=== PATIENT | male | born 1955 | race Caucasian/White ===

== ENCOUNTER 2018-11-03 07:19 | Day surgery (SDC) | payer MEDICAID ==
[2018-11-03] MEDS: Sodium Chloride 0.9% 10 ML Syringe FLUSH PRN (08:16)
[2018-11-03 09:31] VITALS: BP 157/81
--- NOTE | 2018-11-03 12:54 | OR ---
DATE OF PROCEDURE: 11/03/2018 POSTOPERATIVE CARE: Postoperative care will be provided mainly at the [address] [place] [address] [facility] in conjunction with [facility]. PREOPERATIVE DIAGNOSIS: Cataract, left eye. POSTOPERATIVE DIAGNOSIS: Cataract, left eye. PROCEDURE: Phacoemulsification with intraocular lens placement, left eye. ANESTHESIA: Topical and intracameral. ESTIMATED BLOOD LOSS: Minimal. COMPLICATIONS: None. PATHOLOGY SPECIMENS: None. SURGICAL FINDINGS: None. INDICATION FOR PROCEDURE: The patient is a 63-year-old male with history of a visually significant cataract in the left eye, which interfered with activities of daily living. This consisted of a nuclear sclerosis cataract. Following careful discussion of the risks, benefits and alternatives to cataract extraction with intraocular lens placement including blindness and , the patient elected to proceed, and informed, written consent was obtained prior to the procedure. DESCRIPTION OF THE PROCEDURE: The patient was previously identified, and a babita placed above the left eye. All sources, including the patient, indicated that the left eye was the correct eye. The patient was subsequently taken to the operating room where standard monitors were applied. The patient was then prepped and draped in the usual sterile fashion for ophthalmic surgery. Attention was first directed at the 12 o'clock position where a paracentesis port was fashioned. Shugar solution followed by Viscoat was instilled into the eye. Attention was then directed to the 8:30 position where a triplanar incision was made in a near-clear manner using a keratome. A continuous capsulorrhexis was then made using a combination of the cystotome and Utrata forceps. Hydrodissection was achieved using a balanced salt solution, and the lens rotated nicely. Phacoemulsification was then done using a modified [id number] technique without complication. Phaco time was 10.99 CDE. The remaining cortex was removed using the irrigation/aspiration handpiece. Provisc was then instilled into the eye. A Technis lens, model [id number], at 21.5 diopters was then placed in the capsular bag using an [place] injector. The remaining viscoelastic was removed using the irrigation/aspiration forceps. All wounds were then checked and found to be watertight. The lid speculum and drapes were removed. Maxitrol ointment was placed in the patient's left eye, and the eye was shielded. The patient tolerated the procedure well. The patient was instructed to follow up tomorrow. All needle and sponge counts were correct at the end of the procedure. Sylvia Segal MD /[id number]
== END 2018-11-03 09:34 | disposition home or self-care (01) ==
LOC: JP.SDS 07:19
PROVIDERS: ATTEND Ophthalmology
DX: H25.12 Age-related nuclear cataract, left eye (principal); I10 Essential (primary) hypertension; Z87.891 Personal history of nicotine dependence
CPT/HCPCS: V2632

== ENCOUNTER 2018-11-17 07:22 | Day surgery (SDC) | payer MEDICAID ==
[~2018-11-17 07:22] MED LIST: Sodium Chloride 0.9% 10 ML Syringe FLUSH PRN
[2018-11-17] MEDS ORDERED: Sodium Chloride 0.9% 10 ML Syringe FLUSH PRN (08:30)
[2018-11-17 09:05] VITALS: BP 122/69
--- NOTE | 2018-11-17 13:19 | OR ---
DATE OF PROCEDURE: 11/17/2018 POSTOPERATIVE CARE: Postoperative care will be provided mainly at the [address] [place] [address] [facility] in conjunction with [facility]. PREOPERATIVE DIAGNOSIS: Cataract, right eye. POSTOPERATIVE DIAGNOSIS: Cataract, right eye. PROCEDURE: Phacoemulsification with intraocular lens placement, right eye. ANESTHESIA: Topical and intracameral. ESTIMATED BLOOD LOSS: Minimal. COMPLICATIONS: None. PATHOLOGY SPECIMENS: None. SURGICAL FINDINGS: None. INDICATION FOR PROCEDURE: The patient is a 63-year-old male with history of a visually significant cataract in the right eye, which interfered with activities of daily living. This consisted of a nuclear sclerosis cataract. Following careful discussion of the risks, benefits and alternatives to cataract extraction with intraocular lens placement including blindness and , the patient elected to proceed, and informed, written consent was obtained prior to the procedure. DESCRIPTION OF THE PROCEDURE: The patient was previously identified, and a babita placed above the right eye. All sources, including the patient, indicated that the right eye was the correct eye. The patient was subsequently taken to the operating room where standard monitors were applied. The patient was then prepped and draped in the usual sterile fashion for ophthalmic surgery. Attention was first directed at the 12 o'clock position where a paracentesis port was fashioned. Shugar solution followed by Viscoat was instilled into the eye. Attention was then directed to the 8:30 position where a triplanar incision was made in a near-clear manner using a keratome. A continuous capsulorrhexis was then made using a combination of the cystotome and Utrata forceps. Hydrodissection was achieved using a balanced salt solution, and the lens rotated nicely. Phacoemulsification was then done using a modified [id number] technique without complication. Phaco time was 9.98 CDE. The remaining cortex was removed using the irrigation/aspiration handpiece. Provisc was then instilled into the eye. A Technis lens, model [id number], at 21.5 Diopters was then placed in the capsular bag using an [place] injector. The remaining viscoelastic was removed using the irrigation/aspiration forceps. All wounds were then checked and found to be watertight. The lid speculum and drapes were removed. Maxitrol ointment was placed in the patient's right eye, and the eye was shielded. The patient tolerated the procedure well. The patient was instructed to follow up tomorrow. All needle and sponge counts were correct at the end of the procedure. There were no surgical findings. Sylvia Segal MD /[id number]
== END 2018-11-17 09:15 | disposition home or self-care (01) ==
LOC: JP.SDS 07:22
PROVIDERS: ATTEND Ophthalmology
DX: H26.9 Unspecified cataract (principal)
CPT/HCPCS: 66984; V2632

== ENCOUNTER 2019-02-01 11:33 | Inpatient (IN) | payer MEDICAID ==
[2019-02-01] MEDS ORDERED: Diphtheria,Pertussis(Acell),Tetanus Vaccine 0.5 ML SDV IM ONE (12:10)
[2019-02-01] MEDS ORDERED: Lactated Ringers 1,000 ML IV SCH ×2 (12:15→22:21)
[2019-02-01] MEDS ORDERED: Acetaminophen/HYDROcodone 325-5 MG Tab PO ONE (12:34)
[2019-02-01] MEDS ORDERED: Ketorolac 30 MG/ML SDV IVPUSH ONE (12:34)
[2019-02-01] MEDS ORDERED: Metoprolol Succinate 50 MG Tab.ER PO ONE (12:39)
--- NOTE | 2019-02-01 12:40 | EDM.PDOC ---
ED HPI GENERAL MEDICAL PROBLEM - General Chief Complaint: General Stated Complaint: WEAKNESS Time Seen by Provider: 02/01/19 12:25 Source of Information: Reports: Patient, EMS, Old Records, RN History Limitations: Reports: No Limitations - History of Present Illness INITIAL COMMENTS - FREE TEXT/NARRATIVE: 63 yo male is brought in from his home after he fell last night and was unable to get up off the floor. Has some unilateral weakness chronically from an old neck injury. Lives alone. Is very weak now after spending the night on the floor without food/water. A health and social care teacher found him on the floor today. Has not had any of his meds today. Onset: Today Onset Date: 02/01/19 Duration: Hour(s):, Constant Location: Reports: Generalized (weakness) Quality: Reports: Other (chronic neck and back pain) Severity: Moderate Improves with: Reports: Medication Worsens with: Reports: Other (missing meds) Context: Reports: Other (see HPI) Associated Symptoms: Reports: Weakness (diffuse/generalized). Denies: Fever/ Chills Treatments STRIPPER SOFT PLASTIC: Reports: Other (see below) (none) Right Chest Pain Score (Numeric/FACES): 8 - Related Data Allergies Allergy/AdvReac Type Severity Reaction Status Date / Time No Known Allergies Allergy Verified 02/01/19 11:50 Home Meds: Home Meds Cyclobenzaprine HCl [Flexeril] 10 mg PO TID PRN 05/17/13 [History] Furosemide [Lasix] 20 mg PO DAILY 05/17/13 [History] Hydrocortisone [Cortef] 10 mg PO ACBRK 05/17/13 [History] Morphine [MS Contin] 15 mg PO Q12HR 05/17/13 [History] Metoprolol Succinate 50 mg PO DAILY 06/07/16 [History] Aspirin [Adult Aspirin] 81 mg PO DAILY 06/22/18 [History] Acetaminophen/HYDROcodone [[place] 325-5 MG] 1 tab PO Q4HR PRN 11/15/18 [History] Lifitegrast [Xiidra] 1 drop EYEBOTH QID 11/15/18 [History] Moxifloxacin [Vigamox 0.5% Ophth Soln] 1 drop EYEBOTH BID 11/15/18 [History] Tobramycin 1 drop EYEBOTH BID 11/15/18 [History] prednisoLONE acetate [Pred Forte 1% Ophth Susp] 1 drop EYEBOTH BID 11/15/18 [ History] Past Medical History HEENT History: Reports: Cataract, Impaired Vision Cardiovascular History: Reports: Hypertension, SOB on Exertion, Other (See Below ) Other Cardiovascular History: leaky valve Gastrointestinal History: Reports: Chronic Constipation Genitourinary History: Reports: None Musculoskeletal History: Reports: Arthritis, Back Pain, Chronic, Fracture, Neck Pain, Chronic Endocrine/Metabolic History: Reports: Obesity/BMI 30+ Hematologic History: Reports: Blood Transfusion(s) Dermatologic History: Reports: Eczema - Infectious Disease History Infectious Disease History: Reports: Chicken Pox, Measles, Mumps, Rubella - Past Surgical History HEENT Surgical History: Reports: Cataract Surgery GI Surgical History: Reports: Colonoscopy Neurological Surgical History: Reports: Lumbar Spine Musculoskeletal Surgical History: Reports: Arthroscopic Knee, Other (See Below) Other Musculoskeletal Surgeries/Procedures:: crushed vertibrae. neck surgery. right knee surgery Social & Family History - Family History Family Medical History: Noncontributory - Tobacco Use Smoking Status *Q: Never Smoker - Caffeine Use Caffeine Use: Reports: Coffee, Tea - Alcohol Use Days Per Week of Alcohol Use: 7 Number of Drinks Per Day: 2 Total Drinks Per Week: 14 - Recreational Drug Use Recreational Drug Use: No ED ROS GENERAL - Review of Systems Review Of Systems: See Below Constitutional: Reports: Weakness HEENT: Reports: No Symptoms Respiratory: Reports: No Symptoms Cardiovascular: Reports: No Symptoms Endocrine: Reports: No Symptoms GI/Abdominal: Reports: No Symptoms : Reports: No Symptoms Musculoskeletal: Reports: Neck Pain (chronic), Back Pain (chronic) Skin: Reports: Wound (R forearm and L cheek) Neurological: Reports: Weakness (R arm and leg chronically) Psychiatric: Reports: No Symptoms ED EXAM, GENERAL - Physical Exam Exam: See Below Exam Limited By: Uncooperative General Appearance: Alert, No Apparent Distress Eye Exam: Right Eye: Other (partially swollen shut from swelling of cheek contusion) Ears: Normal External Exam, Normal Canal, Hearing Grossly Normal Ear Exam: Bilateral Ear: Auricle Normal, Canal Normal Nose: Normal Inspection, No Blood Throat/Mouth: Normal Inspection, Normal Lips, Normal Voice, No Airway Compromise Head: Facial Swelling (R cheek), Facial Tenderness (R cheek) Neck: Normal Inspection, Limited Range of Motion (due to chronic neck issues) Respiratory/Chest: No Respiratory Distress, Lungs Clear, Normal Breath Sounds, No Accessory Muscle Use Cardiovascular: Regular Rate, Rhythm, No Edema GI/Abdominal: Normal Bowel Sounds, Soft, Non-Tender, No Distention Back Exam: Normal Inspection. No: CVA Tenderness (R), CVA Tenderness (L) Extremities: Normal Inspection, Normal Range of Motion, Non-Tender, No Pedal Edema Neurological: Alert, Oriented, CN II-XII Intact, Normal Cognition Psychiatric: Normal Affect, Normal Mood Skin Exam: Warm, Dry, Normal Color, No Rash, Wound/Incision (skin tear R lateral forearm, bruising R cheek) Course - Vital Signs Text/Narrative:: Dr. Adorno called @ 1332h Last Recorded V/S: Last Vital Signs Temp 36.9 C 02/01/19 11:49 Pulse 100 02/01/19 15:41 Resp 20 02/01/19 14:07 BP 141/79 H 02/01/19 15:41 Pulse Ox 95 02/01/19 15:41 - Orders/Labs/Meds Orders: Active Orders 24 hr Category Date Time Status Vaccines to be Administered [RC] PER UNIT ROUTINE Care 02/01/19 12:10 Active Lactated Ringers [Ringers, Lactated] 1,000 ml Med 02/01/19 12:15 Active IV ASDIRECTED Medication Orders Lactated Ringer's (Ringers, Lactated) 1,000 mls @ 500 mls/hr IV ASDIRECTED NIKHIL Last Admin: 02/01/19 13:33 Dose: 500 mls/hr Labs: Laboratory Tests 02/01/19 02/01/19 02/01/19 Range/Units 12:24 12:48 12:48 WBC 11.6 H (4.5-11.0) K/uL RBC 4.70 (4.30-5.90) M/uL Hgb 14.0 (12.0-15.0) g/dL Hct 41.9 (40.0-54.0) % MCV 89 (80-98) fL MCH 30 (27-31) pg MCHC 33 (32-36) % Plt Count 168 (150-400) K/uL Sodium 135 L (140-148) mmol/L Potassium 3.3 L (3.6-5.2) mmol/L Chloride 99 L (100-108) mmol/L Carbon Dioxide 24 (21-32) mmol/L Anion Gap 15.3 H (5.0-14.0) mmol/L BUN 8 (7-18) mg/dL Creatinine 1.1 (0.8-1.3) mg/dL Est Cr Clr Drug Dosing 74.46 mL/min Estimated GFR (MDRD) > 60 (>60) Glucose 119 H (74-106) mg/dL Calcium 8.7 (8.5-10.1) mg/dL Creatine Kinase (39-308) U/L Urine Color Yellow Urine Appearance Slightly cloudy Urine pH 5.0 (4.5-8.0) Ur Specific [place] 1.020 (1.008-1.030) Urine Protein Trace (NEGATIVE) mg/dL Urine Glucose (UA) Normal (NEGATIVE) mg/dL Urine Ketones 50 H (NEGATIVE) mg/dL Urine Occult Blood Large (NEGATIVE) Urine Nitrite Negative (NEGAITVE) Urine Bilirubin Negative (NEGATIVE) Urine Urobilinogen Normal (NORMAL) mg/dL Ur Leukocyte Esterase Negative (NEGATIVE) Urine RBC 50-75 H (0-5) Urine WBC 0-5 (0-5) Ur Epithelial Cells Rare Amorphous Sediment Not seen Urine Bacteria Not seen Urine Mucus Not seen Urine Other 02/01/19 Range/Units 12:48 WBC (4.5-11.0) K/uL RBC (4.30-5.90) M/uL Hgb (12.0-15.0) g/dL Hct (40.0-54.0) % MCV (80-98) fL MCH (27-31) pg MCHC (32-36) % Plt Count (150-400) K/uL Sodium (140-148) mmol/L Potassium (3.6-5.2) mmol/L Chloride (100-108) mmol/L Carbon Dioxide (21-32) mmol/L Anion Gap (5.0-14.0) mmol/L BUN (7-18) mg/dL Creatinine (0.8-1.3) mg/dL Est Cr Clr Drug Dosing mL/min Estimated GFR (MDRD) (>60) Glucose (74-106) mg/dL Calcium (8.5-10.1) mg/dL Creatine Kinase 2107 H (39-308) U/L Urine Color Urine Appearance Urine pH (4.5-8.0) Ur Specific [place] (1.008-1.030) Urine Protein (NEGATIVE) mg/dL Urine Glucose (UA) (NEGATIVE) mg/dL Urine Ketones (NEGATIVE) mg/dL Urine Occult Blood (NEGATIVE) Urine Nitrite (NEGAITVE) Urine Bilirubin (NEGATIVE) Urine Urobilinogen (NORMAL) mg/dL Ur Leukocyte Esterase (NEGATIVE) Urine RBC (0-5) Urine WBC (0-5) Ur Epithelial Cells Amorphous Sediment Urine Bacteria Urine Mucus Urine Other Meds: Medications Generic Name Dose Route Start Last Admin Trade Name Freq PRN Reason Stop Dose Admin Lactated Ringer's 1,000 mls @ 500 mls/hr 02/01/19 12:15 02/01/19 13:33 Ringers, Lactated IV 500 mls/hr ASDIRECTED NIKHIL Administration Discontinued Medications Generic Name Dose Route Start Last Admin Trade Name Freq PRN Reason Stop Dose Admin Hydrocodone Bitart/Acetaminophen 1 tab 02/01/19 12:34 02/01/19 13:22 [place] 325-5 Mg PO 02/01/19 12:35 1 tab ONETIME ONE Administration Bacitracin 2 dose 02/01/19 13:38 Bacitracin Oint 1 Gm TOP 02/01/19 13:39 ONETIME ONE Bacitracin 2 dose 02/01/19 16:00 Bacitracin Oint 1 Gm TOP 02/01/19 16:01 ONETIME ONE Diphtheria/Tetanus/Acell Pertussis 0.5 ml 02/01/19 12:10 02/01/19 13:24 Adacel IM 02/01/19 12:11 0.5 ml .ONCE ONE Administration Hydrocortisone 10 mg 02/01/19 12:38 02/01/19 13:50 Cortef PO 02/01/19 12:39 10 mg NOW STA Administration Ketorolac Tromethamine 30 mg 02/01/19 12:34 02/01/19 13:23 Toradol IVPUSH 02/01/19 12:35 30 mg ONETIME ONE Administration Metoprolol Succinate 50 mg 02/01/19 12:39 02/01/19 13:49 Toprol Xl PO 02/01/19 12:40 50 mg ONETIME ONE Administration Departure - Departure Time of Disposition: 16:16 Disposition: Admitted As Inpatient 65 Condition: Fair Clinical Impression: Elevated CPK, Microscopic hematuria, Bruising, Hypokalemia Skin tear of right forearm without complication Qualifiers: Encounter type: initial encounter Qualified Code(s): S51.811A - Laceration without foreign body of right forearm, initial encounter - Discharge Information - My Orders Last 24 Hours: My Active Orders 02/01/19 12:10 Vaccines to be Administered [RC] PER UNIT ROUTINE 02/01/19 12:15 Lactated Ringers [Ringers, Lactated] 1,000 ml IV ASDIRECTED - Assessment/Plan Last 24 Hours: My Active Orders 02/01/19 12:10 Vaccines to be Administered [RC] PER UNIT ROUTINE 02/01/19 12:15 Lactated Ringers [Ringers, Lactated] 1,000 ml IV ASDIRECTED
[2019-02-01] MEDS ORDERED: Bacitracin Oint 1 GM U/D Packet TOP ONE ×2 (13:38→16:00)
--- NOTE | 2019-02-01 15:02 | PCM.HP ---
H&P History of Present Illness - General Date of Service: 02/01/19 Admit Problem/Dx: Admission Diagnosis/Problem Admission Diagnosis/Problem Rhabdomyolysis Source of Information: Patient, Provider, RN Notes Reviewed History Limitations: Reports: No Limitations - History of Present Illness Initial Comments - Free Text/Narative: Mr. Wilcox is a 63-year-old gentleman who was admitted through the emergency department with rhabdomyolysis secondary to a fall suffered at home. He has a history of right-sided weakness following a cervical spinal cord injury and typically walks with use of a cane. He has very limited use of his right upper extremity. When he moves around the house typically uses things in the house to support himself, instead of using a cane. Last night he is leaning onto a chair by his bed that was covered by a shirt. The shirt slipped off the chair and he fell to the ground hitting his head on the bed stand on the way down. Because of his right-sided weakness he was unable to get up off the floor spent the night there. He was found in the late morning and brought into the emergency department for further evaluation. Urinalysis shows evidence of microscopic hematuria which will need to be followed and likely further evaluated. CK level was elevated at 2100. He experienced significant bruising and ecchymosis of his right face, with a skin tear on his right forearm. Right Chest Pain Score (Numeric/FACES): 8 - Related Data Allergies/Adverse Reactions: Allergies Allergy/AdvReac Type Severity Reaction Status Date / Time No Known Allergies Allergy Verified 02/01/19 11:50 Home Medications: Home Meds Cyclobenzaprine HCl [Flexeril] 10 mg PO TID PRN 05/17/13 [History] Furosemide [Lasix] 20 mg PO DAILY 05/17/13 [History] Hydrocortisone [Cortef] 10 mg PO ACBRK 05/17/13 [History] Morphine [MS Contin] 15 mg PO Q12HR 05/17/13 [History] Metoprolol Succinate 50 mg PO DAILY 06/07/16 [History] Aspirin [Adult Aspirin] 81 mg PO DAILY 06/22/18 [History] Acetaminophen/HYDROcodone [[place] 325-5 MG] 1 tab PO Q4HR PRN 11/15/18 [History] Lifitegrast [Xiidra] 1 drop EYEBOTH QID 11/15/18 [History] Moxifloxacin [Vigamox 0.5% Ophth Soln] 1 drop EYEBOTH BID 11/15/18 [History] Tobramycin 1 drop EYEBOTH BID 11/15/18 [History] prednisoLONE acetate [Pred Forte 1% Ophth Susp] 1 drop EYEBOTH BID 11/15/18 [ History] Past Medical History HEENT History: Reports: Cataract, Impaired Vision Cardiovascular History: Reports: Hypertension, SOB on Exertion, Other (See Below ) Other Cardiovascular History: leaky valve Gastrointestinal History: Reports: Chronic Constipation Genitourinary History: Reports: None Musculoskeletal History: Reports: Arthritis, Back Pain, Chronic, Fracture, Neck Pain, Chronic Endocrine/Metabolic History: Reports: Obesity/BMI 30+ Hematologic History: Reports: Blood Transfusion(s) Dermatologic History: Reports: Eczema - Infectious Disease History Infectious Disease History: Reports: Chicken Pox, Measles, Mumps, Rubella - Past Surgical History HEENT Surgical History: Reports: Cataract Surgery GI Surgical History: Reports: Colonoscopy Neurological Surgical History: Reports: Lumbar Spine Musculoskeletal Surgical History: Reports: Arthroscopic Knee, Other (See Below) Other Musculoskeletal Surgeries/Procedures:: crushed vertibrae. neck surgery. right knee surgery Social & Family History - Family History Family Medical History: Noncontributory - Tobacco Use Smoking Status *Q: Never Smoker - Caffeine Use Caffeine Use: Reports: Coffee, Tea - Alcohol Use Days Per Week of Alcohol Use: 7 Number of Drinks Per Day: 2 Total Drinks Per Week: 14 - Recreational Drug Use Recreational Drug Use: No H&P Review of Systems - Review of Systems: Review Of Systems: See Below General: Reports: No Symptoms HEENT: Reports: No Symptoms Pulmonary: Reports: No Symptoms Cardiovascular: Reports: No Symptoms Gastrointestinal: Reports: No Symptoms Genitourinary: Reports: No Symptoms Musculoskeletal: Reports: No Symptoms Skin: Reports: No Symptoms Psychiatric: Reports: No Symptoms Neurological: Reports: No Symptoms Hematologic/Lymphatic: Reports: No Symptoms Immunologic: Reports: No Symptoms Exam - Exam Exam: See Below - Vital Signs Vital Signs: Last Vital Signs Temp 98.4 F 02/01/19 11:49 Pulse 95 02/01/19 14:07 Resp 20 02/01/19 14:07 BP 117/73 02/01/19 14:07 Pulse Ox 95 02/01/19 14:07 Weight: 277 lb - Exam Quality Assessment: DVT Prophylaxis General: Alert, Oriented, Cooperative, Mild Distress HEENT: Mucosa Moist & [place], Normal Nasal Septum, Posterior Pharynx Clear, Pupils Equal, Other (Significant ecchymosis and swelling of the right face) Neck: Supple, Trachea Midline, +2 Carotid Pulse wo Bruit Lungs: Clear to Auscultation, Normal Respiratory Effort Cardiovascular: Regular Rate, Regular Rhythm, Normal S1, Normal S2. No: Systolic Murmur, Diastolic Murmur GI/Abdominal Exam: Soft, Non-Tender, No Organomegaly, No Distention Extremities: Non-Tender, No Pedal Edema, Other (Skin tear right forearm) Skin: Warm, Dry Neurological: Cranial Nerves Intact, Normal Speech. No: Strength Equal Bilateral (Weakness right upper extremity and right lower extremity), Normal Tone Neuro Extensive - Mental Status: Alert, Oriented x3, Normal Mood/Affect, Normal Cognition, Memory Intact - Patient Data Lab Results Last 24 hrs: Laboratory Results - last 24 hr 02/01/19 02/01/19 02/01/19 Range/Units 12:24 12:48 12:48 WBC 11.6 H (4.5-11.0) K/uL RBC 4.70 (4.30-5.90) M/uL Hgb 14.0 (12.0-15.0) g/dL Hct 41.9 (40.0-54.0) % MCV 89 (80-98) fL MCH 30 (27-31) pg MCHC 33 (32-36) % Plt Count 168 (150-400) K/uL Sodium 135 L (140-148) mmol/L Potassium 3.3 L (3.6-5.2) mmol/L Chloride 99 L (100-108) mmol/L Carbon Dioxide 24 (21-32) mmol/L Anion Gap 15.3 H (5.0-14.0) mmol/L BUN 8 (7-18) mg/dL Creatinine 1.1 (0.8-1.3) mg/dL Est Cr Clr Drug Dosing 74.46 mL/min Estimated GFR (MDRD) > 60 (>60) Glucose 119 H (74-106) mg/dL Calcium 8.7 (8.5-10.1) mg/dL Creatine Kinase (39-308) U/L Urine Color Yellow Urine Appearance Slightly cloudy Urine pH 5.0 (4.5-8.0) Ur Specific [place] 1.020 (1.008-1.030) Urine Protein Trace (NEGATIVE) mg/dL Urine Glucose (UA) Normal (NEGATIVE) mg/dL Urine Ketones 50 H (NEGATIVE) mg/dL Urine Occult Blood Large (NEGATIVE) Urine Nitrite Negative (NEGAITVE) Urine Bilirubin Negative (NEGATIVE) Urine Urobilinogen Normal (NORMAL) mg/dL Ur Leukocyte Esterase Negative (NEGATIVE) Urine RBC 50-75 H (0-5) Urine WBC 0-5 (0-5) Ur Epithelial Cells Rare Amorphous Sediment Not seen Urine Bacteria Not seen Urine Mucus Not seen Urine Other 02/01/19 Range/Units 12:48 WBC (4.5-11.0) K/uL RBC (4.30-5.90) M/uL Hgb (12.0-15.0) g/dL Hct (40.0-54.0) % MCV (80-98) fL MCH (27-31) pg MCHC (32-36) % Plt Count (150-400) K/uL Sodium (140-148) mmol/L Potassium (3.6-5.2) mmol/L Chloride (100-108) mmol/L Carbon Dioxide (21-32) mmol/L Anion Gap (5.0-14.0) mmol/L BUN (7-18) mg/dL Creatinine (0.8-1.3) mg/dL Est Cr Clr Drug Dosing mL/min Estimated GFR (MDRD) (>60) Glucose (74-106) mg/dL Calcium (8.5-10.1) mg/dL Creatine Kinase 2107 H (39-308) U/L Urine Color Urine Appearance Urine pH (4.5-8.0) Ur Specific [place] (1.008-1.030) Urine Protein (NEGATIVE) mg/dL Urine Glucose (UA) (NEGATIVE) mg/dL Urine Ketones (NEGATIVE) mg/dL Urine Occult Blood (NEGATIVE) Urine Nitrite (NEGAITVE) Urine Bilirubin (NEGATIVE) Urine Urobilinogen (NORMAL) mg/dL Ur Leukocyte Esterase (NEGATIVE) Urine RBC (0-5) Urine WBC (0-5) Ur Epithelial Cells Amorphous Sediment Urine Bacteria Urine Mucus Urine Other Result Diagrams: 02/01/19 12:48 02/01/19 12:48 *Q Meaningful Use (ADM) - VTE Risk Assess *Q Each Risk Factor Represents 1 Point: Obesity ( BMI > 25 kg/m2) Total Score 1 Point Risk Factors: 1 Each Risk Factor Represents 2 Points: Age 60 - 74 Years Total Score 2 Point Risk Factors: 2 Each Risk Factor Represents 3 Points: None Total Score 3 Point Risk Factors: 0 Each Risk Factor Represents 5 Points: None Total Score 5 Point Risk Factors: 0 Venous Thromboembolism Risk Factor Score *Q: 3 Problem List Initiated/Reviewed/Updated: Yes Orders Last 24hrs: Active Orders 24 hr Category Date Time Status Patient Status Manage Transfer [TRANSFER] Routine ADT 02/01/19 14:55 Ordered Vaccines to be Administered [RC] PER UNIT ROUTINE Care 02/01/19 12:10 Active Lactated Ringers [Ringers, Lactated] 1,000 ml Med 02/01/19 12:15 Active IV ASDIRECTED Resuscitation Status Routine Resus Stat 02/01/19 14:58 Ordered Medication Orders Lactated Ringer's (Ringers, Lactated) 1,000 mls @ 500 mls/hr IV ASDIRECTED NIKHIL Last Admin: 02/01/19 13:33 Dose: 500 mls/hr Assessment/Plan Comment:: ASSESSMENT AND PLAN RHABDOMYELOLYSIS-secondary to a fall at home and having spent the night on the floor. -Vigorous IV hydration -Recheck CK level in a.m. MICROSCOPIC HEMATURIA-denies significant back pain -Recheck urinalysis after a few days -May need outpatient follow-up with urology RIGHT-SIDED WEAKNESS SECONDARY TO PREVIOUS SPINAL CORD INJURY MAINTENANCE ISSUES -DVT prophylaxis; Lovenox 40 mg subcutaneous daily -GI prophylaxis; not indicated -Chu catheter; not indicated -Nutrition; regular diet -Nicotine dependence; not required CODE STATUS-FULL CODE ADMISSION STATUS-patient will be admitted to inpatient status, expect at least a 2 night hospital stay for evaluation and management of problems as outlined above. At the time of this admission I do not reasonably expected evaluation and management of this problem will require more than a 96 hour hospital stay. DISPOSITION-anticipate discharge to home after the hospital stay. PRIMARY CARE PROVIDER-
[2019-02-01] MEDS ORDERED: Ondansetron 4 MG/2 ML SDV IV PRN (16:19)
[2019-02-01] MEDS ORDERED: Polyethylene Glycol 3350 Powder 17 GM Packet PO PRN (16:19)
[2019-02-01] MEDS ORDERED: Sodium Chloride 0.9% 10 ML Syringe FLUSH PRN (16:19)
[2019-02-01] MEDS ORDERED: Acetaminophen 325 MG Tab PO PRN (16:19)
[2019-02-01] MEDS: Lactated Ringers 1,000 ML IV SCH ×2 (16:50→20:33)
[2019-02-01] MEDS: Acetaminophen/HYDROcodone 325-5 MG Tab PO PRN (17:26)
[2019-02-01] MEDS: Enoxaparin 40 MG/0.4 ML Syringe SUBCUT SCH (20:10)
[2019-02-01] MEDS: Morphine 15 MG Tab.ER PO SCH (20:10)
[2019-02-02] MEDS: Lactated Ringers 1,000 ML IV SCH ×2 (00:33→08:59)
[2019-02-02] MEDS: Furosemide 20 MG Tab PO SCH (08:50)
[2019-02-02] MEDS: Acetaminophen/HYDROcodone 325-5 MG Tab PO PRN ×3 (08:50→17:58)
[2019-02-02] MEDS: Aspirin 81 MG Tab.EC PO SCH (08:51)
[2019-02-02] MEDS: Metoprolol Succinate 50 MG Tab.ER PO SCH (08:51)
[2019-02-02] MEDS: Morphine 15 MG Tab.ER PO SCH ×2 (08:56→20:12)
[2019-02-02] MEDS ORDERED: Potassium Chloride 20 MEQ Tab.ER PO ONE ×2 (09:00→17:00)
--- NOTE | 2019-02-02 12:38 | PCM.PN ---
- General Info Date of Service: 02/02/19 Subjective Update: Mr. Wilcox has remained stable since admission, CK level has come down to 1500, renal function stable. Potassium level remains mildly low and he is receiving oral potassium supplement. He reports that he is much more stiff and achy than he had been yesterday. Functional Status: Reports: Tolerating Diet, Urinating - Review of Systems General: Reports: Weakness. Denies: Fever, Chills Pulmonary: Reports: No Symptoms Cardiovascular: Reports: No Symptoms Gastrointestinal: Reports: No Symptoms Musculoskeletal: Reports: Other (Diffuse muscular pain) - Patient Data Vitals - Most Recent: Last Vital Signs Temp 97.5 F 02/02/19 11:49 Pulse 75 02/02/19 11:49 Resp 18 02/02/19 11:49 BP 139/71 02/02/19 11:49 Pulse Ox 96 02/02/19 11:49 Weight - Most Recent: 277 lb 1.584 oz I&O - Last 24 Hours: Intake & Output 02/01/19 02/02/19 02/02/19 22:59 06:59 14:59 Intake Total 150 2638 240 Balance 150 2638 240 Lab Results Last 24 Hours: Laboratory Results - last 24 hr 02/01/19 02/01/19 02/01/19 Range/Units 12:24 12:48 12:48 WBC 11.6 H (4.5-11.0) K/uL RBC 4.70 (4.30-5.90) M/uL Hgb 14.0 (12.0-15.0) g/dL Hct 41.9 (40.0-54.0) % MCV 89 (80-98) fL MCH 30 (27-31) pg MCHC 33 (32-36) % Plt Count 168 (150-400) K/uL Neut % (Auto) (36-66) % Lymph % (Auto) (24-44) % [place] % (Auto) (2-6) % Eos % (Auto) (2-4) % Baso % (Auto) (0-1) % Sodium 135 L (140-148) mmol/L Potassium 3.3 L (3.6-5.2) mmol/L Chloride 99 L (100-108) mmol/L Carbon Dioxide 24 (21-32) mmol/L Anion Gap 15.3 H (5.0-14.0) mmol/L BUN 8 (7-18) mg/dL Creatinine 1.1 (0.8-1.3) mg/dL Est Cr Clr Drug Dosing 74.46 mL/min Estimated GFR (MDRD) > 60 (>60) Glucose 119 H (74-106) mg/dL Calcium 8.7 (8.5-10.1) mg/dL Creatine Kinase (39-308) U/L Urine Color Yellow Urine Appearance Slightly cloudy Urine pH 5.0 (4.5-8.0) Ur Specific [place] 1.020 (1.008-1.030) Urine Protein Trace (NEGATIVE) mg/dL Urine Glucose (UA) Normal (NEGATIVE) mg/dL Urine Ketones 50 H (NEGATIVE) mg/dL Urine Occult Blood Large (NEGATIVE) Urine Nitrite Negative (NEGAITVE) Urine Bilirubin Negative (NEGATIVE) Urine Urobilinogen Normal (NORMAL) mg/dL Ur Leukocyte Esterase Negative (NEGATIVE) Urine RBC 50-75 H (0-5) Urine WBC 0-5 (0-5) Ur Epithelial Cells Rare Amorphous Sediment Not seen Urine Bacteria Not seen Urine Mucus Not seen Urine Other 02/01/19 02/02/19 02/02/19 Range/Units 12:48 04:40 05:11 WBC 7.8 (4.5-11.0) K/uL RBC 4.04 L (4.30-5.90) M/uL Hgb 12.2 (12.0-15.0) g/dL Hct 36.7 L (40.0-54.0) % MCV 91 (80-98) fL MCH 30 (27-31) pg MCHC 33 (32-36) % Plt Count 134 L (150-400) K/uL Neut % (Auto) 55 (36-66) % Lymph % (Auto) 35 (24-44) % [place] % (Auto) 8 H (2-6) % Eos % (Auto) 1 L (2-4) % Baso % (Auto) 0 (0-1) % Sodium 140 (140-148) mmol/L Potassium 3.4 L (3.6-5.2) mmol/L Chloride 106 (100-108) mmol/L Carbon Dioxide 29 (21-32) mmol/L Anion Gap 8.4 (5.0-14.0) mmol/L BUN 8 (7-18) mg/dL Creatinine 0.8 (0.8-1.3) mg/dL Est Cr Clr Drug Dosing 105.42 mL/min Estimated GFR (MDRD) > 60 (>60) Glucose 101 (74-106) mg/dL Calcium 8.6 (8.5-10.1) mg/dL Creatine Kinase 2107 H 1598 H (39-308) U/L Urine Color Urine Appearance Urine pH (4.5-8.0) Ur Specific [place] (1.008-1.030) Urine Protein (NEGATIVE) mg/dL Urine Glucose (UA) (NEGATIVE) mg/dL Urine Ketones (NEGATIVE) mg/dL Urine Occult Blood (NEGATIVE) Urine Nitrite (NEGAITVE) Urine Bilirubin (NEGATIVE) Urine Urobilinogen (NORMAL) mg/dL Ur Leukocyte Esterase (NEGATIVE) Urine RBC (0-5) Urine WBC (0-5) Ur Epithelial Cells Amorphous Sediment Urine Bacteria Urine Mucus Urine Other Med Orders - Current: Current Medications Acetaminophen (Tylenol) 650 mg PO Q4H PRN PRN Reason: Pain (Mild 1-3)/fever Hydrocodone Bitart/Acetaminophen ([place] 325-5 Mg) 1 tab PO Q4H PRN PRN Reason: Pain Last Admin: 02/02/19 08:50 Dose: 1 tab Aspirin (Halfprin) 81 mg PO DAILY [facility] Last Admin: 02/02/19 08:51 Dose: 81 mg Enoxaparin Sodium (Lovenox) 40 mg SUBCUT Q24H [facility] Last Admin: 02/01/19 20:10 Dose: 40 mg Furosemide (Lasix) 20 mg PO DAILY [facility] Last Admin: 02/02/19 08:50 Dose: 20 mg Hydrocortisone (Cortef) 10 mg PO ACBREAKFAST [facility] Last Admin: 02/02/19 08:50 Dose: 10 mg Metoprolol Succinate (Toprol Xl) 50 mg PO DAILY [facility] Last Admin: 02/02/19 08:51 Dose: 50 mg Morphine Sulfate (Ms Contin) 15 mg PO Q12H [facility] Last Admin: 02/02/19 08:56 Dose: 15 mg Ondansetron HCl (Zofran) 4 mg IV Q4H PRN PRN Reason: Nausea/Vomiting Polyethylene Glycol (Miralax) 17 gm PO DAILY PRN PRN Reason: Constipation Potassium Chloride (Klor-Con M20) 40 meq PO ONETIME ONE Stop: 02/02/19 17:01 Sodium Chloride (Saline Flush) 10 ml FLUSH ASDIRECTED PRN PRN Reason: Keep Vein Open Discontinued Medications Hydrocodone Bitart/Acetaminophen ([place] 325-5 Mg) 1 tab PO ONETIME ONE Stop: 02/01/19 12:35 Last Admin: 02/01/19 13:22 Dose: 1 tab Bacitracin (Bacitracin Oint 1 Gm) 2 dose TOP ONETIME ONE Stop: 02/01/19 13:39 Last Admin: 02/01/19 16:34 Dose: Not Given Bacitracin (Bacitracin Oint 1 Gm) 2 dose TOP ONETIME ONE Stop: 02/01/19 16:01 Last Admin: 02/01/19 16:54 Dose: Not Given Diphtheria/Tetanus/Acell Pertussis (Adacel) 0.5 ml IM .ONCE ONE Stop: 02/01/19 12:11 Last Admin: 02/01/19 13:24 Dose: 0.5 ml Hydrocortisone (Cortef) 10 mg PO NOW STA Stop: 02/01/19 12:39 Last Admin: 02/01/19 13:50 Dose: 10 mg Lactated Ringer's (Ringers, Lactated) 1,000 mls @ 500 mls/hr IV ASDIRECTED [facility] Last Admin: 02/01/19 13:33 Dose: 500 mls/hr Lactated Ringer's (Ringers, Lactated) 1,000 mls @ 250 mls/hr IV ASDIRECTED [facility] Stop: 02/01/19 22:20 Last Admin: 02/01/19 20:33 Dose: 250 mls/hr Lactated Ringer's (Ringers, Lactated) 1,000 mls @ 125 mls/hr IV ASDIRECTED NIKHLI Stop: 02/01/19 22:22 Lactated Ringer's (Ringers, Lactated) 1,000 mls @ 125 mls/hr IV ASDIRECTED [facility] Last Admin: 02/02/19 08:59 Dose: 125 mls/hr Ketorolac Tromethamine (Toradol) 30 mg IVPUSH ONETIME ONE Stop: 02/01/19 12:35 Last Admin: 02/01/19 13:23 Dose: 30 mg Metoprolol Succinate (Toprol Xl) 50 mg PO ONETIME ONE Stop: 02/01/19 12:40 Last Admin: 02/01/19 13:49 Dose: 50 mg Potassium Chloride (Klor-Con M20) 40 meq PO ONETIME ONE Stop: 02/02/19 09:01 Last Admin: 02/02/19 08:56 Dose: 40 meq - Exam Quality Assessment: DVT Prophylaxis General: Alert, Oriented, Cooperative, Moderate Distress HEENT: Other (Right facial swelling and ecchymosis) Lungs: Clear to Auscultation, Normal Respiratory Effort Cardiovascular: Regular Rate, Regular Rhythm, Murmurs (2/6 systolic murmur left sternal border) GI/Abdominal Exam: Soft, Non-Tender, No Organomegaly, No Distention Extremities: Non-Tender, No Pedal Edema - Problem List Review Problem List Initiated/Reviewed/Updated: Yes - My Orders Last 24 Hours: My Active Orders 02/01/19 14:58 Resuscitation Status Routine 02/01/19 16:19 Patient Status [ADT] Routine Ambulate [RC] QID Height and Weight [RC] DAILY Intake and Output [RC] QSHIFT Notify Provider Vital Signs [RC] ASDIRECTED Oxygen Therapy [RC] PRN Peripheral IV Care [RC] . DIRECTED Up With Assistance [RC] ASDIRECTED Up to Chair [RC] QID VTE/DVT Education [RC] Per Unit Routine Vital Signs [RC] Q4H PT Evaluation and Treatment [CONS] Routine Acetaminophen [Tylenol] 650 mg PO Q4H PRN Acetaminophen/HYDROcodone [[place] 325-5 MG] 1 tab PO Q4H PRN Ondansetron [Zofran] 4 mg IV Q4H PRN Polyethylene Glycol 3350 [MiraLAX] 17 gm PO DAILY PRN Sodium Chloride 0.9% [Saline Flush] 10 ml FLUSH ASDIRECTED PRN Peripheral IV Insertion Adult [OM.PC] Routine 02/01/19 20:00 Enoxaparin [Lovenox] 40 mg SUBCUT Q24H Morphine [MS Contin] 15 mg PO Q12H 02/01/19 Lunch Regular Diet [DIET] 02/02/19 07:30 Hydrocortisone [Cortef] 10 mg PO ACBREAKFAST 02/02/19 09:00 Aspirin [Halfprin] 81 mg PO DAILY Furosemide [Lasix] 20 mg PO DAILY Metoprolol Succinate [Toprol XL] 50 mg PO DAILY 02/02/19 12:35 POTASSIUM,K [CHEM] Timed 02/02/19 12:45 Lactated Ringers [Ringers, Lactated] 1,000 ml IV ASDIRECTED 02/02/19 17:00 Potassium Chloride [Klor-Con M20] 40 meq PO ONETIME ONE 02/03/19 05:00 CREATINE KINASE,CK [CHEM] Timed - Plan Plan:: ASSESSMENT AND PLAN RHABDOMYELOLYSIS-secondary to a fall at home and having spent the night on the floor. -Decrease IV fluids to 50 mL per hour -Recheck CK level in a.m. MICROSCOPIC HEMATURIA-denies significant back pain -Recheck urinalysis in a.m. -May need outpatient follow-up with urology RIGHT-SIDED WEAKNESS SECONDARY TO PREVIOUS SPINAL CORD INJURY MAINTENANCE ISSUES -DVT prophylaxis; Lovenox 40 mg subcutaneous daily -GI prophylaxis; not indicated -Chu catheter; not indicated -Nutrition; regular diet -Nicotine dependence; not required CODE STATUS-FULL CODE ADMISSION STATUS-patient will be admitted to inpatient status, expect at least a 2 night hospital stay for evaluation and management of problems as outlined above. At the time of this admission I do not reasonably expected evaluation and management of this problem will require more than a 96 hour hospital stay. DISPOSITION-anticipate discharge to home after the hospital stay. PRIMARY CARE PROVIDER-
[2019-02-02] MEDS ORDERED: Lactated Ringers 1,000 ML IV SCH (12:45)
[2019-02-02] MEDS: XIIDRA EYE EYEBOTH SCH (20:07)
[2019-02-02] MEDS: Enoxaparin 40 MG/0.4 ML Syringe SUBCUT SCH (20:07)
[2019-02-03] MEDS: Morphine 15 MG Tab.ER PO SCH (08:03)
[2019-02-03] MEDS: Aspirin 81 MG Tab.EC PO SCH (08:09)
[2019-02-03] MEDS: Furosemide 20 MG Tab PO SCH (08:09)
[2019-02-03] MEDS: Metoprolol Succinate 50 MG Tab.ER PO SCH (08:10)
[2019-02-03] MEDS: XIIDRA EYE EYEBOTH SCH (08:10)
[2019-02-03] MEDS: Acetaminophen/HYDROcodone 325-5 MG Tab PO PRN ×2 (09:51→13:32)
--- NOTE | 2019-02-03 10:37 | PCM.DCSUM1 ---
Discharge Summary - Hospital Course Brief History: Mr. Wilcox is a 63-year-old gentleman who was admitted through the emergency department with weakness and pain secondary to a fall at home resulting in rhabdomyolysis. - Discharge Data Discharge Date: 02/03/19 Discharge Disposition: Home, Self-Care 01 Condition: Fair - Discharge Diagnosis/Problem(s) (1) Rhabdomyolysis SNOMED Code(s): 047627376 ICD Code: M62.82 - RHABDOMYOLYSIS Status: Acute Current Visit: Yes (2) Chronic narcotic dependence SNOMED Code(s): 75481649, 54505853 ICD Code: F11.20 - OPIOID DEPENDENCE, UNCOMPLICATED Status: Acute Current Visit: No (3) Microscopic hematuria SNOMED Code(s): 780954107 ICD Code: R31.29 - OTHER MICROSCOPIC HEMATURIA Status: Acute Current Visit: Yes (4) Skin tear of right forearm without complication SNOMED Code(s): 819393245 ICD Code: S51.811A - LACERATION W/O FOREIGN BODY OF RIGHT FOREARM, INIT ENCNTR Status: Acute Current Visit: Yes Qualifiers: Encounter type: initial encounter Qualified Code(s): S51.811A - Laceration without foreign body of right forearm, initial encounter (5) Hypokalemia SNOMED Code(s): 01083615 ICD Code: E87.6 - HYPOKALEMIA Status: Acute Current Visit: Yes - Patient Summary/Data Consults: Consultations 02/01/19 16:19 PT Evaluation and Treatment [CONS] Routine Please Evaluate and Treat. PT Reason for Consult: Weakness This query below is only for informational purposes and is not editable. Hospital Course: Mr. Wilcox is a 63-year-old gentleman who was admitted through the emergency department with rhabdomyolysis secondary to a fall suffered at home. He has a history of right-sided weakness following a cervical spinal cord injury and typically walks with use of a cane. He has very limited use of his right upper extremity. When he moves around the house typically uses things in the house to support himself, instead of using a cane. Last night he was leaning onto a chair by his bed that was covered by a shirt. The shirt slipped off the chair and he fell to the ground hitting his head on the bed stand on the way down. Because of his right-sided weakness he was unable to get up off the floor spent the night there. He was found in the late morning and brought into the emergency department for further evaluation. Urinalysis shows evidence of microscopic hematuria which will need to be followed and likely further evaluated. CK level was elevated at 2100. Potassium level was found to be low. He experienced significant bruising and ecchymosis of his right face, with a skin tear on his right forearm. On admission he was given IV fluids for hydration and to maintain good urine output with the underlying rhabdomyolysis. Pain medication was used as needed. Following morning his CK level had improved significantly to 1500 and by the time of discharge was still elevated mildly at 600. Urine output remained good throughout hospital stay and renal function remained stable. He received potassium replacement and by the time of discharge potassium level was within normal range. He was seen and evaluated by physical therapy prior to discharge. Follow-up urinalysis was obtained prior to discharge, urinalysis showed no evidence of significant hematuria. Activity will be as tolerated and he will resume his usual diet. Follow-up appointment will be scheduled with his primary care provider within one week. - Patient Instructions Diet: Usual Diet as Tolerated Activity: As Tolerated Other/Special Instructions: Please schedule follow-up appointment with primary care provider within one week. - Discharge Plan *PRESCRIPTION DRUG MONITORING PROGRAM REVIEWED*: No *COPY OF PRESCRIPTION DRUG MONITORING REPORT IN PATIENT [place]LA[place]: No Home Medications: Home Meds Cyclobenzaprine HCl [Flexeril] 10 mg PO TID PRN 05/17/13 [History] Furosemide [Lasix] 20 mg PO DAILY 05/17/13 [History] Hydrocortisone [Cortef] 10 mg PO ACBRK 05/17/13 [History] Morphine [MS Contin] 15 mg PO Q12HR 05/17/13 [History] Metoprolol Succinate 50 mg PO DAILY 06/07/16 [History] Aspirin [Adult Aspirin] 81 mg PO DAILY 06/22/18 [History] Acetaminophen/HYDROcodone [[place] 325-5 MG] 1 tab PO Q4HR PRN 11/15/18 [History] Lifitegrast [Xiidra] 1 drop EYEBOTH BID 11/15/18 [History] Referrals: Uday White MD [Physician] - 02/13/19 1:30 pm () - Discharge Summary/Plan Comment DC Time >30 min.: No - Patient Data Vitals - Most Recent: Last Vital Signs Temp 95.4 F 02/03/19 07:00 Pulse 80 02/03/19 08:10 Resp 16 02/03/19 07:00 BP 120/70 02/03/19 08:10 Pulse Ox 94 L 02/03/19 07:00 Weight - Most Recent: 277 lb 1.584 oz I&O - Last 24 hours: Intake & Output 02/02/19 02/03/19 02/03/19 22:59 06:59 14:59 Intake Total 1067 240 Balance 1067 240 Lab Results - Last 24 hrs: Laboratory Results - last 24 hr 02/02/19 02/03/19 Range/Units 12:40 05:00 Potassium 3.8 (3.6-5.2) mmol/L Creatine Kinase 607 H (39-308) U/L Med Orders - Current: Current Medications Acetaminophen (Tylenol) 650 mg PO Q4H PRN PRN Reason: Pain (Mild 1-3)/fever Hydrocodone Bitart/Acetaminophen ([place] 325-5 Mg) 1 tab PO Q4H PRN PRN Reason: Pain Last Admin: 02/03/19 09:51 Dose: 1 tab Aspirin (Halfprin) 81 mg PO DAILY [facility] Last Admin: 02/03/19 08:09 Dose: 81 mg Enoxaparin Sodium (Lovenox) 40 mg SUBCUT Q24H [facility] Last Admin: 02/02/19 20:07 Dose: 40 mg Furosemide (Lasix) 20 mg PO DAILY [facility] Last Admin: 02/03/19 08:09 Dose: 20 mg Hydrocortisone (Cortef) 10 mg PO ACBREAKFAST [facility] Last Admin: 02/03/19 07:49 Dose: 10 mg Lactated Ringer's (Ringers, Lactated) 1,000 mls @ 50 mls/hr IV ASDIRECTED [facility] Last Admin: 02/02/19 20:15 Dose: 50 mls/hr Metoprolol Succinate (Toprol Xl) 50 mg PO DAILY [facility] Last Admin: 02/03/19 08:10 Dose: 50 mg Morphine Sulfate (Ms Contin) 15 mg PO Q12H [facility] Last Admin: 02/03/19 08:03 Dose: 15 mg Ondansetron HCl (Zofran) 4 mg IV Q4H PRN PRN Reason: Nausea/Vomiting Xiidra Eye Drops (Pom) 0 each EYEBOTH BID NIKHIL Last Admin: 02/03/19 08:10 Dose: 1 each Polyethylene Glycol (Miralax) 17 gm PO DAILY PRN PRN Reason: Constipation Sodium Chloride (Saline Flush) 10 ml FLUSH ASDIRECTED PRN PRN Reason: Keep Vein Open Discontinued Medications Hydrocodone Bitart/Acetaminophen ([place] 325-5 Mg) 1 tab PO ONETIME ONE Stop: 02/01/19 12:35 Last Admin: 02/01/19 13:22 Dose: 1 tab Bacitracin (Bacitracin Oint 1 Gm) 2 dose TOP ONETIME ONE Stop: 02/01/19 13:39 Last Admin: 02/01/19 16:34 Dose: Not Given Bacitracin (Bacitracin Oint 1 Gm) 2 dose TOP ONETIME ONE Stop: 02/01/19 16:01 Last Admin: 02/01/19 16:54 Dose: Not Given Diphtheria/Tetanus/Acell Pertussis (Adacel) 0.5 ml IM .ONCE ONE Stop: 02/01/19 12:11 Last Admin: 02/01/19 13:24 Dose: 0.5 ml Hydrocortisone (Cortef) 10 mg PO NOW STA Stop: 02/01/19 12:39 Last Admin: 02/01/19 13:50 Dose: 10 mg Lactated Ringer's (Ringers, Lactated) 1,000 mls @ 500 mls/hr IV ASDIRECTED [facility] Last Admin: 02/01/19 13:33 Dose: 500 mls/hr Lactated Ringer's (Ringers, Lactated) 1,000 mls @ 250 mls/hr IV ASDIRECTED NIKHIL Stop: 02/01/19 22:20 Last Admin: 02/01/19 20:33 Dose: 250 mls/hr Lactated Ringer's (Ringers, Lactated) 1,000 mls @ 125 mls/hr IV ASDIRECTED NIKHIL Stop: 02/01/19 22:22 Lactated Ringer's (Ringers, Lactated) 1,000 mls @ 125 mls/hr IV ASDIRECTED [facility] Last Infusion: 02/02/19 12:39 Dose: 50 mls/hr Ketorolac Tromethamine (Toradol) 30 mg IVPUSH ONETIME ONE Stop: 02/01/19 12:35 Last Admin: 02/01/19 13:23 Dose: 30 mg Metoprolol Succinate (Toprol Xl) 50 mg PO ONETIME ONE Stop: 02/01/19 12:40 Last Admin: 02/01/19 13:49 Dose: 50 mg Potassium Chloride (Klor-Con M20) 40 meq PO ONETIME ONE Stop: 02/02/19 09:01 Last Admin: 02/02/19 08:56 Dose: 40 meq Potassium Chloride (Klor-Con M20) 40 meq PO ONETIME ONE Stop: 02/02/19 17:01 Last Admin: 02/02/19 16:20 Dose: 40 meq - Exam General: Reports: Alert, Oriented, Cooperative, Mild Distress HEENT: Reports: Other (Ecchymosis and swelling right face) Lungs: Reports: Clear to Auscultation, Normal Respiratory Effort Cardiovascular: Reports: Regular Rate, Regular Rhythm, Murmurs (2/6 systolic murmur left sternal border) GI/Abdominal Exam: Soft, Non-Tender, No Organomegaly, No Distention Extremities: Other (Skin tear right forearm)
[2019-02-03 10:45] VITALS: BP 149/75; PULSE 79
== END 2019-02-03 14:05 | disposition home or self-care (01) | DRG 565 ==
LOC: JP.ED 11:33 → JP.MS 14:55
PROVIDERS: ADMIT Hospitalist; ATTEND Hospitalist
DX: T79.6XXA Traumatic ischemia of muscle, initial encounter (principal); G81.91 Hemiplegia, unspecified affecting right dominant side; F11.20 Opioid dependence, uncomplicated; S51.811A Laceration without foreign body of right forearm, initial encounter; W19.XXXA Unspecified fall, initial encounter; Y92.003 Bedroom of unspecified non-institutional (private) residence as the place of occurrence of the external cause; R31.29 Other microscopic hematuria; I10 Essential (primary) hypertension; E87.6 Hypokalemia; M54.9 Dorsalgia, unspecified; M50.80 Other cervical disc disorders, unspecified cervical region; G89.29 Other chronic pain; M19.90 Unspecified osteoarthritis, unspecified site; K59.09 Other constipation; H54.7 Unspecified visual loss; Z79.82 Long term (current) use of aspirin; S00.83XA Contusion of other part of head, initial encounter; E66.9 Obesity, unspecified; Z68.37 Body mass index [BMI] 37.0-37.9, adult; L30.9 Dermatitis, unspecified; I34.0 Nonrheumatic mitral (valve) insufficiency
CPT/HCPCS: 36415; 80048; 81001; 82550; 84132; 85025; 85027; 90471; 90715; 96361; 96374; 97161-GP; 97535-GP; 99285; 99285-25; A9270-GY; J1650; J1885; J7120

== ENCOUNTER 2019-08-08 10:02 | Emergency (ER) | payer MEDICAID ==
[2019-08-08 10:08] VITALS: BP 137/70; PULSE 86
--- NOTE | 2019-08-08 10:52 | EDM.PDOC ---
ED HPI GENERAL MEDICAL PROBLEM - General Chief Complaint: Back Pain or Injury Stated Complaint: FALL via [facility] Time Seen by Provider: 08/08/19 10:30 - History of Present Illness INITIAL COMMENTS - FREE TEXT/NARRATIVE: This is a 63-year-old male with a history of low back pain who presents to concerns of acute on chronic low back pain. 2 days ago he had a mechanical fall while walking up steps in his home. He reports this was due to loss of balance and he landed on his back. He had no head strike or LOC. He since this time had worsening acute on chronic low back pain. He notes no new lower extremity weakness, no saddle anesthesia, is able to ambulate at his baseline. He is in the emergency room today because after 2 days he figured that "a doctor should check it out and get an x-ray". Middle Back Pain Score (Numeric/FACES): 8 - Related Data Allergies Allergy/AdvReac Type Severity Reaction Status Date / Time No Known Allergies Allergy Verified 02/01/19 11:50 Home Meds: Home Meds Cyclobenzaprine HCl [Flexeril] 10 mg PO TID PRN 05/17/13 [History] Furosemide [Lasix] 20 mg PO DAILY 05/17/13 [History] Hydrocortisone [Cortef] 10 mg PO ACBRK 05/17/13 [History] Morphine [MS Contin] 15 mg PO Q12HR 05/17/13 [History] Metoprolol Succinate 50 mg PO DAILY 06/07/16 [History] Aspirin [Adult Aspirin] 81 mg PO DAILY 06/22/18 [History] Acetaminophen/HYDROcodone [[place] 325-5 MG] 1 tab PO Q4HR PRN 11/15/18 [History] Lifitegrast [Xiidra] 1 drop EYEBOTH BID 11/15/18 [History] Past Medical History HEENT History: Reports: Cataract, Impaired Vision Cardiovascular History: Reports: Hypertension, SOB on Exertion, Other (See Below ) Other Cardiovascular History: leaky valve Gastrointestinal History: Reports: Chronic Constipation Genitourinary History: Reports: None Musculoskeletal History: Reports: Arthritis, Back Pain, Chronic, Fracture, Neck Pain, Chronic Endocrine/Metabolic History: Reports: Obesity/BMI 30+ Hematologic History: Reports: Blood Transfusion(s) Dermatologic History: Reports: Eczema - Infectious Disease History Infectious Disease History: Reports: Chicken Pox - Past Surgical History HEENT Surgical History: Reports: Cataract Surgery GI Surgical History: Reports: Colonoscopy Neurological Surgical History: Reports: Lumbar Spine Musculoskeletal Surgical History: Reports: Arthroscopic Knee, Other (See Below) Other Musculoskeletal Surgeries/Procedures:: crushed vertibrae. neck surgery. right knee surgery Social & Family History - Family History Family Medical History: Noncontributory - Tobacco Use Smoking Status *Q: Never Smoker - Caffeine Use Caffeine Use: Reports: Tea Caffeine Use Comment: 4 cups daily - Recreational Drug Use Recreational Drug Use: No ED ROS GENERAL - Review of Systems Review Of Systems: See Below Constitutional: Reports: No Symptoms HEENT: Reports: No Symptoms Respiratory: Reports: No Symptoms Cardiovascular: Reports: No Symptoms Endocrine: Reports: No Symptoms GI/Abdominal: Reports: No Symptoms : Reports: No Symptoms Musculoskeletal: Reports: Back Pain Skin: Reports: No Symptoms Neurological: Reports: No Symptoms. Denies: Difficulty Walking, Weakness, Gait Disturbance Psychiatric: Reports: No Symptoms Hematologic/Lymphatic: Reports: No Symptoms Immunologic: Reports: No Symptoms ED EXAM,LOWER BACK PAIN/INJURY - Physical Exam Exam: See Below Exam Limited By: No Limitations General Appearance: Alert, No Apparent Distress Ears: Normal External Exam Nose: Normal Inspection Throat/Mouth: Normal Inspection Head: Atraumatic, Normocephalic Neck: Normal Inspection. No: Tender Lateral, Tender Midline Respiratory/Chest: Lungs Clear Cardiovascular: Regular Rate, Rhythm GI/Abdominal: Soft, Non-Tender Back Exam: Normal Inspection, Paraspinal Tenderness (lumbar), Other (no bruising or deformity) Extremities: Normal Inspection Neurological: Alert, Normal Mood/Affect Psychiatric: Normal Affect, Normal Mood Skin Exam: Warm, Dry Course - Vital Signs Last Recorded V/S: Last Vital Signs Temp 36.9 C 08/08/19 10:12 Pulse 86 08/08/19 10:12 Resp 14 08/08/19 10:12 BP 137/70 08/08/19 10:12 Pulse Ox 92 L 08/08/19 10:12 - Re-Assessments/Exams Free Text/Narrative Re-Assessment/Exam: 63-year-old history of chronic back pain presents with acute on chronic low back pain. This was triggered by a mechanical fall 2 days ago. He has no new red flag symptoms such as weakness, saddle anesthesias. Overall sounds to be relatively mild traumatic injury. He is ambulatory around the ED at his baseline. He feels strongly about obtaining plain films, unlikely to alter management today, but we will get these. If unremarkably safe for discharge and can continue home pain regimen. 08/08/19 10:54 Plain films revealed possible L1 compression fracture CT confirmed superior endplate fracture without signs of instability Discussed possible benefit of TLSO bracing with patient, but his preference is to continue symptomatic measures at home and see how it goes. 08/08/19 13:07 Departure - Departure Time of Disposition: 13:09 Disposition: Home, Self-Care 01 Clinical Impression: Lumbar back pain Compression fracture of L1 lumbar vertebra Qualifiers: Encounter type: initial encounter Qualified Code(s): S32.010A - Wedge compression fracture of first lumbar vertebra, initial encounter for closed fracture - Discharge Information Instructions: Lumbar Fracture, Acute Back Pain, Adult Referrals: PCP,None [Primary Care Provider] - Forms: ED Department Discharge Additional Instructions: Your CT showed a small fracture of the vertebrae of your lower back. Please follow up with your primary doctor if your symptoms persist. Please continue your home pain medications Sepsis Event Note - Evaluation Sepsis Screening Result: No Definite Risk - Focused Exam Vital Signs: Vital Signs Temp Pulse Resp BP Pulse Ox 08/08/19 10:12 36.9 C 86 14 137/70 92 L 08/08/19 10:04 36.9 C 86 14 137/70 92 L Date Exam was Performed: 08/08/19 Time Exam was Performed: 13:07
--- NOTE | 2019-08-08 11:36 | CRLCR ---
INDICATION: Patient fell. Back pain. TECHNIQUE: 3-view lumbar spine. COMPARISON: none FINDINGS: The lumbar vertebrae are anatomically aligned. There is a compression wedge fracture of the L1 vertebral body with proximal and 10 percent loss of height. There is no evidence of a retropulsed bone fragment. There is also minimal anterior wedging of L2 with 5 percent loss of height. The L4 and L5 vertebra appear intact. There is sclerosis and narrowing of the lower 2 lumbar facets. The disc spaces appear of normal height. Sacroiliac joints appear intact. IMPRESSION: Compression changes noted at L1 and to a lesser extent at L2. These may reflect acute compression fractures. Dictated by Dennis Jin MD @ 08/08/2019 11:33:04 AM Dictated by: Dennis Jin MD @ 08/08/2019 11:33:20 (Electronically Signed)
--- NOTE | 2019-08-08 12:53 | CRLCT ---
INDICATION: Back pain with clinical concern for fracture COMPARISON: COMPARISON DATE TECHNIQUE: CT examination of the lumbar spine is performed with spiral technique without contrast. Thin section axial imaging was obtained and sagittal and coronal reconstructions were made. Please note that all CT scans at this facility use dose modulation, iterative reconstruction, and/or weight-based dosing when appropriate to reduce radiation dose to as low as reasonably achievable. FINDINGS: : Bone mineral density is decreased. There is no lytic or blastic lesion or malalignment. There is minimal wedging of L2. There is no epidural or paravertebral hematoma or directly visible osseous discontinuity. Therefore this is felt to be chronic. There is mild loss of height of L1. While part of this may be chronic, there is a visible osseous discontinuity posteriorly at the superior endplate. This is best seen on sagittal image 51 and on coronal image 53. This represents an acute superior endplate compression fracture. There is no retropulsed bony fragments and there is no definite fracture associated canal stenosis at this level. There is disc disease especially more inferiorly located within the spine which is not fully or formally studied on this examination. There is also multilevel facet osteoarthritis. If this requires further imaging, MRI would be the study of choice. There are atherosclerotic vascular calcifications IMPRESSION: 1. There is mild loss of height of the superior endplate of L1. While part of this may be chronic, a definitive super endplate osseous discontinuity is identified posteriorly suggesting an acute component. No retropulsed bony fracture fragments or evidence of fracture associated canal stenosis 2. Chronic appearing loss of height of L2 3. Multilevel disc disease and facet osteoarthritis mainly of the mid and lower lumbar spine 4. Incidental non spine findings as discussed above 5. I discussed the above findings with Dr. Shorty Ortega at 12:40 p.m. on 09/08/[address] Please note that all CT scans at this facility use dose modulation, iterative reconstruction, and/or weight-based dosing when appropriate to reduce radiation dose to as low as reasonably achievable. Dictated by Vijay Matthew MD @ Aug 08 2019 12:30PM Signed by Dr. Vijay Matthew @ Aug 08 2019 12:51PM
== END 2019-08-08 13:45 | disposition home or self-care (01) ==
LOC: JP.ED 10:02
DX: S32.019A Unspecified fracture of first lumbar vertebra, initial encounter for closed fracture (principal); I10 Essential (primary) hypertension; Z79.899 Other long term (current) drug therapy; Z79.82 Long term (current) use of aspirin; W19.XXXA Unspecified fall, initial encounter
CPT/HCPCS: 72100; 72131; 99283; 99284-25

== ENCOUNTER 2019-10-24 08:28 | Inpatient (IN) | payer MEDICARE, MEDICAID ==
[2019-10-24] MEDS ORDERED: Sodium Chloride 0.9% 1,000 ML IV SCH ×2 (09:00)
--- NOTE | 2019-10-24 09:00 | EDM.PDOC ---
ED HPI GENERAL MEDICAL PROBLEM - General Chief Complaint: General Stated Complaint: BEEN ON FLOOR FOR PAST 24 HOURS Time Seen by Provider: 10/24/19 08:59 Source of Information: Reports: Patient History Limitations: Reports: No Limitations - History of Present Illness INITIAL COMMENTS - FREE TEXT/NARRATIVE: pt arrived quite lethargic and weak. [facility] On wednesday he was alert and was able to eat and drink well. today he is lethargic and he is not passing his urine. Onset: Gradual, Other (pt fell and couldn,t get up sat and was on the floor until wednesday. 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 - Related Data Allergies Allergy/AdvReac Type Severity Reaction Status Date / Time No Known Allergies Allergy Verified 02/01/19 11:50 Home Meds: Home Meds Cyclobenzaprine HCl [Flexeril] 10 mg PO TID PRN 05/17/13 [History] Furosemide [Lasix] 20 mg PO DAILY 05/17/13 [History] Hydrocortisone [Cortef] 10 mg PO ACBRK 05/17/13 [History] Morphine [MS Contin] 15 mg PO Q12HR 05/17/13 [History] Metoprolol Succinate 50 mg PO DAILY 06/07/16 [History] Aspirin [Adult Aspirin] 81 mg PO DAILY 06/22/18 [History] Acetaminophen/HYDROcodone [[place] 325-5 MG] 1 tab PO Q4HR PRN 11/15/18 [History] Lifitegrast [Xiidra] 1 drop EYEBOTH BID 11/15/18 [History] Hydrocortisone 5 mg PO DAILY 10/24/19 [History] Past Medical History HEENT History: Reports: Cataract, Impaired Vision Cardiovascular History: Reports: Hypertension, SOB on Exertion, Other (See Below ) Other Cardiovascular History: leaky valve Gastrointestinal History: Reports: Chronic Constipation Genitourinary History: Reports: None Musculoskeletal History: Reports: Arthritis, Back Pain, Chronic, Fracture, Neck Pain, Chronic Endocrine/Metabolic History: Reports: Obesity/BMI 30+ Hematologic History: Reports: Blood Transfusion(s) Dermatologic History: Reports: Eczema - Infectious Disease History Infectious Disease History: Reports: Chicken Pox - Past Surgical History HEENT Surgical History: Reports: Cataract Surgery GI Surgical History: Reports: Colonoscopy Neurological Surgical History: Reports: Lumbar Spine Musculoskeletal Surgical History: Reports: Arthroscopic Knee, Other (See Below) Other Musculoskeletal Surgeries/Procedures:: crushed vertibrae. neck surgery. right knee surgery Social & Family History - Family History Family Medical History: Noncontributory - Tobacco Use Smoking Status *Q: Never Smoker - Caffeine Use Caffeine Use: Reports: Tea, Other Caffeine Use Comment: 4 cups daily - Alcohol Use Days Per Week of Alcohol Use: 7 Number of Drinks Per Day: 1 Total Drinks Per Week: 7 - Recreational Drug Use Recreational Drug Use: No ED ROS GENERAL - Review of Systems Review Of Systems: See Below Constitutional: Reports: No Symptoms HEENT: Reports: No Symptoms Respiratory: Reports: No Symptoms Cardiovascular: Reports: No Symptoms Endocrine: Reports: No Symptoms GI/Abdominal: Reports: No Symptoms : Reports: No Symptoms Musculoskeletal: Reports: No Symptoms Skin: Reports: Bruising Neurological: Reports: No Symptoms, Headache Psychiatric: Reports: Anxiety Hematologic/Lymphatic: Reports: Easy Bruising, Other ( skin is very frail. ) ED EXAM, GENERAL - Physical Exam Exam: See Below Free Text/Narrative:: pt arrived with a history of being on the floor several hours from wednesday to wednesday afternoon. He has a medical alert system but it did not work. Exam Limited By: No Limitations General Appearance: Alert, Obtunded, Moderate Distress Ears: Normal TMs Nose: Normal Inspection Throat/Mouth: Normal Inspection Head: Atraumatic Neck: Normal Inspection Respiratory/Chest: No Respiratory Distress Cardiovascular: Regular Rate, Rhythm, Tachycardia GI/Abdominal: Soft, Non-Tender (Male) Exam: Deferred Rectal (Males) Exam: Deferred Back Exam: Normal Inspection, Other (pt oro marked bruising over his entire body. ) Neurological: Alert, Oriented, Normal Cognition, Other (pt is quite lethargic. ) Psychiatric: Normal Affect Skin Exam: Ecchymosis Course - Vital Signs Last Recorded V/S: Last Vital Signs Temp 38.2 C H 10/24/19 09:51 Pulse 119 H 10/24/19 09:01 Resp 17 10/24/19 09:01 BP 132/75 10/24/19 09:01 Pulse Ox 88 L 10/24/19 09:01 - Orders/Labs/Meds Orders: Active Orders 24 hr Category Date Time Status Bladder Scan [RC] ASDIRECTED Care 10/24/19 09:18 Active EKG Documentation Completion [RC] ASDIRECTED Care 10/24/19 09:17 Active Chest 1V Frontal [CR] Stat Exams 10/24/19 09:15 Taken CRP [C-REACTIVE PROTEIN] [CHEM] Stat Lab 10/24/19 10:32 Ordered CULTURE BLOOD [BC] Urgent Lab 10/24/19 09:35 Received CULTURE BLOOD [BC] Urgent Lab 10/24/19 10:08 Received CULTURE URINE [RM] Stat Lab 10/24/19 09:53 Received PROCALCITONIN [CHEM] Stat Lab 10/24/19 10:32 Ordered Potassium Chloride [KCL 20 MEQ in Water 100 ML] 20 meq Med 10/24/19 09:59 Active Premix Bag 1 bag IV ONETIME Sodium Chloride 0.9% [Normal Saline] 1,000 ml Med 10/24/19 09:00 Active IV ASDIRECTED Sodium Chloride 0.9% [Normal Saline] 1,000 ml Med 10/24/19 09:00 Active IV ASDIRECTED cefTRIAXone [Rocephin] 1 gm Med 10/24/19 10:34 Active Sodium Chloride 0.9% [Normal Saline] 50 ml IV ONETIME Blood Culture x2 Reflex Set [OM.PC] Urgent Oth 10/24/19 09:52 Ordered EKG 12 Lead [EK] Routine Ther 10/24/19 09:17 Ordered Medication Orders Sodium Chloride (Normal Saline) 1,000 mls @ 999 mls/hr IV ASDIRECTED [facility] Last Admin: 10/24/19 09:24 Dose: 999 mls/hr Sodium Chloride (Normal Saline) 1,000 mls @ 999 mls/hr IV ASDIRECTED [facility] Last Admin: 10/24/19 10:13 Dose: 999 mls/hr Potassium Chloride 20 meq/ (Premix) 100 mls @ 50 mls/hr IV ONETIME ONE Stop: 10/24/19 11:58 Last Admin: 10/24/19 10:26 Dose: 50 mls/hr Ceftriaxone Sodium 1 gm/ (Sodium Chloride) 50 mls @ 100 mls/hr IV ONETIME ONE Stop: 10/24/19 11:03 Labs: Laboratory Tests 10/24/19 10/24/19 10/24/19 Range/Units 08:58 08:58 09:16 WBC 17.5 H (4.5-11.0) K/uL RBC 4.22 L (4.30-5.90) M/uL Hgb 11.8 L (12.0-15.0) g/dL Hct 37.6 L (40.0-54.0) % MCV 89 (80-98) fL MCH 28 (27-31) pg MCHC 31 L (32-36) % Plt Count 143 L (150-400) K/uL Neut % (Auto) 81 H (36-66) % Lymph % (Auto) 11 L (24-44) % [place] % (Auto) 7 H (2-6) % Eos % (Auto) 1 L (2-4) % Baso % (Auto) 0 (0-1) % PT (9.5-12.0) sec INR (0.80-1.20) APTT (27.0-36.0) sec Puncture Site Lt radial ABG pH 7.540 H (7.350-7.450) ABG pCO2 41.8 (35.0-42.0) mmHg ABG pO2 56.6 L (75.0-100.0) mmHg ABG HCO3 35.7 H (22.0-26.0) mmol/L ABG Total CO2 31.7 H (23.0-27.0) mmol/L ABG O2 Saturation 90.4 L (95.0-98.0) % ABG O2 Content 14.2 L (15.0-23.0) %vol ABG Base Excess 11.9 mm/L ABG Hemoglobin 11.6 L (13.5-18.0) g/dL ABG Oxyhemoglobin 87.4 % ABG Carboxyhemoglobin 2.6 H (0.0-1.6) % ABG Methemoglobin 0.7 % Yan Test Passed O2 Delivery Device Nasal cannula Oxygen Flow Rate 4.0 L Sodium (140-148) mmol/L Potassium (3.6-5.2) mmol/L Chloride (100-108) mmol/L Carbon Dioxide (21-32) mmol/L Anion Gap (5.0-14.0) mmol/L BUN (7-18) mg/dL Creatinine (0.8-1.3) mg/dL Est Cr Clr Drug Dosing mL/min Estimated GFR (MDRD) (>60) Glucose (74-106) mg/dL Lactic Acid (0.4-2.0) mmol/L Calcium (8.5-10.1) mg/dL Total Bilirubin (0.2-1.0) mg/dL AST (15-37) U/L ALT (12-78) U/L Alkaline Phosphatase (46-116) U/L Creatine Kinase (39-308) U/L Total Protein (6.4-8.2) g/dL Albumin (3.4-5.0) g/dL Globulin (2.3-3.5) g/dL Albumin/Globulin Ratio (1.2-2.2) Urine Color Yellow (YELLOW) Urine Appearance Slightly cloudy A (CLEAR) Urine pH 6.0 (5.0-8.0) Ur Specific [place] 1.020 (1.008-1.030) Urine Protein 30 H (NEGATIVE) mg/dL Urine Glucose (UA) Negative (NEGATIVE) mg/dL Urine Ketones Trace H (NEGATIVE) mg/dL Urine Occult Blood Large H (NEGATIVE) Urine Nitrite Negative (NEGATIVE) Urine Bilirubin Small H (NEGATIVE) Urine Urobilinogen 2.0 H (0.2-1.0) EU/dL Ur Leukocyte Esterase Negative (NEGATIVE) Urine RBC 0-5 (0-5) Urine WBC 5-10 H (0-5) Ur Epithelial Cells Not seen Amorphous Sediment Not seen Urine Bacteria Many Urine Mucus Not seen Urine Opiates Screen (NEGATIVE) Ur Oxycodone Screen (NEGATIVE) Urine Methadone Screen (NEGATIVE) Ur Propoxyphene Screen (NEGATIVE) Ur Barbiturates Screen (NEGATIVE) Ur Tricyclics Screen (NEGATIVE) Ur Phencyclidine Scrn (NEGATIVE) Ur Amphetamine Screen (NEGATIVE) U Methamphetamines Scrn (NEGATIVE) Urine MDMA Screen (NEGATIVE) U Benzodiazepines Scrn (NEGATIVE) U Cocaine Metab Screen (NEGATIVE) U Marijuana (THC) Screen (NEGATIVE) Ethyl Alcohol mg/dL 10/24/19 10/24/19 10/24/19 Range/Units 09:27 09:27 09:27 WBC (4.5-11.0) K/uL RBC (4.30-5.90) M/uL Hgb (12.0-15.0) g/dL Hct (40.0-54.0) % MCV (80-98) fL MCH (27-31) pg MCHC (32-36) % Plt Count (150-400) K/uL Neut % (Auto) (36-66) % Lymph % (Auto) (24-44) % [place] % (Auto) (2-6) % Eos % (Auto) (2-4) % Baso % (Auto) (0-1) % PT 23.3 H (9.5-12.0) sec INR 2.26 H (0.80-1.20) APTT 25.3 L (27.0-36.0) sec Puncture Site ABG pH (7.350-7.450) ABG pCO2 (35.0-42.0) mmHg ABG pO2 (75.0-100.0) mmHg ABG HCO3 (22.0-26.0) mmol/L ABG Total CO2 (23.0-27.0) mmol/L ABG O2 Saturation (95.0-98.0) % ABG O2 Content (15.0-23.0) %vol ABG Base Excess mm/L ABG Hemoglobin (13.5-18.0) g/dL ABG Oxyhemoglobin % ABG Carboxyhemoglobin (0.0-1.6) % ABG Methemoglobin % Yan Test O2 Delivery Device Oxygen Flow Rate L Sodium 143 (140-148) mmol/L Potassium 1.9 L* (3.6-5.2) mmol/L Chloride 98 L (100-108) mmol/L Carbon Dioxide 38 H (21-32) mmol/L Anion Gap 8.9 (5.0-14.0) mmol/L BUN 23 H D (7-18) mg/dL Creatinine 1.1 (0.8-1.3) mg/dL Est Cr Clr Drug Dosing 73.48 mL/min Estimated GFR (MDRD) > 60 (>60) Glucose 106 (74-106) mg/dL Lactic Acid (0.4-2.0) mmol/L Calcium 9.8 (8.5-10.1) mg/dL Total Bilirubin 3.4 H (0.2-1.0) mg/dL AST 261 H (15-37) U/L ALT 99 H (12-78) U/L Alkaline Phosphatase 105 (46-116) U/L Creatine Kinase 2557 H (39-308) U/L Total Protein 6.4 (6.4-8.2) g/dL Albumin 2.4 L (3.4-5.0) g/dL Globulin 4.0 H (2.3-3.5) g/dL Albumin/Globulin Ratio 0.6 L (1.2-2.2) Urine Color (YELLOW) Urine Appearance (CLEAR) Urine pH (5.0-8.0) Ur Specific [place] (1.008-1.030) Urine Protein (NEGATIVE) mg/dL Urine Glucose (UA) (NEGATIVE) mg/dL Urine Ketones (NEGATIVE) mg/dL Urine Occult Blood (NEGATIVE) Urine Nitrite (NEGATIVE) Urine Bilirubin (NEGATIVE) Urine Urobilinogen (0.2-1.0) EU/dL Ur Leukocyte Esterase (NEGATIVE) Urine RBC (0-5) Urine WBC (0-5) Ur Epithelial Cells Amorphous Sediment Urine Bacteria Urine Mucus Urine Opiates Screen (NEGATIVE) Ur Oxycodone Screen (NEGATIVE) Urine Methadone Screen (NEGATIVE) Ur Propoxyphene Screen (NEGATIVE) Ur Barbiturates Screen (NEGATIVE) Ur Tricyclics Screen (NEGATIVE) Ur Phencyclidine Scrn (NEGATIVE) Ur Amphetamine Screen (NEGATIVE) U Methamphetamines Scrn (NEGATIVE) Urine MDMA Screen (NEGATIVE) U Benzodiazepines Scrn (NEGATIVE) U Cocaine Metab Screen (NEGATIVE) U Marijuana (THC) Screen (NEGATIVE) Ethyl Alcohol mg/dL 10/24/19 10/24/19 10/24/19 Range/Units 09:52 10:16 10:16 WBC (4.5-11.0) K/uL RBC (4.30-5.90) M/uL Hgb (12.0-15.0) g/dL Hct (40.0-54.0) % MCV (80-98) fL MCH (27-31) pg MCHC (32-36) % Plt Count (150-400) K/uL Neut % (Auto) (36-66) % Lymph % (Auto) (24-44) % [place] % (Auto) (2-6) % Eos % (Auto) (2-4) % Baso % (Auto) (0-1) % PT (9.5-12.0) sec INR (0.80-1.20) APTT (27.0-36.0) sec Puncture Site ABG pH (7.350-7.450) ABG pCO2 (35.0-42.0) mmHg ABG pO2 (75.0-100.0) mmHg ABG HCO3 (22.0-26.0) mmol/L ABG Total CO2 (23.0-27.0) mmol/L ABG O2 Saturation (95.0-98.0) % ABG O2 Content (15.0-23.0) %vol ABG Base Excess mm/L ABG Hemoglobin (13.5-18.0) g/dL ABG Oxyhemoglobin % ABG Carboxyhemoglobin (0.0-1.6) % ABG Methemoglobin % Yan Test O2 Delivery Device Oxygen Flow Rate L Sodium (140-148) mmol/L Potassium (3.6-5.2) mmol/L Chloride (100-108) mmol/L Carbon Dioxide (21-32) mmol/L Anion Gap (5.0-14.0) mmol/L BUN (7-18) mg/dL Creatinine (0.8-1.3) mg/dL Est Cr Clr Drug Dosing mL/min Estimated GFR (MDRD) (>60) Glucose (74-106) mg/dL Lactic Acid 4.8 H (0.4-2.0) mmol/L Calcium (8.5-10.1) mg/dL Total Bilirubin (0.2-1.0) mg/dL AST (15-37) U/L ALT (12-78) U/L Alkaline Phosphatase (46-116) U/L Creatine Kinase (39-308) U/L Total Protein (6.4-8.2) g/dL Albumin (3.4-5.0) g/dL Globulin (2.3-3.5) g/dL Albumin/Globulin Ratio (1.2-2.2) Urine Color (YELLOW) Urine Appearance (CLEAR) Urine pH (5.0-8.0) Ur Specific [place] (1.008-1.030) Urine Protein (NEGATIVE) mg/dL Urine Glucose (UA) (NEGATIVE) mg/dL Urine Ketones (NEGATIVE) mg/dL Urine Occult Blood (NEGATIVE) Urine Nitrite (NEGATIVE) Urine Bilirubin (NEGATIVE) Urine Urobilinogen (0.2-1.0) EU/dL Ur Leukocyte Esterase (NEGATIVE) Urine RBC (0-5) Urine WBC (0-5) Ur Epithelial Cells Amorphous Sediment Urine Bacteria Urine Mucus Urine Opiates Screen Presumptive positive H (NEGATIVE) Ur Oxycodone Screen Presumptive positive H (NEGATIVE) Urine Methadone Screen Negative (NEGATIVE) Ur Propoxyphene Screen Negative (NEGATIVE) Ur Barbiturates Screen Negative (NEGATIVE) Ur Tricyclics Screen Presumptive positive H (NEGATIVE) Ur Phencyclidine Scrn Negative (NEGATIVE) Ur Amphetamine Screen Negative (NEGATIVE) U Methamphetamines Scrn Negative (NEGATIVE) Urine MDMA Screen Negative (NEGATIVE) U Benzodiazepines Scrn Negative (NEGATIVE) U Cocaine Metab Screen Negative (NEGATIVE) U Marijuana (THC) Screen Presumptive positive H (NEGATIVE) Ethyl Alcohol < 3 mg/dL Meds: Medications Generic Name Dose Route Start Last Admin Trade Name Freq PRN Reason Stop Dose Admin Sodium Chloride 1,000 mls @ 999 mls/hr 10/24/19 09:00 10/24/19 09:24 Normal Saline IV 999 mls/hr ASDIRECTED NIKHIL Administration Sodium Chloride 1,000 mls @ 999 mls/hr 10/24/19 09:00 10/24/19 10:13 Normal Saline IV 999 mls/hr ASDIRECTED INKHIL Administration Potassium Chloride 20 meq/ 100 mls @ 50 mls/hr 10/24/19 09:59 10/24/19 10:26 Premix IV 10/24/19 11:58 50 mls/hr ONETIME ONE Administration Ceftriaxone Sodium 1 gm/ 50 mls @ 100 mls/hr 10/24/19 10:34 Sodium Chloride IV 10/24/19 11:03 ONETIME ONE Discontinued Medications Generic Name Dose Route Start Last Admin Trade Name Freq PRN Reason Stop Dose Admin Potassium Chloride 20 meq 10/24/19 09:59 10/24/19 10:26 Klor-Con M20 PO 10/24/19 10:00 20 meq ONETIME ONE Administration Potassium Chloride 40 meq 10/24/19 10:32 Klor-Con M20 PO 10/24/19 10:33 ONETIME ONE - Re-Assessments/Exams Free Text/Narrative Re-Assessment/Exam: 10/24/19 10:32 pt has a k of 1.9. He was given iv k and 20 meq oral. He has a elevated lactic acid. He has elevated liver enzymes, he has a elevated INR. His o2 sats are low. His cghest xray does not reveal a infiltrate. Urine does appear infected. Departure - Departure Time of Disposition: 10:36 Disposition: Admitted As Inpatient 65 Condition: Fair Clinical Impression: Sepsis, Elevated CPK, UTI (urinary tract infection), Hypokalemia, Elevated liver enzymes - Discharge Information Referrals: Nimco Chand PA [Primary Care Provider] - Forms: ED Department Discharge Care Plan Goals: admit to Dr Adorno Sepsis Event Note - Focused Exam Vital Signs: Vital Signs Temp Pulse Resp BP Pulse Ox 10/24/19 09:51 38.2 C H 10/24/19 09:01 37.6 C 119 H 17 132/75 88 L 10/24/19 08:35 17 88 L 10/24/19 08:31 37.6 C 119 H 18 132/75 83 L Date Exam was Performed: 10/24/19 Time Exam was Performed: 10:36 - My Orders Last 24 Hours: My Active Orders 10/24/19 09:00 Sodium Chloride 0.9% [Normal Saline] 1,000 ml IV ASDIRECTED Sodium Chloride 0.9% [Normal Saline] 1,000 ml IV ASDIRECTED 10/24/19 09:15 Chest 1V Frontal [CR] Stat 10/24/19 09:17 EKG Documentation Completion [RC] ASDIRECTED EKG 12 Lead [EK] Routine 10/24/19 09:18 Bladder Scan [RC] ASDIRECTED 10/24/19 09:35 CULTURE BLOOD [BC] Urgent 10/24/19 09:52 Blood Culture x2 Reflex Set [OM.PC] Urgent 10/24/19 09:53 CULTURE URINE [RM] Stat 10/24/19 09:59 Potassium Chloride [KCL 20 MEQ in Water 100 ML] 20 meq Premix Bag 1 bag IV ONETIME 10/24/19 10:08 CULTURE BLOOD [BC] Urgent 10/24/19 10:34 cefTRIAXone [Rocephin] 1 gm Sodium Chloride 0.9% [Normal Saline] 50 ml IV ONETIME - Assessment/Plan Last 24 Hours: My Active Orders 10/24/19 09:00 Sodium Chloride 0.9% [Normal Saline] 1,000 ml IV ASDIRECTED Sodium Chloride 0.9% [Normal Saline] 1,000 ml IV ASDIRECTED 10/24/19 09:15 Chest 1V Frontal [CR] Stat 10/24/19 09:17 EKG Documentation Completion [RC] ASDIRECTED EKG 12 Lead [EK] Routine 10/24/19 09:18 Bladder Scan [RC] ASDIRECTED 10/24/19 09:35 CULTURE BLOOD [BC] Urgent 10/24/19 09:52 Blood Culture x2 Reflex Set [OM.PC] Urgent 10/24/19 09:53 CULTURE URINE [RM] Stat 10/24/19 09:59 Potassium Chloride [KCL 20 MEQ in Water 100 ML] 20 meq Premix Bag 1 bag IV ONETIME 10/24/19 10:08 CULTURE BLOOD [BC] Urgent 10/24/19 10:34 cefTRIAXone [Rocephin] 1 gm Sodium Chloride 0.9% [Normal Saline] 50 ml IV ONETIME
[2019-10-24] MEDS ORDERED: Potassium Chloride 20 MEQ Tab.ER PO ONE ×5 (09:59→21:00)
[2019-10-24] MEDS ORDERED: Potassium Chloride 20 MEQ in Premix Bag 1 BAG IV ONE (09:59)
[2019-10-24] MEDS ORDERED: cefTRIAXone 1 GM in Sodium Chloride 0.9% 50 ML IV ONE (10:34)
--- NOTE | 2019-10-24 11:55 | PCM.HP.2 ---
H&P History of Present Illness - General Date of Service: 10/24/19 Admit Problem/Dx: Admission Diagnosis/Problem Admission Diagnosis/Problem Hypokalemia Source of Information: Patient, Family, Old Records, Provider, RN Notes Reviewed History Limitations: Reports: No Limitations, Altered Mental Status (Somewhat lethargic) - History of Present Illness Initial Comments - Free Text/Narative: Mr. Wilcox a 64-year-old gentleman who was admitted through the emergency department with progressive weakness, rhabdomyolysis related to a recent fall and spending a prolonged period of time on the floor, hepatic cirrhosis and alcoholic hepatitis. He has had a longstanding history of alcohol abuse and consumes alcohol on a daily basis. Bilirubin is found to be elevated as well as a significant elevation in his prothrombin time. He fell approximately 3 days ago and spent about 24 hours on the hard floor. Initially he seemed okay but now in the last 24 hours has become more weak and lethargic. On evaluation in the emergency department CK level is elevated at 2000. He is somewhat lethargic and there is concern for hepatic encephalopathy. He does have known right-sided weakness related to a cervical spine injury and surgical repair. Overall weakness seems to be significantly worse over the past few months. Laboratory studies in the emergency department also show severe hypokalemia. Shortly after admission he experienced a coughing and choking episode when given oral potassium replacement. Since then oxygen saturation has been diminished with mild increase in respiratory rate. generalized Pain Score (Numeric/FACES): 3 - Related Data Allergies/Adverse Reactions: Allergies Allergy/AdvReac Type Severity Reaction Status Date / Time No Known Allergies Allergy Verified 02/01/19 11:50 Home Medications: Home Meds Cyclobenzaprine HCl [Flexeril] 10 mg PO TID PRN 05/17/13 [History] Furosemide [Lasix] 20 mg PO DAILY 05/17/13 [History] Hydrocortisone [Cortef] 10 mg PO ACBRK 05/17/13 [History] Morphine [MS Contin] 15 mg PO Q12HR 05/17/13 [History] Metoprolol Succinate 50 mg PO DAILY 06/07/16 [History] Aspirin [Adult Aspirin] 81 mg PO DAILY 06/22/18 [History] Acetaminophen/HYDROcodone [Flanagan 325-5 MG] 1 tab PO Q4HR PRN 11/15/18 [History] Lifitegrast [Xiidra] 1 drop EYEBOTH BID 11/15/18 [History] Hydrocortisone 5 mg PO DAILY 10/24/19 [History] Past Medical History HEENT History: Reports: Cataract, Impaired Vision Cardiovascular History: Reports: Hypertension, SOB on Exertion, Other (See Below ) Other Cardiovascular History: leaky valve Gastrointestinal History: Reports: Chronic Constipation Genitourinary History: Reports: None Musculoskeletal History: Reports: Arthritis, Back Pain, Chronic, Fracture, Neck Pain, Chronic Endocrine/Metabolic History: Reports: Obesity/BMI 30+ Hematologic History: Reports: Blood Transfusion(s) Dermatologic History: Reports: Eczema - Infectious Disease History Infectious Disease History: Reports: Chicken Pox - Past Surgical History HEENT Surgical History: Reports: Cataract Surgery GI Surgical History: Reports: Colonoscopy Neurological Surgical History: Reports: Lumbar Spine Musculoskeletal Surgical History: Reports: Arthroscopic Knee, Other (See Below) Other Musculoskeletal Surgeries/Procedures:: crushed vertibrae. neck surgery. right knee surgery Social & Family History - Family History Family Medical History: Noncontributory - Tobacco Use Smoking Status *Q: Never Smoker - Caffeine Use Caffeine Use: Reports: Tea, Other Caffeine Use Comment: 4 cups daily - Alcohol Use Days Per Week of Alcohol Use: 7 Number of Drinks Per Day: 1 Total Drinks Per Week: 7 - Recreational Drug Use Recreational Drug Use: No H&P Review of Systems - Review of Systems: Review Of Systems: See Below General: Reports: Malaise, Weakness, Fatigue, Decreased Appetite. Denies: Fever , Chills HEENT: Reports: No Symptoms Pulmonary: Reports: Shortness of Breath, Cough. Denies: Wheezing, Sputum, Hemoptysis Cardiovascular: Reports: Dyspnea on Exertion. Denies: Chest Pain, Palpitations , Orthopnea, PND, Edema, Lightheadedness, Syncope Gastrointestinal: Reports: No Symptoms Genitourinary: Reports: No Symptoms Musculoskeletal: Reports: Neck Pain, Back Pain Skin: Reports: Jaundice. Denies: Erythema, Wound Psychiatric: Reports: No Symptoms Neurological: Reports: Other (Chronic upper and lower extremity weakness) Hematologic/Lymphatic: Reports: No Symptoms Immunologic: Reports: No Symptoms Exam - Exam Exam: See Below - Vital Signs Vital Signs: Last Vital Signs Temp 100.8 F H 10/24/19 09:51 Pulse 108 H 10/24/19 10:58 Resp 16 03/17/20 10:58 BP 147/72 H 10/24/19 10:58 Pulse Ox 3 L 10/24/19 10:58 Weight: 280 lb - Exam Quality Assessment: DVT Prophylaxis General: Alert, Oriented, Cooperative, Mild Distress HEENT: Hearing Intact, Normal Nasal Septum, Posterior Pharynx Clear, Pupils Equal, Scleral Icterus. No: Mucosa Moist & Fate Neck: Supple, Trachea Midline, +2 Carotid Pulse wo Bruit Lungs: Clear to Auscultation, Normal Respiratory Effort, Decreased Breath Sounds. No: Crackles, Rales, Rhonchi, Rub, Wheezing Cardiovascular: Regular Rate, Regular Rhythm, Normal S1, Normal S2, Systolic Murmur. No: Diastolic Murmur GI/Abdominal Exam: Soft, Non-Tender, No Organomegaly, No Distention Back Exam: Normal Inspection Extremities: Non-Tender, No Pedal Edema Skin: Warm, Dry Neurological: Cranial Nerves Intact, Normal Speech, Normal Tone, Sensation Intact. No: Strength Equal Bilateral, Focal Deficit - Patient Data Lab Results Last 24 hrs: Laboratory Results - last 24 hr 10/24/19 10/24/19 10/24/19 Range/Units 08:58 08:58 09:16 WBC 17.5 H (4.5-11.0) K/uL RBC 4.22 L (4.30-5.90) M/uL Hgb 11.8 L (12.0-15.0) g/dL Hct 37.6 L (40.0-54.0) % MCV 89 (80-98) fL MCH 28 (27-31) pg MCHC 31 L (32-36) % Plt Count 143 L (150-400) K/uL Neut % (Auto) 81 H (36-66) % Lymph % (Auto) 11 L (24-44) % [place] % (Auto) 7 H (2-6) % Eos % (Auto) 1 L (2-4) % Baso % (Auto) 0 (0-1) % PT (9.5-12.0) sec INR (0.80-1.20) APTT (27.0-36.0) sec Puncture Site Lt radial ABG pH 7.540 H (7.350-7.450) ABG pCO2 41.8 (35.0-42.0) mmHg ABG pO2 56.6 L (75.0-100.0) mmHg ABG HCO3 35.7 H (22.0-26.0) mmol/L ABG Total CO2 31.7 H (23.0-27.0) mmol/L ABG O2 Saturation 90.4 L (95.0-98.0) % ABG O2 Content 14.2 L (15.0-23.0) %vol ABG Base Excess 11.9 mm/L ABG Hemoglobin 11.6 L (13.5-18.0) g/dL ABG Oxyhemoglobin 87.4 % ABG Carboxyhemoglobin 2.6 H (0.0-1.6) % ABG Methemoglobin 0.7 % Yan Test Passed O2 Delivery Device Nasal cannula Oxygen Flow Rate 4.0 L Sodium (140-148) mmol/L Potassium (3.6-5.2) mmol/L Chloride (100-108) mmol/L Carbon Dioxide (21-32) mmol/L Anion Gap (5.0-14.0) mmol/L BUN (7-18) mg/dL Creatinine (0.8-1.3) mg/dL Est Cr Clr Drug Dosing mL/min Estimated GFR (MDRD) (>60) Glucose (74-106) mg/dL Lactic Acid (0.4-2.0) mmol/L Calcium (8.5-10.1) mg/dL Total Bilirubin (0.2-1.0) mg/dL AST (15-37) U/L ALT (12-78) U/L Alkaline Phosphatase (46-116) U/L Creatine Kinase (39-308) U/L C-Reactive Protein (0.0-0.3) mg/dL Total Protein (6.4-8.2) g/dL Albumin (3.4-5.0) g/dL Globulin (2.3-3.5) g/dL Albumin/Globulin Ratio (1.2-2.2) Procalcitonin ng/mL Urine Color Yellow (YELLOW) Urine Appearance Slightly cloudy A (CLEAR) Urine pH 6.0 (5.0-8.0) Ur Specific [place] 1.020 (1.008-1.030) Urine Protein 30 H (NEGATIVE) mg/dL Urine Glucose (UA) Negative (NEGATIVE) mg/dL Urine Ketones Trace H (NEGATIVE) mg/dL Urine Occult Blood Large H (NEGATIVE) Urine Nitrite Negative (NEGATIVE) Urine Bilirubin Small H (NEGATIVE) Urine Urobilinogen 2.0 H (0.2-1.0) EU/dL Ur Leukocyte Esterase Negative (NEGATIVE) Urine RBC 0-5 (0-5) Urine WBC 5-10 H (0-5) Ur Epithelial Cells Not seen Amorphous Sediment Not seen Urine Bacteria Many Urine Mucus Not seen Urine Opiates Screen (NEGATIVE) Ur Oxycodone Screen (NEGATIVE) Urine Methadone Screen (NEGATIVE) Ur Propoxyphene Screen (NEGATIVE) Ur Barbiturates Screen (NEGATIVE) Ur Tricyclics Screen (NEGATIVE) Ur Phencyclidine Scrn (NEGATIVE) Ur Amphetamine Screen (NEGATIVE) U Methamphetamines Scrn (NEGATIVE) Urine MDMA Screen (NEGATIVE) U Benzodiazepines Scrn (NEGATIVE) U Cocaine Metab Screen (NEGATIVE) U Marijuana (THC) Screen (NEGATIVE) Ethyl Alcohol mg/dL 10/24/19 10/24/19 10/24/19 Range/Units 09:27 09:27 09:27 WBC (4.5-11.0) K/uL RBC (4.30-5.90) M/uL Hgb (12.0-15.0) g/dL Hct (40.0-54.0) % MCV (80-98) fL MCH (27-31) pg MCHC (32-36) % Plt Count (150-400) K/uL Neut % (Auto) (36-66) % Lymph % (Auto) (24-44) % [place] % (Auto) (2-6) % Eos % (Auto) (2-4) % Baso % (Auto) (0-1) % PT 23.3 H (9.5-12.0) sec INR 2.26 H (0.80-1.20) APTT 25.3 L (27.0-36.0) sec Puncture Site ABG pH (7.350-7.450) ABG pCO2 (35.0-42.0) mmHg ABG pO2 (75.0-100.0) mmHg ABG HCO3 (22.0-26.0) mmol/L ABG Total CO2 (23.0-27.0) mmol/L ABG O2 Saturation (95.0-98.0) % ABG O2 Content (15.0-23.0) %vol ABG Base Excess mm/L ABG Hemoglobin (13.5-18.0) g/dL ABG Oxyhemoglobin % ABG Carboxyhemoglobin (0.0-1.6) % ABG Methemoglobin % Yan Test O2 Delivery Device Oxygen Flow Rate L Sodium 143 (140-148) mmol/L Potassium 1.9 L* (3.6-5.2) mmol/L Chloride 98 L (100-108) mmol/L Carbon Dioxide 38 H (21-32) mmol/L Anion Gap 8.9 (5.0-14.0) mmol/L BUN 23 H D (7-18) mg/dL Creatinine 1.1 (0.8-1.3) mg/dL Est Cr Clr Drug Dosing 73.48 mL/min Estimated GFR (MDRD) > 60 (>60) Glucose 106 (74-106) mg/dL Lactic Acid (0.4-2.0) mmol/L Calcium 9.8 (8.5-10.1) mg/dL Total Bilirubin 3.4 H (0.2-1.0) mg/dL AST 261 H (15-37) U/L ALT 99 H (12-78) U/L Alkaline Phosphatase 105 (46-116) U/L Creatine Kinase 2557 H (39-308) U/L C-Reactive Protein (0.0-0.3) mg/dL Total Protein 6.4 (6.4-8.2) g/dL Albumin 2.4 L (3.4-5.0) g/dL Globulin 4.0 H (2.3-3.5) g/dL Albumin/Globulin Ratio 0.6 L (1.2-2.2) Procalcitonin ng/mL Urine Color (YELLOW) Urine Appearance (CLEAR) Urine pH (5.0-8.0) Ur Specific [place] (1.008-1.030) Urine Protein (NEGATIVE) mg/dL Urine Glucose (UA) (NEGATIVE) mg/dL Urine Ketones (NEGATIVE) mg/dL Urine Occult Blood (NEGATIVE) Urine Nitrite (NEGATIVE) Urine Bilirubin (NEGATIVE) Urine Urobilinogen (0.2-1.0) EU/dL Ur Leukocyte Esterase (NEGATIVE) Urine RBC (0-5) Urine WBC (0-5) Ur Epithelial Cells Amorphous Sediment Urine Bacteria Urine Mucus Urine Opiates Screen (NEGATIVE) Ur Oxycodone Screen (NEGATIVE) Urine Methadone Screen (NEGATIVE) Ur Propoxyphene Screen (NEGATIVE) Ur Barbiturates Screen (NEGATIVE) Ur Tricyclics Screen (NEGATIVE) Ur Phencyclidine Scrn (NEGATIVE) Ur Amphetamine Screen (NEGATIVE) U Methamphetamines Scrn (NEGATIVE) Urine MDMA Screen (NEGATIVE) U Benzodiazepines Scrn (NEGATIVE) U Cocaine Metab Screen (NEGATIVE) U Marijuana (THC) Screen (NEGATIVE) Ethyl Alcohol mg/dL 10/24/19 10/24/19 10/24/19 Range/Units 09:52 10:16 10:16 WBC (4.5-11.0) K/uL RBC (4.30-5.90) M/uL Hgb (12.0-15.0) g/dL Hct (40.0-54.0) % MCV (80-98) fL MCH (27-31) pg MCHC (32-36) % Plt Count (150-400) K/uL Neut % (Auto) (36-66) % Lymph % (Auto) (24-44) % [place] % (Auto) (2-6) % Eos % (Auto) (2-4) % Baso % (Auto) (0-1) % PT (9.5-12.0) sec INR (0.80-1.20) APTT (27.0-36.0) sec Puncture Site ABG pH (7.350-7.450) ABG pCO2 (35.0-42.0) mmHg ABG pO2 (75.0-100.0) mmHg ABG HCO3 (22.0-26.0) mmol/L ABG Total CO2 (23.0-27.0) mmol/L ABG O2 Saturation (95.0-98.0) % ABG O2 Content (15.0-23.0) %vol ABG Base Excess mm/L ABG Hemoglobin (13.5-18.0) g/dL ABG Oxyhemoglobin % ABG Carboxyhemoglobin (0.0-1.6) % ABG Methemoglobin % Yan Test O2 Delivery Device Oxygen Flow Rate L Sodium (140-148) mmol/L Potassium (3.6-5.2) mmol/L Chloride (100-108) mmol/L Carbon Dioxide (21-32) mmol/L Anion Gap (5.0-14.0) mmol/L BUN (7-18) mg/dL Creatinine (0.8-1.3) mg/dL Est Cr Clr Drug Dosing mL/min Estimated GFR (MDRD) (>60) Glucose (74-106) mg/dL Lactic Acid 4.8 H (0.4-2.0) mmol/L Calcium (8.5-10.1) mg/dL Total Bilirubin (0.2-1.0) mg/dL AST (15-37) U/L ALT (12-78) U/L Alkaline Phosphatase (46-116) U/L Creatine Kinase (39-308) U/L C-Reactive Protein (0.0-0.3) mg/dL Total Protein (6.4-8.2) g/dL Albumin (3.4-5.0) g/dL Globulin (2.3-3.5) g/dL Albumin/Globulin Ratio (1.2-2.2) Procalcitonin ng/mL Urine Color (YELLOW) Urine Appearance (CLEAR) Urine pH (5.0-8.0) Ur Specific [place] (1.008-1.030) Urine Protein (NEGATIVE) mg/dL Urine Glucose (UA) (NEGATIVE) mg/dL Urine Ketones (NEGATIVE) mg/dL Urine Occult Blood (NEGATIVE) Urine Nitrite (NEGATIVE) Urine Bilirubin (NEGATIVE) Urine Urobilinogen (0.2-1.0) EU/dL Ur Leukocyte Esterase (NEGATIVE) Urine RBC (0-5) Urine WBC (0-5) Ur Epithelial Cells Amorphous Sediment Urine Bacteria Urine Mucus Urine Opiates Screen Presumptive positive H (NEGATIVE) Ur Oxycodone Screen Presumptive positive H (NEGATIVE) Urine Methadone Screen Negative (NEGATIVE) Ur Propoxyphene Screen Negative (NEGATIVE) Ur Barbiturates Screen Negative (NEGATIVE) Ur Tricyclics Screen Presumptive positive H (NEGATIVE) Ur Phencyclidine Scrn Negative (NEGATIVE) Ur Amphetamine Screen Negative (NEGATIVE) U Methamphetamines Scrn Negative (NEGATIVE) Urine MDMA Screen Negative (NEGATIVE) U Benzodiazepines Scrn Negative (NEGATIVE) U Cocaine Metab Screen Negative (NEGATIVE) U Marijuana (THC) Screen Presumptive positive H (NEGATIVE) Ethyl Alcohol < 3 mg/dL 10/24/19 10/24/19 Range/Units 10:32 10:32 WBC (4.5-11.0) K/uL RBC (4.30-5.90) M/uL Hgb (12.0-15.0) g/dL Hct (40.0-54.0) % MCV (80-98) fL MCH (27-31) pg MCHC (32-36) % Plt Count (150-400) K/uL Neut % (Auto) (36-66) % Lymph % (Auto) (24-44) % [place] % (Auto) (2-6) % Eos % (Auto) (2-4) % Baso % (Auto) (0-1) % PT (9.5-12.0) sec INR (0.80-1.20) APTT (27.0-36.0) sec Puncture Site ABG pH (7.350-7.450) ABG pCO2 (35.0-42.0) mmHg ABG pO2 (75.0-100.0) mmHg ABG HCO3 (22.0-26.0) mmol/L ABG Total CO2 (23.0-27.0) mmol/L ABG O2 Saturation (95.0-98.0) % ABG O2 Content (15.0-23.0) %vol ABG Base Excess mm/L ABG Hemoglobin (13.5-18.0) g/dL ABG Oxyhemoglobin % ABG Carboxyhemoglobin (0.0-1.6) % ABG Methemoglobin % Yan Test O2 Delivery Device Oxygen Flow Rate L Sodium (140-148) mmol/L Potassium (3.6-5.2) mmol/L Chloride (100-108) mmol/L Carbon Dioxide (21-32) mmol/L Anion Gap (5.0-14.0) mmol/L BUN (7-18) mg/dL Creatinine (0.8-1.3) mg/dL Est Cr Clr Drug Dosing mL/min Estimated GFR (MDRD) (>60) Glucose (74-106) mg/dL Lactic Acid (0.4-2.0) mmol/L Calcium (8.5-10.1) mg/dL Total Bilirubin (0.2-1.0) mg/dL AST (15-37) U/L ALT (12-78) U/L Alkaline Phosphatase (46-116) U/L Creatine Kinase (39-308) U/L C-Reactive Protein 7.17 H (0.0-0.3) mg/dL Total Protein (6.4-8.2) g/dL Albumin (3.4-5.0) g/dL Globulin (2.3-3.5) g/dL Albumin/Globulin Ratio (1.2-2.2) Procalcitonin 0.37 ng/mL Urine Color (YELLOW) Urine Appearance (CLEAR) Urine pH (5.0-8.0) Ur Specific [place] (1.008-1.030) Urine Protein (NEGATIVE) mg/dL Urine Glucose (UA) (NEGATIVE) mg/dL Urine Ketones (NEGATIVE) mg/dL Urine Occult Blood (NEGATIVE) Urine Nitrite (NEGATIVE) Urine Bilirubin (NEGATIVE) Urine Urobilinogen (0.2-1.0) EU/dL Ur Leukocyte Esterase (NEGATIVE) Urine RBC (0-5) Urine WBC (0-5) Ur Epithelial Cells Amorphous Sediment Urine Bacteria Urine Mucus Urine Opiates Screen (NEGATIVE) Ur Oxycodone Screen (NEGATIVE) Urine Methadone Screen (NEGATIVE) Ur Propoxyphene Screen (NEGATIVE) Ur Barbiturates Screen (NEGATIVE) Ur Tricyclics Screen (NEGATIVE) Ur Phencyclidine Scrn (NEGATIVE) Ur Amphetamine Screen (NEGATIVE) U Methamphetamines Scrn (NEGATIVE) Urine MDMA Screen (NEGATIVE) U Benzodiazepines Scrn (NEGATIVE) U Cocaine Metab Screen (NEGATIVE) U Marijuana (THC) Screen (NEGATIVE) Ethyl Alcohol mg/dL Result Diagrams: 10/24/19 08:58 10/24/19 16:07 Sepsis Event Note - Evaluation Sepsis Screening Result: No Definite Risk - Focused Exam Vital Signs: Vital Signs Temp Pulse Resp BP Pulse Ox 10/24/19 10:58 108 H 16 147/72 H 3 L 10/24/19 10:28 115 H 21 H 132/65 89 L 10/24/19 09:58 110 H 19 135/74 90 L 10/24/19 09:51 100.8 F H 10/24/19 09:01 99.7 F 119 H 17 132/75 88 L 10/24/19 08:58 109 H 17 135/73 92 L 10/24/19 08:35 17 88 L 10/24/19 08:31 99.7 F 119 H 18 132/75 83 L 10/24/19 08:28 107 H 14 135/62 92 L Date Exam was Performed: 10/24/19 Time Exam was Performed: 17:24 *Q Meaningful Use (ADM) - VTE Risk Assess *Q Each Risk Factor Represents 1 Point: Obesity ( BMI > 25 kg/m2) Total Score 1 Point Risk Factors: 1 Each Risk Factor Represents 2 Points: Age 60 - 74 Years Total Score 2 Point Risk Factors: 2 Each Risk Factor Represents 3 Points: None Total Score 3 Point Risk Factors: 0 Each Risk Factor Represents 5 Points: None Total Score 5 Point Risk Factors: 0 Venous Thromboembolism Risk Factor Score *Q: 3 Problem List Initiated/Reviewed/Updated: Yes Orders Last 24hrs: Active Orders 24 hr Category Date Time Status Patient Status Manage Transfer [TRANSFER] Routine ADT 10/24/19 11:32 Ordered Bladder Scan [RC] ASDIRECTED Care 10/24/19 09:18 Active EKG Documentation Completion [RC] ASDIRECTED Care 10/24/19 09:17 Active Insert Urinary Catheter [OM.PC] Daily Care 10/24/19 11:00 Ordered Urinary Catheter Assessment [RC] ASDIRECTED Care 10/24/19 11:00 Active Abdomen Ltd [US] Stat Exams 10/24/19 11:27 Ordered Chest 1V Frontal [CR] Stat Exams 10/24/19 09:15 Taken CULTURE BLOOD [BC] Urgent Lab 10/24/19 09:35 Received CULTURE BLOOD [BC] Urgent Lab 10/24/19 10:08 Received CULTURE URINE [RM] Stat Lab 10/24/19 09:53 Received Potassium Chloride [KCL 20 MEQ in Water 100 ML] 20 meq Med 10/24/19 09:59 Active Premix Bag 1 bag IV ONETIME Sodium Chloride 0.9% [Normal Saline] 1,000 ml Med 10/24/19 09:00 Active IV ASDIRECTED Sodium Chloride 0.9% [Normal Saline] 1,000 ml Med 10/24/19 09:00 Active IV ASDIRECTED Blood Culture x2 Reflex Set [OM.PC] Urgent Oth 10/24/19 09:52 Ordered Resuscitation Status Routine Resus Stat 10/24/19 11:36 Ordered EKG 12 Lead [EK] Routine Ther 10/24/19 09:17 Ordered Medication Orders Sodium Chloride (Normal Saline) 1,000 mls @ 999 mls/hr IV ASDIRECTED NIKHIL Last Admin: 10/24/19 09:24 Dose: 999 mls/hr Sodium Chloride (Normal Saline) 1,000 mls @ 999 mls/hr IV ASDIRECTED NIKHIL Last Admin: 10/24/19 10:13 Dose: 999 mls/hr Potassium Chloride 20 meq/ (Premix) 100 mls @ 50 mls/hr IV ONETIME ONE Stop: 10/24/19 11:58 Last Admin: 10/24/19 10:26 Dose: 50 mls/hr Assessment/Plan Comment:: ASSESSMENT AND PLAN RHABDOMYOLYSIS-secondary to having spent 24 hours on the floor 2 days ago. Relatively mild elevation in CK level at this time, normal renal function. -IV fluids for hydration -Reassess CK later today and in a.m. SEVERE HYPOKALEMIA -IV and oral potassium replacement -Reassess potassium level later today and in a.m. ALCOHOLIC HEPATITIS-associated with underlying cirrhosis, long-term history of daily alcohol use. Calculated Maddrey score of 52, places him at very high risk for increased mortality over the next 6 months. Abdominal ultrasound obtained today after admission shows no evidence of significant ascites. -Reassess liver studies and INR in a.m. -Prednisolone 40 mg p.o. daily -Monitor closely for alcohol withdrawal PROBABLE ASPIRATION-shortly after admission he developed hypoxia and coughing following oral potassium. Unfortunately hypoxia has continued and he has required higher level of supplemental oxygen. -Zosyn IV every 6 hours -Solu-Medrol 40 mg IV every 6 hours -Noninvasive positive pressure ventilation -Follow-up chest x-ray in a.m. -Supplemental oxygen as needed PROGRESSIVE WEAKNESS-at baseline has right-sided weakness secondary to cervical spine injury and surgery. Progressively more weak over the past few months, likely related to his progressive liver disease. HEPATIC ENCEPHALOPATHY-noted to be lethargic and somewhat confused on admission. Ammonia level mildly elevated -Lactulose twice daily -Reassess ammonia level in a.m. CHRONIC NECK AND BACK PAIN -Continue outpatient pain medications MODERATE AORTIC STENOSIS MAINTENANCE ISSUES -DVT prophylaxis; INR significantly elevated, hold on anticoagulation -GI prophylaxis; not indicated -Chu catheter; not indicated -Nutrition; regular diet -Nicotine dependence; not required CODE STATUS-FULL CODE ADMISSION STATUS-patient will be admitted to inpatient status, expect at least a 2 night hospital stay for evaluation and management of problems as outlined above. At the time of this admission I do not reasonably expected evaluation and management of this problem will require more than a 96 hour hospital stay. DISPOSITION-anticipate discharge to home after the hospital stay. PRIMARY CARE PROVIDER-Gail Chand - Mortality Measure Prognosis:: Poor
--- NOTE | 2019-10-24 12:53 | US ---
Abdomen Ltd CLINICAL HISTORY: Rule out ascites FINDINGS: Scans through the abdomen show no significant ascitic fluid collection IMPRESSION: No ascites
[2019-10-24] MEDS ORDERED: Sodium Chloride 0.9% 10 ML Syringe FLUSH PRN (13:43)
[2019-10-24] MEDS ORDERED: Potassium Chloride Riders 40 MEQ in Premix Bag 1 BAG IV ONE ×3 (13:43→21:00)
[2019-10-24] MEDS ORDERED: Ondansetron 4 MG/2 ML SDV IV PRN (13:43)
[2019-10-24] MEDS ORDERED: Polyethylene Glycol 3350 Powder 17 GM Packet PO PRN (13:43)
[2019-10-24] MEDS ORDERED: Piperacillin/Tazobactam 3.375 GM in Sodium Chloride 0.9% 50 ML IV SCH (13:43)
[2019-10-24] MEDS: Piperacillin/Tazobactam/Dext 3.375 GM in Premix Bag 1 BAG IV SCH ×2 (14:27→19:41)
[2019-10-24] MEDS: Sodium Chloride 0.9% 1,000 ML IV SCH (14:29)
[2019-10-24] MEDS: Gabapentin 400 MG Cap PO SCH ×2 (14:30→21:07)
[2019-10-24] MEDS: Folic Acid 1 MG Tab PO SCH (14:30)
[2019-10-24] MEDS: Thiamine 100 MG Tab PO SCH (14:30)
[2019-10-24] MEDS ORDERED: Phytonadione 5 MG in Sodium Chloride 0.9% 50 ML IV ONE (15:00)
[2019-10-24] MEDS ORDERED: prednisoLONE 15 MG/5 ML Soln UD Cup PO SCH (15:00)
[2019-10-24] MEDS: Potassium Chloride 20 MEQ, Lidocaine 1% 2 ML in Sodium Chloride 0.9% 100 ML IV SCH ×4 (15:04→22:34)
[2019-10-24] MEDS: methylPREDNISolone Sodium Succinate 40 MG/1 ML SDV IVPUSH SCH ×2 (15:52→22:36)
[2019-10-24] MEDS ORDERED: MVI, Adult with Vitamin K 10 ML, Thiamine 100 MG, Folic Acid 1 MG, Magnesium Sulfate 2 ... IV ONE ×5 (17:00)
[2019-10-24] MEDS: Lactulose Soln 10 GM/15 ML 15 ML UD Cup PO SCH ×2 (18:03→21:08)
[2019-10-24] MEDS ORDERED: Non-Formulary Medication 1 Each (Lifitegrast [Xiidra] 1 DROP) EYEBOTH SCH (21:00)
[2019-10-24] MEDS: oxyCODONE 5 MG Tab PO PRN (21:07)
[2019-10-24] MEDS: LORazepam 1 MG Tab PO SCH (21:07)
[2019-10-24] MEDS: Morphine 15 MG Tab.ER PO SCH (21:07)
[2019-10-25] MEDS: Potassium Chloride 20 MEQ, Lidocaine 1% 2 ML in Sodium Chloride 0.9% 100 ML IV SCH ×2 (00:36→02:35)
[2019-10-25] MEDS: Piperacillin/Tazobactam/Dext 3.375 GM in Premix Bag 1 BAG IV SCH ×4 (01:33→20:22)
[2019-10-25] MEDS: oxyCODONE 5 MG Tab PO PRN (01:45)
[2019-10-25] MEDS: LORazepam 1 MG Tab PO SCH ×2 (01:45→22:22)
[2019-10-25] MEDS: Sodium Chloride 0.9% 1,000 ML IV SCH (02:34)
[2019-10-25] MEDS: methylPREDNISolone Sodium Succinate 40 MG/1 ML SDV IVPUSH SCH ×2 (04:27→09:30)
[2019-10-25] MEDS ORDERED: Sodium Chloride 0.9% 10 ML Syringe FLUSH ONE (07:23)
[2019-10-25] MEDS: Gabapentin 400 MG Cap PO SCH ×4 (07:23→21:16)
[2019-10-25] MEDS ORDERED: Iopamidol 612 MG/ML 150 ML Bottle IV SCH (07:30)
--- NOTE | 2019-10-25 09:12 | CR ---
CHEST: Portable 10/24/2019 at 09 52 CLINICAL HISTORY:SOB COMPARISON:None FINDINGS: Heart size and pulmonary vascularity are normal. There are atherosclerotic changes in the aorta.. There is minimal streaky density in the lingula which is most likely atelectasis or scarring. Impression: Minimal patchy lingular density most likely atelectasis and/or scarring. Minimal infiltrate is not excluded.
--- NOTE | 2019-10-25 09:19 | CR ---
CHEST: Portable 10/25/2019 26/12/2013 CLINICAL HISTORY:Aspiration COMPARISON:10/24/2019 FINDINGS: There is patchy density in the right infrahilar and left perihilar regions increased since prior study. No effusion is seen. Impression: Patchy density in the right infrahilar and left perihilar region are suspect for pneumonic infiltrate and may be related to patient's history of aspiration.
--- NOTE | 2019-10-25 09:54 | PCM.PN ---
- General Info Date of Service: 10/25/19 Subjective Update: Mr. Wilcox is much more lethargic this morning, he did receive pain medication as well as lorazepam during the night. More agitated during the night and appeared to be developing at least some component of alcohol withdrawal. This morning appears comfortable but is very sedated, unable to provide meaningful history concerning symptoms or review of systems. Chest x-ray does show patchy infiltrates consistent with infection. - Patient Data Vitals - Most Recent: Last Vital Signs Temp 96.4 F L 10/25/19 08:00 Pulse 108 H 10/24/19 10:58 Resp 12 10/25/19 08:00 BP 113/67 10/25/19 08:00 Pulse Ox 92 L 10/25/19 08:00 Weight - Most Recent: 280 lb I&O - Last 24 Hours: Intake & Output 10/24/19 10/25/19 10/25/19 22:59 06:59 14:59 Intake Total 1474 2639 Output Total 1000 Balance 474 2639 Lab Results Last 24 Hours: Laboratory Results - last 24 hr 10/24/19 10/24/19 10/24/19 Range/Units 08:58 08:58 09:16 WBC 17.5 H (4.5-11.0) K/uL RBC 4.22 L (4.30-5.90) M/uL Hgb 11.8 L (12.0-15.0) g/dL Hct 37.6 L (40.0-54.0) % MCV 89 (80-98) fL MCH 28 (27-31) pg MCHC 31 L (32-36) % Plt Count 143 L (150-400) K/uL Neut % (Auto) 81 H (36-66) % Lymph % (Auto) 11 L (24-44) % [place] % (Auto) 7 H (2-6) % Eos % (Auto) 1 L (2-4) % Baso % (Auto) 0 (0-1) % PT (9.5-12.0) sec INR (0.80-1.20) APTT (27.0-36.0) sec Puncture Site Lt radial ABG pH 7.540 H (7.350-7.450) ABG pCO2 41.8 (35.0-42.0) mmHg ABG pO2 56.6 L (75.0-100.0) mmHg ABG HCO3 35.7 H (22.0-26.0) mmol/L ABG Total CO2 31.7 H (23.0-27.0) mmol/L ABG O2 Saturation 90.4 L (95.0-98.0) % ABG O2 Content 14.2 L (15.0-23.0) %vol ABG Base Excess 11.9 mm/L ABG Hemoglobin 11.6 L (13.5-18.0) g/dL ABG Oxyhemoglobin 87.4 % ABG Carboxyhemoglobin 2.6 H (0.0-1.6) % ABG Methemoglobin 0.7 % Yan Test Passed O2 Delivery Device Nasal cannula Oxygen Flow Rate 4.0 L Sodium (140-148) mmol/L Potassium (3.6-5.2) mmol/L Chloride (100-108) mmol/L Carbon Dioxide (21-32) mmol/L Anion Gap (5.0-14.0) mmol/L BUN (7-18) mg/dL Creatinine (0.8-1.3) mg/dL Est Cr Clr Drug Dosing mL/min Estimated GFR (MDRD) (>60) Glucose (74-106) mg/dL Lactic Acid (0.4-2.0) mmol/L Calcium (8.5-10.1) mg/dL Magnesium (1.8-2.4) mg/dL Total Bilirubin (0.2-1.0) mg/dL AST (15-37) U/L ALT (12-78) U/L Alkaline Phosphatase (46-116) U/L Ammonia (11-32) mmol/L Creatine Kinase (39-308) U/L C-Reactive Protein (0.0-0.3) mg/dL Total Protein (6.4-8.2) g/dL Albumin (3.4-5.0) g/dL Globulin (2.3-3.5) g/dL Albumin/Globulin Ratio (1.2-2.2) Procalcitonin ng/mL Urine Color Yellow (YELLOW) Urine Appearance Slightly cloudy A (CLEAR) Urine pH 6.0 (5.0-8.0) Ur Specific [place] 1.020 (1.008-1.030) Urine Protein 30 H (NEGATIVE) mg/dL Urine Glucose (UA) Negative (NEGATIVE) mg/dL Urine Ketones Trace H (NEGATIVE) mg/dL Urine Occult Blood Large H (NEGATIVE) Urine Nitrite Negative (NEGATIVE) Urine Bilirubin Small H (NEGATIVE) Urine Urobilinogen 2.0 H (0.2-1.0) EU/dL Ur Leukocyte Esterase Negative (NEGATIVE) Urine RBC 0-5 (0-5) Urine WBC 5-10 H (0-5) Ur Epithelial Cells Not seen Amorphous Sediment Not seen Urine Bacteria Many Urine Mucus Not seen Urine Opiates Screen (NEGATIVE) Ur Oxycodone Screen (NEGATIVE) Urine Methadone Screen (NEGATIVE) Ur Propoxyphene Screen (NEGATIVE) Ur Barbiturates Screen (NEGATIVE) Ur Tricyclics Screen (NEGATIVE) Ur Phencyclidine Scrn (NEGATIVE) Ur Amphetamine Screen (NEGATIVE) U Methamphetamines Scrn (NEGATIVE) Urine MDMA Screen (NEGATIVE) U Benzodiazepines Scrn (NEGATIVE) U Cocaine Metab Screen (NEGATIVE) U Marijuana (THC) Screen (NEGATIVE) Ethyl Alcohol mg/dL 10/24/19 10/24/19 10/24/19 Range/Units 09:27 09:27 09:27 WBC (4.5-11.0) K/uL RBC (4.30-5.90) M/uL Hgb (12.0-15.0) g/dL Hct (40.0-54.0) % MCV (80-98) fL MCH (27-31) pg MCHC (32-36) % Plt Count (150-400) K/uL Neut % (Auto) (36-66) % Lymph % (Auto) (24-44) % [place] % (Auto) (2-6) % Eos % (Auto) (2-4) % Baso % (Auto) (0-1) % PT 23.3 H (9.5-12.0) sec INR 2.26 H (0.80-1.20) APTT 25.3 L (27.0-36.0) sec Puncture Site ABG pH (7.350-7.450) ABG pCO2 (35.0-42.0) mmHg ABG pO2 (75.0-100.0) mmHg ABG HCO3 (22.0-26.0) mmol/L ABG Total CO2 (23.0-27.0) mmol/L ABG O2 Saturation (95.0-98.0) % ABG O2 Content (15.0-23.0) %vol ABG Base Excess mm/L ABG Hemoglobin (13.5-18.0) g/dL ABG Oxyhemoglobin % ABG Carboxyhemoglobin (0.0-1.6) % ABG Methemoglobin % Yan Test O2 Delivery Device Oxygen Flow Rate L Sodium 143 (140-148) mmol/L Potassium 1.9 L* (3.6-5.2) mmol/L Chloride 98 L (100-108) mmol/L Carbon Dioxide 38 H (21-32) mmol/L Anion Gap 8.9 (5.0-14.0) mmol/L BUN 23 H D (7-18) mg/dL Creatinine 1.1 (0.8-1.3) mg/dL Est Cr Clr Drug Dosing 73.48 mL/min Estimated GFR (MDRD) > 60 (>60) Glucose 106 (74-106) mg/dL Lactic Acid (0.4-2.0) mmol/L Calcium 9.8 (8.5-10.1) mg/dL Magnesium (1.8-2.4) mg/dL Total Bilirubin 3.4 H (0.2-1.0) mg/dL AST 261 H (15-37) U/L ALT 99 H (12-78) U/L Alkaline Phosphatase 105 (46-116) U/L Ammonia (11-32) mmol/L Creatine Kinase 2557 H (39-308) U/L C-Reactive Protein (0.0-0.3) mg/dL Total Protein 6.4 (6.4-8.2) g/dL Albumin 2.4 L (3.4-5.0) g/dL Globulin 4.0 H (2.3-3.5) g/dL Albumin/Globulin Ratio 0.6 L (1.2-2.2) Procalcitonin ng/mL Urine Color (YELLOW) Urine Appearance (CLEAR) Urine pH (5.0-8.0) Ur Specific [place] (1.008-1.030) Urine Protein (NEGATIVE) mg/dL Urine Glucose (UA) (NEGATIVE) mg/dL Urine Ketones (NEGATIVE) mg/dL Urine Occult Blood (NEGATIVE) Urine Nitrite (NEGATIVE) Urine Bilirubin (NEGATIVE) Urine Urobilinogen (0.2-1.0) EU/dL Ur Leukocyte Esterase (NEGATIVE) Urine RBC (0-5) Urine WBC (0-5) Ur Epithelial Cells Amorphous Sediment Urine Bacteria Urine Mucus Urine Opiates Screen (NEGATIVE) Ur Oxycodone Screen (NEGATIVE) Urine Methadone Screen (NEGATIVE) Ur Propoxyphene Screen (NEGATIVE) Ur Barbiturates Screen (NEGATIVE) Ur Tricyclics Screen (NEGATIVE) Ur Phencyclidine Scrn (NEGATIVE) Ur Amphetamine Screen (NEGATIVE) U Methamphetamines Scrn (NEGATIVE) Urine MDMA Screen (NEGATIVE) U Benzodiazepines Scrn (NEGATIVE) U Cocaine Metab Screen (NEGATIVE) U Marijuana (THC) Screen (NEGATIVE) Ethyl Alcohol mg/dL 10/24/19 10/24/19 10/24/19 Range/Units 09:52 10:16 10:16 WBC (4.5-11.0) K/uL RBC (4.30-5.90) M/uL Hgb (12.0-15.0) g/dL Hct (40.0-54.0) % MCV (80-98) fL MCH (27-31) pg MCHC (32-36) % Plt Count (150-400) K/uL Neut % (Auto) (36-66) % Lymph % (Auto) (24-44) % [place] % (Auto) (2-6) % Eos % (Auto) (2-4) % Baso % (Auto) (0-1) % PT (9.5-12.0) sec INR (0.80-1.20) APTT (27.0-36.0) sec Puncture Site ABG pH (7.350-7.450) ABG pCO2 (35.0-42.0) mmHg ABG pO2 (75.0-100.0) mmHg ABG HCO3 (22.0-26.0) mmol/L ABG Total CO2 (23.0-27.0) mmol/L ABG O2 Saturation (95.0-98.0) % ABG O2 Content (15.0-23.0) %vol ABG Base Excess mm/L ABG Hemoglobin (13.5-18.0) g/dL ABG Oxyhemoglobin % ABG Carboxyhemoglobin (0.0-1.6) % ABG Methemoglobin % Yan Test O2 Delivery Device Oxygen Flow Rate L Sodium (140-148) mmol/L Potassium (3.6-5.2) mmol/L Chloride (100-108) mmol/L Carbon Dioxide (21-32) mmol/L Anion Gap (5.0-14.0) mmol/L BUN (7-18) mg/dL Creatinine (0.8-1.3) mg/dL Est Cr Clr Drug Dosing mL/min Estimated GFR (MDRD) (>60) Glucose (74-106) mg/dL Lactic Acid 4.8 H (0.4-2.0) mmol/L Calcium (8.5-10.1) mg/dL Magnesium (1.8-2.4) mg/dL Total Bilirubin (0.2-1.0) mg/dL AST (15-37) U/L ALT (12-78) U/L Alkaline Phosphatase (46-116) U/L Ammonia (11-32) mmol/L Creatine Kinase (39-308) U/L C-Reactive Protein (0.0-0.3) mg/dL Total Protein (6.4-8.2) g/dL Albumin (3.4-5.0) g/dL Globulin (2.3-3.5) g/dL Albumin/Globulin Ratio (1.2-2.2) Procalcitonin ng/mL Urine Color (YELLOW) Urine Appearance (CLEAR) Urine pH (5.0-8.0) Ur Specific [place] (1.008-1.030) Urine Protein (NEGATIVE) mg/dL Urine Glucose (UA) (NEGATIVE) mg/dL Urine Ketones (NEGATIVE) mg/dL Urine Occult Blood (NEGATIVE) Urine Nitrite (NEGATIVE) Urine Bilirubin (NEGATIVE) Urine Urobilinogen (0.2-1.0) EU/dL Ur Leukocyte Esterase (NEGATIVE) Urine RBC (0-5) Urine WBC (0-5) Ur Epithelial Cells Amorphous Sediment Urine Bacteria Urine Mucus Urine Opiates Screen Presumptive positive H (NEGATIVE) Ur Oxycodone Screen Presumptive positive H (NEGATIVE) Urine Methadone Screen Negative (NEGATIVE) Ur Propoxyphene Screen Negative (NEGATIVE) Ur Barbiturates Screen Negative (NEGATIVE) Ur Tricyclics Screen Presumptive positive H (NEGATIVE) Ur Phencyclidine Scrn Negative (NEGATIVE) Ur Amphetamine Screen Negative (NEGATIVE) U Methamphetamines Scrn Negative (NEGATIVE) Urine MDMA Screen Negative (NEGATIVE) U Benzodiazepines Scrn Negative (NEGATIVE) U Cocaine Metab Screen Negative (NEGATIVE) U Marijuana (THC) Screen Presumptive positive H (NEGATIVE) Ethyl Alcohol < 3 mg/dL 10/24/19 10/24/19 10/24/19 Range/Units 10:32 10:32 16:07 WBC (4.5-11.0) K/uL RBC (4.30-5.90) M/uL Hgb (12.0-15.0) g/dL Hct (40.0-54.0) % MCV (80-98) fL MCH (27-31) pg MCHC (32-36) % Plt Count (150-400) K/uL Neut % (Auto) (36-66) % Lymph % (Auto) (24-44) % [place] % (Auto) (2-6) % Eos % (Auto) (2-4) % Baso % (Auto) (0-1) % PT (9.5-12.0) sec INR (0.80-1.20) APTT (27.0-36.0) sec Puncture Site ABG pH (7.350-7.450) ABG pCO2 (35.0-42.0) mmHg ABG pO2 (75.0-100.0) mmHg ABG HCO3 (22.0-26.0) mmol/L ABG Total CO2 (23.0-27.0) mmol/L ABG O2 Saturation (95.0-98.0) % ABG O2 Content (15.0-23.0) %vol ABG Base Excess mm/L ABG Hemoglobin (13.5-18.0) g/dL ABG Oxyhemoglobin % ABG Carboxyhemoglobin (0.0-1.6) % ABG Methemoglobin % Yan Test O2 Delivery Device Oxygen Flow Rate L Sodium (140-148) mmol/L Potassium (3.6-5.2) mmol/L Chloride (100-108) mmol/L Carbon Dioxide (21-32) mmol/L Anion Gap (5.0-14.0) mmol/L BUN (7-18) mg/dL Creatinine (0.8-1.3) mg/dL Est Cr Clr Drug Dosing mL/min Estimated GFR (MDRD) (>60) Glucose (74-106) mg/dL Lactic Acid (0.4-2.0) mmol/L Calcium (8.5-10.1) mg/dL Magnesium (1.8-2.4) mg/dL Total Bilirubin (0.2-1.0) mg/dL AST (15-37) U/L ALT (12-78) U/L Alkaline Phosphatase (46-116) U/L Ammonia 41 H (11-32) mmol/L Creatine Kinase (39-308) U/L C-Reactive Protein 7.17 H (0.0-0.3) mg/dL Total Protein (6.4-8.2) g/dL Albumin (3.4-5.0) g/dL Globulin (2.3-3.5) g/dL Albumin/Globulin Ratio (1.2-2.2) Procalcitonin 0.37 ng/mL Urine Color (YELLOW) Urine Appearance (CLEAR) Urine pH (5.0-8.0) Ur Specific [place] (1.008-1.030) Urine Protein (NEGATIVE) mg/dL Urine Glucose (UA) (NEGATIVE) mg/dL Urine Ketones (NEGATIVE) mg/dL Urine Occult Blood (NEGATIVE) Urine Nitrite (NEGATIVE) Urine Bilirubin (NEGATIVE) Urine Urobilinogen (0.2-1.0) EU/dL Ur Leukocyte Esterase (NEGATIVE) Urine RBC (0-5) Urine WBC (0-5) Ur Epithelial Cells Amorphous Sediment Urine Bacteria Urine Mucus Urine Opiates Screen (NEGATIVE) Ur Oxycodone Screen (NEGATIVE) Urine Methadone Screen (NEGATIVE) Ur Propoxyphene Screen (NEGATIVE) Ur Barbiturates Screen (NEGATIVE) Ur Tricyclics Screen (NEGATIVE) Ur Phencyclidine Scrn (NEGATIVE) Ur Amphetamine Screen (NEGATIVE) U Methamphetamines Scrn (NEGATIVE) Urine MDMA Screen (NEGATIVE) U Benzodiazepines Scrn (NEGATIVE) U Cocaine Metab Screen (NEGATIVE) U Marijuana (THC) Screen (NEGATIVE) Ethyl Alcohol mg/dL 10/24/19 10/25/19 10/25/19 Range/Units 16:07 05:23 05:23 WBC 14.6 H (4.5-11.0) K/uL RBC 3.89 L (4.30-5.90) M/uL Hgb 10.7 L (12.0-15.0) g/dL Hct 34.7 L (40.0-54.0) % MCV 89 (80-98) fL MCH 28 (27-31) pg MCHC 31 L (32-36) % Plt Count 104 L (150-400) K/uL Neut % (Auto) 85 H (36-66) % Lymph % (Auto) 12 L (24-44) % [place] % (Auto) 4 (2-6) % Eos % (Auto) 0 L (2-4) % Baso % (Auto) 0 (0-1) % PT 19.3 H (9.5-12.0) sec INR 1.85 H (0.80-1.20) APTT (27.0-36.0) sec Puncture Site ABG pH (7.350-7.450) ABG pCO2 (35.0-42.0) mmHg ABG pO2 (75.0-100.0) mmHg ABG HCO3 (22.0-26.0) mmol/L ABG Total CO2 (23.0-27.0) mmol/L ABG O2 Saturation (95.0-98.0) % ABG O2 Content (15.0-23.0) %vol ABG Base Excess mm/L ABG Hemoglobin (13.5-18.0) g/dL ABG Oxyhemoglobin % ABG Carboxyhemoglobin (0.0-1.6) % ABG Methemoglobin % Yan Test O2 Delivery Device Oxygen Flow Rate L Sodium (140-148) mmol/L Potassium 2.2 L* (3.6-5.2) mmol/L Chloride (100-108) mmol/L Carbon Dioxide (21-32) mmol/L Anion Gap (5.0-14.0) mmol/L BUN (7-18) mg/dL Creatinine (0.8-1.3) mg/dL Est Cr Clr Drug Dosing mL/min Estimated GFR (MDRD) (>60) Glucose (74-106) mg/dL Lactic Acid (0.4-2.0) mmol/L Calcium (8.5-10.1) mg/dL Magnesium (1.8-2.4) mg/dL Total Bilirubin (0.2-1.0) mg/dL AST (15-37) U/L ALT (12-78) U/L Alkaline Phosphatase (46-116) U/L Ammonia (11-32) mmol/L Creatine Kinase 1517 H (39-308) U/L C-Reactive Protein (0.0-0.3) mg/dL Total Protein (6.4-8.2) g/dL Albumin (3.4-5.0) g/dL Globulin (2.3-3.5) g/dL Albumin/Globulin Ratio (1.2-2.2) Procalcitonin ng/mL Urine Color (YELLOW) Urine Appearance (CLEAR) Urine pH (5.0-8.0) Ur Specific [place] (1.008-1.030) Urine Protein (NEGATIVE) mg/dL Urine Glucose (UA) (NEGATIVE) mg/dL Urine Ketones (NEGATIVE) mg/dL Urine Occult Blood (NEGATIVE) Urine Nitrite (NEGATIVE) Urine Bilirubin (NEGATIVE) Urine Urobilinogen (0.2-1.0) EU/dL Ur Leukocyte Esterase (NEGATIVE) Urine RBC (0-5) Urine WBC (0-5) Ur Epithelial Cells Amorphous Sediment Urine Bacteria Urine Mucus Urine Opiates Screen (NEGATIVE) Ur Oxycodone Screen (NEGATIVE) Urine Methadone Screen (NEGATIVE) Ur Propoxyphene Screen (NEGATIVE) Ur Barbiturates Screen (NEGATIVE) Ur Tricyclics Screen (NEGATIVE) Ur Phencyclidine Scrn (NEGATIVE) Ur Amphetamine Screen (NEGATIVE) U Methamphetamines Scrn (NEGATIVE) Urine MDMA Screen (NEGATIVE) U Benzodiazepines Scrn (NEGATIVE) U Cocaine Metab Screen (NEGATIVE) U Marijuana (THC) Screen (NEGATIVE) Ethyl Alcohol mg/dL 10/25/19 10/25/19 10/25/19 Range/Units 05:23 05:23 05:23 WBC (4.5-11.0) K/uL RBC (4.30-5.90) M/uL Hgb (12.0-15.0) g/dL Hct (40.0-54.0) % MCV (80-98) fL MCH (27-31) pg MCHC (32-36) % Plt Count (150-400) K/uL Neut % (Auto) (36-66) % Lymph % (Auto) (24-44) % [place] % (Auto) (2-6) % Eos % (Auto) (2-4) % Baso % (Auto) (0-1) % PT (9.5-12.0) sec INR (0.80-1.20) APTT (27.0-36.0) sec Puncture Site ABG pH (7.350-7.450) ABG pCO2 (35.0-42.0) mmHg ABG pO2 (75.0-100.0) mmHg ABG HCO3 (22.0-26.0) mmol/L ABG Total CO2 (23.0-27.0) mmol/L ABG O2 Saturation (95.0-98.0) % ABG O2 Content (15.0-23.0) %vol ABG Base Excess mm/L ABG Hemoglobin (13.5-18.0) g/dL ABG Oxyhemoglobin % ABG Carboxyhemoglobin (0.0-1.6) % ABG Methemoglobin % Yan Test O2 Delivery Device Oxygen Flow Rate L Sodium 144 (140-148) mmol/L Potassium 3.7 (3.6-5.2) mmol/L Chloride 106 (100-108) mmol/L Carbon Dioxide 33 H (21-32) mmol/L Anion Gap 8.7 (5.0-14.0) mmol/L BUN 16 (7-18) mg/dL Creatinine 0.9 (0.8-1.3) mg/dL Est Cr Clr Drug Dosing 89.94 mL/min Estimated GFR (MDRD) > 60 (>60) Glucose 145 H (74-106) mg/dL Lactic Acid (0.4-2.0) mmol/L Calcium 8.6 (8.5-10.1) mg/dL Magnesium 2.4 (1.8-2.4) mg/dL Total Bilirubin 3.2 H (0.2-1.0) mg/dL AST 192 H (15-37) U/L ALT 94 H (12-78) U/L Alkaline Phosphatase 108 (46-116) U/L Ammonia 35 H (11-32) mmol/L Creatine Kinase 849 H (39-308) U/L C-Reactive Protein (0.0-0.3) mg/dL Total Protein 6.1 L (6.4-8.2) g/dL Albumin 2.1 L (3.4-5.0) g/dL Globulin 4.0 H (2.3-3.5) g/dL Albumin/Globulin Ratio 0.5 L (1.2-2.2) Procalcitonin ng/mL Urine Color (YELLOW) Urine Appearance (CLEAR) Urine pH (5.0-8.0) Ur Specific [place] (1.008-1.030) Urine Protein (NEGATIVE) mg/dL Urine Glucose (UA) (NEGATIVE) mg/dL Urine Ketones (NEGATIVE) mg/dL Urine Occult Blood (NEGATIVE) Urine Nitrite (NEGATIVE) Urine Bilirubin (NEGATIVE) Urine Urobilinogen (0.2-1.0) EU/dL Ur Leukocyte Esterase (NEGATIVE) Urine RBC (0-5) Urine WBC (0-5) Ur Epithelial Cells Amorphous Sediment Urine Bacteria Urine Mucus Urine Opiates Screen (NEGATIVE) Ur Oxycodone Screen (NEGATIVE) Urine Methadone Screen (NEGATIVE) Ur Propoxyphene Screen (NEGATIVE) Ur Barbiturates Screen (NEGATIVE) Ur Tricyclics Screen (NEGATIVE) Ur Phencyclidine Scrn (NEGATIVE) Ur Amphetamine Screen (NEGATIVE) U Methamphetamines Scrn (NEGATIVE) Urine MDMA Screen (NEGATIVE) U Benzodiazepines Scrn (NEGATIVE) U Cocaine Metab Screen (NEGATIVE) U Marijuana (THC) Screen (NEGATIVE) Ethyl Alcohol mg/dL [facility] Results Last 24 Hours: Microbiology 10/24/19 09:53 Urine Culture - Preliminary Urine, Bladder Med Orders - Current: Current Medications Folic Acid (Folic Acid) 1 mg PO DAILY [facility] Last Admin: 10/24/19 14:30 Dose: 1 mg Gabapentin (Neurontin) 400 mg PO Q8H [facility] Stop: 10/28/19 06:01 Last Admin: 10/25/19 07:23 Dose: Not Given Piperacillin/Tazobactam/ (Dextrose 3.375 gm/ Premix) 50 mls @ 100 mls/hr IV Q6H [facility] Last Admin: 10/25/19 08:00 Dose: 100 mls/hr Sodium Chloride (Normal Saline) 85 mls @ 3 mls/sec IV ASDIRECTED [facility] Stop: 10/25/19 10:00 Sodium Chloride (Normal Saline) 1,000 mls @ 75 mls/hr IV ASDIRECTED [facility] Lactulose (Chronulac) 20 gm PO BID [facility] Last Admin: 10/24/19 21:08 Dose: 20 gm Lorazepam (Ativan) 0 mg PO ASDIRECTED [facility]; Protocol Last Admin: 10/25/19 01:45 Dose: 1 mg Methylprednisolone Sodium Succinate (Solu-Medrol) 40 mg IVPUSH Q12H [facility] Metoprolol Succinate (Toprol Xl) 50 mg PO DAILY [facility] Morphine Sulfate (Ms Contin) 15 mg PO Q12H [facility] Last Admin: 10/24/19 21:07 Dose: 15 mg Non-Formulary Medication (Lifitegrast [Xiidra]) 1 drop EYEBOTH BID [facility] Ondansetron HCl (Zofran) 4 mg IV Q4H PRN PRN Reason: Nausea/Vomiting Polyethylene Glycol (Miralax) 17 gm PO DAILY PRN PRN Reason: Constipation Sodium Chloride (Saline Flush) 10 ml FLUSH ASDIRECTED PRN PRN Reason: Keep Vein Open Thiamine HCl (Vitamin B-1) 100 mg PO DAILY [facility] Last Admin: 10/24/19 14:30 Dose: 100 mg Discontinued Medications Sodium Chloride (Normal Saline) 1,000 mls @ 999 mls/hr IV ASDIRECTED [facility] Last Admin: 10/24/19 09:24 Dose: 999 mls/hr Sodium Chloride (Normal Saline) 1,000 mls @ 999 mls/hr IV ASDIRECTED [facility] Last Admin: 10/24/19 10:13 Dose: 999 mls/hr Potassium Chloride 20 meq/ (Premix) 100 mls @ 50 mls/hr IV ONETIME ONE Stop: 10/24/19 11:58 Last Admin: 10/24/19 10:26 Dose: 50 mls/hr Ceftriaxone Sodium 1 gm/ (Sodium Chloride) 50 mls @ 100 mls/hr IV ONETIME ONE Stop: 10/24/19 11:03 Last Admin: 10/24/19 10:55 Dose: 100 mls/hr Multivitamins/Minerals 10 ml/Thiamine HCl 100 mg/ Folic Acid 1 mg/ Magnesium Sulfate 2 gm/ Sodium Chloride 1,015.2 mls @ 100 mls/hr IV ONETIME ONE Stop: 10/25/19 03:09 Last Admin: 10/24/19 16:49 Dose: 100 mls/hr Phytonadione 5 mg/ Sodium (Chloride) 50.5 mls @ 50 mls/hr IV NOW ONE Stop: 10/24/19 16:00 Last Admin: 10/24/19 14:58 Dose: 50 mls/hr Sodium Chloride (Normal Saline) 1,000 mls @ 125 mls/hr IV ASDIRECTED [facility] Last Admin: 10/25/19 02:34 Dose: 125 mls/hr Potassium Chloride 20 meq/Lidocaine HCl 2 ml/ Sodium Chloride 112 mls @ 56 mls/ hr IV Q2H [facility] Stop: 10/24/19 19:29 Last Admin: 10/24/19 16:50 Dose: 56 mls/hr Potassium Chloride 20 meq/Lidocaine HCl 2 ml/ Sodium Chloride 112 mls @ 56 mls/ hr IV Q2H [facility] Stop: 10/25/19 03:59 Last Admin: 10/25/19 02:35 Dose: 56 mls/hr Iopamidol (Isovue-300 (61%)) 150 ml IV . DIRECTED [facility] Stop: 10/25/19 09:00 Methylprednisolone Sodium Succinate (Solu-Medrol) 40 mg IVPUSH Q6H [facility] Last Admin: 10/25/19 09:30 Dose: 40 mg Oxycodone HCl (Oxycodone) 5 mg PO Q4H PRN PRN Reason: Pain (moderate 4-6) Last Admin: 10/25/19 01:45 Dose: 5 mg Potassium Chloride (Klor-Con M20) 20 meq PO ONETIME ONE Stop: 10/24/19 10:00 Last Admin: 10/24/19 10:26 Dose: 20 meq Potassium Chloride (Klor-Con M20) 40 meq PO ONETIME ONE Stop: 10/24/19 10:33 Last Admin: 10/24/19 10:55 Dose: 40 meq Potassium Chloride (Klor-Con M20) 40 meq PO ONETIME ONE Stop: 10/24/19 14:01 Last Admin: 10/24/19 14:30 Dose: 40 meq Potassium Chloride (Klor-Con M20) 40 meq PO ONETIME ONE Stop: 10/24/19 17:01 Last Admin: 10/24/19 18:03 Dose: 40 meq Potassium Chloride (Klor-Con M20) 40 meq PO ONETIME ONE Stop: 10/24/19 21:01 Last Admin: 10/24/19 21:08 Dose: 40 meq Prednisolone (Orapred 15 Mg/5ml Soln) 40 mg PO DAILY [facility] Last Admin: 10/24/19 15:58 Dose: 40 mg Sodium Chloride (Saline Flush) 10 ml FLUSH ONETIME ONE Stop: 10/25/19 07:24 - Exam Quality Assessment: Supplemental Oxygen, DVT Prophylaxis General: Sedated, Lethargic Lungs: Clear to Auscultation, Normal Respiratory Effort, Decreased Breath Sounds Cardiovascular: Regular Rate, Regular Rhythm, Murmurs GI/Abdominal Exam: Soft, Non-Tender, No Organomegaly, No Distention Extremities: Non-Tender, No Pedal Edema Skin: Warm, Dry, Intact Sepsis Event Note - Evaluation Sepsis Screening Result: Severe Sepsis Risk - Focused Exam Vital Signs: Vital Signs Temp Resp BP Pulse Ox 10/25/19 08:00 96.4 F L 12 113/67 92 L 10/25/19 06:00 12 124/67 93 L 10/25/19 04:00 11 L 104/65 94 L 10/25/19 02:00 98.4 F 12 120/73 97 10/25/19 00:00 16 149/78 H 93 L 10/24/19 22:00 17 132/69 97 Date Exam was Performed: 10/25/19 Time Exam was Performed: 09:49 - Problem List Review Problem List Initiated/Reviewed/Updated: Yes - My Orders Last 24 Hours: My Active Orders 10/24/19 11:36 Resuscitation Status Routine 10/24/19 13:43 Patient Status [ADT] Routine Ambulate [RC] QID CIWAA Assessment [RC] Q4H Cardiac Monitoring [RC] Q6H Height and Weight [RC] DAILY Intake and Output [RC] QSHIFT Notify Provider Vital Signs [RC] ASDIRECTED Notify Provider [RC] PRN Oxygen Therapy [RC] PRN Peripheral IV Care [RC] Q12H Up With Assistance [RC] ASDIRECTED Up to Chair [RC] QID Vital Signs [RC] Q2H PT Evaluation and Treatment [CONS] Routine LORazepam [Ativan] See Protocol PO ASDIRECTED Ondansetron [Zofran] 4 mg IV Q4H PRN Sodium Chloride 0.9% [Saline Flush] 10 ml FLUSH ASDIRECTED PRN polyethylene glycoL 3350 [MiraLAX] 17 gm PO DAILY PRN Peripheral IV Insertion Adult [OM.PC] Routine Pressure Reduction Mattress [OM.PC] Routine VTE Pharmacological Contraindications [AST] Per Unit Routine 10/24/19 14:00 Gabapentin [Neurontin] 400 mg PO Q8H 10/24/19 14:30 Piperacillin/Tazobactam/Dext [Zosyn in Dextrose Iso-Osmotic 3.375 GM] 3.375 gm Premix Bag 1 bag IV Q6H 10/24/19 15:00 Folic Acid 1 mg PO DAILY Thiamine [Vitamin B-1] 100 mg PO DAILY 10/24/19 17:00 RT BiPAP/CPAP [RC] ASDIRECTED 10/24/19 18:00 Lactulose [Chronulac] 20 gm PO BID 10/24/19 21:00 Lifitegrast [Xiidra] 1 drop EYEBOTH BID Morphine [MS Contin] 15 mg PO Q12H 10/24/19 Lunch 2 Gram Sodium Diet [DIET] 10/25/19 07:30 Sodium Chloride 0.9% [Normal Saline] 85 ml IV ASDIRECTED 10/25/19 08:00 Abdomen Pelvis w Cont [CT] Urgent Brain w Cont [MR] Urgent 10/25/19 09:00 Metoprolol Succinate [Toprol XL] 50 mg PO DAILY 10/25/19 09:35 ABG [BLOOD GAS ARTERIAL] [BG] Routine 10/25/19 10:00 Sodium Chloride 0.9% @ 75 MLS/HR(1000ml) Sodium Chloride 0.9% [Normal Saline] 1 ,000 ml IV ASDIRECTED methylPREDNISolone Sod Succ [Solu-MEDROL] 40 mg IVPUSH Q12H 10/26/19 05:00 CBC WITH AUTO DIFF [HEME] Timed COMPREHENSIVE METABOLIC PN,CMP [CHEM] Timed CREATINE KINASE,CK [CHEM] Timed INR,PT,PROTHROMBIN TIME [COAG] Timed - Plan Plan:: ASSESSMENT AND PLAN RHABDOMYOLYSIS-secondary to having spent 24 hours on the floor 2 days ago. CK level improved from admission -IV fluids for hydration -Reassess CK in a.m. SEVERE HYPOKALEMIA-potassium level this morning is within normal range -Reassess potassium level in a.m. ALCOHOLIC HEPATITIS-associated with underlying cirrhosis, long-term history of daily alcohol use. Bilirubin stable from yesterday, INR improved -Reassess liver studies and INR in a.m. -Monitor closely for alcohol withdrawal -Withdrawal protocol PROBABLE ASPIRATION-shortly after admission he developed hypoxia and coughing following oral potassium. Oxygenation has been stable since yesterday, continues to require supplemental oxygen. Chest x-ray does show patchy infiltrate consistent with pneumonia -Zosyn IV every 6 hours -Solu-Medrol 40 mg IV every 6 hours -Supplemental oxygen as needed PROGRESSIVE WEAKNESS-at baseline has right-sided weakness secondary to cervical spine injury and surgery. Progressively more weak over the past few months, likely related to his progressive liver disease. HEPATIC ENCEPHALOPATHY-noted to be lethargic and somewhat confused on admission. Ammonia level mildly elevated -Lactulose twice daily -Reassess ammonia level in a.m. CHRONIC NECK AND BACK PAIN -Continue outpatient pain medications MODERATE AORTIC STENOSIS MAINTENANCE ISSUES -DVT prophylaxis; INR significantly elevated, hold on anticoagulation -GI prophylaxis; not indicated -Chu catheter; not indicated -Nutrition; regular diet -Nicotine dependence; not required CODE STATUS-FULL CODE ADMISSION STATUS-patient will be admitted to inpatient status, expect at least a 2 night hospital stay for evaluation and management of problems as outlined above. At the time of this admission I do not reasonably expected evaluation and management of this problem will require more than a 96 hour hospital stay. DISPOSITION-anticipate discharge to home after the hospital stay. PRIMARY CARE PROVIDER-Gail Chand
[2019-10-25] MEDS ORDERED: Sodium Chloride 0.9% 1,000 ML IV SCH (10:00)
--- NOTE | 2019-10-25 12:47 | MR ---
Brain wo Cont CLINICAL HISTORY: Right-sided weakness COMPARISON: None TECHNIQUE: Multiple axial, sagittal, and coronal images were obtained on a 1.5 T magnet with multiweighted sequences, FLAIR, and diffusion imaging without contrast. FINDINGS: There is moderate motion artifact on all series. There is no focal mass lesion. There is no hemmorhage or extraaxial collection. No restricted diffusion is identified. There is a focus of CSF signal in the region of the right frontal horn. There is some asymmetry in the frontal horns. This is felt to be congenital. There are scattered T2 hyperintensities in the spine. Ventricular and subcortical white matter The basal cisterns and sulci over the convexities are prominent. IMPRESSION: Limited study due to moderate motion artifact Mild atrophic changes with some scattered chronic ischemic white matter change.
[2019-10-25] MEDS: Morphine 15 MG Tab.ER PO SCH ×2 (13:28→20:27)
[2019-10-25] MEDS: Thiamine 100 MG Tab PO SCH ×2 (13:28→20:29)
[2019-10-25] MEDS: Folic Acid 1 MG Tab PO SCH ×2 (13:28→20:28)
[2019-10-25] MEDS: Lactulose Soln 10 GM/15 ML 15 ML UD Cup PO SCH ×2 (13:28→20:28)
[2019-10-25] MEDS: Metoprolol Succinate 50 MG Tab.ER PO SCH ×2 (13:28→20:29)
[2019-10-25] MEDS ORDERED: methylPREDNISolone Sodium Succinate 40 MG/1 ML SDV IVPUSH SCH (22:00)
[2019-10-26] MEDS: Piperacillin/Tazobactam/Dext 3.375 GM in Premix Bag 1 BAG IV SCH ×4 (02:15→20:03)
[2019-10-26] MEDS: Gabapentin 400 MG Cap PO SCH ×3 (05:06→21:35)
[2019-10-26] MEDS: Morphine 15 MG Tab.ER PO SCH ×2 (08:11→21:33)
[2019-10-26] MEDS: LORazepam 1 MG Tab PO SCH (08:13)
[2019-10-26] MEDS ORDERED: Iopamidol 612 MG/ML 500 ML Multipack Bottle IV ONE (08:56)
[2019-10-26] MEDS ORDERED: Sodium Chloride 0.9% 10 ML Syringe FLUSH PRN (08:56)
[2019-10-26] MEDS ORDERED: Potassium Chloride 20 MEQ Tab.ER PO ONE (09:00)
--- NOTE | 2019-10-26 09:01 | PCM.PN ---
- General Info Date of Service: 10/26/19 Subjective Update: Mr. Wilcox continues to show evidence of alcohol withdrawal with mild to moderate confusion, minimal agitation. Continues to require supplemental oxygen, has been intolerant of noninvasive positive pressure ventilation. Because of lethargy he is unable to provide meaningful history concerning recent symptoms or review of systems. - Patient Data Vitals - Most Recent: Last Vital Signs Temp 97.4 F 10/26/19 07:57 Pulse 82 10/26/19 07:57 Resp 92 H 10/26/19 07:57 BP 151/91 H 10/26/19 07:57 Pulse Ox 92 L 10/26/19 07:57 Weight - Most Recent: 280 lb I&O - Last 24 Hours: Intake & Output 10/25/19 10/26/19 10/26/19 22:59 06:59 14:59 Intake Total 2850 1623 Output Total 50 Balance 2850 1573 Lab Results Last 24 Hours: Laboratory Results - last 24 hr 10/25/19 10/26/19 10/26/19 Range/Units 09:35 05:00 05:54 WBC 13.6 H (4.5-11.0) K/uL RBC 3.80 L (4.30-5.90) M/uL Hgb 10.8 L (12.0-15.0) g/dL Hct 34.2 L (40.0-54.0) % MCV 90 (80-98) fL MCH 28 (27-31) pg MCHC 32 (32-36) % Plt Count 107 L (150-400) K/uL Neut % (Auto) 86 H (36-66) % Lymph % (Auto) 9 L (24-44) % [place] % (Auto) 5 (2-6) % Eos % (Auto) 0 L (2-4) % Baso % (Auto) 0 (0-1) % PT 19.0 H (9.5-12.0) sec INR 1.82 H (0.80-1.20) Puncture Site Rt radial ABG pH 7.452 H (7.350-7.450) ABG pCO2 47.4 H (35.0-42.0) mmHg ABG pO2 63.8 L (75.0-100.0) mmHg ABG HCO3 32.6 H (22.0-26.0) mmol/L ABG Total CO2 29.9 H (23.0-27.0) mmol/L ABG O2 Saturation 91.7 L (95.0-98.0) % ABG O2 Content 13.0 L (15.0-23.0) %vol ABG Base Excess 8.0 mm/L ABG Hemoglobin 10.3 L (13.5-18.0) g/dL ABG Oxyhemoglobin 89.4 % ABG Carboxyhemoglobin 1.6 (0.0-1.6) % ABG Methemoglobin 0.9 % Yan Test Passed O2 Delivery Device Nasal cannula Oxygen Flow Rate 2.5 L Sodium (140-148) mmol/L Potassium (3.6-5.2) mmol/L Chloride (100-108) mmol/L Carbon Dioxide (21-32) mmol/L Anion Gap (5.0-14.0) mmol/L BUN (7-18) mg/dL Creatinine (0.8-1.3) mg/dL Est Cr Clr Drug Dosing mL/min Estimated GFR (MDRD) (>60) Glucose (74-106) mg/dL Calcium (8.5-10.1) mg/dL Total Bilirubin (0.2-1.0) mg/dL AST (15-37) U/L ALT (12-78) U/L Alkaline Phosphatase (46-116) U/L Ammonia (11-32) mmol/L Creatine Kinase (39-308) U/L Total Protein (6.4-8.2) g/dL Albumin (3.4-5.0) g/dL Globulin (2.3-3.5) g/dL Albumin/Globulin Ratio (1.2-2.2) 10/26/19 10/26/19 Range/Units 05:54 05:54 WBC (4.5-11.0) K/uL RBC (4.30-5.90) M/uL Hgb (12.0-15.0) g/dL Hct (40.0-54.0) % MCV (80-98) fL MCH (27-31) pg MCHC (32-36) % Plt Count (150-400) K/uL Neut % (Auto) (36-66) % Lymph % (Auto) (24-44) % [place] % (Auto) (2-6) % Eos % (Auto) (2-4) % Baso % (Auto) (0-1) % PT (9.5-12.0) sec INR (0.80-1.20) Puncture Site ABG pH (7.350-7.450) ABG pCO2 (35.0-42.0) mmHg ABG pO2 (75.0-100.0) mmHg ABG HCO3 (22.0-26.0) mmol/L ABG Total CO2 (23.0-27.0) mmol/L ABG O2 Saturation (95.0-98.0) % ABG O2 Content (15.0-23.0) %vol ABG Base Excess mm/L ABG Hemoglobin (13.5-18.0) g/dL ABG Oxyhemoglobin % ABG Carboxyhemoglobin (0.0-1.6) % ABG Methemoglobin % Yan Test O2 Delivery Device Oxygen Flow Rate L Sodium 144 (140-148) mmol/L Potassium 3.0 L (3.6-5.2) mmol/L Chloride 107 (100-108) mmol/L Carbon Dioxide 30 (21-32) mmol/L Anion Gap 10.0 (5.0-14.0) mmol/L BUN 19 H (7-18) mg/dL Creatinine 0.8 (0.8-1.3) mg/dL Est Cr Clr Drug Dosing 101.04 mL/min Estimated GFR (MDRD) > 60 (>60) Glucose 137 H (74-106) mg/dL Calcium 8.1 L (8.5-10.1) mg/dL Total Bilirubin 2.7 H (0.2-1.0) mg/dL AST 116 H (15-37) U/L ALT 91 H (12-78) U/L Alkaline Phosphatase 119 H (46-116) U/L Ammonia 43 H (11-32) mmol/L Creatine Kinase 321 H (39-308) U/L Total Protein 6.0 L (6.4-8.2) g/dL Albumin 2.1 L (3.4-5.0) g/dL Globulin 3.9 H (2.3-3.5) g/dL Albumin/Globulin Ratio 0.5 L (1.2-2.2) Patrick Results Last 24 Hours: Microbiology 10/24/19 09:53 Urine Culture - Final Urine, Bladder Viridans Streptococcus 10/24/19 10:08 Aerobic Blood Culture - Preliminary Blood - Arterial Line - Direct Stick NO GROWTH AFTER 1 DAY Anaerobic Blood Culture - Preliminary NO GROWTH AFTER 1 DAY 10/24/19 09:35 Aerobic Blood Culture - Preliminary Blood - Venous NO GROWTH AFTER 1 DAY Anaerobic Blood Culture - Preliminary NO GROWTH AFTER 1 DAY Med Orders - Current: Current Medications Folic Acid (Folic Acid) 1 mg PO DAILY [facility] Last Admin: 10/25/19 20:28 Dose: 1 mg Gabapentin (Neurontin) 400 mg PO Q8H [facility] Stop: 10/28/19 06:01 Last Admin: 10/26/19 05:06 Dose: 400 mg Piperacillin/Tazobactam/ (Dextrose 3.375 gm/ Premix) 50 mls @ 100 mls/hr IV Q6H [facility] Last Admin: 10/26/19 07:55 Dose: 100 mls/hr Potassium Chloride 20 meq/Lidocaine HCl 2 ml/ Sodium Chloride 112 mls @ 56 mls/ hr IV Q2H [facility] Stop: 10/26/19 13:59 Sodium Chloride (Normal Saline) 85 mls @ 3.5 mls/sec IV ASDIRECTED [facility] Iopamidol (Isovue-300 (61%)) 150 ml IV ONETIME ONE Stop: 10/26/19 08:57 Lactulose (Chronulac) 20 gm PO BID [facility] Last Admin: 10/25/19 20:28 Dose: 20 gm Lorazepam (Ativan) 0 mg PO ASDIRECTED [facility]; Protocol Last Admin: 10/26/19 08:13 Dose: 1 mg Metoprolol Succinate (Toprol Xl) 50 mg PO DAILY [facility] Last Admin: 10/25/19 20:29 Dose: 50 mg Morphine Sulfate (Ms Contin) 15 mg PO Q12H [facility] Last Admin: 10/26/19 08:11 Dose: 15 mg (Lifitegrast [Xiidra (] 1 Drop)*Pom*) 1 drop EYEBOTH BID [facility] Ondansetron HCl (Zofran) 4 mg IV Q4H PRN PRN Reason: Nausea/Vomiting Polyethylene Glycol (Miralax) 17 gm PO DAILY PRN PRN Reason: Constipation Potassium Chloride (Klor-Con M20) 40 meq PO ONETIME ONE Stop: 10/26/19 09:01 Prednisolone (Orapred 15 Mg/5ml Soln) 40 mg PO DAILY [facility] Sodium Chloride (Saline Flush) 10 ml FLUSH ASDIRECTED PRN PRN Reason: Keep Vein Open Sodium Chloride (Saline Flush) 10 ml FLUSH ONETIME PRN PRN Reason: per radiology protocol Thiamine HCl (Vitamin B-1) 100 mg PO DAILY [facility] Last Admin: 10/25/19 20:29 Dose: 100 mg Discontinued Medications Sodium Chloride (Normal Saline) 1,000 mls @ 999 mls/hr IV ASDIRECTED [facility] Last Admin: 10/24/19 09:24 Dose: 999 mls/hr Sodium Chloride (Normal Saline) 1,000 mls @ 999 mls/hr IV ASDIRECTED [facility] Last Admin: 10/24/19 10:13 Dose: 999 mls/hr Potassium Chloride 20 meq/ (Premix) 100 mls @ 50 mls/hr IV ONETIME ONE Stop: 10/24/19 11:58 Last Admin: 10/24/19 10:26 Dose: 50 mls/hr Ceftriaxone Sodium 1 gm/ (Sodium Chloride) 50 mls @ 100 mls/hr IV ONETIME ONE Stop: 10/24/19 11:03 Last Admin: 10/24/19 10:55 Dose: 100 mls/hr Multivitamins/Minerals 10 ml/Thiamine HCl 100 mg/ Folic Acid 1 mg/ Magnesium Sulfate 2 gm/ Sodium Chloride 1,015.2 mls @ 100 mls/hr IV ONETIME ONE Stop: 10/25/19 03:09 Last Admin: 10/24/19 16:49 Dose: 100 mls/hr Phytonadione 5 mg/ Sodium (Chloride) 50.5 mls @ 50 mls/hr IV NOW ONE Stop: 10/24/19 16:00 Last Admin: 10/24/19 14:58 Dose: 50 mls/hr Sodium Chloride (Normal Saline) 1,000 mls @ 125 mls/hr IV ASDIRECTED [facility] Last Admin: 10/25/19 02:34 Dose: 125 mls/hr Potassium Chloride 20 meq/Lidocaine HCl 2 ml/ Sodium Chloride 112 mls @ 56 mls/ hr IV Q2H [facility] Stop: 10/24/19 19:29 Last Admin: 10/24/19 16:50 Dose: 56 mls/hr Potassium Chloride 20 meq/Lidocaine HCl 2 ml/ Sodium Chloride 112 mls @ 56 mls/ hr IV Q2H [facility] Stop: 10/25/19 03:59 Last Admin: 10/25/19 02:35 Dose: 56 mls/hr Sodium Chloride (Normal Saline) 85 mls @ 3 mls/sec IV ASDIRECTED [facility] Stop: 10/25/19 10:00 Sodium Chloride (Normal Saline) 1,000 mls @ 75 mls/hr IV ASDIRECTED [facility] Last Admin: 10/26/19 01:25 Dose: 75 mls/hr Iopamidol (Isovue-300 (61%)) 150 ml IV . DIRECTED [facility] Stop: 10/25/19 09:00 Methylprednisolone Sodium Succinate (Solu-Medrol) 40 mg IVPUSH Q6H [facility] Last Admin: 10/25/19 09:30 Dose: 40 mg Methylprednisolone Sodium Succinate (Solu-Medrol) 40 mg IVPUSH Q12H [facility] Last Admin: 10/25/19 21:16 Dose: 40 mg Oxycodone HCl (Oxycodone) 5 mg PO Q4H PRN PRN Reason: Pain (moderate 4-6) Last Admin: 10/25/19 01:45 Dose: 5 mg Potassium Chloride (Klor-Con M20) 20 meq PO ONETIME ONE Stop: 10/24/19 10:00 Last Admin: 10/24/19 10:26 Dose: 20 meq Potassium Chloride (Klor-Con M20) 40 meq PO ONETIME ONE Stop: 10/24/19 10:33 Last Admin: 10/24/19 10:55 Dose: 40 meq Potassium Chloride (Klor-Con M20) 40 meq PO ONETIME ONE Stop: 10/24/19 14:01 Last Admin: 10/24/19 14:30 Dose: 40 meq Potassium Chloride (Klor-Con M20) 40 meq PO ONETIME ONE Stop: 10/24/19 17:01 Last Admin: 10/24/19 18:03 Dose: 40 meq Potassium Chloride (Klor-Con M20) 40 meq PO ONETIME ONE Stop: 10/24/19 21:01 Last Admin: 10/24/19 21:08 Dose: 40 meq Prednisolone (Orapred 15 Mg/5ml Soln) 40 mg PO DAILY [facility] Last Admin: 10/24/19 15:58 Dose: 40 mg Sodium Chloride (Saline Flush) 10 ml FLUSH ONETIME ONE Stop: 10/25/19 07:24 Last Admin: 10/25/19 10:42 Dose: Not Given - Exam General: Sedated, Lethargic Lungs: Normal Respiratory Effort, Decreased Breath Sounds, Rhonchi Cardiovascular: Regular Rate, Regular Rhythm, No Murmurs GI/Abdominal Exam: Soft, Non-Tender, No Organomegaly, No Distention Extremities: Non-Tender, No Pedal Edema Sepsis Event Note - Evaluation Sepsis Screening Result: No Definite Risk - Focused Exam Vital Signs: Vital Signs Temp Temp Pulse Resp BP Pulse Ox Pulse Ox 10/26/19 07:57 97.4 F 82 92 H 151/91 H 92 L 10/26/19 06:00 97.7 F 78 11 L 157/89 H 93 L 10/26/19 04:00 97 F 89 16 150/78 H 91 L 10/26/19 02:00 97.1 F 80 17 161/75 H 92 L 10/26/19 00:00 78 13 156/75 H 95 10/25/19 22:35 95 10/25/19 22:00 96.2 F L 79 15 143/71 H 94 L Date Exam was Performed: 10/26/19 Time Exam was Performed: 08:58 - Problem List Review Problem List Initiated/Reviewed/Updated: Yes - My Orders Last 24 Hours: My Active Orders 10/25/19 09:00 Metoprolol Succinate [Toprol XL] 50 mg PO DAILY 10/26/19 08:00 Abdomen Pelvis w Cont [CT] Urgent 10/26/19 08:55 Convert IV to Saline Lock [OM.PC] Routine 10/26/19 08:56 Iopamidol [Isovue-300 (61%)] 150 ml IV ONETIME ONE Sodium Chloride 0.9% [Saline Flush] 10 ml FLUSH ONETIME PRN 10/26/19 09:00 Lifitegrast [Xiidra] 1 drop EYEBOTH BID Potassium Chloride [Klor-Con M20] 40 meq PO ONETIME ONE Sodium Chloride 0.9% [Normal Saline] 85 ml IV ASDIRECTED prednisoLONE [OraPred 15 MG/5ML Soln] 40 mg PO DAILY 10/26/19 10:00 Potassium Chloride 20 meq Lidocaine 1% [Xylocaine 1%] 2 ml Sodium Chloride 0.9 % [Normal Saline] 100 ml IV Q2H 10/26/19 17:00 POTASSIUM,K [CHEM] Stat 10/27/19 05:00 CBC WITH AUTO DIFF [HEME] Timed COMPREHENSIVE METABOLIC PN,CMP [CHEM] Timed INR,PT,PROTHROMBIN TIME [COAG] Timed 10/27/19 05:11 AMMONIA VENOUS [CHEM] AM - Plan Plan:: ASSESSMENT AND PLAN RHABDOMYOLYSIS-resolved SEVERE HYPOKALEMIA-potassium level this morning is low again -IV and oral potassium replacement -Reassess potassium level later today and in a.m. ALCOHOLIC HEPATITIS-associated with underlying cirrhosis, long-term history of daily alcohol use. Bilirubin was further modest improvement, INR unchanged -Reassess liver studies and INR in a.m. -Monitor closely for alcohol withdrawal -Alcohol withdrawal protocol PROBABLE ASPIRATION-shortly after admission he developed hypoxia and coughing following oral potassium. Oxygenation has been stable since yesterday, continues to require supplemental oxygen. Chest x-ray does show patchy infiltrate consistent with pneumonia -Zosyn IV every 6 hours -Solu-Medrol 40 mg IV every 6 hours -Supplemental oxygen as needed PROGRESSIVE WEAKNESS-at baseline has right-sided weakness secondary to cervical spine injury and surgery. Progressively more weak over the past few months, likely related to his progressive liver disease. MRI of the brain obtained yesterday, of somewhat poor quality secondary to motion artifact. No obvious acute abnormalities identified HEPATIC ENCEPHALOPATHY-noted to be lethargic and somewhat confused on admission. Ammonia level mildly elevated -Lactulose twice daily -Reassess ammonia level in a.m. CHRONIC NECK AND BACK PAIN -Continue outpatient pain medications MODERATE AORTIC STENOSIS MAINTENANCE ISSUES -DVT prophylaxis; INR significantly elevated, hold on anticoagulation -GI prophylaxis; not indicated -Chu catheter; not indicated -Nutrition; regular diet -Nicotine dependence; not required CODE STATUS-FULL CODE ADMISSION STATUS-patient will be admitted to inpatient status, expect at least a 2 night hospital stay for evaluation and management of problems as outlined above. At the time of this admission I do not reasonably expected evaluation and management of this problem will require more than a 96 hour hospital stay. DISPOSITION-anticipate discharge to home after the hospital stay. PRIMARY CARE PROVIDER-Gail Chand
[2019-10-26] MEDS: Thiamine 100 MG Tab PO SCH (09:48)
[2019-10-26] MEDS: Folic Acid 1 MG Tab PO SCH (09:48)
[2019-10-26] MEDS: Metoprolol Succinate 50 MG Tab.ER PO SCH (09:49)
[2019-10-26] MEDS: prednisoLONE 15 MG/5 ML Soln UD Cup PO SCH (09:51)
[2019-10-26] MEDS: Lactulose Soln 10 GM/15 ML 15 ML UD Cup PO SCH ×2 (09:52→21:34)
[2019-10-26] MEDS: Potassium Chloride 20 MEQ, Lidocaine 1% 2 ML in Sodium Chloride 0.9% 100 ML IV SCH ×2 (10:17→12:15)
--- NOTE | 2019-10-26 10:44 | CT ---
Abdomen Pelvis w Cont CLINICAL HISTORY: Bilirubin COMPARISON: None. TECHNIQUE: Transverse scans were obtained from the base of the lungs to the pubic symphysis following oral contrast and IV infusion of contrast.Auto dosage reduction and iterative reconstructiontechniques employed. FINDINGS: There is moderate breathing motion the upper abdomen and lung bases. The lung bases show some patchy atelectasis. There are small bibasal effusions. The liver contains multiple low-attenuation lesions. Some of these are poorly defined. Density measures in the soft tissue range. Largest in the dome has a maximum diameter of 2 cm. There is a 1.9 cm lesion in the midportion of the right lobe. There is a heterogeneous region in the lower portion of the right lobe in the posterior segment measuring 6 cm maximum dimension. The gallbladder has a normal appearance. The spleen is mildly enlarged. There is abdominal ascites. There is a 3.7 cm area of low attenuation in the head of the pancreas and uncinate process. This is suspicious for mass. The adrenal glands appear normal bilaterally . The kidneys show no mass, stones or hydronephrosis. The ureters have a normal contour. The aorta shows atheromatous calcification without aneurysm. There are a few scattered small ovoid the periaortic lymph nodes. The largest measure 0.5 x 1.8 cm and 1.1 x 1.6 cm. These are above and below the level of the renal vessels. There is generalized bladder wall thickening likely hypertrophy. There is a compression deformity of L1 and L2. These were present on the lumbar CT July 2019. IMPRESSION: Moderate abdominal ascites Multiple low-attenuation lesions throughout the liver most consistent with metastatic disease 3.7 cm low-attenuation lesion in the head of the pancreas is suspect for neoplasm. Indeterminant periaortic lymphadenopathy
[2019-10-26] MEDS: Sodium Chloride 0.9% 1,000 ML IV SCH (16:15)
[2019-10-27] MEDS: Piperacillin/Tazobactam/Dext 3.375 GM in Premix Bag 1 BAG IV SCH ×4 (02:11→20:11)
[2019-10-27] MEDS: Sodium Chloride 0.9% 1,000 ML IV SCH (02:12)
[2019-10-27] MEDS: Gabapentin 400 MG Cap PO SCH ×3 (06:29→21:14)
[2019-10-27] MEDS ORDERED: Potassium Chloride 20 MEQ Tab.ER PO ONE (08:30)
[2019-10-27] MEDS: Morphine 15 MG Tab.ER PO SCH ×2 (08:56→21:13)
[2019-10-27] MEDS: Metoprolol Succinate 50 MG Tab.ER PO SCH (08:58)
[2019-10-27] MEDS: prednisoLONE 15 MG/5 ML Soln UD Cup PO SCH (09:04)
[2019-10-27] MEDS: Folic Acid 1 MG Tab PO SCH (09:05)
[2019-10-27] MEDS: Lactulose Soln 10 GM/15 ML 15 ML UD Cup PO SCH ×2 (09:07→21:13)
[2019-10-27] MEDS: Thiamine 100 MG Tab PO SCH (09:07)
--- NOTE | 2019-10-27 09:38 | PCM.PN ---
- General Info Date of Service: 10/27/19 Subjective Update: Mr. Wilcox is more alert and interactive today but remains very confused. Oxygenation and vital signs have been stable, he has remained afebrile. Still appears to be experiencing alcohol withdrawal. Is unable to provide a meaningful history concerning symptoms or review of systems because of confusion. - Patient Data Vitals - Most Recent: Last Vital Signs Temp 97.2 F 10/27/19 04:00 Pulse 80 10/27/19 08:58 Resp 14 10/27/19 06:00 BP 150/78 H 10/27/19 08:58 Pulse Ox 93 L 10/27/19 06:00 Weight - Most Recent: 315 lb 7.704 oz I&O - Last 24 Hours: Intake & Output 10/26/19 10/27/19 10/27/19 22:59 06:59 14:59 Intake Total 212 1962 Balance 212 1962 Lab Results Last 24 Hours: Laboratory Results - last 24 hr 10/26/19 10/27/19 10/27/19 Range/Units 17:10 06:25 06:25 WBC 12.4 H (4.5-11.0) K/uL RBC 3.95 L (4.30-5.90) M/uL Hgb 11.2 L (12.0-15.0) g/dL Hct 35.6 L (40.0-54.0) % MCV 90 (80-98) fL MCH 28 (27-31) pg MCHC 32 (32-36) % Plt Count 75 L (150-400) K/uL Neut % (Auto) 81 H (36-66) % Lymph % (Auto) 11 L (24-44) % [place] % (Auto) 8 H (2-6) % Eos % (Auto) 0 L (2-4) % Baso % (Auto) 0 (0-1) % PT 22.1 H (9.5-12.0) sec INR 2.14 H (0.80-1.20) Sodium (140-148) mmol/L Potassium 3.9 (3.6-5.2) mmol/L Chloride (100-108) mmol/L Carbon Dioxide (21-32) mmol/L Anion Gap (5.0-14.0) mmol/L BUN (7-18) mg/dL Creatinine (0.8-1.3) mg/dL Est Cr Clr Drug Dosing mL/min Estimated GFR (MDRD) (>60) Glucose (74-106) mg/dL Calcium (8.5-10.1) mg/dL Total Bilirubin (0.2-1.0) mg/dL AST (15-37) U/L ALT (12-78) U/L Alkaline Phosphatase (46-116) U/L Ammonia (11-32) mmol/L Total Protein (6.4-8.2) g/dL Albumin (3.4-5.0) g/dL Globulin (2.3-3.5) g/dL Albumin/Globulin Ratio (1.2-2.2) 10/27/19 10/27/19 Range/Units 06:25 06:25 WBC (4.5-11.0) K/uL RBC (4.30-5.90) M/uL Hgb (12.0-15.0) g/dL Hct (40.0-54.0) % MCV (80-98) fL MCH (27-31) pg MCHC (32-36) % Plt Count (150-400) K/uL Neut % (Auto) (36-66) % Lymph % (Auto) (24-44) % [place] % (Auto) (2-6) % Eos % (Auto) (2-4) % Baso % (Auto) (0-1) % PT (9.5-12.0) sec INR (0.80-1.20) Sodium 148 (140-148) mmol/L Potassium 3.8 (3.6-5.2) mmol/L Chloride 113 H (100-108) mmol/L Carbon Dioxide 30 (21-32) mmol/L Anion Gap 8.8 (5.0-14.0) mmol/L BUN 21 H (7-18) mg/dL Creatinine 0.8 (0.8-1.3) mg/dL Est Cr Clr Drug Dosing 101.04 mL/min Estimated GFR (MDRD) > 60 (>60) Glucose 118 H (74-106) mg/dL Calcium 8.4 L (8.5-10.1) mg/dL Total Bilirubin 2.6 H (0.2-1.0) mg/dL AST 95 H (15-37) U/L ALT 88 H (12-78) U/L Alkaline Phosphatase 140 H (46-116) U/L Ammonia 51 H (11-32) mmol/L Total Protein 6.1 L (6.4-8.2) g/dL Albumin 2.0 L (3.4-5.0) g/dL Globulin 4.1 H (2.3-3.5) g/dL Albumin/Globulin Ratio 0.5 L (1.2-2.2) Patrick Results Last 24 Hours: Microbiology 10/24/19 10:08 Aerobic Blood Culture - Preliminary Blood - Arterial Line - Direct Stick NO GROWTH AFTER 2 DAYS Anaerobic Blood Culture - Preliminary NO GROWTH AFTER 2 DAYS 10/24/19 09:35 Aerobic Blood Culture - Preliminary Blood - Venous NO GROWTH AFTER 2 DAYS Anaerobic Blood Culture - Preliminary NO GROWTH AFTER 2 DAYS 10/24/19 09:53 Urine Culture - Final Urine, Bladder Viridans Streptococcus Med Orders - Current: Current Medications Folic Acid (Folic Acid) 1 mg PO DAILY [facility] Last Admin: 10/27/19 09:05 Dose: 1 mg Gabapentin (Neurontin) 400 mg PO Q8H [facility] Stop: 10/28/19 06:01 Last Admin: 10/27/19 06:29 Dose: 400 mg Piperacillin/Tazobactam/ (Dextrose 3.375 gm/ Premix) 50 mls @ 100 mls/hr IV Q6H [facility] Last Admin: 10/27/19 08:42 Dose: 100 mls/hr Sodium Chloride (Normal Saline) 1,000 mls @ 50 mls/hr IV ASDIRECTED [facility] Lactulose (Chronulac) 20 gm PO BID [facility] Last Admin: 10/27/19 09:07 Dose: 20 gm Lorazepam (Ativan) 0 mg PO ASDIRECTED [facility]; Protocol Last Admin: 10/26/19 08:13 Dose: 1 mg Metoprolol Succinate (Toprol Xl) 50 mg PO DAILY [facility] Last Admin: 10/27/19 08:58 Dose: 50 mg Morphine Sulfate (Ms Contin) 15 mg PO Q12H [facility] Last Admin: 10/27/19 08:56 Dose: 15 mg (Lifitegrast [Xiidra (] 1 Drop)*Pom*) 1 drop EYEBOTH BID [facility] Last Admin: 10/27/19 09:05 Dose: 1 drop Ondansetron HCl (Zofran) 4 mg IV Q4H PRN PRN Reason: Nausea/Vomiting Polyethylene Glycol (Miralax) 17 gm PO DAILY PRN PRN Reason: Constipation Prednisolone (Orapred 15 Mg/5ml Soln) 40 mg PO DAILY [facility] Last Admin: 10/27/19 09:04 Dose: 40 mg Sodium Chloride (Saline Flush) 10 ml FLUSH ASDIRECTED PRN PRN Reason: Keep Vein Open Thiamine HCl (Vitamin B-1) 100 mg PO DAILY [facility] Last Admin: 10/27/19 09:07 Dose: 100 mg Discontinued Medications Sodium Chloride (Normal Saline) 1,000 mls @ 999 mls/hr IV ASDIRECTED [facility] Last Admin: 10/24/19 09:24 Dose: 999 mls/hr Sodium Chloride (Normal Saline) 1,000 mls @ 999 mls/hr IV ASDIRECTED [facility] Last Admin: 10/24/19 10:13 Dose: 999 mls/hr Potassium Chloride 20 meq/ (Premix) 100 mls @ 50 mls/hr IV ONETIME ONE Stop: 10/24/19 11:58 Last Admin: 10/24/19 10:26 Dose: 50 mls/hr Ceftriaxone Sodium 1 gm/ (Sodium Chloride) 50 mls @ 100 mls/hr IV ONETIME ONE Stop: 10/24/19 11:03 Last Admin: 10/24/19 10:55 Dose: 100 mls/hr Multivitamins/Minerals 10 ml/Thiamine HCl 100 mg/ Folic Acid 1 mg/ Magnesium Sulfate 2 gm/ Sodium Chloride 1,015.2 mls @ 100 mls/hr IV ONETIME ONE Stop: 10/25/19 03:09 Last Admin: 10/24/19 16:49 Dose: 100 mls/hr Phytonadione 5 mg/ Sodium (Chloride) 50.5 mls @ 50 mls/hr IV NOW ONE Stop: 10/24/19 16:00 Last Admin: 10/24/19 14:58 Dose: 50 mls/hr Sodium Chloride (Normal Saline) 1,000 mls @ 125 mls/hr IV ASDIRECTED [facility] Last Admin: 10/25/19 02:34 Dose: 125 mls/hr Potassium Chloride 20 meq/Lidocaine HCl 2 ml/ Sodium Chloride 112 mls @ 56 mls/ hr IV Q2H [facility] Stop: 10/24/19 19:29 Last Admin: 10/24/19 16:50 Dose: 56 mls/hr Potassium Chloride 20 meq/Lidocaine HCl 2 ml/ Sodium Chloride 112 mls @ 56 mls/ hr IV Q2H [facility] Stop: 10/25/19 03:59 Last Admin: 10/25/19 02:35 Dose: 56 mls/hr Sodium Chloride (Normal Saline) 85 mls @ 3 mls/sec IV ASDIRECTED [facility] Stop: 10/25/19 10:00 Last Admin: 10/26/19 09:36 Dose: 3.5 mls/sec Sodium Chloride (Normal Saline) 1,000 mls @ 75 mls/hr IV ASDIRECTED [facility] Last Admin: 10/26/19 01:25 Dose: 75 mls/hr Potassium Chloride 20 meq/Lidocaine HCl 2 ml/ Sodium Chloride 112 mls @ 56 mls/ hr IV Q2H [facility] Stop: 10/26/19 13:59 Last Admin: 10/26/19 12:15 Dose: 56 mls/hr Sodium Chloride (Normal Saline) 85 mls @ 3.5 mls/sec IV ASDIRECTED [facility] Stop: 10/26/19 09:01 Sodium Chloride (Normal Saline) 1,000 mls @ 100 mls/hr IV ASDIRECTED [facility] Last Admin: 10/27/19 02:12 Dose: 100 mls/hr Iopamidol (Isovue-300 (61%)) 150 ml IV . DIRECTED [facility] Stop: 10/25/19 09:00 Iopamidol (Isovue-300 (61%)) 150 ml IV ONETIME ONE Stop: 10/26/19 08:57 Last Admin: 10/26/19 09:36 Dose: 150 ml Methylprednisolone Sodium Succinate (Solu-Medrol) 40 mg IVPUSH Q6H [facility] Last Admin: 10/25/19 09:30 Dose: 40 mg Methylprednisolone Sodium Succinate (Solu-Medrol) 40 mg IVPUSH Q12H [facility] Last Admin: 10/25/19 21:16 Dose: 40 mg Oxycodone HCl (Oxycodone) 5 mg PO Q4H PRN PRN Reason: Pain (moderate 4-6) Last Admin: 10/25/19 01:45 Dose: 5 mg Potassium Chloride (Klor-Con M20) 20 meq PO ONETIME ONE Stop: 10/24/19 10:00 Last Admin: 10/24/19 10:26 Dose: 20 meq Potassium Chloride (Klor-Con M20) 40 meq PO ONETIME ONE Stop: 10/24/19 10:33 Last Admin: 10/24/19 10:55 Dose: 40 meq Potassium Chloride (Klor-Con M20) 40 meq PO ONETIME ONE Stop: 10/24/19 14:01 Last Admin: 10/24/19 14:30 Dose: 40 meq Potassium Chloride (Klor-Con M20) 40 meq PO ONETIME ONE Stop: 10/24/19 17:01 Last Admin: 10/24/19 18:03 Dose: 40 meq Potassium Chloride (Klor-Con M20) 40 meq PO ONETIME ONE Stop: 10/24/19 21:01 Last Admin: 10/24/19 21:08 Dose: 40 meq Potassium Chloride (Klor-Con M20) 40 meq PO ONETIME ONE Stop: 10/26/19 09:01 Last Admin: 10/26/19 09:52 Dose: 40 meq Potassium Chloride (Klor-Con M20) 40 meq PO ONETIME ONE Stop: 10/27/19 08:31 Last Admin: 10/27/19 08:55 Dose: 40 meq Prednisolone (Orapred 15 Mg/5ml Soln) 40 mg PO DAILY [facility] Last Admin: 10/24/19 15:58 Dose: 40 mg Sodium Chloride (Saline Flush) 10 ml FLUSH ONETIME ONE Stop: 10/25/19 07:24 Last Admin: 10/25/19 10:42 Dose: Not Given Sodium Chloride (Saline Flush) 10 ml FLUSH ONETIME PRN PRN Reason: per radiology protocol Stop: 10/26/19 08:57 Last Admin: 10/26/19 09:35 Dose: 10 ml - Exam Quality Assessment: Supplemental Oxygen, DVT Prophylaxis General: Alert, Cooperative, Mild Distress. No: Oriented Lungs: Clear to Auscultation, Normal Respiratory Effort Cardiovascular: Regular Rate, Regular Rhythm, No Murmurs GI/Abdominal Exam: Soft, Non-Tender, No Organomegaly, No Distention Extremities: Non-Tender, Pedal Edema Sepsis Event Note - Evaluation Sepsis Screening Result: No Definite Risk - Focused Exam Vital Signs: Vital Signs Temp Pulse Pulse Resp BP BP Pulse Ox 10/27/19 08:58 80 150/78 H 10/27/19 06:00 74 14 162/77 H 93 L 10/27/19 04:00 97.2 F 74 17 147/81 H 92 L 10/27/19 02:00 74 11 L 154/82 H 91 L 10/27/19 00:00 96.6 F L 73 12 141/67 H 91 L 10/26/19 22:00 63 10 L 152/71 H 91 L Date Exam was Performed: 10/27/19 Time Exam was Performed: 09:34 - Problem List Review Problem List Initiated/Reviewed/Updated: Yes - My Orders Last 24 Hours: My Active Orders 10/26/19 08:55 Convert IV to Saline Lock [OM.PC] Routine 10/26/19 09:00 Lifitegrast [Xiidra] 1 drop EYEBOTH BID prednisoLONE [OraPred 15 MG/5ML Soln] 40 mg PO DAILY 10/27/19 09:45 Sodium Chloride 0.9% [Normal Saline] 1,000 ml IV ASDIRECTED 10/28/19 05:00 CBC WITH AUTO DIFF [HEME] Timed COMPREHENSIVE METABOLIC PN,CMP [CHEM] Timed INR,PT,PROTHROMBIN TIME [COAG] Timed 10/28/19 05:11 AMMONIA VENOUS [CHEM] AM - Plan Plan:: ASSESSMENT AND PLAN PANCREATIC MASS WITH EVIDENCE OF LIVER METASTASIS-CT scan obtained yesterday shows evidence of a mass at the pancreatic head with multiple areas in the liver consistent with metastatic disease -will require further evaluation and biopsy once other medical issues have stabilized RHABDOMYOLYSIS-resolved SEVERE HYPOKALEMIA-potassium level this morning is normal -Reassess potassium level in a.m. ALCOHOLIC HEPATITIS-associated with underlying cirrhosis, long-term history of daily alcohol use. -Reassess liver studies and INR in a.m. -Monitor closely for alcohol withdrawal -Alcohol withdrawal protocol -Prednisolone 40 mg p.o. daily PROBABLE ASPIRATION-shortly after admission he developed hypoxia and coughing following oral potassium. Oxygenation has been stable since yesterday, continues to require supplemental oxygen. Chest x-ray does show patchy infiltrate consistent with pneumonia -Zosyn IV every 6 hours -Supplemental oxygen as needed PROGRESSIVE WEAKNESS-at baseline has right-sided weakness secondary to cervical spine injury and surgery. Progressively more weak over the past few months, likely related to his progressive liver disease. MRI of the brain obtained yesterday, of somewhat poor quality secondary to motion artifact. No obvious acute abnormalities identified HEPATIC ENCEPHALOPATHY-noted to be lethargic and somewhat confused on admission. Ammonia level mildly elevated -Lactulose twice daily -Reassess ammonia level in a.m. CHRONIC NECK AND BACK PAIN -Continue outpatient pain medications MODERATE AORTIC STENOSIS MAINTENANCE ISSUES -DVT prophylaxis; INR significantly elevated, hold on anticoagulation -GI prophylaxis; not indicated -Chu catheter; not indicated -Nutrition; regular diet -Nicotine dependence; not required CODE STATUS-FULL CODE ADMISSION STATUS-patient will be admitted to inpatient status, expect at least a 2 night hospital stay for evaluation and management of problems as outlined above. At the time of this admission I do not reasonably expected evaluation and management of this problem will require more than a 96 hour hospital stay. DISPOSITION-anticipate discharge to home after the hospital stay. PRIMARY CARE PROVIDER-Gail Chand
[2019-10-27] MEDS ORDERED: Sodium Chloride 0.9% 1,000 ML IV SCH (09:45)
[2019-10-27] MEDS: LORazepam 1 MG Tab PO SCH ×2 (12:12→13:58)
[2019-10-28] MEDS: LORazepam 1 MG Tab PO SCH ×6 (00:18→20:03)
[2019-10-28] MEDS: Piperacillin/Tazobactam/Dext 3.375 GM in Premix Bag 1 BAG IV SCH ×4 (02:29→20:01)
[2019-10-28] MEDS: Gabapentin 400 MG Cap PO SCH (05:46)
[2019-10-28] MEDS ORDERED: Potassium Chloride 20 MEQ Tab.ER PO ONE ×2 (08:45→17:00)
[2019-10-28] MEDS: Thiamine 100 MG Tab PO SCH (10:00)
[2019-10-28] MEDS: Folic Acid 1 MG Tab PO SCH (10:00)
[2019-10-28] MEDS: Metoprolol Succinate 50 MG Tab.ER PO SCH (10:00)
[2019-10-28] MEDS: prednisoLONE 15 MG/5 ML Soln UD Cup PO SCH (10:01)
--- NOTE | 2019-10-28 10:08 | PCM.PN ---
- General Info Date of Service: 10/28/19 Subjective Update: Mr. Wilcox is essentially unchanged from yesterday, remains very weak and lethargic. No significant decline identified, respiratory status overall stable and he has remained afebrile. We will to provide a meaningful history concerning recent symptoms or review of systems because of lethargy and probable alcohol withdrawal. - Patient Data Vitals - Most Recent: Last Vital Signs Temp 97.3 F 10/28/19 04:00 Pulse 70 10/28/19 06:00 Resp 16 10/28/19 06:00 BP 146/77 H 10/28/19 06:00 Pulse Ox 92 L 10/28/19 06:00 Weight - Most Recent: 312 lb 2.793 oz I&O - Last 24 Hours: Intake & Output 10/27/19 10/28/19 10/28/19 22:59 06:59 14:59 Intake Total 910 687 Balance 910 687 Lab Results Last 24 Hours: Laboratory Results - last 24 hr 10/28/19 10/28/19 10/28/19 Range/Units 06:30 06:30 06:30 WBC (4.5-11.0) K/uL RBC (4.30-5.90) M/uL Hgb (12.0-15.0) g/dL Hct (40.0-54.0) % MCV (80-98) fL MCH (27-31) pg MCHC (32-36) % Plt Count (150-400) K/uL Neut % (Auto) (36-66) % Lymph % (Auto) (24-44) % [place] % (Auto) (2-6) % Eos % (Auto) (2-4) % Baso % (Auto) (0-1) % PT 21.8 H (9.5-12.0) sec INR 2.11 H (0.80-1.20) Sodium 152 H (140-148) mmol/L Potassium 3.5 L (3.6-5.2) mmol/L Chloride 116 H (100-108) mmol/L Carbon Dioxide 32 (21-32) mmol/L Anion Gap 7.5 (5.0-14.0) mmol/L BUN 19 H (7-18) mg/dL Creatinine 0.8 (0.8-1.3) mg/dL Est Cr Clr Drug Dosing 101.04 mL/min Estimated GFR (MDRD) > 60 (>60) Glucose 101 (74-106) mg/dL Calcium 8.2 L (8.5-10.1) mg/dL Total Bilirubin 2.8 H (0.2-1.0) mg/dL AST 80 H (15-37) U/L ALT 86 H (12-78) U/L Alkaline Phosphatase 152 H (46-116) U/L Ammonia 37 H (11-32) mmol/L Total Protein 6.2 L (6.4-8.2) g/dL Albumin 2.1 L (3.4-5.0) g/dL Globulin 4.1 H (2.3-3.5) g/dL Albumin/Globulin Ratio 0.5 L (1.2-2.2) 10/28/19 Range/Units 06:35 WBC 10.6 (4.5-11.0) K/uL RBC 4.10 L (4.30-5.90) M/uL Hgb 11.4 L (12.0-15.0) g/dL Hct 37.6 L (40.0-54.0) % MCV 92 (80-98) fL MCH 28 (27-31) pg MCHC 30 L (32-36) % Plt Count 81 L (150-400) K/uL Neut % (Auto) 67 H (36-66) % Lymph % (Auto) 24 (24-44) % [place] % (Auto) 9 H (2-6) % Eos % (Auto) 1 L (2-4) % Baso % (Auto) 0 (0-1) % PT (9.5-12.0) sec INR (0.80-1.20) Sodium (140-148) mmol/L Potassium (3.6-5.2) mmol/L Chloride (100-108) mmol/L Carbon Dioxide (21-32) mmol/L Anion Gap (5.0-14.0) mmol/L BUN (7-18) mg/dL Creatinine (0.8-1.3) mg/dL Est Cr Clr Drug Dosing mL/min Estimated GFR (MDRD) (>60) Glucose (74-106) mg/dL Calcium (8.5-10.1) mg/dL Total Bilirubin (0.2-1.0) mg/dL AST (15-37) U/L ALT (12-78) U/L Alkaline Phosphatase (46-116) U/L Ammonia (11-32) mmol/L Total Protein (6.4-8.2) g/dL Albumin (3.4-5.0) g/dL Globulin (2.3-3.5) g/dL Albumin/Globulin Ratio (1.2-2.2) Patrick Results Last 24 Hours: Microbiology 10/24/19 10:08 Aerobic Blood Culture - Preliminary Blood - Arterial Line - Direct Stick NO GROWTH AFTER 3 DAYS Anaerobic Blood Culture - Preliminary NO GROWTH AFTER 3 DAYS 10/24/19 09:35 Aerobic Blood Culture - Preliminary Blood - Venous NO GROWTH AFTER 3 DAYS Anaerobic Blood Culture - Preliminary NO GROWTH AFTER 3 DAYS Med Orders - Current: Current Medications Folic Acid (Folic Acid) 1 mg PO DAILY [facility] Last Admin: 10/27/19 09:05 Dose: 1 mg Piperacillin/Tazobactam/ (Dextrose 3.375 gm/ Premix) 50 mls @ 100 mls/hr IV Q6H [facility] Last Admin: 10/28/19 08:42 Dose: 100 mls/hr Dextrose/Water (Dextrose 5% In Water) 1,000 mls @ 50 mls/hr IV ASDIRECTED [facility] Lactulose (Chronulac) 20 gm PO BID [facility] Last Admin: 10/27/19 21:13 Dose: 20 gm Lorazepam (Ativan) 0 mg PO ASDIRECTED [facility]; Protocol Last Admin: 10/28/19 00:18 Dose: 2 mg Metoprolol Succinate (Toprol Xl) 50 mg PO DAILY [facility] Last Admin: 10/27/19 08:58 Dose: 50 mg Morphine Sulfate (Ms Contin) 15 mg PO Q12H [facility] Last Admin: 10/27/19 21:13 Dose: 15 mg (Lifitegrast [Xiidra (] 1 Drop)*Pom*) 1 drop EYEBOTH BID [facility] Last Admin: 10/27/19 21:13 Dose: 1 drop Ondansetron HCl (Zofran) 4 mg IV Q4H PRN PRN Reason: Nausea/Vomiting Polyethylene Glycol (Miralax) 17 gm PO DAILY PRN PRN Reason: Constipation Prednisolone (Orapred 15 Mg/5ml Soln) 40 mg PO DAILY [facility] Last Admin: 10/27/19 09:04 Dose: 40 mg Sodium Chloride (Saline Flush) 10 ml FLUSH ASDIRECTED PRN PRN Reason: Keep Vein Open Thiamine HCl (Vitamin B-1) 100 mg PO DAILY [facility] Last Admin: 10/27/19 09:07 Dose: 100 mg Discontinued Medications Gabapentin (Neurontin) 400 mg PO Q8H [facility] Stop: 10/28/19 06:01 Last Admin: 10/28/19 05:46 Dose: 400 mg Sodium Chloride (Normal Saline) 1,000 mls @ 999 mls/hr IV ASDIRECTED [facility] Last Admin: 10/24/19 09:24 Dose: 999 mls/hr Sodium Chloride (Normal Saline) 1,000 mls @ 999 mls/hr IV ASDIRECTED [facility] Last Admin: 10/24/19 10:13 Dose: 999 mls/hr Potassium Chloride 20 meq/ (Premix) 100 mls @ 50 mls/hr IV ONETIME ONE Stop: 10/24/19 11:58 Last Admin: 10/24/19 10:26 Dose: 50 mls/hr Ceftriaxone Sodium 1 gm/ (Sodium Chloride) 50 mls @ 100 mls/hr IV ONETIME ONE Stop: 10/24/19 11:03 Last Admin: 10/24/19 10:55 Dose: 100 mls/hr Multivitamins/Minerals 10 ml/Thiamine HCl 100 mg/ Folic Acid 1 mg/ Magnesium Sulfate 2 gm/ Sodium Chloride 1,015.2 mls @ 100 mls/hr IV ONETIME ONE Stop: 10/25/19 03:09 Last Admin: 10/24/19 16:49 Dose: 100 mls/hr Phytonadione 5 mg/ Sodium (Chloride) 50.5 mls @ 50 mls/hr IV NOW ONE Stop: 10/24/19 16:00 Last Admin: 10/24/19 14:58 Dose: 50 mls/hr Sodium Chloride (Normal Saline) 1,000 mls @ 125 mls/hr IV ASDIRECTED [facility] Last Admin: 10/25/19 02:34 Dose: 125 mls/hr Potassium Chloride 20 meq/Lidocaine HCl 2 ml/ Sodium Chloride 112 mls @ 56 mls/ hr IV Q2H [facility] Stop: 10/24/19 19:29 Last Admin: 10/24/19 16:50 Dose: 56 mls/hr Potassium Chloride 20 meq/Lidocaine HCl 2 ml/ Sodium Chloride 112 mls @ 56 mls/ hr IV Q2H [facility] Stop: 10/25/19 03:59 Last Admin: 10/25/19 02:35 Dose: 56 mls/hr Sodium Chloride (Normal Saline) 85 mls @ 3 mls/sec IV ASDIRECTED [facility] Stop: 10/25/19 10:00 Last Admin: 10/26/19 09:36 Dose: 3.5 mls/sec Sodium Chloride (Normal Saline) 1,000 mls @ 75 mls/hr IV ASDIRECTED [facility] Last Admin: 10/26/19 01:25 Dose: 75 mls/hr Potassium Chloride 20 meq/Lidocaine HCl 2 ml/ Sodium Chloride 112 mls @ 56 mls/ hr IV Q2H [facility] Stop: 10/26/19 13:59 Last Admin: 10/26/19 12:15 Dose: 56 mls/hr Sodium Chloride (Normal Saline) 85 mls @ 3.5 mls/sec IV ASDIRECTED [facility] Stop: 10/26/19 09:01 Sodium Chloride (Normal Saline) 1,000 mls @ 100 mls/hr IV ASDIRECTED [facility] Last Admin: 10/27/19 02:12 Dose: 100 mls/hr Sodium Chloride (Normal Saline) 1,000 mls @ 50 mls/hr IV ASDIRECTED [facility] Last Admin: 10/27/19 13:03 Dose: 50 mls/hr Iopamidol (Isovue-300 (61%)) 150 ml IV . DIRECTED [facility] Stop: 10/25/19 09:00 Iopamidol (Isovue-300 (61%)) 150 ml IV ONETIME ONE Stop: 10/26/19 08:57 Last Admin: 10/26/19 09:36 Dose: 150 ml Methylprednisolone Sodium Succinate (Solu-Medrol) 40 mg IVPUSH Q6H [facility] Last Admin: 10/25/19 09:30 Dose: 40 mg Methylprednisolone Sodium Succinate (Solu-Medrol) 40 mg IVPUSH Q12H [facility] Last Admin: 10/25/19 21:16 Dose: 40 mg Oxycodone HCl (Oxycodone) 5 mg PO Q4H PRN PRN Reason: Pain (moderate 4-6) Last Admin: 10/25/19 01:45 Dose: 5 mg Potassium Chloride (Klor-Con M20) 20 meq PO ONETIME ONE Stop: 10/24/19 10:00 Last Admin: 10/24/19 10:26 Dose: 20 meq Potassium Chloride (Klor-Con M20) 40 meq PO ONETIME ONE Stop: 10/24/19 10:33 Last Admin: 10/24/19 10:55 Dose: 40 meq Potassium Chloride (Klor-Con M20) 40 meq PO ONETIME ONE Stop: 10/24/19 14:01 Last Admin: 10/24/19 14:30 Dose: 40 meq Potassium Chloride (Klor-Con M20) 40 meq PO ONETIME ONE Stop: 10/24/19 17:01 Last Admin: 10/24/19 18:03 Dose: 40 meq Potassium Chloride (Klor-Con M20) 40 meq PO ONETIME ONE Stop: 10/24/19 21:01 Last Admin: 10/24/19 21:08 Dose: 40 meq Potassium Chloride (Klor-Con M20) 40 meq PO ONETIME ONE Stop: 10/26/19 09:01 Last Admin: 10/26/19 09:52 Dose: 40 meq Potassium Chloride (Klor-Con M20) 40 meq PO ONETIME ONE Stop: 10/27/19 08:31 Last Admin: 10/27/19 08:55 Dose: 40 meq Potassium Chloride (Klor-Con M20) 40 meq PO ONETIME ONE Stop: 10/28/19 08:46 Prednisolone (Orapred 15 Mg/5ml Soln) 40 mg PO DAILY [facility] Last Admin: 10/24/19 15:58 Dose: 40 mg Sodium Chloride (Saline Flush) 10 ml FLUSH ONETIME ONE Stop: 10/25/19 07:24 Last Admin: 10/25/19 10:42 Dose: Not Given Sodium Chloride (Saline Flush) 10 ml FLUSH ONETIME PRN PRN Reason: per radiology protocol Stop: 10/26/19 08:57 Last Admin: 10/26/19 09:35 Dose: 10 ml - Exam Quality Assessment: Supplemental Oxygen, DVT Prophylaxis General: Mild Distress, Lethargic Lungs: Clear to Auscultation, Normal Respiratory Effort, Decreased Breath Sounds. No: Rales, Rhonchi, Wheezing Cardiovascular: Regular Rate, Regular Rhythm, No Murmurs GI/Abdominal Exam: Soft, Non-Tender, No Organomegaly, No Distention Extremities: Non-Tender, Pedal Edema Sepsis Event Note - Evaluation Sepsis Screening Result: No Definite Risk - Focused Exam Vital Signs: Vital Signs Temp Pulse Resp BP Pulse Ox 10/28/19 06:00 70 16 146/77 H 92 L 10/28/19 04:00 97.3 F 68 10 L 134/61 92 L 10/28/19 02:00 68 8 L 132/58 L 95 10/28/19 00:00 97.0 F 76 13 150/74 H 97 Date Exam was Performed: 10/28/19 Time Exam was Performed: 10:04 - Problem List Review Problem List Initiated/Reviewed/Updated: Yes - My Orders Last 24 Hours: My Active Orders 10/28/19 08:30 Dextrose 5% in Water 1,000 ml IV ASDIRECTED 10/29/19 05:00 CBC WITH AUTO DIFF [HEME] Timed COMPREHENSIVE METABOLIC PN,CMP [CHEM] Timed INR,PT,PROTHROMBIN TIME [COAG] Timed 10/29/19 05:11 AMMONIA VENOUS [CHEM] AM - Plan Plan:: ASSESSMENT AND PLAN PANCREATIC MASS WITH EVIDENCE OF LIVER METASTASIS-CT scan shows evidence of a mass at the pancreatic head with multiple areas in the liver consistent with metastatic disease -will require further evaluation and biopsy once other medical issues have stabilized RHABDOMYOLYSIS-resolved SEVERE HYPOKALEMIA-potassium level this morning is mildly low -Oral potassium replacement -Reassess potassium level in a.m. ALCOHOLIC HEPATITIS-associated with underlying cirrhosis, long-term history of daily alcohol use. -Reassess liver studies and INR in a.m. -Monitor closely for alcohol withdrawal -Alcohol withdrawal protocol -Prednisolone 40 mg p.o. daily PROBABLE ASPIRATION-shortly after admission he developed hypoxia and coughing following oral potassium. Oxygenation has been stable since yesterday, continues to require supplemental oxygen. Chest x-ray does show patchy infiltrate consistent with pneumonia -Zosyn IV every 6 hours -Supplemental oxygen as needed PROGRESSIVE WEAKNESS-at baseline has right-sided weakness secondary to cervical spine injury and surgery. Progressively more weak over the past few months, likely related to his progressive liver disease. MRI of the brain, of somewhat poor quality secondary to motion artifact. No obvious acute abnormalities identified HEPATIC ENCEPHALOPATHY-noted to be lethargic and somewhat confused on admission. Ammonia level mildly elevated -Lactulose twice daily -Reassess ammonia level in a.m. CHRONIC NECK AND BACK PAIN -Continue outpatient pain medications MODERATE AORTIC STENOSIS MAINTENANCE ISSUES -DVT prophylaxis; INR significantly elevated, hold on anticoagulation -GI prophylaxis; not indicated -Chu catheter; not indicated -Nutrition; regular diet -Nicotine dependence; not required CODE STATUS-FULL CODE ADMISSION STATUS-patient will be admitted to inpatient status, expect at least a 2 night hospital stay for evaluation and management of problems as outlined above. At the time of this admission I do not reasonably expected evaluation and management of this problem will require more than a 96 hour hospital stay. DISPOSITION-anticipate discharge to home after the hospital stay. PRIMARY CARE PROVIDER-Gail Chand
[2019-10-28] MEDS: Morphine 15 MG Tab.ER PO SCH ×2 (10:10→20:03)
[2019-10-28] MEDS: Lactulose Soln 10 GM/15 ML 15 ML UD Cup PO SCH ×2 (10:15→20:04)
[2019-10-28] MEDS ORDERED: Lactulose Soln 10 GM/15 ML 15 ML UD Cup PO ONE (10:30)
[2019-10-28] MEDS: Dextrose 5% in Water 1,000 ML IV SCH (11:03)
[2019-10-29] MEDS: Piperacillin/Tazobactam/Dext 3.375 GM in Premix Bag 1 BAG IV SCH ×4 (02:43→19:31)
[2019-10-29] MEDS: LORazepam 1 MG Tab PO SCH ×5 (04:06→23:01)
[2019-10-29] MEDS: Dextrose 5% in Water 1,000 ML IV SCH (09:01)
--- NOTE | 2019-10-29 09:34 | PCM.PN ---
- General Info Date of Service: 10/29/19 Subjective Update: Mr. Wilcox is remained stable but not significantly improved over the last 24 hours. Remains very weak and lethargic, mildly agitated. Ammonia level is now within normal range with the use of lactulose. He is unable to provide meaningful history concerning symptoms or review of systems. - Patient Data Vitals - Most Recent: Last Vital Signs Temp 96.0 F L 10/29/19 04:00 Pulse 82 10/29/19 08:00 Resp 20 10/29/19 08:00 BP 180/80 H 10/29/19 08:00 Pulse Ox 96 10/29/19 08:00 Weight - Most Recent: 312 lb 2.793 oz I&O - Last 24 Hours: Intake & Output 10/28/19 10/29/19 10/29/19 22:59 06:59 14:59 Intake Total 50 536 Balance 50 536 Lab Results Last 24 Hours: Laboratory Results - last 24 hr 10/29/19 10/29/19 10/29/19 Range/Units 05:48 05:48 05:48 WBC 11.6 H (4.5-11.0) K/uL RBC 4.19 L (4.30-5.90) M/uL Hgb 11.7 L (12.0-15.0) g/dL Hct 38.9 L (40.0-54.0) % MCV 93 (80-98) fL MCH 28 (27-31) pg MCHC 30 L (32-36) % Plt Count 71 L (150-400) K/uL Neut % (Auto) 71 H (36-66) % Lymph % (Auto) 20 L (24-44) % [place] % (Auto) 7 H (2-6) % Eos % (Auto) 1 L (2-4) % Baso % (Auto) 0 (0-1) % PT 21.1 H (9.5-12.0) sec INR 2.03 H (0.80-1.20) Sodium 153 H (140-148) mmol/L Potassium 3.7 (3.6-5.2) mmol/L Chloride 114 H (100-108) mmol/L Carbon Dioxide 33 H (21-32) mmol/L Anion Gap 9.7 (5.0-14.0) mmol/L BUN 17 (7-18) mg/dL Creatinine 1.0 (0.8-1.3) mg/dL Est Cr Clr Drug Dosing 80.83 mL/min Estimated GFR (MDRD) > 60 (>60) Glucose 134 H (74-106) mg/dL Calcium 8.2 L (8.5-10.1) mg/dL Total Bilirubin 2.9 H (0.2-1.0) mg/dL AST 86 H (15-37) U/L ALT 88 H (12-78) U/L Alkaline Phosphatase 156 H (46-116) U/L Ammonia (11-32) mmol/L Total Protein 6.1 L (6.4-8.2) g/dL Albumin 2.1 L (3.4-5.0) g/dL Globulin 4.0 H (2.3-3.5) g/dL Albumin/Globulin Ratio 0.5 L (1.2-2.2) 10/29/19 Range/Units 05:48 WBC (4.5-11.0) K/uL RBC (4.30-5.90) M/uL Hgb (12.0-15.0) g/dL Hct (40.0-54.0) % MCV (80-98) fL MCH (27-31) pg MCHC (32-36) % Plt Count (150-400) K/uL Neut % (Auto) (36-66) % Lymph % (Auto) (24-44) % [place] % (Auto) (2-6) % Eos % (Auto) (2-4) % Baso % (Auto) (0-1) % PT (9.5-12.0) sec INR (0.80-1.20) Sodium (140-148) mmol/L Potassium (3.6-5.2) mmol/L Chloride (100-108) mmol/L Carbon Dioxide (21-32) mmol/L Anion Gap (5.0-14.0) mmol/L BUN (7-18) mg/dL Creatinine (0.8-1.3) mg/dL Est Cr Clr Drug Dosing mL/min Estimated GFR (MDRD) (>60) Glucose (74-106) mg/dL Calcium (8.5-10.1) mg/dL Total Bilirubin (0.2-1.0) mg/dL AST (15-37) U/L ALT (12-78) U/L Alkaline Phosphatase (46-116) U/L Ammonia 10 L (11-32) mmol/L Total Protein (6.4-8.2) g/dL Albumin (3.4-5.0) g/dL Globulin (2.3-3.5) g/dL Albumin/Globulin Ratio (1.2-2.2) Patrick Results Last 24 Hours: Microbiology 10/24/19 10:08 Aerobic Blood Culture - Preliminary Blood - Arterial Line - Direct Stick NO GROWTH AFTER 4 DAYS Anaerobic Blood Culture - Preliminary NO GROWTH AFTER 4 DAYS 10/24/19 09:35 Aerobic Blood Culture - Preliminary Blood - Venous NO GROWTH AFTER 4 DAYS Anaerobic Blood Culture - Preliminary NO GROWTH AFTER 4 DAYS Med Orders - Current: Current Medications Aspirin (Halfprin) 81 mg PO DAILY [facility] Folic Acid (Folic Acid) 1 mg PO DAILY [facility] Last Admin: 10/28/19 10:00 Dose: 1 mg Piperacillin/Tazobactam/ (Dextrose 3.375 gm/ Premix) 50 mls @ 100 mls/hr IV Q6H [facility] Last Admin: 10/29/19 08:04 Dose: 100 mls/hr Dextrose/Water (Dextrose 5% In Water) 1,000 mls @ 50 mls/hr IV ASDIRECTED [facility] Last Admin: 10/29/19 09:01 Dose: 50 mls/hr Phytonadione 1 mg/ Sodium (Chloride) 50.5 mls @ 100 mls/hr IV ONETIME ONE Stop: 10/29/19 09:58 Lactulose (Chronulac) 10 gm PO BID [facility] Last Admin: 10/28/19 20:04 Dose: 10 gm Lorazepam (Ativan) 0 mg PO ASDIRECTED [facility]; Protocol Last Admin: 10/29/19 08:04 Dose: 1 mg Metoprolol Succinate (Toprol Xl) 50 mg PO DAILY [facility] Last Admin: 10/28/19 10:00 Dose: 50 mg Morphine Sulfate (Ms Contin) 15 mg PO Q12H [facility] Last Admin: 10/28/19 20:03 Dose: 15 mg (Lifitegrast [Xiidra (] 1 Drop)*Pom*) 1 drop EYEBOTH BID [facility] Last Admin: 10/28/19 20:04 Dose: 1 drop Ondansetron HCl (Zofran) 4 mg IV Q4H PRN PRN Reason: Nausea/Vomiting Polyethylene Glycol (Miralax) 17 gm PO DAILY PRN PRN Reason: Constipation Prednisolone (Orapred 15 Mg/5ml Soln) 40 mg PO DAILY [facility] Last Admin: 10/28/19 10:01 Dose: 40 mg Sodium Chloride (Saline Flush) 10 ml FLUSH ASDIRECTED PRN PRN Reason: Keep Vein Open Thiamine HCl (Vitamin B-1) 100 mg PO DAILY [facility] Last Admin: 10/28/19 10:00 Dose: 100 mg Discontinued Medications Gabapentin (Neurontin) 400 mg PO Q8H [facility] Stop: 10/28/19 06:01 Last Admin: 10/28/19 05:46 Dose: 400 mg Hydrocortisone (Cortef) 10 mg PO ACBRK [facility] Hydrocortisone (Cortef) 5 mg PO DAILY [facility] Sodium Chloride (Normal Saline) 1,000 mls @ 999 mls/hr IV ASDIRECTED [facility] Last Admin: 10/24/19 09:24 Dose: 999 mls/hr Sodium Chloride (Normal Saline) 1,000 mls @ 999 mls/hr IV ASDIRECTED [facility] Last Admin: 10/24/19 10:13 Dose: 999 mls/hr Potassium Chloride 20 meq/ (Premix) 100 mls @ 50 mls/hr IV ONETIME ONE Stop: 10/24/19 11:58 Last Admin: 10/24/19 10:26 Dose: 50 mls/hr Ceftriaxone Sodium 1 gm/ (Sodium Chloride) 50 mls @ 100 mls/hr IV ONETIME ONE Stop: 10/24/19 11:03 Last Admin: 10/24/19 10:55 Dose: 100 mls/hr Multivitamins/Minerals 10 ml/Thiamine HCl 100 mg/ Folic Acid 1 mg/ Magnesium Sulfate 2 gm/ Sodium Chloride 1,015.2 mls @ 100 mls/hr IV ONETIME ONE Stop: 10/25/19 03:09 Last Admin: 10/24/19 16:49 Dose: 100 mls/hr Phytonadione 5 mg/ Sodium (Chloride) 50.5 mls @ 50 mls/hr IV NOW ONE Stop: 10/24/19 16:00 Last Admin: 10/24/19 14:58 Dose: 50 mls/hr Sodium Chloride (Normal Saline) 1,000 mls @ 125 mls/hr IV ASDIRECTED [facility] Last Admin: 10/25/19 02:34 Dose: 125 mls/hr Potassium Chloride 20 meq/Lidocaine HCl 2 ml/ Sodium Chloride 112 mls @ 56 mls/ hr IV Q2H [facility] Stop: 10/24/19 19:29 Last Admin: 10/24/19 16:50 Dose: 56 mls/hr Potassium Chloride 20 meq/Lidocaine HCl 2 ml/ Sodium Chloride 112 mls @ 56 mls/ hr IV Q2H [facility] Stop: 10/25/19 03:59 Last Admin: 10/25/19 02:35 Dose: 56 mls/hr Sodium Chloride (Normal Saline) 85 mls @ 3 mls/sec IV ASDIRECTED [facility] Stop: 10/25/19 10:00 Last Admin: 10/26/19 09:36 Dose: 3.5 mls/sec Sodium Chloride (Normal Saline) 1,000 mls @ 75 mls/hr IV ASDIRECTED [facility] Last Admin: 10/26/19 01:25 Dose: 75 mls/hr Potassium Chloride 20 meq/Lidocaine HCl 2 ml/ Sodium Chloride 112 mls @ 56 mls/ hr IV Q2H [facility] Stop: 10/26/19 13:59 Last Admin: 10/26/19 12:15 Dose: 56 mls/hr Sodium Chloride (Normal Saline) 85 mls @ 3.5 mls/sec IV ASDIRECTED [facility] Stop: 10/26/19 09:01 Sodium Chloride (Normal Saline) 1,000 mls @ 100 mls/hr IV ASDIRECTED [facility] Last Admin: 10/27/19 02:12 Dose: 100 mls/hr Sodium Chloride (Normal Saline) 1,000 mls @ 50 mls/hr IV ASDIRECTED [facility] Last Admin: 10/27/19 13:03 Dose: 50 mls/hr Iopamidol (Isovue-300 (61%)) 150 ml IV . DIRECTED [facility] Stop: 10/25/19 09:00 Iopamidol (Isovue-300 (61%)) 150 ml IV ONETIME ONE Stop: 10/26/19 08:57 Last Admin: 10/26/19 09:36 Dose: 150 ml Lactulose (Chronulac) 20 gm PO BID [facility] Last Admin: 10/28/19 10:15 Dose: Not Given Lactulose (Chronulac) 10 gm PO ONETIME ONE Stop: 10/28/19 10:31 Last Admin: 10/28/19 10:31 Dose: 10 gm Methylprednisolone Sodium Succinate (Solu-Medrol) 40 mg IVPUSH Q6H [facility] Last Admin: 10/25/19 09:30 Dose: 40 mg Methylprednisolone Sodium Succinate (Solu-Medrol) 40 mg IVPUSH Q12H [facility] Last Admin: 10/25/19 21:16 Dose: 40 mg Oxycodone HCl (Oxycodone) 5 mg PO Q4H PRN PRN Reason: Pain (moderate 4-6) Last Admin: 10/25/19 01:45 Dose: 5 mg Potassium Chloride (Klor-Con M20) 20 meq PO ONETIME ONE Stop: 10/24/19 10:00 Last Admin: 10/24/19 10:26 Dose: 20 meq Potassium Chloride (Klor-Con M20) 40 meq PO ONETIME ONE Stop: 10/24/19 10:33 Last Admin: 10/24/19 10:55 Dose: 40 meq Potassium Chloride (Klor-Con M20) 40 meq PO ONETIME ONE Stop: 10/24/19 14:01 Last Admin: 10/24/19 14:30 Dose: 40 meq Potassium Chloride (Klor-Con M20) 40 meq PO ONETIME ONE Stop: 10/24/19 17:01 Last Admin: 10/24/19 18:03 Dose: 40 meq Potassium Chloride (Klor-Con M20) 40 meq PO ONETIME ONE Stop: 10/24/19 21:01 Last Admin: 10/24/19 21:08 Dose: 40 meq Potassium Chloride (Klor-Con M20) 40 meq PO ONETIME ONE Stop: 10/26/19 09:01 Last Admin: 10/26/19 09:52 Dose: 40 meq Potassium Chloride (Klor-Con M20) 40 meq PO ONETIME ONE Stop: 10/27/19 08:31 Last Admin: 10/27/19 08:55 Dose: 40 meq Potassium Chloride (Klor-Con M20) 40 meq PO ONETIME ONE Stop: 10/28/19 08:46 Last Admin: 10/28/19 09:58 Dose: 40 meq Potassium Chloride (Klor-Con M20) 40 meq PO ONETIME ONE Stop: 10/28/19 17:01 Last Admin: 10/28/19 16:01 Dose: 40 meq Prednisolone (Orapred 15 Mg/5ml Soln) 40 mg PO DAILY [facility] Last Admin: 10/24/19 15:58 Dose: 40 mg Sodium Chloride (Saline Flush) 10 ml FLUSH ONETIME ONE Stop: 10/25/19 07:24 Last Admin: 10/25/19 10:42 Dose: Not Given Sodium Chloride (Saline Flush) 10 ml FLUSH ONETIME PRN PRN Reason: per radiology protocol Stop: 10/26/19 08:57 Last Admin: 10/26/19 09:35 Dose: 10 ml - Exam Quality Assessment: Supplemental Oxygen, DVT Prophylaxis General: Alert, Oriented, Cooperative, Mild Distress Lungs: Normal Respiratory Effort, Decreased Breath Sounds, Wheezing. No: Rales , Rhonchi Cardiovascular: Regular Rate, Regular Rhythm, No Murmurs GI/Abdominal Exam: Soft, Non-Tender, No Organomegaly, No Distention Extremities: Non-Tender, Pedal Edema Sepsis Event Note - Evaluation Sepsis Screening Result: No Definite Risk - Focused Exam Vital Signs: Vital Signs Temp Pulse Resp BP Pulse Ox 10/29/19 08:00 82 20 180/80 H 96 10/29/19 06:00 78 16 183/83 H 93 L 10/29/19 04:00 96.0 F L 72 13 165/90 H 95 10/29/19 02:00 63 9 L 152/76 H 95 10/29/19 00:00 96.0 F L 67 9 L 158/77 H 95 10/28/19 22:00 70 9 L 153/70 H 95 Date Exam was Performed: 10/29/19 Time Exam was Performed: 09:29 - Problem List Review Problem List Initiated/Reviewed/Updated: Yes - My Orders Last 24 Hours: My Active Orders 10/28/19 08:30 Dextrose 5% in Water 1,000 ml IV ASDIRECTED 10/28/19 21:00 Lactulose [Chronulac] 10 gm PO BID 10/29/19 09:28 Phytonadione [AquaMephyton] 1 mg Sodium Chloride 0.9% [Normal Saline] 50 ml IV ONETIME 10/30/19 05:00 CBC WITH AUTO DIFF [HEME] Timed COMPREHENSIVE METABOLIC PN,CMP [CHEM] Timed INR,PT,PROTHROMBIN TIME [COAG] Timed 10/30/19 05:11 AMMONIA VENOUS [CHEM] AM 10/30/19 09:00 Aspirin [Halfprin] 81 mg PO DAILY - Plan Plan:: ASSESSMENT AND PLAN PANCREATIC MASS WITH EVIDENCE OF LIVER METASTASIS-CT scan shows evidence of a mass at the pancreatic head with multiple areas in the liver consistent with metastatic disease -will require further evaluation and biopsy once other medical issues have stabilized RHABDOMYOLYSIS-resolved SEVERE HYPOKALEMIA-potassium level this morning is normal -Reassess potassium level in a.m. ALCOHOL WITHDRAWAL-alcohol withdrawal delirium most likely cause of decreased level of consciousness with mild agitation -Alcohol withdrawal protocol ALCOHOLIC HEPATITIS-associated with underlying cirrhosis, long-term history of daily alcohol use. -Reassess liver studies and INR in a.m. -Monitor closely for alcohol withdrawal -Alcohol withdrawal protocol -Prednisolone 40 mg p.o. daily PROBABLE ASPIRATION-shortly after admission he developed hypoxia and coughing following oral potassium. Oxygenation has been stable since yesterday, continues to require supplemental oxygen and use of noninvasive positive pressure ventilation. Chest x-ray does show patchy infiltrate consistent with pneumonia -Zosyn IV every 6 hours -Supplemental oxygen as needed -Noninvasive positive pressure ventilation PROGRESSIVE WEAKNESS-at baseline has right-sided weakness secondary to cervical spine injury and surgery. Progressively more weak over the past few months, likely related to his progressive liver disease. MRI of the brain, of somewhat poor quality secondary to motion artifact. No obvious acute abnormalities identified HEPATIC ENCEPHALOPATHY-level is now within normal range -Lactulose twice daily -Reassess ammonia level in a.m. CHRONIC NECK AND BACK PAIN -Continue outpatient pain medications MODERATE AORTIC STENOSIS MAINTENANCE ISSUES -DVT prophylaxis; INR significantly elevated, hold on anticoagulation -GI prophylaxis; not indicated -Chu catheter; not indicated -Nutrition; regular diet -Nicotine dependence; not required CODE STATUS-FULL CODE ADMISSION STATUS-patient will be admitted to inpatient status, expect at least a 2 night hospital stay for evaluation and management of problems as outlined above. At the time of this admission I do not reasonably expected evaluation and management of this problem will require more than a 96 hour hospital stay. DISPOSITION-anticipate discharge to home after the hospital stay. PRIMARY CARE PROVIDER-Gail Chand
[2019-10-29] MEDS: Folic Acid 1 MG Tab PO SCH (09:40)
[2019-10-29] MEDS: Morphine 15 MG Tab.ER PO SCH ×2 (09:41→22:09)
[2019-10-29] MEDS: Thiamine 100 MG Tab PO SCH (09:41)
[2019-10-29] MEDS: prednisoLONE 15 MG/5 ML Soln UD Cup PO SCH (09:42)
[2019-10-29] MEDS: Metoprolol Succinate 50 MG Tab.ER PO SCH (09:43)
[2019-10-29] MEDS: Lactulose Soln 10 GM/15 ML 15 ML UD Cup PO SCH ×2 (09:49→22:09)
[2019-10-29] MEDS ORDERED: Phytonadione 1 MG in Sodium Chloride 0.9% 50 ML IV ONE (10:30)
[2019-10-30] MEDS: LORazepam 1 MG Tab PO SCH ×2 (00:29→10:34)
[2019-10-30] MEDS ORDERED: HYDROmorphone 0.5 MG/0.5 ML Syringe ONE (01:45)
[2019-10-30] MEDS: HYDROmorphone 0.5 MG/0.5 ML Syringe IVPUSH PRN ×5 (01:47→23:07)
[2019-10-30] MEDS: Piperacillin/Tazobactam/Dext 3.375 GM in Premix Bag 1 BAG IV SCH ×4 (01:47→20:02)
[2019-10-30] MEDS: Dextrose 5% in Water 1,000 ML IV SCH ×2 (07:13→22:34)
--- NOTE | 2019-10-30 09:15 | PCM.PN ---
- General Info Date of Service: 10/30/19 Subjective Update: There were no acute events overnight. The patient remains very lethargic and is able to open his eyes but is not able to communicate his needs at this time. Heart rate and blood pressure have been stable. He has had several loose bowel movements with the lactulose. He continues to have episodes of mild agitation but most of the time he has been sleeping. Tolerated the NIPPV well overnight. Is able to tolerate some periods of time with nasal cannula. Labs are all essentially stable compared to yesterday with a slight rise in his bilirubin. Functional Status: Reports: Other (lethargic, minimally interactive ) - Review of Systems General: Denies: Fever - Patient Data Vitals - Most Recent: Last Vital Signs Temp 35.1 C L 10/30/19 08:00 Pulse 64 10/30/19 08:00 Resp 10 L 10/30/19 08:00 BP 157/81 H 10/30/19 08:00 Pulse Ox 97 10/30/19 08:00 Weight - Most Recent: 138.6 kg I&O - Last 24 Hours: Intake & Output 10/29/19 10/30/19 10/30/19 22:59 06:59 14:59 Intake Total 675 716 50 Balance 675 716 50 Lab Results Last 24 Hours: Laboratory Results - last 24 hr 10/30/19 10/30/19 10/30/19 Range/Units 04:25 04:25 04:25 WBC 11.9 H (4.5-11.0) K/uL RBC 3.96 L (4.30-5.90) M/uL Hgb 11.3 L (12.0-15.0) g/dL Hct 36.7 L (40.0-54.0) % MCV 93 (80-98) fL MCH 29 (27-31) pg MCHC 31 L (32-36) % Plt Count 65 L (150-400) K/uL Neut % (Auto) 74 H (36-66) % Lymph % (Auto) 18 L (24-44) % [place] % (Auto) 8 H (2-6) % Eos % (Auto) 1 L (2-4) % Baso % (Auto) 0 (0-1) % PT 20.9 H (9.5-12.0) sec INR 2.01 H (0.80-1.20) Sodium 150 H (140-148) mmol/L Potassium 4.0 (3.6-5.2) mmol/L Chloride 113 H (100-108) mmol/L Carbon Dioxide 33 H (21-32) mmol/L Anion Gap 8.0 (5.0-14.0) mmol/L BUN 16 (7-18) mg/dL Creatinine 0.9 (0.8-1.3) mg/dL Est Cr Clr Drug Dosing 89.81 mL/min Estimated GFR (MDRD) > 60 (>60) Glucose 111 H (74-106) mg/dL Calcium 7.8 L (8.5-10.1) mg/dL Total Bilirubin 3.1 H (0.2-1.0) mg/dL AST 96 H (15-37) U/L ALT 88 H (12-78) U/L Alkaline Phosphatase 188 H (46-116) U/L Ammonia (11-32) mmol/L Total Protein 5.8 L (6.4-8.2) g/dL Albumin 1.9 L (3.4-5.0) g/dL Globulin 3.9 H (2.3-3.5) g/dL Albumin/Globulin Ratio 0.5 L (1.2-2.2) 10/30/19 Range/Units 04:25 WBC (4.5-11.0) K/uL RBC (4.30-5.90) M/uL Hgb (12.0-15.0) g/dL Hct (40.0-54.0) % MCV (80-98) fL MCH (27-31) pg MCHC (32-36) % Plt Count (150-400) K/uL Neut % (Auto) (36-66) % Lymph % (Auto) (24-44) % [place] % (Auto) (2-6) % Eos % (Auto) (2-4) % Baso % (Auto) (0-1) % PT (9.5-12.0) sec INR (0.80-1.20) Sodium (140-148) mmol/L Potassium (3.6-5.2) mmol/L Chloride (100-108) mmol/L Carbon Dioxide (21-32) mmol/L Anion Gap (5.0-14.0) mmol/L BUN (7-18) mg/dL Creatinine (0.8-1.3) mg/dL Est Cr Clr Drug Dosing mL/min Estimated GFR (MDRD) (>60) Glucose (74-106) mg/dL Calcium (8.5-10.1) mg/dL Total Bilirubin (0.2-1.0) mg/dL AST (15-37) U/L ALT (12-78) U/L Alkaline Phosphatase (46-116) U/L Ammonia 10 L (11-32) mmol/L Total Protein (6.4-8.2) g/dL Albumin (3.4-5.0) g/dL Globulin (2.3-3.5) g/dL Albumin/Globulin Ratio (1.2-2.2) Patrick Results Last 24 Hours: Microbiology 10/24/19 09:35 Aerobic Blood Culture - Final Blood - Venous NO GROWTH AFTER 5 DAYS Anaerobic Blood Culture - Final NO GROWTH AFTER 5 DAYS 10/24/19 10:08 Aerobic Blood Culture - Final Blood - Arterial Line - Direct Stick NO GROWTH AFTER 5 DAYS Anaerobic Blood Culture - Final NO GROWTH AFTER 5 DAYS Med Orders - Current: Current Medications Aspirin (Halfprin) 81 mg PO DAILY [facility] Divalproex Sodium (Depakote Sprinkle) 250 mg PO BIDMEALS [facility] Folic Acid (Folic Acid) 1 mg PO DAILY [facility] Last Admin: 10/29/19 09:40 Dose: 1 mg Hydromorphone HCl (Dilaudid) 0.5 mg IVPUSH Q2H PRN PRN Reason: Pain Last Admin: 10/30/19 04:28 Dose: 0.5 mg Piperacillin/Tazobactam/ (Dextrose 3.375 gm/ Premix) 50 mls @ 100 mls/hr IV Q6H [facility] Last Admin: 10/30/19 08:28 Dose: 100 mls/hr Dextrose/Water (Dextrose 5% In Water) 1,000 mls @ 50 mls/hr IV ASDIRECTED [facility] Last Admin: 10/30/19 07:13 Dose: 50 mls/hr Lactulose (Chronulac) 10 gm PO BID [facility] Last Admin: 10/29/19 22:09 Dose: 10 gm Lorazepam (Ativan) 0 mg PO ASDIRECTED [facility]; Protocol Last Admin: 10/30/19 00:29 Dose: 2 mg Metoprolol Succinate (Toprol Xl) 50 mg PO DAILY [facility] Last Admin: 10/29/19 09:43 Dose: 50 mg Morphine Sulfate (Ms Contin) 15 mg PO Q12H [facility] Last Admin: 10/29/19 22:09 Dose: 15 mg (Lifitegrast [Xiidra (] 1 Drop)*Pom*) 1 drop EYEBOTH BID [facility] Last Admin: 10/29/19 22:09 Dose: 1 drop Ondansetron HCl (Zofran) 4 mg IV Q4H PRN PRN Reason: Nausea/Vomiting Polyethylene Glycol (Miralax) 17 gm PO DAILY PRN PRN Reason: Constipation Prednisolone (Orapred 15 Mg/5ml Soln) 40 mg PO DAILY [facility] Last Admin: 10/29/19 09:42 Dose: 40 mg Sodium Chloride (Saline Flush) 10 ml FLUSH ASDIRECTED PRN PRN Reason: Keep Vein Open Thiamine HCl (Vitamin B-1) 100 mg PO DAILY [facility] Last Admin: 10/29/19 09:41 Dose: 100 mg Discontinued Medications Gabapentin (Neurontin) 400 mg PO Q8H [facility] Stop: 10/28/19 06:01 Last Admin: 10/28/19 05:46 Dose: 400 mg Hydrocortisone (Cortef) 10 mg PO ACBRK [facility] Hydrocortisone (Cortef) 5 mg PO DAILY [facility] Hydromorphone HCl (Dilaudid) Confirm Administered Dose 0.5 mg .ROUTE .STK-MED ONE Stop: 10/30/19 01:46 Last Admin: 10/30/19 01:56 Dose: Not Given Sodium Chloride (Normal Saline) 1,000 mls @ 999 mls/hr IV ASDIRECTED [facility] Last Admin: 10/24/19 09:24 Dose: 999 mls/hr Sodium Chloride (Normal Saline) 1,000 mls @ 999 mls/hr IV ASDIRECTED [facility] Last Admin: 10/24/19 10:13 Dose: 999 mls/hr Potassium Chloride 20 meq/ (Premix) 100 mls @ 50 mls/hr IV ONETIME ONE Stop: 10/24/19 11:58 Last Admin: 10/24/19 10:26 Dose: 50 mls/hr Ceftriaxone Sodium 1 gm/ (Sodium Chloride) 50 mls @ 100 mls/hr IV ONETIME ONE Stop: 10/24/19 11:03 Last Admin: 10/24/19 10:55 Dose: 100 mls/hr Multivitamins/Minerals 10 ml/Thiamine HCl 100 mg/ Folic Acid 1 mg/ Magnesium Sulfate 2 gm/ Sodium Chloride 1,015.2 mls @ 100 mls/hr IV ONETIME ONE Stop: 10/25/19 03:09 Last Admin: 10/24/19 16:49 Dose: 100 mls/hr Phytonadione 5 mg/ Sodium (Chloride) 50.5 mls @ 50 mls/hr IV NOW ONE Stop: 10/24/19 16:00 Last Admin: 10/24/19 14:58 Dose: 50 mls/hr Sodium Chloride (Normal Saline) 1,000 mls @ 125 mls/hr IV ASDIRECTED [facility] Last Admin: 10/25/19 02:34 Dose: 125 mls/hr Potassium Chloride 20 meq/Lidocaine HCl 2 ml/ Sodium Chloride 112 mls @ 56 mls/ hr IV Q2H [facility] Stop: 10/24/19 19:29 Last Admin: 10/24/19 16:50 Dose: 56 mls/hr Potassium Chloride 20 meq/Lidocaine HCl 2 ml/ Sodium Chloride 112 mls @ 56 mls/ hr IV Q2H [facility] Stop: 10/25/19 03:59 Last Admin: 10/25/19 02:35 Dose: 56 mls/hr Sodium Chloride (Normal Saline) 85 mls @ 3 mls/sec IV ASDIRECTED [facility] Stop: 10/25/19 10:00 Last Admin: 10/26/19 09:36 Dose: 3.5 mls/sec Sodium Chloride (Normal Saline) 1,000 mls @ 75 mls/hr IV ASDIRECTED [facility] Last Admin: 10/26/19 01:25 Dose: 75 mls/hr Potassium Chloride 20 meq/Lidocaine HCl 2 ml/ Sodium Chloride 112 mls @ 56 mls/ hr IV Q2H [facility] Stop: 10/26/19 13:59 Last Admin: 10/26/19 12:15 Dose: 56 mls/hr Sodium Chloride (Normal Saline) 85 mls @ 3.5 mls/sec IV ASDIRECTED [facility] Stop: 10/26/19 09:01 Sodium Chloride (Normal Saline) 1,000 mls @ 100 mls/hr IV ASDIRECTED [facility] Last Admin: 10/27/19 02:12 Dose: 100 mls/hr Sodium Chloride (Normal Saline) 1,000 mls @ 50 mls/hr IV ASDIRECTED [facility] Last Admin: 10/27/19 13:03 Dose: 50 mls/hr Phytonadione 1 mg/ Sodium (Chloride) 50.5 mls @ 50 mls/hr IV ONETIME ONE Stop: 10/29/19 11:30 Last Admin: 10/29/19 11:25 Dose: 50 mls/hr Iopamidol (Isovue-300 (61%)) 150 ml IV . DIRECTED [facility] Stop: 10/25/19 09:00 Iopamidol (Isovue-300 (61%)) 150 ml IV ONETIME ONE Stop: 10/26/19 08:57 Last Admin: 10/26/19 09:36 Dose: 150 ml Lactulose (Chronulac) 20 gm PO BID [facility] Last Admin: 10/28/19 10:15 Dose: Not Given Lactulose (Chronulac) 10 gm PO ONETIME ONE Stop: 10/28/19 10:31 Last Admin: 10/28/19 10:31 Dose: 10 gm Methylprednisolone Sodium Succinate (Solu-Medrol) 40 mg IVPUSH Q6H [facility] Last Admin: 10/25/19 09:30 Dose: 40 mg Methylprednisolone Sodium Succinate (Solu-Medrol) 40 mg IVPUSH Q12H [facility] Last Admin: 10/25/19 21:16 Dose: 40 mg Oxycodone HCl (Oxycodone) 5 mg PO Q4H PRN PRN Reason: Pain (moderate 4-6) Last Admin: 10/25/19 01:45 Dose: 5 mg Potassium Chloride (Klor-Con M20) 20 meq PO ONETIME ONE Stop: 10/24/19 10:00 Last Admin: 10/24/19 10:26 Dose: 20 meq Potassium Chloride (Klor-Con M20) 40 meq PO ONETIME ONE Stop: 10/24/19 10:33 Last Admin: 10/24/19 10:55 Dose: 40 meq Potassium Chloride (Klor-Con M20) 40 meq PO ONETIME ONE Stop: 10/24/19 14:01 Last Admin: 10/24/19 14:30 Dose: 40 meq Potassium Chloride (Klor-Con M20) 40 meq PO ONETIME ONE Stop: 10/24/19 17:01 Last Admin: 10/24/19 18:03 Dose: 40 meq Potassium Chloride (Klor-Con M20) 40 meq PO ONETIME ONE Stop: 10/24/19 21:01 Last Admin: 10/24/19 21:08 Dose: 40 meq Potassium Chloride (Klor-Con M20) 40 meq PO ONETIME ONE Stop: 10/26/19 09:01 Last Admin: 10/26/19 09:52 Dose: 40 meq Potassium Chloride (Klor-Con M20) 40 meq PO ONETIME ONE Stop: 10/27/19 08:31 Last Admin: 10/27/19 08:55 Dose: 40 meq Potassium Chloride (Klor-Con M20) 40 meq PO ONETIME ONE Stop: 10/28/19 08:46 Last Admin: 10/28/19 09:58 Dose: 40 meq Potassium Chloride (Klor-Con M20) 40 meq PO ONETIME ONE Stop: 10/28/19 17:01 Last Admin: 10/28/19 16:01 Dose: 40 meq Prednisolone (Orapred 15 Mg/5ml Soln) 40 mg PO DAILY [facility] Last Admin: 10/24/19 15:58 Dose: 40 mg Sodium Chloride (Saline Flush) 10 ml FLUSH ONETIME ONE Stop: 10/25/19 07:24 Last Admin: 10/25/19 10:42 Dose: Not Given Sodium Chloride (Saline Flush) 10 ml FLUSH ONETIME PRN PRN Reason: per radiology protocol Stop: 10/26/19 08:57 Last Admin: 10/26/19 09:35 Dose: 10 ml - Exam Quality Assessment: Supplemental Oxygen General: No Acute Distress, Lethargic. No: Alert, Oriented, Cooperative Lungs: Crackles (right base), Wheezing (mild left side, expiratory ). No: Normal Respiratory Effort (abdominal breathing ) Cardiovascular: Regular Rate, Regular Rhythm GI/Abdominal Exam: Normal Bowel Sounds, Soft, Distended Extremities: Pedal Edema. No: Increased Warmth Skin: Dry, Cool, Ecchymosis (right arm ) Psy/Mental Status: No: Anxious, Agitated Sepsis Event Note - Evaluation Sepsis Screening Result: No Definite Risk - Focused Exam Vital Signs: Vital Signs Temp Pulse Resp BP Pulse Ox 10/30/19 08:00 35.1 C L 64 10 L 157/81 H 97 10/30/19 06:00 64 10 L 153/85 H 95 10/30/19 04:00 35.6 C L 66 11 L 160/84 H 95 10/30/19 02:00 71 19 170/92 H 94 L 10/30/19 00:00 35.6 C L 74 14 186/95 H 96 10/29/19 22:00 60 10 L 176/84 H 96 Date Exam was Performed: 10/30/19 Time Exam was Performed: 13:39 - Problem List Review Problem List Initiated/Reviewed/Updated: Yes - My Orders Last 24 Hours: My Active Orders 10/30/19 09:30 Divalproex Sodium [Depakote Sprinkle] 250 mg PO BIDMEALS 10/30/19 14:00 SODIUM,NA [CHEM] Timed 10/31/19 05:00 CBC W/O DIFF,HEMOGRAM [HEME] Timed (1) COMPREHENSIVE METABOLIC PN,CMP [CHEM] Timed - Plan Plan:: ASSESSMENT AND PLAN PANCREATIC MASS WITH EVIDENCE OF LIVER METASTASIS-CT scan shows evidence of a mass at the pancreatic head with multiple areas in the liver consistent with metastatic disease -will require further evaluation and biopsy once other medical issues have stabilized RHABDOMYOLYSIS-resolved SEVERE HYPOKALEMIA-potassium level remains normal. -Reassess potassium level in a.m. ALCOHOL WITHDRAWAL-alcohol withdrawal delirium most likely cause of decreased level of consciousness with mild agitation. He is not getting any worse but is not getting any better either. -Alcohol withdrawal protocol -Trial of Depakote ALCOHOLIC HEPATITIS-associated with underlying cirrhosis, long-term history of daily alcohol use. Levels are stable. Tolerating steroids so far. -Reassess liver studies and INR in a.m. -Monitor closely for alcohol withdrawal -Alcohol withdrawal protocol -Prednisolone 40 mg p.o. daily PROBABLE ASPIRATION-complicated by acute respiratory failure with hypoxia. He has been requiring NIPPV overnight as well as when he is sleeping but seems to be slowly getting better. Cultures are negative so far. -Zosyn IV every 6 hours -Supplemental oxygen as needed -Noninvasive positive pressure ventilation as needed, wean as able PROGRESSIVE WEAKNESS-at baseline has right-sided weakness secondary to cervical spine injury and surgery. Progressively more weak over the past few months, likely related to his progressive liver disease. MRI of the brain, of somewhat poor quality secondary to motion artifact. No obvious acute abnormalities identified HEPATIC ENCEPHALOPATHY-ammonia level improved with lactulose. -Lactulose twice daily -Reassess ammonia level in a.m. CHRONIC NECK AND BACK PAIN -Continue outpatient pain medications MODERATE AORTIC STENOSIS MAINTENANCE ISSUES -DVT prophylaxis; INR significantly elevated, hold on anticoagulation -GI prophylaxis; not indicated -Chu catheter; not indicated -Nutrition; regular diet CODE STATUS-FULL CODE ADMISSION STATUS-patient will be admitted to inpatient status, expect at least a 2 night hospital stay for evaluation and management of problems as outlined above. At the time of this admission I do not reasonably expected evaluation and management of this problem will require more than a 96 hour hospital stay. DISPOSITION-anticipate discharge to the retirement after the hospital stay. Maximiliano Darnell MD
[2019-10-30] MEDS: Morphine 15 MG Tab.ER PO SCH ×2 (10:01→21:05)
[2019-10-30] MEDS: Divalproex Sodium Delayed-Release 125 MG Cap.Sprink PO SCH ×2 (10:02→18:24)
[2019-10-30] MEDS: prednisoLONE 15 MG/5 ML Soln UD Cup PO SCH (10:05)
[2019-10-30] MEDS: Metoprolol Succinate 50 MG Tab.ER PO SCH (10:06)
[2019-10-30] MEDS: Lactulose Soln 10 GM/15 ML 15 ML UD Cup PO SCH ×2 (10:08→21:05)
[2019-10-30] MEDS: Aspirin 81 MG Tab.EC PO SCH (10:13)
[2019-10-30] MEDS: Thiamine 100 MG Tab PO SCH (10:24)
[2019-10-30] MEDS: Folic Acid 1 MG Tab PO SCH (10:24)
[2019-10-31] MEDS: Piperacillin/Tazobactam/Dext 3.375 GM in Premix Bag 1 BAG IV SCH ×4 (01:57→20:19)
[2019-10-31] MEDS: HYDROmorphone 0.5 MG/0.5 ML Syringe IVPUSH PRN ×2 (04:06→11:18)
[2019-10-31] MEDS: LORazepam 1 MG Tab PO SCH (08:09)
[2019-10-31] MEDS: Morphine 15 MG Tab.ER PO SCH ×2 (08:10→21:33)
[2019-10-31] MEDS: Aspirin 81 MG Tab.EC PO SCH (08:11)
[2019-10-31] MEDS: Divalproex Sodium Delayed-Release 125 MG Cap.Sprink PO SCH ×2 (08:12→17:48)
[2019-10-31] MEDS: Metoprolol Succinate 50 MG Tab.ER PO SCH (08:13)
[2019-10-31] MEDS: Thiamine 100 MG Tab PO SCH (08:15)
[2019-10-31] MEDS: Folic Acid 1 MG Tab PO SCH (08:15)
[2019-10-31] MEDS: prednisoLONE 15 MG/5 ML Soln UD Cup PO SCH (08:19)
[2019-10-31] MEDS: Lactulose Soln 10 GM/15 ML 15 ML UD Cup PO SCH ×2 (08:19→08:20)
--- NOTE | 2019-10-31 08:58 | PCM.PN ---
- General Info Date of Service: 10/31/19 Subjective Update: There were no acute events overnight. The patient is more alert and interactive today. He is able to answer in simple one-word responses. He did not require noninvasive ventilation overnight. This morning he does not report feeling short of breath. He does not report any abdominal pain. He says that he feels pretty good. He has no idea where he is at. He does not recognize me. He was able to eat some ice cream. He was not able to take his pills last night. He has not required any lorazepam for alcohol withdrawal. Functional Status: Reports: Pain Controlled - Review of Systems General: Reports: Weakness. Denies: Fever Psychiatric: Reports: Confusion - Patient Data Vitals - Most Recent: Last Vital Signs Temp 35.6 C L 10/31/19 04:00 Pulse 80 10/31/19 08:13 Resp 12 10/31/19 06:00 BP 137/78 10/31/19 08:13 Pulse Ox 96 10/31/19 06:00 Weight - Most Recent: 138.6 kg I&O - Last 24 Hours: Intake & Output 10/30/19 10/31/19 10/31/19 22:59 06:59 14:59 Intake Total 853 Balance 853 Lab Results Last 24 Hours: Laboratory Results - last 24 hr 10/30/19 10/30/19 10/31/19 Range/Units 14:34 20:54 05:11 WBC 14.1 H (4.5-11.0) K/uL RBC 4.29 L (4.30-5.90) M/uL Hgb 11.8 L (12.0-15.0) g/dL Hct 39.6 L (40.0-54.0) % MCV 92 (80-98) fL MCH 28 (27-31) pg MCHC 30 L (32-36) % Plt Count 74 L (150-400) K/uL Sodium 150 H 148 (140-148) mmol/L Potassium (3.6-5.2) mmol/L Chloride (100-108) mmol/L Carbon Dioxide (21-32) mmol/L Anion Gap (5.0-14.0) mmol/L BUN (7-18) mg/dL Creatinine (0.8-1.3) mg/dL Est Cr Clr Drug Dosing mL/min Estimated GFR (MDRD) (>60) Glucose (74-106) mg/dL Calcium (8.5-10.1) mg/dL Total Bilirubin (0.2-1.0) mg/dL AST (15-37) U/L ALT (12-78) U/L Alkaline Phosphatase (46-116) U/L Total Protein (6.4-8.2) g/dL Albumin (3.4-5.0) g/dL Globulin (2.3-3.5) g/dL Albumin/Globulin Ratio (1.2-2.2) 10/31/19 Range/Units 05:11 WBC (4.5-11.0) K/uL RBC (4.30-5.90) M/uL Hgb (12.0-15.0) g/dL Hct (40.0-54.0) % MCV (80-98) fL MCH (27-31) pg MCHC (32-36) % Plt Count (150-400) K/uL Sodium 148 (140-148) mmol/L Potassium 3.8 (3.6-5.2) mmol/L Chloride 110 H (100-108) mmol/L Carbon Dioxide 33 H (21-32) mmol/L Anion Gap 8.8 (5.0-14.0) mmol/L BUN 16 (7-18) mg/dL Creatinine 0.9 (0.8-1.3) mg/dL Est Cr Clr Drug Dosing 89.81 mL/min Estimated GFR (MDRD) > 60 (>60) Glucose 93 (74-106) mg/dL Calcium 7.8 L (8.5-10.1) mg/dL Total Bilirubin 3.1 H (0.2-1.0) mg/dL AST 95 H (15-37) U/L ALT 93 H (12-78) U/L Alkaline Phosphatase 197 H (46-116) U/L Total Protein 5.8 L (6.4-8.2) g/dL Albumin 1.9 L (3.4-5.0) g/dL Globulin 3.9 H (2.3-3.5) g/dL Albumin/Globulin Ratio 0.5 L (1.2-2.2) Med Orders - Current: Current Medications Aspirin (Halfprin) 81 mg PO DAILY [facility] Last Admin: 10/31/19 08:11 Dose: 81 mg Divalproex Sodium (Depakote Sprinkle) 250 mg PO BIDMEALS [facility] Last Admin: 10/31/19 08:12 Dose: 250 mg Folic Acid (Folic Acid) 1 mg PO DAILY [facility] Last Admin: 10/31/19 08:15 Dose: 1 mg Hydromorphone HCl (Dilaudid) 0.5 mg IVPUSH Q2H PRN PRN Reason: Pain Last Admin: 10/31/19 04:06 Dose: 0.5 mg Piperacillin/Tazobactam/ (Dextrose 3.375 gm/ Premix) 50 mls @ 100 mls/hr IV Q6H [facility] Last Admin: 10/31/19 08:34 Dose: 100 mls/hr Dextrose/Water (Dextrose 5% In Water) 1,000 mls @ 75 mls/hr IV ASDIRECTED [facility] Last Admin: 10/30/19 22:34 Dose: 75 mls/hr Lorazepam (Ativan) 0 mg PO ASDIRECTED [facility]; Protocol Last Admin: 10/31/19 08:09 Dose: 1 mg Metoprolol Succinate (Toprol Xl) 50 mg PO DAILY [facility] Last Admin: 10/31/19 08:13 Dose: 50 mg Morphine Sulfate (Ms Contin) 15 mg PO Q12H [facility] Last Admin: 10/31/19 08:10 Dose: 15 mg (Lifitegrast [Xiidra (] 1 Drop)*Pom*) 1 drop EYEBOTH BID [facility] Last Admin: 10/31/19 08:19 Dose: 1 drop Ondansetron HCl (Zofran) 4 mg IV Q4H PRN PRN Reason: Nausea/Vomiting Polyethylene Glycol (Miralax) 17 gm PO DAILY PRN PRN Reason: Constipation Prednisolone (Orapred 15 Mg/5ml Soln) 40 mg PO DAILY [facility] Last Admin: 10/31/19 08:19 Dose: 40 mg Sodium Chloride (Saline Flush) 10 ml FLUSH ASDIRECTED PRN PRN Reason: Keep Vein Open Thiamine HCl (Vitamin B-1) 100 mg PO DAILY [facility] Last Admin: 10/31/19 08:15 Dose: 100 mg Discontinued Medications Gabapentin (Neurontin) 400 mg PO Q8H [facility] Stop: 10/28/19 06:01 Last Admin: 10/28/19 05:46 Dose: 400 mg Hydrocortisone (Cortef) 10 mg PO ACBRK [facility] Hydrocortisone (Cortef) 5 mg PO DAILY [facility] Hydromorphone HCl (Dilaudid) Confirm Administered Dose 0.5 mg .ROUTE .STK-MED ONE Stop: 10/30/19 01:46 Last Admin: 10/30/19 01:56 Dose: Not Given Sodium Chloride (Normal Saline) 1,000 mls @ 999 mls/hr IV ASDIRECTED [facility] Last Admin: 10/24/19 09:24 Dose: 999 mls/hr Sodium Chloride (Normal Saline) 1,000 mls @ 999 mls/hr IV ASDIRECTED [facility] Last Admin: 10/24/19 10:13 Dose: 999 mls/hr Potassium Chloride 20 meq/ (Premix) 100 mls @ 50 mls/hr IV ONETIME ONE Stop: 10/24/19 11:58 Last Admin: 10/24/19 10:26 Dose: 50 mls/hr Ceftriaxone Sodium 1 gm/ (Sodium Chloride) 50 mls @ 100 mls/hr IV ONETIME ONE Stop: 10/24/19 11:03 Last Admin: 10/24/19 10:55 Dose: 100 mls/hr Multivitamins/Minerals 10 ml/Thiamine HCl 100 mg/ Folic Acid 1 mg/ Magnesium Sulfate 2 gm/ Sodium Chloride 1,015.2 mls @ 100 mls/hr IV ONETIME ONE Stop: 10/25/19 03:09 Last Admin: 10/24/19 16:49 Dose: 100 mls/hr Phytonadione 5 mg/ Sodium (Chloride) 50.5 mls @ 50 mls/hr IV NOW ONE Stop: 10/24/19 16:00 Last Admin: 10/24/19 14:58 Dose: 50 mls/hr Sodium Chloride (Normal Saline) 1,000 mls @ 125 mls/hr IV ASDIRECTED [facility] Last Admin: 10/25/19 02:34 Dose: 125 mls/hr Potassium Chloride 20 meq/Lidocaine HCl 2 ml/ Sodium Chloride 112 mls @ 56 mls/ hr IV Q2H [facility] Stop: 10/24/19 19:29 Last Admin: 10/24/19 16:50 Dose: 56 mls/hr Potassium Chloride 20 meq/Lidocaine HCl 2 ml/ Sodium Chloride 112 mls @ 56 mls/ hr IV Q2H [facility] Stop: 10/25/19 03:59 Last Admin: 10/25/19 02:35 Dose: 56 mls/hr Sodium Chloride (Normal Saline) 85 mls @ 3 mls/sec IV ASDIRECTED [facility] Stop: 10/25/19 10:00 Last Admin: 10/26/19 09:36 Dose: 3.5 mls/sec Sodium Chloride (Normal Saline) 1,000 mls @ 75 mls/hr IV ASDIRECTED [facility] Last Admin: 10/26/19 01:25 Dose: 75 mls/hr Potassium Chloride 20 meq/Lidocaine HCl 2 ml/ Sodium Chloride 112 mls @ 56 mls/ hr IV Q2H [facility] Stop: 10/26/19 13:59 Last Admin: 10/26/19 12:15 Dose: 56 mls/hr Sodium Chloride (Normal Saline) 85 mls @ 3.5 mls/sec IV ASDIRECTED [facility] Stop: 10/26/19 09:01 Sodium Chloride (Normal Saline) 1,000 mls @ 100 mls/hr IV ASDIRECTED [facility] Last Admin: 10/27/19 02:12 Dose: 100 mls/hr Sodium Chloride (Normal Saline) 1,000 mls @ 50 mls/hr IV ASDIRECTED [facility] Last Admin: 10/27/19 13:03 Dose: 50 mls/hr Dextrose/Water (Dextrose 5% In Water) 1,000 mls @ 50 mls/hr IV ASDIRECTED [facility] Last Admin: 10/30/19 07:13 Dose: 50 mls/hr Phytonadione 1 mg/ Sodium (Chloride) 50.5 mls @ 50 mls/hr IV ONETIME ONE Stop: 10/29/19 11:30 Last Admin: 10/29/19 11:25 Dose: 50 mls/hr Iopamidol (Isovue-300 (61%)) 150 ml IV . DIRECTED [facility] Stop: 10/25/19 09:00 Iopamidol (Isovue-300 (61%)) 150 ml IV ONETIME ONE Stop: 10/26/19 08:57 Last Admin: 10/26/19 09:36 Dose: 150 ml Lactulose (Chronulac) 20 gm PO BID [facility] Last Admin: 10/28/19 10:15 Dose: Not Given Lactulose (Chronulac) 10 gm PO BID [facility] Last Admin: 10/31/19 08:19 Dose: 10 gm Lactulose (Chronulac) 10 gm PO ONETIME ONE Stop: 10/28/19 10:31 Last Admin: 10/28/19 10:31 Dose: 10 gm Methylprednisolone Sodium Succinate (Solu-Medrol) 40 mg IVPUSH Q6H [facility] Last Admin: 10/25/19 09:30 Dose: 40 mg Methylprednisolone Sodium Succinate (Solu-Medrol) 40 mg IVPUSH Q12H [facility] Last Admin: 10/25/19 21:16 Dose: 40 mg Oxycodone HCl (Oxycodone) 5 mg PO Q4H PRN PRN Reason: Pain (moderate 4-6) Last Admin: 10/25/19 01:45 Dose: 5 mg Potassium Chloride (Klor-Con M20) 20 meq PO ONETIME ONE Stop: 10/24/19 10:00 Last Admin: 10/24/19 10:26 Dose: 20 meq Potassium Chloride (Klor-Con M20) 40 meq PO ONETIME ONE Stop: 10/24/19 10:33 Last Admin: 10/24/19 10:55 Dose: 40 meq Potassium Chloride (Klor-Con M20) 40 meq PO ONETIME ONE Stop: 10/24/19 14:01 Last Admin: 10/24/19 14:30 Dose: 40 meq Potassium Chloride (Klor-Con M20) 40 meq PO ONETIME ONE Stop: 10/24/19 17:01 Last Admin: 10/24/19 18:03 Dose: 40 meq Potassium Chloride (Klor-Con M20) 40 meq PO ONETIME ONE Stop: 10/24/19 21:01 Last Admin: 10/24/19 21:08 Dose: 40 meq Potassium Chloride (Klor-Con M20) 40 meq PO ONETIME ONE Stop: 10/26/19 09:01 Last Admin: 10/26/19 09:52 Dose: 40 meq Potassium Chloride (Klor-Con M20) 40 meq PO ONETIME ONE Stop: 10/27/19 08:31 Last Admin: 10/27/19 08:55 Dose: 40 meq Potassium Chloride (Klor-Con M20) 40 meq PO ONETIME ONE Stop: 10/28/19 08:46 Last Admin: 10/28/19 09:58 Dose: 40 meq Potassium Chloride (Klor-Con M20) 40 meq PO ONETIME ONE Stop: 10/28/19 17:01 Last Admin: 10/28/19 16:01 Dose: 40 meq Prednisolone (Orapred 15 Mg/5ml Soln) 40 mg PO DAILY [facility] Last Admin: 10/24/19 15:58 Dose: 40 mg Sodium Chloride (Saline Flush) 10 ml FLUSH ONETIME ONE Stop: 10/25/19 07:24 Last Admin: 10/25/19 10:42 Dose: Not Given Sodium Chloride (Saline Flush) 10 ml FLUSH ONETIME PRN PRN Reason: per radiology protocol Stop: 10/26/19 08:57 Last Admin: 10/26/19 09:35 Dose: 10 ml - Exam Quality Assessment: Supplemental Oxygen General: Alert, Cooperative, No Acute Distress, Lethargic. No: Oriented HEENT: Pupils Equal Lungs: Clear to Auscultation, Normal Respiratory Effort Cardiovascular: Regular Rate, Regular Rhythm GI/Abdominal Exam: Normal Bowel Sounds, Soft, Distended Extremities: Pedal Edema (dependent ). No: Increased Warmth Skin: Warm, Dry, Ecchymosis (right arm ) Psy/Mental Status: Alert. No: Agitated Sepsis Event Note - Evaluation Sepsis Screening Result: No Definite Risk - Focused Exam Vital Signs: Vital Signs Temp Pulse Resp BP BP Pulse Ox 10/31/19 08:13 80 137/78 10/31/19 06:00 12 168/73 H 96 10/31/19 04:00 35.6 C L 12 137/92 H 95 10/31/19 02:00 12 143/89 H 96 10/31/19 00:00 36.4 C 12 149/63 H 95 10/30/19 22:00 16 141/70 H 96 Date Exam was Performed: 10/31/19 Time Exam was Performed: 14:26 - Problem List Review Problem List Initiated/Reviewed/Updated: Yes - My Orders Last 24 Hours: My Active Orders 10/30/19 09:30 Divalproex Sodium [Depakote Sprinkle] 250 mg PO BIDMEALS 10/30/19 15:01 Dextrose 5% in Water 1,000 ml IV ASDIRECTED 10/31/19 08:53 Furosemide [Lasix] 40 mg IVPUSH NOW ONE 10/31/19 09:00 Lactulose [Chronulac] 10 gm PO DAILY Potassium Chloride 20 MEQ,Lidocaine 1% 2 ML IN 100ML NS @ 50 MLS/HR Potassium Chloride 20 meq Lidocaine 1% [Xylocaine 1%] 2 ml Sodium Chloride 0.9% [Normal Saline] 100 ml IV Q2H 11/01/19 05:00 CBC W/O DIFF,HEMOGRAM [HEME] Timed (1) COMPREHENSIVE METABOLIC PN,CMP [CHEM] Timed INR,PT,PROTHROMBIN TIME [COAG] Timed MAGNESIUM [CHEM] Timed - Plan Plan:: ASSESSMENT AND PLAN PANCREATIC MASS WITH EVIDENCE OF LIVER METASTASIS-CT scan shows evidence of a mass at the pancreatic head with multiple areas in the liver consistent with metastatic disease -will require further evaluation and biopsy once other medical issues have stabilized RHABDOMYOLYSIS-resolved SEVERE HYPOKALEMIA-potassium level remains normal. -Supplement 40 mEq this morning since he will be receiving diuretics -Reassess potassium level in a.m. ALCOHOL WITHDRAWAL-complicated by hypoactive delirium. Seems to be a little better today. He is not requiring medications for alcohol withdrawal but remains hypoactive. -Alcohol withdrawal protocol -Trial of Depakote ALCOHOLIC HEPATITIS-associated with underlying cirrhosis, ascites and long-term history of daily alcohol use. Levels are stable. Tolerating steroids so far. -Trial of furosemide to help with ascites -Reassess liver studies and INR in a.m. -Alcohol withdrawal protocol -Prednisolone 40 mg p.o. daily PROBABLE ASPIRATION-complicated by acute respiratory failure with hypoxia. He did not require NIPPV overnight. Seems to be slowly improving. -Zosyn IV every 6 hours -Supplemental oxygen as needed -Noninvasive positive pressure ventilation as needed, wean as able PROGRESSIVE WEAKNESS-at baseline has right-sided weakness secondary to cervical spine injury and surgery. Extremely weak and physical therapy will be initiated today. HEPATIC ENCEPHALOPATHY-ammonia level improved with lactulose. -Lactulose once daily -Reassess ammonia level in a.m. CHRONIC NECK AND BACK PAIN -Continue outpatient pain medications MODERATE AORTIC STENOSIS-echo to further evaluate his cardiac function when available. MAINTENANCE ISSUES -DVT prophylaxis; INR significantly elevated, hold on anticoagulation -GI prophylaxis; not indicated -Chu catheter; not indicated -Nutrition; regular diet DISPOSITION-anticipate discharge to the [facility] after the hospital stay. Maximiliano Darnell MD
[2019-10-31] MEDS ORDERED: Furosemide 40 MG/4 ML VIAL IVPUSH ONE (09:15)
[2019-10-31] MEDS: Potassium Chloride 20 MEQ, Lidocaine 1% 2 ML in Sodium Chloride 0.9% 100 ML IV SCH ×2 (10:27→12:26)
[2019-10-31] MEDS: Dextrose 5% in Water 1,000 ML IV SCH (14:27)
[2019-11-01] MEDS: HYDROmorphone 0.5 MG/0.5 ML Syringe IVPUSH PRN ×2 (00:29→03:19)
[2019-11-01] MEDS: Piperacillin/Tazobactam/Dext 3.375 GM in Premix Bag 1 BAG IV SCH ×2 (02:03→08:52)
[2019-11-01] MEDS: Dextrose 5% in Water 1,000 ML IV SCH ×2 (05:16→23:53)
[2019-11-01] MEDS: Divalproex Sodium Delayed-Release 125 MG Cap.Sprink PO SCH ×2 (08:44→16:04)
[2019-11-01] MEDS: Aspirin 81 MG Tab.EC PO SCH (08:45)
[2019-11-01] MEDS: Metoprolol Succinate 50 MG Tab.ER PO SCH (08:45)
[2019-11-01] MEDS: Folic Acid 1 MG Tab PO SCH (08:45)
[2019-11-01] MEDS: Lactulose Soln 10 GM/15 ML 15 ML UD Cup PO SCH (08:45)
[2019-11-01] MEDS: Thiamine 100 MG Tab PO SCH (08:45)
[2019-11-01] MEDS: prednisoLONE 15 MG/5 ML Soln UD Cup PO SCH (08:46)
[2019-11-01] MEDS: LORazepam 1 MG Tab PO SCH (08:50)
[2019-11-01] MEDS: Morphine 15 MG Tab.ER PO SCH ×2 (08:51→21:45)
[2019-11-01] MEDS ORDERED: Morphine 15 MG Tab PO PRN (10:19)
--- NOTE | 2019-11-01 10:26 | PCM.PN ---
- General Info Date of Service: 11/01/19 Subjective Update: No acute events overnight. Patient did not require noninvasive ventilation. He is a little bit more alert and interactive again today but still answers only with short responses. He does not report any pain. He does not report any abdominal pain or nausea. He does say that he feels awful but is not able to further elaborate. I did try to talk to him some about his probable pancreatic cancer diagnosis but I am not sure how much he comprehended. Vital signs have been stable and he does continue to require 2 L of supplemental oxygen. Laboratory studies are essentially stable today. Functional Status: Reports: Pain Controlled - Review of Systems General: Reports: Weakness Neurological: Reports: Confusion - Patient Data Vitals - Most Recent: Last Vital Signs Temp 35.9 C L 11/01/19 02:00 Pulse 72 11/01/19 08:45 Resp 9 L 11/01/19 06:00 BP 118/57 L 11/01/19 08:45 Pulse Ox 95 11/01/19 06:00 Weight - Most Recent: 138.6 kg I&O - Last 24 Hours: Intake & Output 10/31/19 11/01/19 11/01/19 22:59 06:59 14:59 Intake Total 1146 869 110 Balance 1146 869 110 Lab Results Last 24 Hours: Laboratory Results - last 24 hr 11/01/19 11/01/19 11/01/19 Range/Units 05:00 05:00 05:00 WBC 13.2 H (4.5-11.0) K/uL RBC 4.12 L (4.30-5.90) M/uL Hgb 11.6 L (12.0-15.0) g/dL Hct 37.5 L (40.0-54.0) % MCV 91 (80-98) fL MCH 28 (27-31) pg MCHC 31 L (32-36) % Plt Count 54 L (150-400) K/uL PT 23.4 H (9.5-12.0) sec INR 2.27 H (0.80-1.20) Sodium 144 (140-148) mmol/L Potassium 4.0 (3.6-5.2) mmol/L Chloride 109 H (100-108) mmol/L Carbon Dioxide 31 (21-32) mmol/L Anion Gap 8.0 (5.0-14.0) mmol/L BUN 15 (7-18) mg/dL Creatinine 0.9 (0.8-1.3) mg/dL Est Cr Clr Drug Dosing 89.81 mL/min Estimated GFR (MDRD) > 60 (>60) Glucose 106 (74-106) mg/dL Calcium 7.6 L (8.5-10.1) mg/dL Magnesium 1.8 D (1.8-2.4) mg/dL Total Bilirubin 2.9 H (0.2-1.0) mg/dL AST 108 H (15-37) U/L ALT 101 H (12-78) U/L Alkaline Phosphatase 215 H (46-116) U/L Total Protein 5.7 L (6.4-8.2) g/dL Albumin 1.8 L (3.4-5.0) g/dL Globulin 3.9 H (2.3-3.5) g/dL Albumin/Globulin Ratio 0.5 L (1.2-2.2) Med Orders - Current: Current Medications Aspirin (Halfprin) 81 mg PO DAILY [facility], [facility] Last Admin: 11/01/19 08:45 Dose: 81 mg Divalproex Sodium (Depakote Sprinkle) 250 mg PO BIDMEALS [facility], [facility]1983 Last Admin: 11/01/19 08:44 Dose: 250 mg Folic Acid (Folic Acid) 1 mg PO DAILY [facility], [facility] Last Admin: 11/01/19 08:45 Dose: 1 mg Ceftazidime 1 gm/ Sodium (Chloride) 50 mls @ 100 mls/hr IV Q8HR [facility], [facility] Dextrose/Water (Dextrose 5% In Water) 1,000 mls @ 50 mls/hr IV ASDIRECTED [facility], [facility]1983 Lactulose (Chronulac) 10 gm PO DAILY [facility] Last Admin: 11/01/19 08:45 Dose: 10 gm Lorazepam (Ativan) 0.5 mg PO Q4H PRN PRN Reason: Anxiety/Muscle spasm Metoprolol Succinate (Toprol Xl) 50 mg PO DAILY [facility] Last Admin: 11/01/19 08:45 Dose: 50 mg Morphine Sulfate (Ms Contin) 15 mg PO Q12H [facility] Last Admin: 11/01/19 08:51 Dose: 15 mg Morphine Sulfate (Morphine) 2 mg IVPUSH Q2H PRN PRN Reason: Pain (severe 7-10) Morphine Sulfate (Morphine) 15 mg PO Q4H PRN PRN Reason: Pain (moderate 4-6) (Lifitegrast [Xiidra (] 1 Drop)*Pom*) 1 drop EYEBOTH BID [facility], [facility] Last Admin: 11/01/19 08:47 Dose: 1 drop Ondansetron HCl (Zofran) 4 mg IV Q4H PRN PRN Reason: Nausea/Vomiting Polyethylene Glycol (Miralax) 17 gm PO DAILY PRN PRN Reason: Constipation Prednisolone (Orapred 15 Mg/5ml Soln) 40 mg PO DAILY [facility] Last Admin: 11/01/19 08:46 Dose: 40 mg Sodium Chloride (Saline Flush) 10 ml FLUSH ASDIRECTED PRN PRN Reason: Keep Vein Open Thiamine HCl (Vitamin B-1) 100 mg PO DAILY [facility] Last Admin: 11/01/19 08:45 Dose: 100 mg Discontinued Medications Furosemide (Lasix) 40 mg IVPUSH NOW ONE Stop: 10/31/19 09:16 Last Admin: 10/31/19 10:02 Dose: 40 mg Gabapentin (Neurontin) 400 mg PO Q8H [facility] Stop: 10/28/19 06:01 Last Admin: 10/28/19 05:46 Dose: 400 mg Hydrocortisone (Cortef) 10 mg PO ACBRK [facility] Hydrocortisone (Cortef) 5 mg PO DAILY [facility] Hydromorphone HCl (Dilaudid) 0.5 mg IVPUSH Q2H PRN PRN Reason: Pain Last Admin: 11/01/19 03:19 Dose: 0.5 mg Hydromorphone HCl (Dilaudid) Confirm Administered Dose 0.5 mg .ROUTE .STK-MED ONE Stop: 10/30/19 01:46 Last Admin: 10/30/19 01:56 Dose: Not Given Sodium Chloride (Normal Saline) 1,000 mls @ 999 mls/hr IV ASDIRECTED [facility] Last Admin: 10/24/19 09:24 Dose: 999 mls/hr Sodium Chloride (Normal Saline) 1,000 mls @ 999 mls/hr IV ASDIRECTED [facility] Last Admin: 10/24/19 10:13 Dose: 999 mls/hr Potassium Chloride 20 meq/ (Premix) 100 mls @ 50 mls/hr IV ONETIME ONE Stop: 10/24/19 11:58 Last Admin: 10/24/19 10:26 Dose: 50 mls/hr Ceftriaxone Sodium 1 gm/ (Sodium Chloride) 50 mls @ 100 mls/hr IV ONETIME ONE Stop: 10/24/19 11:03 Last Admin: 10/24/19 10:55 Dose: 100 mls/hr Multivitamins/Minerals 10 ml/Thiamine HCl 100 mg/ Folic Acid 1 mg/ Magnesium Sulfate 2 gm/ Sodium Chloride 1,015.2 mls @ 100 mls/hr IV ONETIME ONE Stop: 10/25/19 03:09 Last Admin: 10/24/19 16:49 Dose: 100 mls/hr Phytonadione 5 mg/ Sodium (Chloride) 50.5 mls @ 50 mls/hr IV NOW ONE Stop: 10/24/19 16:00 Last Admin: 10/24/19 14:58 Dose: 50 mls/hr Sodium Chloride (Normal Saline) 1,000 mls @ 125 mls/hr IV ASDIRECTED [facility], [facility] Last Admin: 10/25/19 02:34 Dose: 125 mls/hr Piperacillin/Tazobactam/ (Dextrose 3.375 gm/ Premix) 50 mls @ 100 mls/hr IV Q6H [facility] Last Admin: 11/01/19 08:52 Dose: 100 mls/hr Potassium Chloride 20 meq/Lidocaine HCl 2 ml/ Sodium Chloride 112 mls @ 56 mls/ hr IV Q2H [facility]1983 Stop: 10/24/19 19:29 Last Admin: 10/24/19 16:50 Dose: 56 mls/hr Potassium Chloride 20 meq/Lidocaine HCl 2 ml/ Sodium Chloride 112 mls @ 56 mls/ hr IV Q2H [facility] Stop: 10/25/19 03:59 Last Admin: 10/25/19 02:35 Dose: 56 mls/hr Sodium Chloride (Normal Saline) 85 mls @ 3 mls/sec IV ASDIRECTED [facility] Stop: 10/25/19 10:00 Last Admin: 10/26/19 09:36 Dose: 3.5 mls/sec Sodium Chloride (Normal Saline) 1,000 mls @ 75 mls/hr IV ASDIRECTED [facility] Last Admin: 10/26/19 01:25 Dose: 75 mls/hr Potassium Chloride 20 meq/Lidocaine HCl 2 ml/ Sodium Chloride 112 mls @ 56 mls/ hr IV Q2H [facility] Stop: 10/26/19 13:59 Last Admin: 10/26/19 12:15 Dose: 56 mls/hr Sodium Chloride (Normal Saline) 85 mls @ 3.5 mls/sec IV ASDIRECTED NIKHIL Stop: 10/26/19 09:01 Sodium Chloride (Normal Saline) 1,000 mls @ 100 mls/hr IV ASDIRECTED NIKIHL Last Admin: 10/27/19 02:12 Dose: 100 mls/hr Sodium Chloride (Normal Saline) 1,000 mls @ 50 mls/hr IV ASDIRECTED NIKHIL Last Admin: 10/27/19 13:03 Dose: 50 mls/hr Dextrose/Water (Dextrose 5% In Water) 1,000 mls @ 50 mls/hr IV ASDIRECTED [facility] Last Admin: 10/30/19 07:13 Dose: 50 mls/hr Phytonadione 1 mg/ Sodium (Chloride) 50.5 mls @ 50 mls/hr IV ONETIME ONE Stop: 10/29/19 11:30 Last Admin: 10/29/19 11:25 Dose: 50 mls/hr Dextrose/Water (Dextrose 5% In Water) 1,000 mls @ 75 mls/hr IV ASDIRECTED [facility] Last Admin: 11/01/19 05:16 Dose: 75 mls/hr Potassium Chloride 20 meq/Lidocaine HCl 2 ml/ Sodium Chloride 112 mls @ 56 mls/ hr IV Q2H [facility] Stop: 10/31/19 13:59 Last Admin: 10/31/19 12:26 Dose: 56 mls/hr Iopamidol (Isovue-300 (61%)) 150 ml IV . DIRECTED [facility], [facility]1983 Stop: 10/25/19 09:00 Iopamidol (Isovue-300 (61%)) 150 ml IV ONETIME ONE Stop: 10/26/19 08:57 Last Admin: 10/26/19 09:36 Dose: 150 ml Lactulose (Chronulac) 20 gm PO BID [facility] Last Admin: 10/28/19 10:15 Dose: Not Given Lactulose (Chronulac) 10 gm PO BID [facility] Last Admin: 10/31/19 08:19 Dose: 10 gm Lactulose (Chronulac) 10 gm PO ONETIME ONE Stop: 10/28/19 10:31 Last Admin: 10/28/19 10:31 Dose: 10 gm Lorazepam (Ativan) 0 mg PO ASDIRECTED [facility], [facility]; Protocol Last Admin: 11/01/19 08:50 Dose: 1 mg Methylprednisolone Sodium Succinate (Solu-Medrol) 40 mg IVPUSH Q6H [facility] Last Admin: 10/25/19 09:30 Dose: 40 mg Methylprednisolone Sodium Succinate (Solu-Medrol) 40 mg IVPUSH Q12H [facility] Last Admin: 10/25/19 21:16 Dose: 40 mg Oxycodone HCl (Oxycodone) 5 mg PO Q4H PRN PRN Reason: Pain (moderate 4-6) Last Admin: 10/25/19 01:45 Dose: 5 mg Potassium Chloride (Klor-Con M20) 20 meq PO ONETIME ONE Stop: 10/24/19 10:00 Last Admin: 10/24/19 10:26 Dose: 20 meq Potassium Chloride (Klor-Con M20) 40 meq PO ONETIME ONE Stop: 10/24/19 10:33 Last Admin: 10/24/19 10:55 Dose: 40 meq Potassium Chloride (Klor-Con M20) 40 meq PO ONETIME ONE Stop: 10/24/19 14:01 Last Admin: 10/24/19 14:30 Dose: 40 meq Potassium Chloride (Klor-Con M20) 40 meq PO ONETIME ONE Stop: 10/24/19 17:01 Last Admin: 10/24/19 18:03 Dose: 40 meq Potassium Chloride (Klor-Con M20) 40 meq PO ONETIME ONE Stop: 10/24/19 21:01 Last Admin: 10/24/19 21:08 Dose: 40 meq Potassium Chloride (Klor-Con M20) 40 meq PO ONETIME ONE Stop: 10/26/19 09:01 Last Admin: 10/26/19 09:52 Dose: 40 meq Potassium Chloride (Klor-Con M20) 40 meq PO ONETIME ONE Stop: 10/27/19 08:31 Last Admin: 10/27/19 08:55 Dose: 40 meq Potassium Chloride (Klor-Con M20) 40 meq PO ONETIME ONE Stop: 10/28/19 08:46 Last Admin: 10/28/19 09:58 Dose: 40 meq Potassium Chloride (Klor-Con M20) 40 meq PO ONETIME ONE Stop: 10/28/19 17:01 Last Admin: 10/28/19 16:01 Dose: 40 meq Prednisolone (Orapred 15 Mg/5ml Soln) 40 mg PO DAILY [facility] Last Admin: 10/24/19 15:58 Dose: 40 mg Sodium Chloride (Saline Flush) 10 ml FLUSH ONETIME ONE Stop: 10/25/19 07:24 Last Admin: 10/25/19 10:42 Dose: Not Given Sodium Chloride (Saline Flush) 10 ml FLUSH ONETIME PRN PRN Reason: per radiology protocol Stop: 10/26/19 08:57 Last Admin: 10/26/19 09:35 Dose: 10 ml - Exam Quality Assessment: Supplemental Oxygen General: Alert, Cooperative, No Acute Distress, Lethargic. No: Oriented HEENT: Pupils Equal Lungs: Normal Respiratory Effort, Crackles (few right lung base) Cardiovascular: Regular Rate, Regular Rhythm GI/Abdominal Exam: Soft, No Distention Extremities: Pedal Edema. No: Increased Warmth Skin: Warm, Dry Psy/Mental Status: Alert. No: Agitated, Withdrawal Symptoms Sepsis Event Note - Evaluation Sepsis Screening Result: No Definite Risk - Focused Exam Vital Signs: Vital Signs Temp Pulse Resp BP BP Pulse Ox 11/01/19 08:45 72 118/57 L 11/01/19 06:00 9 L 130/64 95 11/01/19 04:00 10 L 118/56 L 95 11/01/19 02:00 35.9 C L 10 L 140/83 97 11/01/19 00:00 12 150/81 H 96 Date Exam was Performed: 11/01/19 Time Exam was Performed: 14:08 - Problem List Review Problem List Initiated/Reviewed/Updated: Yes - My Orders Last 24 Hours: My Active Orders 10/31/19 10:03 PT Evaluation and Treatment [CONS] Routine 11/01/19 10:18 BLOOD GAS ARTERIAL [BG] Urgent 11/01/19 10:19 Morphine 15 mg PO Q4H PRN Morphine 2 mg IVPUSH Q2H PRN 11/01/19 10:20 LORazepam [Ativan] 0.5 mg PO Q4H PRN 11/01/19 10:30 Dextrose 5% in Water 1,000 ml IV ASDIRECTED 11/01/19 14:00 cefTAZidime Pentahydrate [Fortaz] 1 gm Sodium Chloride 0.9% [Normal Saline] 50 ml IV Q8HR 11/02/19 07:00 Echo Comp wo Cont [US] Routine - Plan Plan:: ASSESSMENT AND PLAN HYPOACTIVE DELIRIUM-seems to be slowly coming around. Probably multifactorial with poor hepatic function and contribution from alcohol withdrawal. He has been a little more alert and interactive each day for the past 2 days. He has not had any fevers but he is being treated for possible aspiration pneumonitis as discussed below. PCO2 level is normal on ABGs today. Ammonia level has been normal. -Continue Depakote -Discontinue Pip/Tazo -Discontinue alcohol withdrawal protocol PANCREATIC MASS WITH EVIDENCE OF LIVER METASTASIS-CT scan shows evidence of a mass at the pancreatic head with multiple areas in the liver consistent with metastatic disease -will require further evaluation and biopsy once other medical issues have stabilized SEVERE HYPOKALEMIA-potassium level remains normal. -Reassess potassium level in a.m. ALCOHOLIC HEPATITIS-associated with underlying cirrhosis, ascites and long-term history of daily alcohol use. Levels are stable. Tolerating steroids so far. Still some edema and abdominal distention secondary to ascites. INR level rising -Furosemide again this morning -Reassess liver studies daily -Vitamin K today -Prednisolone 40 mg p.o. daily PROBABLE ASPIRATION-complicated by acute respiratory failure with hypoxia. He did not require NIPPV either of the last 2 nights. Seems to be slowly improving but does continue to require supplemental oxygen. arterial blood gases were essentially normal with a normal PCO2. -Change antibiotics to ceftazidime -Supplemental oxygen as needed -Noninvasive positive pressure ventilation if needed PROGRESSIVE WEAKNESS-at baseline has right-sided weakness secondary to cervical spine injury and surgery. Extremely weak and physical therapy will be initiated today. HEPATIC ENCEPHALOPATHY-ammonia level improved with lactulose. -Lactulose once daily -Reassess ammonia level periodically CHRONIC NECK AND BACK PAIN-stable -Continue scheduled long-acting morphine -short acting morphine for breakthrough pain MODERATE AORTIC STENOSIS-echo to further evaluate his cardiac function when available. MAINTENANCE ISSUES -DVT prophylaxis; INR significantly elevated, hold on anticoagulation -GI prophylaxis; not indicated -Chu catheter; not indicated -Nutrition; regular diet DISPOSITION-anticipate discharge to the intermediate after the hospital stay. Maximiliano Darnell MD
[2019-11-01] MEDS ORDERED: Phytonadione 5 MG Tab PO ONE (11:00)
[2019-11-01] MEDS ORDERED: Furosemide 40 MG/4 ML VIAL IVPUSH ONE (11:00)
[2019-11-01] MEDS: Morphine 2 MG/ML Syringe IVPUSH PRN ×2 (14:06→17:50)
[2019-11-01] MEDS: LORazepam 0.5 MG Tab PO PRN (15:58)
[2019-11-02] MEDS: Morphine 2 MG/ML Syringe IVPUSH PRN ×2 (00:41→17:15)
[2019-11-02] MEDS ORDERED: Magnesium Sulfate/Water 2 GM in Premix Bag 1 BAG IV ONE ×2 (01:17→15:30)
[2019-11-02] MEDS: Lactulose Soln 10 GM/15 ML 15 ML UD Cup PO SCH (08:24)
[2019-11-02] MEDS: prednisoLONE 15 MG/5 ML Soln UD Cup PO SCH (08:24)
[2019-11-02] MEDS: Thiamine 100 MG Tab PO SCH (08:25)
[2019-11-02] MEDS: Metoprolol Succinate 50 MG Tab.ER PO SCH (08:25)
[2019-11-02] MEDS: Divalproex Sodium Delayed-Release 125 MG Cap.Sprink PO SCH ×2 (08:25→16:28)
[2019-11-02] MEDS: Aspirin 81 MG Tab.EC PO SCH (08:25)
[2019-11-02] MEDS: Folic Acid 1 MG Tab PO SCH (08:25)
--- NOTE | 2019-11-02 09:28 | PCM.PN ---
- General Info Date of Service: 11/02/19 Subjective Update: No acute events overnight. He did have some increased PVCs but these improved after he was given some magnesium. He is a little more alert and interactive today. We did discuss the pancreatic mass and concerned that he has metastatic pancreatic cancer. He seemed to grasp this a little better today. He does endorse some abdominal pain today. He is not able to further characterize the pain. He has not required noninvasive ventilation but does continue to require supplemental oxygen. White blood cell count is higher today and his hepatic panel numbers have risen. INR remains elevated despite vitamin K. Functional Status: Reports: Pain Controlled, Tolerating Diet - Review of Systems General: Reports: Weakness. Denies: Fever Gastrointestinal: Reports: Abdominal Pain - Patient Data Vitals - Most Recent: Last Vital Signs Temp 35.9 C L 11/02/19 07:27 Pulse 66 11/02/19 08:25 Resp 13 11/02/19 07:27 BP 152/67 H 11/02/19 08:25 Pulse Ox 98 11/02/19 07:27 Weight - Most Recent: 138.6 kg I&O - Last 24 Hours: Intake & Output 11/01/19 11/02/19 11/02/19 22:59 06:59 14:59 Intake Total 667 Balance 667 Lab Results Last 24 Hours: Laboratory Results - last 24 hr 11/01/19 11/02/19 11/02/19 Range/Units 10:18 06:02 06:02 WBC 19.3 H (4.5-11.0) K/uL RBC 4.59 (4.30-5.90) M/uL Hgb 12.7 (12.0-15.0) g/dL Hct 41.4 (40.0-54.0) % MCV 90 (80-98) fL MCH 28 (27-31) pg MCHC 31 L (32-36) % Plt Count 91 L (150-400) K/uL PT 23.0 H (9.5-12.0) sec INR 2.23 H (0.80-1.20) Puncture Site Lt radial ABG pH 7.472 H (7.350-7.450) ABG pCO2 41.1 (35.0-42.0) mmHg ABG pO2 94.1 (75.0-100.0) mmHg ABG HCO3 29.7 H (22.0-26.0) mmol/L ABG Total CO2 26.3 (23.0-27.0) mmol/L ABG O2 Saturation 97.6 (95.0-98.0) % ABG O2 Content 16.4 (15.0-23.0) %vol ABG Base Excess 5.9 mm/L ABG Hemoglobin 12.4 L (13.5-18.0) g/dL ABG Oxyhemoglobin 94.0 % ABG Carboxyhemoglobin 3.1 H (0.0-1.6) % ABG Methemoglobin 0.6 % Yan Test Passed O2 Delivery Device Nasal cannula Oxygen Flow Rate 2.0 L Sodium (140-148) mmol/L Potassium (3.6-5.2) mmol/L Chloride (100-108) mmol/L Carbon Dioxide (21-32) mmol/L Anion Gap (5.0-14.0) mmol/L BUN (7-18) mg/dL Creatinine (0.8-1.3) mg/dL Est Cr Clr Drug Dosing mL/min Estimated GFR (MDRD) (>60) Glucose (74-106) mg/dL Calcium (8.5-10.1) mg/dL Total Bilirubin (0.2-1.0) mg/dL AST (15-37) U/L ALT (12-78) U/L Alkaline Phosphatase (46-116) U/L Total Protein (6.4-8.2) g/dL Albumin (3.4-5.0) g/dL Globulin (2.3-3.5) g/dL Albumin/Globulin Ratio (1.2-2.2) 11/02/19 Range/Units 06:02 WBC (4.5-11.0) K/uL RBC (4.30-5.90) M/uL Hgb (12.0-15.0) g/dL Hct (40.0-54.0) % MCV (80-98) fL MCH (27-31) pg MCHC (32-36) % Plt Count (150-400) K/uL PT (9.5-12.0) sec INR (0.80-1.20) Puncture Site ABG pH (7.350-7.450) ABG pCO2 (35.0-42.0) mmHg ABG pO2 (75.0-100.0) mmHg ABG HCO3 (22.0-26.0) mmol/L ABG Total CO2 (23.0-27.0) mmol/L ABG O2 Saturation (95.0-98.0) % ABG O2 Content (15.0-23.0) %vol ABG Base Excess mm/L ABG Hemoglobin (13.5-18.0) g/dL ABG Oxyhemoglobin % ABG Carboxyhemoglobin (0.0-1.6) % ABG Methemoglobin % Yan Test O2 Delivery Device Oxygen Flow Rate L Sodium 141 (140-148) mmol/L Potassium 4.1 (3.6-5.2) mmol/L Chloride 106 (100-108) mmol/L Carbon Dioxide 32 (21-32) mmol/L Anion Gap 3.0 L (5.0-14.0) mmol/L BUN 13 (7-18) mg/dL Creatinine 0.8 (0.8-1.3) mg/dL Est Cr Clr Drug Dosing 101.04 mL/min Estimated GFR (MDRD) > 60 (>60) Glucose 112 H (74-106) mg/dL Calcium 7.8 L (8.5-10.1) mg/dL Total Bilirubin 3.0 H (0.2-1.0) mg/dL AST 228 H D (15-37) U/L ALT 155 H (12-78) U/L Alkaline Phosphatase 302 H (46-116) U/L Total Protein 5.9 L (6.4-8.2) g/dL Albumin 1.8 L (3.4-5.0) g/dL Globulin 4.1 H (2.3-3.5) g/dL Albumin/Globulin Ratio 0.4 L (1.2-2.2) Med Orders - Current: Current Medications Aspirin (Halfprin) 81 mg PO DAILY [facility] Last Admin: 11/02/19 08:25 Dose: 81 mg Divalproex Sodium (Depakote Sprinkle) 250 mg PO BIDMEALS [facility] Last Admin: 11/02/19 08:25 Dose: 250 mg Folic Acid (Folic Acid) 1 mg PO DAILY [facility] Last Admin: 11/02/19 08:25 Dose: 1 mg Ceftazidime 1 gm/ Sodium (Chloride) 50 mls @ 100 mls/hr IV Q8H [facility] Last Admin: 11/02/19 05:46 Dose: 100 mls/hr Dextrose/Water (Dextrose 5% In Water) 1,000 mls @ 50 mls/hr IV ASDIRECTED [facility] Last Admin: 11/01/19 23:53 Dose: 50 mls/hr Lactulose (Chronulac) 10 gm PO DAILY [facility] Last Admin: 11/02/19 08:24 Dose: 10 gm Lorazepam (Ativan) 0.5 mg PO Q4H PRN PRN Reason: Anxiety/Muscle spasm Last Admin: 11/01/19 15:58 Dose: 0.5 mg Metoprolol Succinate (Toprol Xl) 50 mg PO DAILY [facility] Last Admin: 11/02/19 08:25 Dose: 50 mg Morphine Sulfate (Ms Contin) 15 mg PO Q12H [facility] Last Admin: 11/01/19 21:45 Dose: 15 mg Morphine Sulfate (Morphine) 2 mg IVPUSH Q2H PRN PRN Reason: Pain (severe 7-10) Last Admin: 11/02/19 00:41 Dose: 2 mg Morphine Sulfate (Morphine) 15 mg PO Q4H PRN PRN Reason: Pain (moderate 4-6) (Lifitegrast [Xiidra (] 1 Drop)*Pom*) 1 drop EYEBOTH BID [facility] Last Admin: 11/02/19 08:25 Dose: 1 drop Ondansetron HCl (Zofran) 4 mg IV Q4H PRN PRN Reason: Nausea/Vomiting Polyethylene Glycol (Miralax) 17 gm PO DAILY PRN PRN Reason: Constipation Prednisolone (Orapred 15 Mg/5ml Soln) 40 mg PO DAILY [facility] Last Admin: 11/02/19 08:24 Dose: 40 mg Sodium Chloride (Saline Flush) 10 ml FLUSH ASDIRECTED PRN PRN Reason: Keep Vein Open Thiamine HCl (Vitamin B-1) 100 mg PO DAILY [facility] Last Admin: 11/02/19 08:25 Dose: 100 mg Discontinued Medications Furosemide (Lasix) 40 mg IVPUSH NOW ONE Stop: 10/31/19 09:16 Last Admin: 10/31/19 10:02 Dose: 40 mg Furosemide (Lasix) 40 mg IVPUSH ONETIME ONE Stop: 11/01/19 11:01 Last Admin: 11/01/19 11:31 Dose: 40 mg Gabapentin (Neurontin) 400 mg PO Q8H [facility] Stop: 10/28/19 06:01 Last Admin: 10/28/19 05:46 Dose: 400 mg Hydrocortisone (Cortef) 10 mg PO ACBRK [facility] Hydrocortisone (Cortef) 5 mg PO DAILY [facility] Hydromorphone HCl (Dilaudid) 0.5 mg IVPUSH Q2H PRN PRN Reason: Pain Last Admin: 11/01/19 03:19 Dose: 0.5 mg Hydromorphone HCl (Dilaudid) Confirm Administered Dose 0.5 mg .ROUTE .STK-MED ONE Stop: 10/30/19 01:46 Last Admin: 10/30/19 01:56 Dose: Not Given Sodium Chloride (Normal Saline) 1,000 mls @ 999 mls/hr IV ASDIRECTED [facility] Last Admin: 10/24/19 09:24 Dose: 999 mls/hr Sodium Chloride (Normal Saline) 1,000 mls @ 999 mls/hr IV ASDIRECTED [facility] Last Admin: 10/24/19 10:13 Dose: 999 mls/hr Potassium Chloride 20 meq/ (Premix) 100 mls @ 50 mls/hr IV ONETIME ONE Stop: 10/24/19 11:58 Last Admin: 10/24/19 10:26 Dose: 50 mls/hr Ceftriaxone Sodium 1 gm/ (Sodium Chloride) 50 mls @ 100 mls/hr IV ONETIME ONE Stop: 10/24/19 11:03 Last Admin: 10/24/19 10:55 Dose: 100 mls/hr Multivitamins/Minerals 10 ml/Thiamine HCl 100 mg/ Folic Acid 1 mg/ Magnesium Sulfate 2 gm/ Sodium Chloride 1,015.2 mls @ 100 mls/hr IV ONETIME ONE Stop: 10/25/19 03:09 Last Admin: 10/24/19 16:49 Dose: 100 mls/hr Phytonadione 5 mg/ Sodium (Chloride) 50.5 mls @ 50 mls/hr IV NOW ONE Stop: 10/24/19 16:00 Last Admin: 10/24/19 14:58 Dose: 50 mls/hr Sodium Chloride (Normal Saline) 1,000 mls @ 125 mls/hr IV ASDIRECTED [facility] Last Admin: 10/25/19 02:34 Dose: 125 mls/hr Piperacillin/Tazobactam/ (Dextrose 3.375 gm/ Premix) 50 mls @ 100 mls/hr IV Q6H [facility] Last Admin: 11/01/19 08:52 Dose: 100 mls/hr Potassium Chloride 20 meq/Lidocaine HCl 2 ml/ Sodium Chloride 112 mls @ 56 mls/ hr IV Q2H [facility] Stop: 10/24/19 19:29 Last Admin: 10/24/19 16:50 Dose: 56 mls/hr Potassium Chloride 20 meq/Lidocaine HCl 2 ml/ Sodium Chloride 112 mls @ 56 mls/ hr IV Q2H [facility] Stop: 10/25/19 03:59 Last Admin: 10/25/19 02:35 Dose: 56 mls/hr Sodium Chloride (Normal Saline) 85 mls @ 3 mls/sec IV ASDIRECTED [facility] Stop: 10/25/19 10:00 Last Admin: 10/26/19 09:36 Dose: 3.5 mls/sec Sodium Chloride (Normal Saline) 1,000 mls @ 75 mls/hr IV ASDIRECTED [facility] Last Admin: 10/26/19 01:25 Dose: 75 mls/hr Potassium Chloride 20 meq/Lidocaine HCl 2 ml/ Sodium Chloride 112 mls @ 56 mls/ hr IV Q2H [facility] Stop: 10/26/19 13:59 Last Admin: 10/26/19 12:15 Dose: 56 mls/hr Sodium Chloride (Normal Saline) 85 mls @ 3.5 mls/sec IV ASDIRECTED [facility] Stop: 10/26/19 09:01 Sodium Chloride (Normal Saline) 1,000 mls @ 100 mls/hr IV ASDIRECTED [facility] Last Admin: 10/27/19 02:12 Dose: 100 mls/hr Sodium Chloride (Normal Saline) 1,000 mls @ 50 mls/hr IV ASDIRECTED [facility] Last Admin: 10/27/19 13:03 Dose: 50 mls/hr Dextrose/Water (Dextrose 5% In Water) 1,000 mls @ 50 mls/hr IV ASDIRECTED [facility] Last Admin: 10/30/19 07:13 Dose: 50 mls/hr Phytonadione 1 mg/ Sodium (Chloride) 50.5 mls @ 50 mls/hr IV ONETIME ONE Stop: 10/29/19 11:30 Last Admin: 10/29/19 11:25 Dose: 50 mls/hr Dextrose/Water (Dextrose 5% In Water) 1,000 mls @ 75 mls/hr IV ASDIRECTED [facility] Last Admin: 11/01/19 05:16 Dose: 75 mls/hr Potassium Chloride 20 meq/Lidocaine HCl 2 ml/ Sodium Chloride 112 mls @ 56 mls/ hr IV Q2H [facility] Stop: 10/31/19 13:59 Last Admin: 10/31/19 12:26 Dose: 56 mls/hr Magnesium Sulfate 2 gm/ Premix 50 mls @ 12.5 mls/hr IV ONETIME ONE Stop: 11/02/19 05:16 Last Admin: 11/02/19 01:29 Dose: 12.5 mls/hr Iopamidol (Isovue-300 (61%)) 150 ml IV . DIRECTED [facility] Stop: 10/25/19 09:00 Iopamidol (Isovue-300 (61%)) 150 ml IV ONETIME ONE Stop: 10/26/19 08:57 Last Admin: 10/26/19 09:36 Dose: 150 ml Lactulose (Chronulac) 20 gm PO BID [facility] Last Admin: 10/28/19 10:15 Dose: Not Given Lactulose (Chronulac) 10 gm PO BID [facility] Last Admin: 10/31/19 08:19 Dose: 10 gm Lactulose (Chronulac) 10 gm PO ONETIME ONE Stop: 10/28/19 10:31 Last Admin: 10/28/19 10:31 Dose: 10 gm Lorazepam (Ativan) 0 mg PO ASDIRECTED [facility]; Protocol Last Admin: 11/01/19 08:50 Dose: 1 mg Methylprednisolone Sodium Succinate (Solu-Medrol) 40 mg IVPUSH Q6H [facility] Last Admin: 10/25/19 09:30 Dose: 40 mg Methylprednisolone Sodium Succinate (Solu-Medrol) 40 mg IVPUSH Q12H [facility] Last Admin: 10/25/19 21:16 Dose: 40 mg Oxycodone HCl (Oxycodone) 5 mg PO Q4H PRN PRN Reason: Pain (moderate 4-6) Last Admin: 10/25/19 01:45 Dose: 5 mg Phytonadione (Mephyton) 5 mg PO ONETIME ONE Stop: 11/01/19 11:01 Last Admin: 11/01/19 12:20 Dose: 5 mg Potassium Chloride (Klor-Con M20) 20 meq PO ONETIME ONE Stop: 10/24/19 10:00 Last Admin: 10/24/19 10:26 Dose: 20 meq Potassium Chloride (Klor-Con M20) 40 meq PO ONETIME ONE Stop: 10/24/19 10:33 Last Admin: 10/24/19 10:55 Dose: 40 meq Potassium Chloride (Klor-Con M20) 40 meq PO ONETIME ONE Stop: 10/24/19 14:01 Last Admin: 10/24/19 14:30 Dose: 40 meq Potassium Chloride (Klor-Con M20) 40 meq PO ONETIME ONE Stop: 10/24/19 17:01 Last Admin: 10/24/19 18:03 Dose: 40 meq Potassium Chloride (Klor-Con M20) 40 meq PO ONETIME ONE Stop: 10/24/19 21:01 Last Admin: 10/24/19 21:08 Dose: 40 meq Potassium Chloride (Klor-Con M20) 40 meq PO ONETIME ONE Stop: 10/26/19 09:01 Last Admin: 10/26/19 09:52 Dose: 40 meq Potassium Chloride (Klor-Con M20) 40 meq PO ONETIME ONE Stop: 10/27/19 08:31 Last Admin: 10/27/19 08:55 Dose: 40 meq Potassium Chloride (Klor-Con M20) 40 meq PO ONETIME ONE Stop: 10/28/19 08:46 Last Admin: 10/28/19 09:58 Dose: 40 meq Potassium Chloride (Klor-Con M20) 40 meq PO ONETIME ONE Stop: 10/28/19 17:01 Last Admin: 10/28/19 16:01 Dose: 40 meq Prednisolone (Orapred 15 Mg/5ml Soln) 40 mg PO DAILY [facility] Last Admin: 10/24/19 15:58 Dose: 40 mg Sodium Chloride (Saline Flush) 10 ml FLUSH ONETIME ONE Stop: 10/25/19 07:24 Last Admin: 10/25/19 10:42 Dose: Not Given Sodium Chloride (Saline Flush) 10 ml FLUSH ONETIME PRN PRN Reason: per radiology protocol Stop: 10/26/19 08:57 Last Admin: 10/26/19 09:35 Dose: 10 ml - Exam Quality Assessment: Supplemental Oxygen General: Alert, Cooperative, No Acute Distress, Lethargic HEENT: Pupils Equal Lungs: Normal Respiratory Effort, Decreased Breath Sounds (mild right lung base) Cardiovascular: Regular Rate, Regular Rhythm, Murmurs GI/Abdominal Exam: Soft, No Distention Extremities: Pedal Edema. No: Increased Warmth Skin: Warm, Dry Psy/Mental Status: Alert. No: Agitated Sepsis Event Note - Evaluation Sepsis Screening Result: No Definite Risk - Focused Exam Vital Signs: Vital Signs Temp Pulse Pulse Resp BP BP Pulse Ox 11/02/19 08:25 66 152/67 H 11/02/19 07:27 35.9 C L 62 13 129/61 98 11/02/19 06:00 65 10 L 129/61 96 11/02/19 04:00 62 12 107/60 96 11/02/19 02:00 36.0 C L 64 9 L 119/60 96 11/02/19 00:00 72 14 153/75 H 96 11/01/19 22:00 75 10 L 162/81 H 96 Date Exam was Performed: 11/02/19 Time Exam was Performed: 14:55 - Problem List Review Problem List Initiated/Reviewed/Updated: Yes - My Orders Last 24 Hours: My Active Orders 11/01/19 10:19 Morphine 15 mg PO Q4H PRN Morphine 2 mg IVPUSH Q2H PRN 11/01/19 10:20 LORazepam [Ativan] 0.5 mg PO Q4H PRN 11/01/19 10:30 Dextrose 5% in Water 1,000 ml IV ASDIRECTED 11/01/19 14:00 cefTAZidime Pentahydrate [Fortaz] 1 gm Sodium Chloride 0.9% [Normal Saline] 50 ml IV Q8H 11/02/19 07:00 Echo Comp wo Cont [US] Routine 11/02/19 09:26 Abdomen Pelvis w Cont [CT] Routine 11/03/19 05:00 AMMONIA VENOUS [CHEM] Timed CBC W/O DIFF,HEMOGRAM [HEME] Timed (1) COMPREHENSIVE METABOLIC PN,CMP [CHEM] Timed MAGNESIUM [CHEM] Timed - Plan Plan:: ASSESSMENT AND PLAN HYPOACTIVE DELIRIUM-seems to be slowly coming around. Probably multifactorial with poor hepatic function and contribution from alcohol withdrawal. He has been a little more alert each of the past few days. -Continue Depakote PANCREATIC MASS WITH EVIDENCE OF LIVER METASTASIS-CT scan shows evidence of a mass at the pancreatic head with multiple areas in the liver consistent with metastatic disease. Hepatic panel numbers are worse today compared to what they had been. CT scan did not show evidence for worsening obstruction at this time. No fevers. -will require further evaluation and biopsy once other medical issues have stabilized -If hepatic panel numbers continue to rise we may need to consider transfer for pancreatic/biliary stenting SEVERE HYPOKALEMIA-potassium level remains normal. -Reassess potassium level in a.m. ALCOHOLIC HEPATITIS-associated with underlying cirrhosis, ascites, coagulopathy after long-term history of daily alcohol use. Levels of AST, ALT and bilirubin have all risen today. White blood cell count is slightly higher. -Reassess liver studies daily -Prednisolone 40 mg p.o. daily PROBABLE ASPIRATION-complicated by acute respiratory failure with hypoxia. He has not required noninvasive ventilation. Seems to be slowly improving. -Continue ceftazidime -Supplemental oxygen as needed PROGRESSIVE WEAKNESS-at baseline has right-sided weakness secondary to cervical spine injury and surgery. Extremely weak and physical therapy has been initiated. HEPATIC ENCEPHALOPATHY-ammonia level improved with lactulose. -Lactulose once daily -Reassess ammonia level periodically CHRONIC NECK AND BACK PAIN-stable -Continue scheduled long-acting morphine -short acting morphine for breakthrough pain MODERATE AORTIC STENOSIS-echo was stable with moderate stenosis but no significant change. MAINTENANCE ISSUES -DVT prophylaxis; INR significantly elevated, hold on anticoagulation -GI prophylaxis; not indicated -Chu catheter; not indicated -Nutrition; regular diet DISPOSITION-anticipate discharge to the [facility] after the hospital stay unless he requires transfer to a higher level of care as discussed above. Maximiliano Darnell MD
[2019-11-02] MEDS: Morphine 15 MG Tab.ER PO SCH ×2 (09:40→21:45)
[2019-11-02] MEDS ORDERED: Iopamidol 612 MG/ML 150 ML Bottle IV PRN (09:47)
[2019-11-02] MEDS ORDERED: Sodium Chloride 0.9% 10 ML Syringe FLUSH SCH (10:00)
--- NOTE | 2019-11-02 12:33 | CT ---
Abdomen Pelvis wo Cont CLINICAL HISTORY: Rising AST, exclude biliary obstruction COMPARISON: 10/26/2019. TECHNIQUE: Axial tomographic images are obtained from the dome of the diaphragm to the pubic symphysis without IV contrast enhancement. No oral contrast was used. Auto dosage reduction and iterative reconstruction techniques employed. FINDINGS: There is moderate motion artifact. There is some patchy airspace disease in the right lung base. This is improved slightly since prior study. The liver contains multiple masses previously described on the recent postcontrast CT. The gallbladder is not distended. The common bile duct is mildly prominent measuring between 10 and 11 mm. There is some ill-definition due to motion. This is essentially unchanged from the prior study. The spleen has a normal size and shape. There is a known mass in the pancreatic head with generalized pancreatic atrophy. The adrenal glands appear normal bilaterally. The kidneys show no stones or hydronephrosis. The aorta shows some atheromatous plaque without aneurysm. There is persistent periaortic/ retroperitoneal adenopathy. IMPRESSION: Moderate increasing abdominal ascites Changes in the liver suggesting cirrhosis. There are multiple metastatic lesions throughout. There is no obvious intrahepatic biliary dilatation. Common bile duct is mildly dilated between 10 and 11 mm. This is similar to the prior study. Gallbladder is not distended. Known pancreatic head mass Not mentioned above is diffuse subcutaneous edema. This may represent anasarca. This should be correlated with laboratory findings
[2019-11-02] MEDS: LORazepam 0.5 MG Tab PO PRN (17:28)
[2019-11-02] MEDS: Dextrose 5% in Water 1,000 ML IV SCH (21:50)
[2019-11-03] MEDS: Morphine 15 MG Tab.ER PO SCH (08:27)
[2019-11-03] MEDS: Lactulose Soln 10 GM/15 ML 15 ML UD Cup PO SCH (08:28)
[2019-11-03] MEDS: prednisoLONE 15 MG/5 ML Soln UD Cup PO SCH (08:29)
[2019-11-03] MEDS: Metoprolol Succinate 50 MG Tab.ER PO SCH (08:29)
[2019-11-03] MEDS: Thiamine 100 MG Tab PO SCH (08:30)
[2019-11-03] MEDS: Aspirin 81 MG Tab.EC PO SCH (08:30)
[2019-11-03] MEDS: Divalproex Sodium Delayed-Release 125 MG Cap.Sprink PO SCH ×2 (08:30→17:09)
[2019-11-03] MEDS: Folic Acid 1 MG Tab PO SCH (08:30)
--- NOTE | 2019-11-03 09:50 | PCM.PN ---
- General Info Date of Service: 11/03/19 Subjective Update: There were no acute events overnight. He has remained stable. He is a little bit more interactive again today. He did have some mild agitation yesterday but this resolved without significant intervention. Hepatic panel numbers are stable today. Platelets are low but there is no evidence for active bleeding. He has not had any fevers. He does continue to require 2 L of supplemental oxygen. He does not endorse neck pain or abdominal pain. Functional Status: Reports: Pain Controlled - Review of Systems General: Reports: Weakness. Denies: Fever Gastrointestinal: Denies: Abdominal Pain Neurological: Reports: Confusion - Patient Data Vitals - Most Recent: Last Vital Signs Temp 35.9 C L 11/03/19 08:00 Pulse 74 11/03/19 08:29 Resp 9 L 11/03/19 08:00 BP 160/72 H 11/03/19 08:29 Pulse Ox 97 11/03/19 08:00 Weight - Most Recent: 149.459 kg I&O - Last 24 Hours: Intake & Output 11/02/19 11/03/19 11/03/19 22:59 06:59 14:59 Intake Total 595 672 Balance 595 672 Lab Results Last 24 Hours: Laboratory Results - last 24 hr 11/03/19 11/03/19 11/03/19 Range/Units 05:30 05:30 05:30 WBC 16.6 H (4.5-11.0) K/uL RBC 4.42 (4.30-5.90) M/uL Hgb 12.6 (12.0-15.0) g/dL Hct 39.4 L (40.0-54.0) % MCV 89 (80-98) fL MCH 29 (27-31) pg MCHC 32 (32-36) % Plt Count 22 L* (150-400) K/uL Sodium 140 (140-148) mmol/L Potassium 4.4 (3.6-5.2) mmol/L Chloride 104 (100-108) mmol/L Carbon Dioxide 32 (21-32) mmol/L Anion Gap 3.8 L (5.0-14.0) mmol/L BUN 14 (7-18) mg/dL Creatinine 0.7 L (0.8-1.3) mg/dL Est Cr Clr Drug Dosing 115.48 mL/min Estimated GFR (MDRD) > 60 (>60) Glucose 116 H (74-106) mg/dL Calcium 7.7 L (8.5-10.1) mg/dL Magnesium 2.4 (1.8-2.4) mg/dL Total Bilirubin 3.1 H (0.2-1.0) mg/dL AST 224 H (15-37) U/L ALT 176 H (12-78) U/L Alkaline Phosphatase 312 H (46-116) U/L Ammonia 25 (11-32) mmol/L Total Protein 5.7 L (6.4-8.2) g/dL Albumin 1.7 L (3.4-5.0) g/dL Globulin 4.0 H (2.3-3.5) g/dL Albumin/Globulin Ratio 0.4 L (1.2-2.2) Med Orders - Current: Current Medications Aspirin (Aspirin) 81 mg PO DAILY [facility] Divalproex Sodium (Depakote Sprinkle) 250 mg PO BIDMEALS [facility] Last Admin: 11/03/19 08:30 Dose: 250 mg Folic Acid (Folic Acid) 1 mg PO DAILY [facility] Last Admin: 11/03/19 08:30 Dose: 1 mg Ceftazidime 1 gm/ Sodium (Chloride) 50 mls @ 100 mls/hr IV Q8H [facility] Last Admin: 11/03/19 06:06 Dose: 100 mls/hr Lactulose (Chronulac) 10 gm PO DAILY [facility] Last Admin: 11/03/19 08:28 Dose: 10 gm Lorazepam (Ativan) 0.5 mg PO Q4H PRN PRN Reason: Anxiety/Muscle spasm Last Admin: 11/02/19 17:28 Dose: 0.5 mg Metoprolol Tartrate (Lopressor) 25 mg PO Q12H [facility] Morphine Sulfate (Morphine) 2 mg IVPUSH Q2H PRN PRN Reason: Pain (severe 7-10) Last Admin: 11/02/19 17:15 Dose: 2 mg Morphine Sulfate (Morphine 10 Mg/0.5 Ml Oral Syringe) 10 mg PO TID [facility] Morphine Sulfate (Morphine 10 Mg/0.5 Ml Oral Syringe) 5 mg PO Q4H PRN PRN Reason: Pain (moderate 4-6) (Lifitegrast [Xiidra (] 1 Drop)*Pom*) 1 drop EYEBOTH BID [facility] Last Admin: 11/03/19 08:27 Dose: 1 drop Ondansetron HCl (Zofran) 4 mg IV Q4H PRN PRN Reason: Nausea/Vomiting Polyethylene Glycol (Miralax) 17 gm PO DAILY PRN PRN Reason: Constipation Prednisolone (Orapred 15 Mg/5ml Soln) 40 mg PO DAILY [facility] Last Admin: 11/03/19 08:29 Dose: 40 mg Thiamine HCl (Vitamin B-1) 100 mg PO DAILY [facility] Last Admin: 11/03/19 08:30 Dose: 100 mg Discontinued Medications Aspirin (Halfprin) 81 mg PO DAILY [facility] Last Admin: 11/03/19 08:30 Dose: 81 mg Furosemide (Lasix) 40 mg IVPUSH NOW ONE Stop: 10/31/19 09:16 Last Admin: 10/31/19 10:02 Dose: 40 mg Furosemide (Lasix) 40 mg IVPUSH ONETIME ONE Stop: 11/01/19 11:01 Last Admin: 11/01/19 11:31 Dose: 40 mg Gabapentin (Neurontin) 400 mg PO Q8H [facility] Stop: 10/28/19 06:01 Last Admin: 10/28/19 05:46 Dose: 400 mg Hydrocortisone (Cortef) 10 mg PO ACBRK [facility] Hydrocortisone (Cortef) 5 mg PO DAILY [facility] Hydromorphone HCl (Dilaudid) 0.5 mg IVPUSH Q2H PRN PRN Reason: Pain Last Admin: 11/01/19 03:19 Dose: 0.5 mg Hydromorphone HCl (Dilaudid) Confirm Administered Dose 0.5 mg .ROUTE .STK-MED ONE Stop: 10/30/19 01:46 Last Admin: 10/30/19 01:56 Dose: Not Given Sodium Chloride (Normal Saline) 1,000 mls @ 999 mls/hr IV ASDIRECTED [facility] Last Admin: 10/24/19 09:24 Dose: 999 mls/hr Sodium Chloride (Normal Saline) 1,000 mls @ 999 mls/hr IV ASDIRECTED [facility] Last Admin: 10/24/19 10:13 Dose: 999 mls/hr Potassium Chloride 20 meq/ (Premix) 100 mls @ 50 mls/hr IV ONETIME ONE Stop: 10/24/19 11:58 Last Admin: 10/24/19 10:26 Dose: 50 mls/hr Ceftriaxone Sodium 1 gm/ (Sodium Chloride) 50 mls @ 100 mls/hr IV ONETIME ONE Stop: 10/24/19 11:03 Last Admin: 10/24/19 10:55 Dose: 100 mls/hr Multivitamins/Minerals 10 ml/Thiamine HCl 100 mg/ Folic Acid 1 mg/ Magnesium Sulfate 2 gm/ Sodium Chloride 1,015.2 mls @ 100 mls/hr IV ONETIME ONE Stop: 10/25/19 03:09 Last Admin: 10/24/19 16:49 Dose: 100 mls/hr Phytonadione 5 mg/ Sodium (Chloride) 50.5 mls @ 50 mls/hr IV NOW ONE Stop: 10/24/19 16:00 Last Admin: 10/24/19 14:58 Dose: 50 mls/hr Sodium Chloride (Normal Saline) 1,000 mls @ 125 mls/hr IV ASDIRECTED [facility] Last Admin: 10/25/19 02:34 Dose: 125 mls/hr Piperacillin/Tazobactam/ (Dextrose 3.375 gm/ Premix) 50 mls @ 100 mls/hr IV Q6H [facility] Last Admin: 11/01/19 08:52 Dose: 100 mls/hr Potassium Chloride 20 meq/Lidocaine HCl 2 ml/ Sodium Chloride 112 mls @ 56 mls/ hr IV Q2H [facility] Stop: 10/24/19 19:29 Last Admin: 10/24/19 16:50 Dose: 56 mls/hr Potassium Chloride 20 meq/Lidocaine HCl 2 ml/ Sodium Chloride 112 mls @ 56 mls/ hr IV Q2H [facility] Stop: 10/25/19 03:59 Last Admin: 10/25/19 02:35 Dose: 56 mls/hr Sodium Chloride (Normal Saline) 85 mls @ 3 mls/sec IV ASDIRECTED [facility] Stop: 10/25/19 10:00 Last Admin: 10/26/19 09:36 Dose: 3.5 mls/sec Sodium Chloride (Normal Saline) 1,000 mls @ 75 mls/hr IV ASDIRECTED [facility] Last Admin: 10/26/19 01:25 Dose: 75 mls/hr Potassium Chloride 20 meq/Lidocaine HCl 2 ml/ Sodium Chloride 112 mls @ 56 mls/ hr IV Q2H [facility] Stop: 10/26/19 13:59 Last Admin: 10/26/19 12:15 Dose: 56 mls/hr Sodium Chloride (Normal Saline) 85 mls @ 3.5 mls/sec IV ASDIRECTED [facility] Stop: 10/26/19 09:01 Sodium Chloride (Normal Saline) 1,000 mls @ 100 mls/hr IV ASDIRECTED [facility] Last Admin: 10/27/19 02:12 Dose: 100 mls/hr Sodium Chloride (Normal Saline) 1,000 mls @ 50 mls/hr IV ASDIRECTED [facility] Last Admin: 10/27/19 13:03 Dose: 50 mls/hr Dextrose/Water (Dextrose 5% In Water) 1,000 mls @ 50 mls/hr IV ASDIRECTED [facility] Last Admin: 10/30/19 07:13 Dose: 50 mls/hr Phytonadione 1 mg/ Sodium (Chloride) 50.5 mls @ 50 mls/hr IV ONETIME ONE Stop: 10/29/19 11:30 Last Admin: 10/29/19 11:25 Dose: 50 mls/hr Dextrose/Water (Dextrose 5% In Water) 1,000 mls @ 75 mls/hr IV ASDIRECTED [facility] Last Admin: 11/01/19 05:16 Dose: 75 mls/hr Potassium Chloride 20 meq/Lidocaine HCl 2 ml/ Sodium Chloride 112 mls @ 56 mls/ hr IV Q2H [facility] Stop: 10/31/19 13:59 Last Admin: 10/31/19 12:26 Dose: 56 mls/hr Dextrose/Water (Dextrose 5% In Water) 1,000 mls @ 50 mls/hr IV ASDIRECTED [facility] Last Admin: 11/02/19 21:50 Dose: 50 mls/hr Magnesium Sulfate 2 gm/ Premix 50 mls @ 12.5 mls/hr IV ONETIME ONE Stop: 11/02/19 05:16 Last Admin: 11/02/19 01:29 Dose: 12.5 mls/hr Sodium Chloride (Normal Saline) 89 mls @ 3.5 mls/sec IV ASDIRECTED [facility] Stop: 11/02/19 10:01 Magnesium Sulfate 2 gm/ Premix 50 mls @ 25 mls/hr IV ONETIME ONE Stop: 11/02/19 17:29 Last Admin: 11/02/19 15:22 Dose: 25 mls/hr Iopamidol (Isovue-300 (61%)) 150 ml IV . DIRECTED [facility] Stop: 10/25/19 09:00 Iopamidol (Isovue-300 (61%)) 150 ml IV ONETIME ONE Stop: 10/26/19 08:57 Last Admin: 10/26/19 09:36 Dose: 150 ml Iopamidol (Isovue-300 (61%)) 150 ml IV . DIRECTED PRN PRN Reason: RADIOLOGY EXAM Stop: 11/03/19 09:48 Lactulose (Chronulac) 20 gm PO BID [facility] Last Admin: 10/28/19 10:15 Dose: Not Given Lactulose (Chronulac) 10 gm PO BID [facility] Last Admin: 10/31/19 08:19 Dose: 10 gm Lactulose (Chronulac) 10 gm PO ONETIME ONE Stop: 10/28/19 10:31 Last Admin: 10/28/19 10:31 Dose: 10 gm Lorazepam (Ativan) 0 mg PO ASDIRECTED [facility]; Protocol Last Admin: 11/01/19 08:50 Dose: 1 mg Methylprednisolone Sodium Succinate (Solu-Medrol) 40 mg IVPUSH Q6H [facility] Last Admin: 10/25/19 09:30 Dose: 40 mg Methylprednisolone Sodium Succinate (Solu-Medrol) 40 mg IVPUSH Q12H [facility] Last Admin: 10/25/19 21:16 Dose: 40 mg Metoprolol Succinate (Toprol Xl) 50 mg PO DAILY [facility] Last Admin: 11/03/19 08:29 Dose: 50 mg Morphine Sulfate (Ms Contin) 15 mg PO Q12H [facility] Last Admin: 11/03/19 08:27 Dose: 15 mg Morphine Sulfate (Morphine) 15 mg PO Q4H PRN PRN Reason: Pain (moderate 4-6) Oxycodone HCl (Oxycodone) 5 mg PO Q4H PRN PRN Reason: Pain (moderate 4-6) Last Admin: 10/25/19 01:45 Dose: 5 mg Phytonadione (Mephyton) 5 mg PO ONETIME ONE Stop: 11/01/19 11:01 Last Admin: 11/01/19 12:20 Dose: 5 mg Potassium Chloride (Klor-Con M20) 20 meq PO ONETIME ONE Stop: 10/24/19 10:00 Last Admin: 10/24/19 10:26 Dose: 20 meq Potassium Chloride (Klor-Con M20) 40 meq PO ONETIME ONE Stop: 10/24/19 10:33 Last Admin: 10/24/19 10:55 Dose: 40 meq Potassium Chloride (Klor-Con M20) 40 meq PO ONETIME ONE Stop: 10/24/19 14:01 Last Admin: 10/24/19 14:30 Dose: 40 meq Potassium Chloride (Klor-Con M20) 40 meq PO ONETIME ONE Stop: 10/24/19 17:01 Last Admin: 10/24/19 18:03 Dose: 40 meq Potassium Chloride (Klor-Con M20) 40 meq PO ONETIME ONE Stop: 10/24/19 21:01 Last Admin: 10/24/19 21:08 Dose: 40 meq Potassium Chloride (Klor-Con M20) 40 meq PO ONETIME ONE Stop: 10/26/19 09:01 Last Admin: 10/26/19 09:52 Dose: 40 meq Potassium Chloride (Klor-Con M20) 40 meq PO ONETIME ONE Stop: 10/27/19 08:31 Last Admin: 10/27/19 08:55 Dose: 40 meq Potassium Chloride (Klor-Con M20) 40 meq PO ONETIME ONE Stop: 10/28/19 08:46 Last Admin: 10/28/19 09:58 Dose: 40 meq Potassium Chloride (Klor-Con M20) 40 meq PO ONETIME ONE Stop: 10/28/19 17:01 Last Admin: 10/28/19 16:01 Dose: 40 meq Prednisolone (Orapred 15 Mg/5ml Soln) 40 mg PO DAILY [facility] Last Admin: 10/24/19 15:58 Dose: 40 mg Sodium Chloride (Saline Flush) 10 ml FLUSH ASDIRECTED PRN PRN Reason: Keep Vein Open Sodium Chloride (Saline Flush) 10 ml FLUSH ONETIME ONE Stop: 10/25/19 07:24 Last Admin: 10/25/19 10:42 Dose: Not Given Sodium Chloride (Saline Flush) 10 ml FLUSH ONETIME PRN PRN Reason: per radiology protocol Stop: 10/26/19 08:57 Last Admin: 10/26/19 09:35 Dose: 10 ml Sodium Chloride (Saline Flush) 10 ml FLUSH ONETIME [facility] Stop: 11/02/19 10:01 - Exam Quality Assessment: Supplemental Oxygen General: Alert, Cooperative, No Acute Distress, Lethargic HEENT: Pupils Equal Lungs: Clear to Auscultation, Normal Respiratory Effort Cardiovascular: Regular Rate, Regular Rhythm GI/Abdominal Exam: Normal Bowel Sounds, Soft, Non-Tender, Distended (mild) Extremities: Pedal Edema. No: Increased Warmth Skin: Warm, Dry Psy/Mental Status: Alert. No: Agitated Sepsis Event Note - Evaluation Sepsis Screening Result: No Definite Risk - Focused Exam Vital Signs: Vital Signs Temp Pulse Pulse Resp BP BP Pulse Ox 11/03/19 08:29 74 160/72 H 11/03/19 08:00 35.9 C L 74 9 L 160/72 H 97 11/03/19 06:00 68 10 L 144/76 H 97 11/03/19 04:00 65 10 L 105/57 L 98 11/03/19 02:00 60 10 L 104/53 L 96 11/03/19 00:00 35.9 C L 68 8 L 145/83 H 96 11/02/19 22:00 70 9 L 160/76 H 95 Date Exam was Performed: 11/03/19 Time Exam was Performed: 12:56 - Problem List Review Problem List Initiated/Reviewed/Updated: Yes - My Orders Last 24 Hours: My Active Orders 11/03/19 08:58 Central Line PICC Insertion [Central Venous Line Insertion] [OM.PC] Routine 11/03/19 09:01 Morphine [Morphine 10 MG/0.5 ML Oral Syringe] 5 mg PO Q4H PRN 11/03/19 09:48 Furosemide [Lasix] 40 mg IVPUSH ONETIME ONE 11/03/19 10:00 D5 1/2 NS w/ 20 mEq/L KCl 1,000 ml IV ASDIRECTED 11/03/19 21:00 Morphine [Morphine 10 MG/0.5 ML Oral Syringe] 10 mg PO TID Morphine [Morphine 10 MG/0.5 ML Oral Syringe] 5 mg PO TID 11/04/19 09:00 Aspirin 81 mg PO DAILY Metoprolol Tartrate [Lopressor] 25 mg PO Q12H - Plan Plan:: ASSESSMENT AND PLAN HYPOACTIVE DELIRIUM-seems to be slowly coming around and has been a little bit better each of the past several days. Probably multifactorial with poor hepatic function and contribution from alcohol withdrawal. He remains very weak. No evidence for ongoing alcohol withdrawal. -Continue Depakote PANCREATIC MASS WITH EVIDENCE OF LIVER METASTASIS-CT scan shows evidence of a mass at the pancreatic head with multiple areas in the liver consistent with metastatic disease. Hepatic panel numbers are stable today. -will require further evaluation and biopsy once other medical issues have stabilized -If hepatic panel numbers continue to rise we may need to consider transfer for pancreatic/biliary stenting SEVERE HYPOKALEMIA-potassium level remains normal. -Reassess potassium level in a.m. ALCOHOLIC HEPATITIS-associated with underlying cirrhosis, ascites, coagulopathy after long-term history of daily alcohol use. Levels of AST, ALT and bilirubin are stable today. White blood cell count is slightly better. Platelets are low but no active bleeding. -Reassess liver studies daily -Prednisolone 40 mg p.o. daily PROBABLE ASPIRATION-complicated by acute respiratory failure with hypoxia. He has not required noninvasive ventilation. Seems to be slowly improving. -Discontinue antibiotics -Supplemental oxygen as needed PROGRESSIVE WEAKNESS-at baseline has right-sided weakness secondary to cervical spine injury and surgery. -Continue physical therapy HEPATIC ENCEPHALOPATHY-ammonia level improved with lactulose. -Lactulose once daily -Reassess ammonia level periodically CHRONIC NECK AND BACK PAIN-stable -Continue scheduled long-acting morphine -short acting morphine for breakthrough pain MODERATE AORTIC STENOSIS-echo was stable with moderate stenosis but no significant change. MAINTENANCE ISSUES -DVT prophylaxis; INR significantly elevated, hold on anticoagulation -GI prophylaxis; not indicated -Chu catheter; not indicated -Nutrition; regular diet DISPOSITION-anticipate discharge to the detention after the hospital stay unless he requires transfer to a higher level of care as discussed above. Maximiliano Darnell MD
[2019-11-03] MEDS: D5 1/2 NS w/ 20 mEq/L KCl 1,000 ML IV SCH (09:56)
[2019-11-03] MEDS ORDERED: Furosemide 40 MG/4 ML VIAL IVPUSH ONE (10:00)
[2019-11-03] MEDS: Morphine 10 MG/0.5 ML Oral Syringe PO SCH (20:18)
[2019-11-03] MEDS ORDERED: Morphine 10 MG/0.5 ML Oral Syringe PO SCH (21:00)
[2019-11-03] MEDS: LORazepam 0.5 MG Tab PO PRN (22:25)
[2019-11-04] MEDS: Morphine 10 MG/0.5 ML Oral Syringe PO PRN ×4 (00:08→12:17)
[2019-11-04] MEDS ORDERED: Albuterol/Ipratropium 3.0-0.5 MG/3 ML Neb Soln ONE (03:30)
[2019-11-04] MEDS ORDERED: Albuterol 0.083% 2.5 MG/3 ML Neb Soln NEB PRN (03:40)
[2019-11-04] MEDS: D5 1/2 NS w/ 20 mEq/L KCl 1,000 ML IV SCH (05:09)
[2019-11-04] MEDS: Divalproex Sodium Delayed-Release 125 MG Cap.Sprink PO SCH ×2 (08:15→17:45)
[2019-11-04] MEDS: prednisoLONE 15 MG/5 ML Soln UD Cup PO SCH (08:17)
[2019-11-04] MEDS: Folic Acid 1 MG Tab PO SCH (08:22)
[2019-11-04] MEDS: Metoprolol Tartrate 25 MG Tab PO SCH ×2 (08:22→20:07)
[2019-11-04] MEDS: Lactulose Soln 10 GM/15 ML 15 ML UD Cup PO SCH (08:22)
[2019-11-04] MEDS: Thiamine 100 MG Tab PO SCH (08:23)
[2019-11-04] MEDS: Morphine 10 MG/0.5 ML Oral Syringe PO SCH ×3 (08:24→21:19)
[2019-11-04] MEDS ORDERED: Albuterol/Ipratropium 3.0-0.5 MG/3 ML Neb Soln NEB SCH (09:00)
[2019-11-04] MEDS ORDERED: Aspirin 81 MG Tab.Chew PO SCH (09:00)
[2019-11-04] MEDS ORDERED: Potassium Chloride Riders 40 MEQ in Premix Bag 1 BAG IV ONE (09:30)
[2019-11-04] MEDS ORDERED: Ondansetron 4 MG Tab.DIS PO PRN (09:31)
--- NOTE | 2019-11-04 09:36 | PCM.PN ---
- General Info Date of Service: 11/04/19 Subjective Update: Overnight the patient had some difficulty with agitation. He also had an episode of hypoxia where he required 6 L of oxygen for period of time. This did improve after a nebulizer. At the time of the desaturation there was concern that he may have aspirated or at least had difficulty handling his secretions. This morning his vital signs are stable. He is alert and he is interactive but very difficult to understand. When he does reply he does not make much sense. He does tell me that his abdomen is uncomfortable but is not further able to elaborate. His white blood cell count has jumped up from yesterday and his hepatic panel numbers are worse. I talked to his son Darius about the situation. We discussed possible options including transfer to a higher level of care versus transition to comfort cares given his very deconditioned state, significant decline in quality of life and his suspected metastatic pancreatic cancer. We have elected to transition him to comfort cares at this time given his poor functional status, malnourished state, deconditioned state and cirrhosis with decompensated liver failure on top of his metastatic cancer. Functional Status: Reports: Pain Controlled - Review of Systems General: Reports: Weakness Neurological: Reports: Confusion - Patient Data Vitals - Most Recent: Last Vital Signs Temp 35 C L 11/04/19 07:00 Pulse 83 11/04/19 08:22 Resp 11 L 11/04/19 07:00 BP 150/63 H 11/04/19 08:22 Pulse Ox 98 11/04/19 07:00 Weight - Most Recent: 149.459 kg I&O - Last 24 Hours: Intake & Output 11/03/19 11/04/19 11/04/19 22:59 06:59 14:59 Intake Total 806 525 100 Balance 806 525 100 Lab Results Last 24 Hours: Laboratory Results - last 24 hr 11/04/19 11/04/19 Range/Units 05:07 05:07 WBC 24.2 H (4.5-11.0) K/uL RBC 4.33 (4.30-5.90) M/uL Hgb 11.9 L (12.0-15.0) g/dL Hct 38.9 L (40.0-54.0) % MCV 90 (80-98) fL MCH 28 (27-31) pg MCHC 31 L (32-36) % Plt Count 104 L (150-400) K/uL Sodium 143 (140-148) mmol/L Potassium 3.7 (3.6-5.2) mmol/L Chloride 104 (100-108) mmol/L Carbon Dioxide 33 H (21-32) mmol/L Anion Gap 9.7 (5.0-14.0) mmol/L BUN 13 (7-18) mg/dL Creatinine 0.8 (0.8-1.3) mg/dL Est Cr Clr Drug Dosing 101.18 mL/min Estimated GFR (MDRD) > 60 (>60) Glucose 118 H (74-106) mg/dL Calcium 7.6 L (8.5-10.1) mg/dL Total Bilirubin 3.4 H (0.2-1.0) mg/dL AST 217 H (15-37) U/L ALT 198 H (12-78) U/L Alkaline Phosphatase 344 H (46-116) U/L Total Protein 5.6 L (6.4-8.2) g/dL Albumin 1.8 L (3.4-5.0) g/dL Globulin 3.8 H (2.3-3.5) g/dL Albumin/Globulin Ratio 0.5 L (1.2-2.2) Med Orders - Current: Current Medications Divalproex Sodium (Depakote Sprinkle) 250 mg PO BIDMEALS [facility] Last Admin: 11/04/19 08:15 Dose: 250 mg Potassium Chloride 40 meq/ (Premix) 100 mls @ 25 mls/hr IV ONETIME ONE Stop: 11/04/19 13:29 Last Admin: 11/04/19 09:09 Dose: 25 mls/hr Lactulose (Chronulac) 10 gm PO DAILY [facility] Last Admin: 11/04/19 08:22 Dose: 10 gm Metoprolol Tartrate (Lopressor) 25 mg PO Q12H [facility] Last Admin: 11/04/19 08:22 Dose: 25 mg Morphine Sulfate (Morphine) 2 mg IVPUSH Q2H PRN PRN Reason: Pain (severe 7-10) Last Admin: 11/02/19 17:15 Dose: 2 mg Morphine Sulfate (Morphine 10 Mg/0.5 Ml Oral Syringe) 5 mg PO TID [facility] Last Admin: 11/04/19 08:24 Dose: 5 mg (Lifitegrast [Xiidra (] 1 Drop)*Pom*) 1 drop EYEBOTH BID [facility] Last Admin: 11/04/19 08:14 Dose: 1 drop Discontinued Medications Albuterol (Proventil Neb Soln) 2.5 mg NEB Q2H PRN PRN Reason: Shortness of Breath Albuterol/Ipratropium (Duoneb 3.0-0.5 Mg/3 Ml) Confirm Administered Dose 3 ml .ROUTE .STK-MED ONE Stop: 11/04/19 03:31 Last Admin: 11/04/19 03:30 Dose: 3 ml Albuterol/Ipratropium (Duoneb 3.0-0.5 Mg/3 Ml) 3 ml NEB Q6H [facility] Aspirin (Halfprin) 81 mg PO DAILY [facility] Last Admin: 11/03/19 08:30 Dose: 81 mg Aspirin (Aspirin) 81 mg PO DAILY [facility] Last Admin: 11/04/19 08:23 Dose: 81 mg Folic Acid (Folic Acid) 1 mg PO DAILY [facility] Last Admin: 11/04/19 08:22 Dose: 1 mg Furosemide (Lasix) 40 mg IVPUSH NOW ONE Stop: 10/31/19 09:16 Last Admin: 10/31/19 10:02 Dose: 40 mg Furosemide (Lasix) 40 mg IVPUSH ONETIME ONE Stop: 11/01/19 11:01 Last Admin: 11/01/19 11:31 Dose: 40 mg Furosemide (Lasix) 40 mg IVPUSH ONETIME ONE Stop: 11/03/19 10:01 Last Admin: 11/03/19 09:58 Dose: 40 mg Gabapentin (Neurontin) 400 mg PO Q8H [facility] Stop: 10/28/19 06:01 Last Admin: 10/28/19 05:46 Dose: 400 mg Hydrocortisone (Cortef) 10 mg PO ACBRK [facility] Hydrocortisone (Cortef) 5 mg PO DAILY [facility] Hydromorphone HCl (Dilaudid) 0.5 mg IVPUSH Q2H PRN PRN Reason: Pain Last Admin: 11/01/19 03:19 Dose: 0.5 mg Hydromorphone HCl (Dilaudid) Confirm Administered Dose 0.5 mg .ROUTE .STK-MED ONE Stop: 10/30/19 01:46 Last Admin: 10/30/19 01:56 Dose: Not Given Sodium Chloride (Normal Saline) 1,000 mls @ 999 mls/hr IV ASDIRECTED [facility] Last Admin: 10/24/19 09:24 Dose: 999 mls/hr Sodium Chloride (Normal Saline) 1,000 mls @ 999 mls/hr IV ASDIRECTED [facility] Last Admin: 10/24/19 10:13 Dose: 999 mls/hr Potassium Chloride 20 meq/ (Premix) 100 mls @ 50 mls/hr IV ONETIME ONE Stop: 10/24/19 11:58 Last Admin: 10/24/19 10:26 Dose: 50 mls/hr Ceftriaxone Sodium 1 gm/ (Sodium Chloride) 50 mls @ 100 mls/hr IV ONETIME ONE Stop: 10/24/19 11:03 Last Admin: 10/24/19 10:55 Dose: 100 mls/hr Multivitamins/Minerals 10 ml/Thiamine HCl 100 mg/ Folic Acid 1 mg/ Magnesium Sulfate 2 gm/ Sodium Chloride 1,015.2 mls @ 100 mls/hr IV ONETIME ONE Stop: 10/25/19 03:09 Last Admin: 10/24/19 16:49 Dose: 100 mls/hr Phytonadione 5 mg/ Sodium (Chloride) 50.5 mls @ 50 mls/hr IV NOW ONE Stop: 10/24/19 16:00 Last Admin: 10/24/19 14:58 Dose: 50 mls/hr Sodium Chloride (Normal Saline) 1,000 mls @ 125 mls/hr IV ASDIRECTED [facility] Last Admin: 10/25/19 02:34 Dose: 125 mls/hr Piperacillin/Tazobactam/ (Dextrose 3.375 gm/ Premix) 50 mls @ 100 mls/hr IV Q6H [facility] Last Admin: 11/01/19 08:52 Dose: 100 mls/hr Potassium Chloride 20 meq/Lidocaine HCl 2 ml/ Sodium Chloride 112 mls @ 56 mls/ hr IV Q2H [facility] Stop: 10/24/19 19:29 Last Admin: 10/24/19 16:50 Dose: 56 mls/hr Potassium Chloride 20 meq/Lidocaine HCl 2 ml/ Sodium Chloride 112 mls @ 56 mls/ hr IV Q2H [facility] Stop: 10/25/19 03:59 Last Admin: 10/25/19 02:35 Dose: 56 mls/hr Sodium Chloride (Normal Saline) 85 mls @ 3 mls/sec IV ASDIRECTED [facility] Stop: 10/25/19 10:00 Last Admin: 10/26/19 09:36 Dose: 3.5 mls/sec Sodium Chloride (Normal Saline) 1,000 mls @ 75 mls/hr IV ASDIRECTED [facility] Last Admin: 10/26/19 01:25 Dose: 75 mls/hr Potassium Chloride 20 meq/Lidocaine HCl 2 ml/ Sodium Chloride 112 mls @ 56 mls/ hr IV Q2H [facility] Stop: 10/26/19 13:59 Last Admin: 10/26/19 12:15 Dose: 56 mls/hr Sodium Chloride (Normal Saline) 85 mls @ 3.5 mls/sec IV ASDIRECTED [facility] Stop: 10/26/19 09:01 Sodium Chloride (Normal Saline) 1,000 mls @ 100 mls/hr IV ASDIRECTED [facility] Last Admin: 10/27/19 02:12 Dose: 100 mls/hr Sodium Chloride (Normal Saline) 1,000 mls @ 50 mls/hr IV ASDIRECTED [facility] Last Admin: 10/27/19 13:03 Dose: 50 mls/hr Dextrose/Water (Dextrose 5% In Water) 1,000 mls @ 50 mls/hr IV ASDIRECTED [facility] Last Admin: 10/30/19 07:13 Dose: 50 mls/hr Phytonadione 1 mg/ Sodium (Chloride) 50.5 mls @ 50 mls/hr IV ONETIME ONE Stop: 10/29/19 11:30 Last Admin: 10/29/19 11:25 Dose: 50 mls/hr Dextrose/Water (Dextrose 5% In Water) 1,000 mls @ 75 mls/hr IV ASDIRECTED [facility] Last Admin: 11/01/19 05:16 Dose: 75 mls/hr Potassium Chloride 20 meq/Lidocaine HCl 2 ml/ Sodium Chloride 112 mls @ 56 mls/ hr IV Q2H [facility] Stop: 10/31/19 13:59 Last Admin: 10/31/19 12:26 Dose: 56 mls/hr Ceftazidime 1 gm/ Sodium (Chloride) 50 mls @ 100 mls/hr IV Q8H [facility] Last Admin: 11/03/19 06:06 Dose: 100 mls/hr Dextrose/Water (Dextrose 5% In Water) 1,000 mls @ 50 mls/hr IV ASDIRECTED [facility] Last Admin: 11/02/19 21:50 Dose: 50 mls/hr Magnesium Sulfate 2 gm/ Premix 50 mls @ 12.5 mls/hr IV ONETIME ONE Stop: 11/02/19 05:16 Last Admin: 11/02/19 01:29 Dose: 12.5 mls/hr Sodium Chloride (Normal Saline) 89 mls @ 3.5 mls/sec IV ASDIRECTED [facility] Stop: 11/02/19 10:01 Magnesium Sulfate 2 gm/ Premix 50 mls @ 25 mls/hr IV ONETIME ONE Stop: 11/02/19 17:29 Last Admin: 11/02/19 15:22 Dose: 25 mls/hr Potassium Chloride/Dextrose/Sod Cl (D5 1/2 Ns W/ 20 Meq/L Kcl) 1,000 mls @ 50 mls/hr IV ASDIRECTED [facility] Last Admin: 11/04/19 05:09 Dose: 50 mls/hr Iopamidol (Isovue-300 (61%)) 150 ml IV . DIRECTED [facility] Stop: 10/25/19 09:00 Iopamidol (Isovue-300 (61%)) 150 ml IV ONETIME ONE Stop: 10/26/19 08:57 Last Admin: 10/26/19 09:36 Dose: 150 ml Iopamidol (Isovue-300 (61%)) 150 ml IV . DIRECTED PRN PRN Reason: RADIOLOGY EXAM Stop: 11/03/19 09:48 Lactulose (Chronulac) 20 gm PO BID [facility] Last Admin: 10/28/19 10:15 Dose: Not Given Lactulose (Chronulac) 10 gm PO BID [facility] Last Admin: 10/31/19 08:19 Dose: 10 gm Lactulose (Chronulac) 10 gm PO ONETIME ONE Stop: 10/28/19 10:31 Last Admin: 10/28/19 10:31 Dose: 10 gm Lorazepam (Ativan) 0 mg PO ASDIRECTED [facility]; Protocol Last Admin: 11/01/19 08:50 Dose: 1 mg Lorazepam (Ativan) 0.5 mg PO Q4H PRN PRN Reason: Anxiety/Muscle spasm Last Admin: 11/03/19 22:25 Dose: 0.5 mg Methylprednisolone Sodium Succinate (Solu-Medrol) 40 mg IVPUSH Q6H [facility] Last Admin: 10/25/19 09:30 Dose: 40 mg Methylprednisolone Sodium Succinate (Solu-Medrol) 40 mg IVPUSH Q12H [facility] Last Admin: 10/25/19 21:16 Dose: 40 mg Metoprolol Succinate (Toprol Xl) 50 mg PO DAILY [facility] Last Admin: 11/03/19 08:29 Dose: 50 mg Morphine Sulfate (Ms Contin) 15 mg PO Q12H [facility] Last Admin: 11/03/19 08:27 Dose: 15 mg Morphine Sulfate (Morphine) 15 mg PO Q4H PRN PRN Reason: Pain (moderate 4-6) Morphine Sulfate (Morphine 10 Mg/0.5 Ml Oral Syringe) 10 mg PO TID [facility] Morphine Sulfate (Morphine 10 Mg/0.5 Ml Oral Syringe) 5 mg PO Q4H PRN PRN Reason: Pain (moderate 4-6) Last Admin: 11/04/19 00:08 Dose: 5 mg Ondansetron HCl (Zofran) 4 mg IV Q4H PRN PRN Reason: Nausea/Vomiting Oxycodone HCl (Oxycodone) 5 mg PO Q4H PRN PRN Reason: Pain (moderate 4-6) Last Admin: 10/25/19 01:45 Dose: 5 mg Phytonadione (Mephyton) 5 mg PO ONETIME ONE Stop: 11/01/19 11:01 Last Admin: 11/01/19 12:20 Dose: 5 mg Polyethylene Glycol (Miralax) 17 gm PO DAILY PRN PRN Reason: Constipation Potassium Chloride (Klor-Con M20) 20 meq PO ONETIME ONE Stop: 10/24/19 10:00 Last Admin: 10/24/19 10:26 Dose: 20 meq Potassium Chloride (Klor-Con M20) 40 meq PO ONETIME ONE Stop: 10/24/19 10:33 Last Admin: 10/24/19 10:55 Dose: 40 meq Potassium Chloride (Klor-Con M20) 40 meq PO ONETIME ONE Stop: 10/24/19 14:01 Last Admin: 10/24/19 14:30 Dose: 40 meq Potassium Chloride (Klor-Con M20) 40 meq PO ONETIME ONE Stop: 10/24/19 17:01 Last Admin: 10/24/19 18:03 Dose: 40 meq Potassium Chloride (Klor-Con M20) 40 meq PO ONETIME ONE Stop: 10/24/19 21:01 Last Admin: 10/24/19 21:08 Dose: 40 meq Potassium Chloride (Klor-Con M20) 40 meq PO ONETIME ONE Stop: 10/26/19 09:01 Last Admin: 10/26/19 09:52 Dose: 40 meq Potassium Chloride (Klor-Con M20) 40 meq PO ONETIME ONE Stop: 10/27/19 08:31 Last Admin: 10/27/19 08:55 Dose: 40 meq Potassium Chloride (Klor-Con M20) 40 meq PO ONETIME ONE Stop: 10/28/19 08:46 Last Admin: 10/28/19 09:58 Dose: 40 meq Potassium Chloride (Klor-Con M20) 40 meq PO ONETIME ONE Stop: 10/28/19 17:01 Last Admin: 10/28/19 16:01 Dose: 40 meq Prednisolone (Orapred 15 Mg/5ml Soln) 40 mg PO DAILY [facility] Last Admin: 10/24/19 15:58 Dose: 40 mg Prednisolone (Orapred 15 Mg/5ml Soln) 40 mg PO DAILY [facility] Last Admin: 11/04/19 08:17 Dose: 40 mg Sodium Chloride (Saline Flush) 10 ml FLUSH ASDIRECTED PRN PRN Reason: Keep Vein Open Sodium Chloride (Saline Flush) 10 ml FLUSH ONETIME ONE Stop: 10/25/19 07:24 Last Admin: 10/25/19 10:42 Dose: Not Given Sodium Chloride (Saline Flush) 10 ml FLUSH ONETIME PRN PRN Reason: per radiology protocol Stop: 10/26/19 08:57 Last Admin: 10/26/19 09:35 Dose: 10 ml Sodium Chloride (Saline Flush) 10 ml FLUSH ONETIME [facility] Stop: 11/02/19 10:01 Thiamine HCl (Vitamin B-1) 100 mg PO DAILY [facility] Last Admin: 11/04/19 08:23 Dose: 100 mg - Exam Quality Assessment: No: Supplemental Oxygen General: Alert, No Acute Distress, Lethargic. No: Cooperative HEENT: Pupils Equal Lungs: Clear to Auscultation, Normal Respiratory Effort Cardiovascular: Regular Rate, Regular Rhythm GI/Abdominal Exam: Soft, No Distention, Tender Extremities: Pedal Edema Skin: Warm, Dry Psy/Mental Status: Alert. No: Agitated Sepsis Event Note - Evaluation Sepsis Screening Result: No Definite Risk - Focused Exam Vital Signs: Vital Signs Temp Pulse Pulse Resp BP BP Pulse Ox 11/04/19 08:22 83 150/63 H 11/04/19 07:00 35 C L 74 11 L 150/63 H 98 11/04/19 05:00 36.5 C 77 14 136/62 97 11/04/19 04:00 35.7 C L 73 14 128/73 96 11/04/19 02:00 36.2 C 70 13 127/61 93 L 11/04/19 00:00 36.0 C L 76 12 160/77 H 93 L 11/03/19 22:00 36.0 C L 74 13 151/70 H 93 L Date Exam was Performed: 11/04/19 Time Exam was Performed: 12:14 - Problem List Review Problem List Initiated/Reviewed/Updated: Yes - My Orders Last 24 Hours: My Active Orders 11/03/19 08:58 Central Line PICC Insertion [Central Venous Line Insertion] [OM.PC] Routine 11/03/19 09:01 Morphine [Morphine 10 MG/0.5 ML Oral Syringe] 5 mg PO Q4H PRN 11/03/19 15:18 Chest 1V Frontal [CR] Routine 11/03/19 15:39 Chest 1V Frontal [CR] Routine 11/03/19 21:00 Morphine [Morphine 10 MG/0.5 ML Oral Syringe] 5 mg PO TID 11/04/19 09:00 Metoprolol Tartrate [Lopressor] 25 mg PO Q12H 11/04/19 09:30 Potassium Chloride Riders [KCL 40 MEQ in Water 100 ML] 40 meq Premix Bag 1 bag IV ONETIME 11/04/19 09:31 LORazepam [Ativan ORAL Concentrate 1MG/0.5 ML U/D] 0.5 mg PO Q1H PRN Ondansetron [Zofran ODT] 4 mg PO Q4H PRN 11/04/19 09:34 Transfer Patient (Change bed) [ADT] Routine Resuscitation Status Routine 11/04/19 09:35 Morphine [Morphine 10 MG/0.5 ML Oral Syringe] 5 mg PO Q1H PRN - Plan Plan:: ASSESSMENT AND PLAN HYPOACTIVE DELIRIUM-seems to be slowly coming around and has been a little bit better each of the past several days. Probably multifactorial with poor hepatic function and contribution from alcohol withdrawal. He remains very weak. No evidence for ongoing alcohol withdrawal. -Continue Depakote PANCREATIC MASS WITH EVIDENCE OF LIVER METASTASIS-CT scan shows evidence of a mass at the pancreatic head with multiple areas in the liver consistent with metastatic disease. Hepatic panel numbers have worsened in the past 24 hours. After a long discussion with his son Darius we have decided to transition to comfort cares with all of his medical problems that are happening acutely with the metastatic cancer in the background. -Transition to comfort cares -Morphine for pain -Lorazepam for anxiety/agitation ALCOHOLIC HEPATITIS-associated with underlying cirrhosis, ascites, coagulopathy after long-term history of daily alcohol use. Hepatic panel numbers are worsening. -Discontinue steroids with transition to comfort care PROBABLE ASPIRATION-respiratory status has improved dramatically and he is no longer requiring supplemental oxygen. PROGRESSIVE WEAKNESS-at baseline has right-sided weakness secondary to cervical spine injury and surgery. -Comfort cares HEPATIC ENCEPHALOPATHY-ammonia level improved with lactulose. -Lactulose once daily CHRONIC NECK AND BACK PAIN-stable -Scheduled and as needed morphine for pain MODERATE AORTIC STENOSIS-echo was stable with moderate stenosis but no significant change. MAINTENANCE ISSUES -DVT prophylaxis; INR significantly elevated, hold on anticoagulation -GI prophylaxis; not indicated -Chu catheter; not indicated -Nutrition; regular diet if tolerated DISPOSITION-[facility] with comfort care after the hospital stay Maximiliano Darnell MD
[2019-11-04] MEDS: LORazepam ORAL Concentrate 1MG/0.5ML U/D PO PRN ×3 (10:07→21:19)
[2019-11-05] MEDS: Morphine 10 MG/0.5 ML Oral Syringe PO PRN ×6 (01:07→23:46)
[2019-11-05] MEDS: LORazepam ORAL Concentrate 1MG/0.5ML U/D PO PRN ×7 (02:40→23:46)
[2019-11-05] MEDS: Morphine 10 MG/0.5 ML Oral Syringe PO SCH ×3 (08:34→21:16)
[2019-11-05] MEDS: Divalproex Sodium Delayed-Release 125 MG Cap.Sprink PO SCH (09:20)
[2019-11-05] MEDS: Lactulose Soln 10 GM/15 ML 15 ML UD Cup PO SCH (09:20)
[2019-11-05] MEDS: Metoprolol Tartrate 25 MG Tab PO SCH ×2 (09:20→21:15)
--- NOTE | 2019-11-05 10:23 | PCM.PN ---
- General Info Date of Service: 11/05/19 Subjective Update: There were no acute issues overnight. Pain appears to be well controlled. He is sedated at this time and unable to participate in questions. He has received several doses of morphine for breakthrough pain and Ativan for some agitation but overall has been comfortable and not in any distress. His abdomen was not tender when palpated. He appears to be breathing comfortable. Still waiting for family to discuss discharge plans and timing. - Patient Data Vitals - Most Recent: Last Vital Signs Temp 37.0 C 11/05/19 07:58 Pulse 87 11/05/19 07:58 Resp 14 11/05/19 07:58 BP 123/60 11/05/19 07:58 Pulse Ox 82 L 11/05/19 07:58 Weight - Most Recent: 149.459 kg I&O - Last 24 Hours: Intake & Output 11/04/19 11/05/19 11/05/19 22:59 06:59 14:59 Intake Total 30 Balance 30 Med Orders - Current: Current Medications Divalproex Sodium (Depakote Sprinkle) 250 mg PO BIDMEALS [facility] Last Admin: 11/05/19 09:20 Dose: Not Given Lactulose (Chronulac) 10 gm PO DAILY [facility] Last Admin: 11/05/19 09:20 Dose: Not Given Lorazepam (Ativan Oral Concentrate 1mg/0.5 Ml U/D) 0.5 mg PO Q1H PRN PRN Reason: anxiety/agitation Last Admin: 11/05/19 08:34 Dose: 0.5 mg Metoprolol Tartrate (Lopressor) 25 mg PO Q12H [facility] Last Admin: 11/05/19 09:20 Dose: Not Given Morphine Sulfate (Morphine) 2 mg IVPUSH Q2H PRN PRN Reason: Pain (severe 7-10) Last Admin: 11/02/19 17:15 Dose: 2 mg Morphine Sulfate (Morphine 10 Mg/0.5 Ml Oral Syringe) 5 mg PO TID [facility] Last Admin: 11/05/19 08:34 Dose: 5 mg Morphine Sulfate (Morphine 10 Mg/0.5 Ml Oral Syringe) 5 mg PO Q1H PRN PRN Reason: Pain Last Admin: 11/05/19 04:54 Dose: 5 mg (Lifitegrast [Xiidra (] 1 Drop)*Pom*) 1 drop EYEBOTH BID [facility] Last Admin: 11/04/19 20:05 Dose: 1 drop Ondansetron HCl (Zofran Odt) 4 mg PO Q4H PRN PRN Reason: Nausea/Vomiting Discontinued Medications Albuterol (Proventil Neb Soln) 2.5 mg NEB Q2H PRN PRN Reason: Shortness of Breath Albuterol/Ipratropium (Duoneb 3.0-0.5 Mg/3 Ml) Confirm Administered Dose 3 ml .ROUTE .STK-MED ONE Stop: 11/04/19 03:31 Last Admin: 11/04/19 03:30 Dose: 3 ml Albuterol/Ipratropium (Duoneb 3.0-0.5 Mg/3 Ml) 3 ml NEB Q6H [facility] Last Admin: 11/04/19 18:53 Dose: Not Given Aspirin (Halfprin) 81 mg PO DAILY [facility] Last Admin: 11/03/19 08:30 Dose: 81 mg Aspirin (Aspirin) 81 mg PO DAILY [facility] Last Admin: 11/04/19 08:23 Dose: 81 mg Folic Acid (Folic Acid) 1 mg PO DAILY [facility] Last Admin: 11/04/19 08:22 Dose: 1 mg Furosemide (Lasix) 40 mg IVPUSH NOW ONE Stop: 10/31/19 09:16 Last Admin: 10/31/19 10:02 Dose: 40 mg Furosemide (Lasix) 40 mg IVPUSH ONETIME ONE Stop: 11/01/19 11:01 Last Admin: 11/01/19 11:31 Dose: 40 mg Furosemide (Lasix) 40 mg IVPUSH ONETIME ONE Stop: 11/03/19 10:01 Last Admin: 11/03/19 09:58 Dose: 40 mg Gabapentin (Neurontin) 400 mg PO Q8H [facility] Stop: 10/28/19 06:01 Last Admin: 10/28/19 05:46 Dose: 400 mg Hydrocortisone (Cortef) 10 mg PO ACBRK [facility] Hydrocortisone (Cortef) 5 mg PO DAILY [facility] Hydromorphone HCl (Dilaudid) 0.5 mg IVPUSH Q2H PRN PRN Reason: Pain Last Admin: 11/01/19 03:19 Dose: 0.5 mg Hydromorphone HCl (Dilaudid) Confirm Administered Dose 0.5 mg .ROUTE .STK-MED ONE Stop: 10/30/19 01:46 Last Admin: 10/30/19 01:56 Dose: Not Given Sodium Chloride (Normal Saline) 1,000 mls @ 999 mls/hr IV ASDIRECTED [facility] Last Admin: 10/24/19 09:24 Dose: 999 mls/hr Sodium Chloride (Normal Saline) 1,000 mls @ 999 mls/hr IV ASDIRECTED [facility] Last Admin: 10/24/19 10:13 Dose: 999 mls/hr Potassium Chloride 20 meq/ (Premix) 100 mls @ 50 mls/hr IV ONETIME ONE Stop: 10/24/19 11:58 Last Admin: 10/24/19 10:26 Dose: 50 mls/hr Ceftriaxone Sodium 1 gm/ (Sodium Chloride) 50 mls @ 100 mls/hr IV ONETIME ONE Stop: 10/24/19 11:03 Last Admin: 10/24/19 10:55 Dose: 100 mls/hr Multivitamins/Minerals 10 ml/Thiamine HCl 100 mg/ Folic Acid 1 mg/ Magnesium Sulfate 2 gm/ Sodium Chloride 1,015.2 mls @ 100 mls/hr IV ONETIME ONE Stop: 10/25/19 03:09 Last Admin: 10/24/19 16:49 Dose: 100 mls/hr Phytonadione 5 mg/ Sodium (Chloride) 50.5 mls @ 50 mls/hr IV NOW ONE Stop: 10/24/19 16:00 Last Admin: 10/24/19 14:58 Dose: 50 mls/hr Sodium Chloride (Normal Saline) 1,000 mls @ 125 mls/hr IV ASDIRECTED [facility] Last Admin: 10/25/19 02:34 Dose: 125 mls/hr Piperacillin/Tazobactam/ (Dextrose 3.375 gm/ Premix) 50 mls @ 100 mls/hr IV Q6H [facility] Last Admin: 11/01/19 08:52 Dose: 100 mls/hr Potassium Chloride 20 meq/Lidocaine HCl 2 ml/ Sodium Chloride 112 mls @ 56 mls/ hr IV Q2H [facility] Stop: 10/24/19 19:29 Last Admin: 10/24/19 16:50 Dose: 56 mls/hr Potassium Chloride 20 meq/Lidocaine HCl 2 ml/ Sodium Chloride 112 mls @ 56 mls/ hr IV Q2H [facility] Stop: 10/25/19 03:59 Last Admin: 10/25/19 02:35 Dose: 56 mls/hr Sodium Chloride (Normal Saline) 85 mls @ 3 mls/sec IV ASDIRECTED [facility] Stop: 10/25/19 10:00 Last Admin: 10/26/19 09:36 Dose: 3.5 mls/sec Sodium Chloride (Normal Saline) 1,000 mls @ 75 mls/hr IV ASDIRECTED [facility] Last Admin: 10/26/19 01:25 Dose: 75 mls/hr Potassium Chloride 20 meq/Lidocaine HCl 2 ml/ Sodium Chloride 112 mls @ 56 mls/ hr IV Q2H [facility] Stop: 10/26/19 13:59 Last Admin: 10/26/19 12:15 Dose: 56 mls/hr Sodium Chloride (Normal Saline) 85 mls @ 3.5 mls/sec IV ASDIRECTED [facility] Stop: 10/26/19 09:01 Sodium Chloride (Normal Saline) 1,000 mls @ 100 mls/hr IV ASDIRECTED [facility] Last Admin: 10/27/19 02:12 Dose: 100 mls/hr Sodium Chloride (Normal Saline) 1,000 mls @ 50 mls/hr IV ASDIRECTED [facility] Last Admin: 10/27/19 13:03 Dose: 50 mls/hr Dextrose/Water (Dextrose 5% In Water) 1,000 mls @ 50 mls/hr IV ASDIRECTED [facility] Last Admin: 10/30/19 07:13 Dose: 50 mls/hr Phytonadione 1 mg/ Sodium (Chloride) 50.5 mls @ 50 mls/hr IV ONETIME ONE Stop: 10/29/19 11:30 Last Admin: 10/29/19 11:25 Dose: 50 mls/hr Dextrose/Water (Dextrose 5% In Water) 1,000 mls @ 75 mls/hr IV ASDIRECTED [facility] Last Admin: 11/01/19 05:16 Dose: 75 mls/hr Potassium Chloride 20 meq/Lidocaine HCl 2 ml/ Sodium Chloride 112 mls @ 56 mls/ hr IV Q2H [facility] Stop: 10/31/19 13:59 Last Admin: 10/31/19 12:26 Dose: 56 mls/hr Ceftazidime 1 gm/ Sodium (Chloride) 50 mls @ 100 mls/hr IV Q8H [facility] Last Admin: 11/03/19 06:06 Dose: 100 mls/hr Dextrose/Water (Dextrose 5% In Water) 1,000 mls @ 50 mls/hr IV ASDIRECTED [facility] Last Admin: 11/02/19 21:50 Dose: 50 mls/hr Magnesium Sulfate 2 gm/ Premix 50 mls @ 12.5 mls/hr IV ONETIME ONE Stop: 11/02/19 05:16 Last Admin: 11/02/19 01:29 Dose: 12.5 mls/hr Sodium Chloride (Normal Saline) 89 mls @ 3.5 mls/sec IV ASDIRECTED [facility] Stop: 11/02/19 10:01 Magnesium Sulfate 2 gm/ Premix 50 mls @ 25 mls/hr IV ONETIME ONE Stop: 11/02/19 17:29 Last Admin: 11/02/19 15:22 Dose: 25 mls/hr Potassium Chloride/Dextrose/Sod Cl (D5 1/2 Ns W/ 20 Meq/L Kcl) 1,000 mls @ 50 mls/hr IV ASDIRECTED [facility] Last Admin: 11/04/19 05:09 Dose: 50 mls/hr Potassium Chloride 40 meq/ (Premix) 100 mls @ 25 mls/hr IV ONETIME ONE Stop: 11/04/19 13:29 Last Admin: 11/04/19 09:09 Dose: 25 mls/hr Iopamidol (Isovue-300 (61%)) 150 ml IV . DIRECTED [facility] Stop: 10/25/19 09:00 Iopamidol (Isovue-300 (61%)) 150 ml IV ONETIME ONE Stop: 10/26/19 08:57 Last Admin: 10/26/19 09:36 Dose: 150 ml Iopamidol (Isovue-300 (61%)) 150 ml IV . DIRECTED PRN PRN Reason: RADIOLOGY EXAM Stop: 11/03/19 09:48 Lactulose (Chronulac) 20 gm PO BID [facility] Last Admin: 10/28/19 10:15 Dose: Not Given Lactulose (Chronulac) 10 gm PO BID [facility] Last Admin: 10/31/19 08:19 Dose: 10 gm Lactulose (Chronulac) 10 gm PO ONETIME ONE Stop: 10/28/19 10:31 Last Admin: 10/28/19 10:31 Dose: 10 gm Lorazepam (Ativan) 0 mg PO ASDIRECTED [facility]; Protocol Last Admin: 11/01/19 08:50 Dose: 1 mg Lorazepam (Ativan) 0.5 mg PO Q4H PRN PRN Reason: Anxiety/Muscle spasm Last Admin: 11/03/19 22:25 Dose: 0.5 mg Methylprednisolone Sodium Succinate (Solu-Medrol) 40 mg IVPUSH Q6H [facility] Last Admin: 10/25/19 09:30 Dose: 40 mg Methylprednisolone Sodium Succinate (Solu-Medrol) 40 mg IVPUSH Q12H [facility] Last Admin: 10/25/19 21:16 Dose: 40 mg Metoprolol Succinate (Toprol Xl) 50 mg PO DAILY [facility] Last Admin: 11/03/19 08:29 Dose: 50 mg Morphine Sulfate (Ms Contin) 15 mg PO Q12H [facility] Last Admin: 11/03/19 08:27 Dose: 15 mg Morphine Sulfate (Morphine) 15 mg PO Q4H PRN PRN Reason: Pain (moderate 4-6) Morphine Sulfate (Morphine 10 Mg/0.5 Ml Oral Syringe) 10 mg PO TID [facility] Morphine Sulfate (Morphine 10 Mg/0.5 Ml Oral Syringe) 5 mg PO Q4H PRN PRN Reason: Pain (moderate 4-6) Last Admin: 11/04/19 00:08 Dose: 5 mg Ondansetron HCl (Zofran) 4 mg IV Q4H PRN PRN Reason: Nausea/Vomiting Oxycodone HCl (Oxycodone) 5 mg PO Q4H PRN PRN Reason: Pain (moderate 4-6) Last Admin: 10/25/19 01:45 Dose: 5 mg Phytonadione (Mephyton) 5 mg PO ONETIME ONE Stop: 11/01/19 11:01 Last Admin: 11/01/19 12:20 Dose: 5 mg Polyethylene Glycol (Miralax) 17 gm PO DAILY PRN PRN Reason: Constipation Potassium Chloride (Klor-Con M20) 20 meq PO ONETIME ONE Stop: 10/24/19 10:00 Last Admin: 10/24/19 10:26 Dose: 20 meq Potassium Chloride (Klor-Con M20) 40 meq PO ONETIME ONE Stop: 10/24/19 10:33 Last Admin: 10/24/19 10:55 Dose: 40 meq Potassium Chloride (Klor-Con M20) 40 meq PO ONETIME ONE Stop: 10/24/19 14:01 Last Admin: 10/24/19 14:30 Dose: 40 meq Potassium Chloride (Klor-Con M20) 40 meq PO ONETIME ONE Stop: 10/24/19 17:01 Last Admin: 10/24/19 18:03 Dose: 40 meq Potassium Chloride (Klor-Con M20) 40 meq PO ONETIME ONE Stop: 10/24/19 21:01 Last Admin: 10/24/19 21:08 Dose: 40 meq Potassium Chloride (Klor-Con M20) 40 meq PO ONETIME ONE Stop: 10/26/19 09:01 Last Admin: 10/26/19 09:52 Dose: 40 meq Potassium Chloride (Klor-Con M20) 40 meq PO ONETIME ONE Stop: 10/27/19 08:31 Last Admin: 10/27/19 08:55 Dose: 40 meq Potassium Chloride (Klor-Con M20) 40 meq PO ONETIME ONE Stop: 10/28/19 08:46 Last Admin: 10/28/19 09:58 Dose: 40 meq Potassium Chloride (Klor-Con M20) 40 meq PO ONETIME ONE Stop: 10/28/19 17:01 Last Admin: 10/28/19 16:01 Dose: 40 meq Prednisolone (Orapred 15 Mg/5ml Soln) 40 mg PO DAILY [facility] Last Admin: 10/24/19 15:58 Dose: 40 mg Prednisolone (Orapred 15 Mg/5ml Soln) 40 mg PO DAILY [facility] Last Admin: 11/04/19 08:17 Dose: 40 mg Sodium Chloride (Saline Flush) 10 ml FLUSH ASDIRECTED PRN PRN Reason: Keep Vein Open Sodium Chloride (Saline Flush) 10 ml FLUSH ONETIME ONE Stop: 10/25/19 07:24 Last Admin: 10/25/19 10:42 Dose: Not Given Sodium Chloride (Saline Flush) 10 ml FLUSH ONETIME PRN PRN Reason: per radiology protocol Stop: 10/26/19 08:57 Last Admin: 10/26/19 09:35 Dose: 10 ml Sodium Chloride (Saline Flush) 10 ml FLUSH ONETIME [facility] Stop: 11/02/19 10:01 Thiamine HCl (Vitamin B-1) 100 mg PO DAILY [facility] Last Admin: 11/04/19 08:23 Dose: 100 mg - Exam Quality Assessment: No: Supplemental Oxygen General: No Acute Distress, Sedated. No: Alert Lungs: Normal Respiratory Effort GI/Abdominal Exam: Soft, Distended Extremities: Pedal Edema Psy/Mental Status: No: Alert, Agitated Sepsis Event Note - Evaluation Sepsis Screening Result: No Definite Risk - Focused Exam Vital Signs: Vital Signs Temp Pulse Resp BP Pulse Ox 11/05/19 07:58 37.0 C 87 14 123/60 82 L Date Exam was Performed: 11/05/19 Time Exam was Performed: 10:20 - Problem List Review Problem List Initiated/Reviewed/Updated: Yes - My Orders Last 24 Hours: My Active Orders 11/04/19 09:31 LORazepam [Ativan ORAL Concentrate 1MG/0.5 ML U/D] 0.5 mg PO Q1H PRN Ondansetron [Zofran ODT] 4 mg PO Q4H PRN 11/04/19 09:34 Transfer Patient (Change bed) [ADT] Routine Resuscitation Status Routine 11/04/19 09:35 Morphine [Morphine 10 MG/0.5 ML Oral Syringe] 5 mg PO Q1H PRN - Plan Plan:: ASSESSMENT AND PLAN HYPOACTIVE DELIRIUM-seems to be slowly coming around and has been a little bit better each of the past several days. Probably multifactorial with poor hepatic function and contribution from alcohol withdrawal. He remains very weak. No evidence for ongoing alcohol withdrawal. -Comfort cares PANCREATIC MASS WITH EVIDENCE OF LIVER METASTASIS-CT scan shows evidence of a mass at the pancreatic head with multiple areas in the liver consistent with metastatic disease. Hepatic panel numbers have worsened in the past 24 hours. After a long discussion with his son Darius we have decided to transition to comfort cares with all of his medical problems that are happening acutely with the metastatic cancer in the background. -Transition to comfort cares -Morphine for pain -Lorazepam for anxiety/agitation ALCOHOLIC HEPATITIS-associated with underlying cirrhosis, ascites, coagulopathy after long-term history of daily alcohol use. Hepatic panel numbers are worsening. -Discontinue steroids with transition to comfort care PROBABLE ASPIRATION-respiratory status has improved dramatically and he is no longer requiring supplemental oxygen. PROGRESSIVE WEAKNESS-at baseline has right-sided weakness secondary to cervical spine injury and surgery. -Comfort cares HEPATIC ENCEPHALOPATHY-ammonia level improved with lactulose. -Lactulose once daily CHRONIC NECK AND BACK PAIN-stable -Scheduled and as needed morphine for pain MODERATE AORTIC STENOSIS-echo was stable with moderate stenosis but no significant change. MAINTENANCE ISSUES -DVT prophylaxis; INR significantly elevated, hold on anticoagulation -GI prophylaxis; not indicated -Chu catheter; not indicated -Nutrition; regular diet if tolerated DISPOSITION-anticipate discharge to home with family and hospice care after the hospital stay, probably tomorrow Maximiliano Darnell MD
[2019-11-06] MEDS: Morphine 10 MG/0.5 ML Oral Syringe PO PRN ×5 (01:32→09:49)
[2019-11-06] MEDS: Atropine Sulfate Ophth 2 ML Drops SL PRN ×3 (01:33→08:52)
[2019-11-06] MEDS: LORazepam ORAL Concentrate 1MG/0.5ML U/D PO PRN ×5 (02:12→10:12)
[2019-11-06 07:39] VITALS: BP 132/99; PULSE 89
[2019-11-06] MEDS: Morphine 10 MG/0.5 ML Oral Syringe PO SCH (08:41)
[2019-11-06] MEDS: Metoprolol Tartrate 25 MG Tab PO SCH (08:59)
--- NOTE | 2019-11-06 09:52 | CR ---
CHEST: Portable 11/03/2019 at 3:33 PM CLINICAL HISTORY:PICC line placement COMPARISON:10/25/2019 FINDINGS: Patient is moderately rotated to the right. This exaggerates the upper mediastinum. There is a PICC line from the right upper extremity. The tip is at the superior vena cava atrial junction region. There is mild generalized prominence the interstitial markings. There is no effusion or pneumothorax IMPRESSION: PICC line placement. Tip is at the superior vena cava atrial junction region Mild vascular and interstitial prominence. Some of this may be positional. Pulmonary venous hypertension is not excluded. CHEST: Portable 11/03/2019 at 3:29 PM CLINICAL HISTORY:PICC line placement COMPARISON:Earlier same day FINDINGS: The PICC line has been advanced into the mid to lower portion of the right atrium. There is mild vascular cephalization and interstitial prominence. There is no effusion or pneumothorax IMPRESSION: PICC line advanced into the right atrium Pulmonary venous hypertension suggested
--- NOTE | 2019-11-06 10:01 | CR ---
ADDENDUM REPORT: Clarification: PICC line was placed from the right upper extremity. It was advanced into the right atrium. This was at 3:29 PM Portable chest at 3:33 PM shows withdrawal of the PICC line into the superior vena cava/ atrial junction region
[2019-11-06] MEDS ORDERED: LORazepam ORAL Concentrate 1MG/0.5ML U/D PO PRN (10:49)
[2019-11-06] MEDS ORDERED: Morphine 10 MG/0.5 ML Oral Syringe PO PRN (10:50)
[2019-11-06] MEDS ORDERED: Scopolamine 1.5 MG Transdermal Patch TRDERM SCH (11:00)
[2019-11-06] MEDS ORDERED: Morphine 10 MG/0.5 ML Oral Syringe PO SCH (14:00)
--- NOTE | 2019-11-06 15:17 | PCM.DCSUM1 ---
Discharge Summary - Hospital Course Brief History: Mr. Wilcox was a 64-year-old gentleman who was admitted through the emergency department with weakness, rhabdomyolysis, confusion, alcoholic hepatitis, hepatic cirrhosis, with underlying pancreatic carcinoma metastatic to the liver. - Discharge Data Discharge Date: 11/06/19 Discharge Disposition: 20 Preliminary Cause of *Q: Respiratory Failure Event(s) Leading to Patient's *Q: Metastatic pancreatic carcinoma Condition: - Referral to [facility] Primary Care Physician: SEBAS Rasmussen - Discharge Diagnosis/Problem(s) (1) Hepatic cirrhosis SNOMED Code(s): 30179092 ICD Code: K74.60 - UNSPECIFIED CIRRHOSIS OF LIVER Status: Acute Current Visit: Yes (2) Alcoholic hepatitis SNOMED Code(s): 648683388 ICD Code: K70.10 - ALCOHOLIC HEPATITIS WITHOUT ASCITES Status: Acute Current Visit: Yes (3) Hepatic encephalopathy SNOMED Code(s): 37015028 ICD Code: K72.90 - HEPATIC FAILURE, UNSPECIFIED WITHOUT COMA Status: Acute Current Visit: Yes (4) Rhabdomyolysis SNOMED Code(s): 747576493 ICD Code: M62.82 - RHABDOMYOLYSIS Status: Acute Current Visit: Yes (5) Pancreatic carcinoma metastatic to liver SNOMED Code(s): 384057016, 378662013 ICD Code: C25.9 - MALIGNANT NEOPLASM OF PANCREAS, UNSPECIFIED; C78.7 - SECONDARY MALIG NEOPLASM OF LIVER AND INTRAHEPATIC BILE DUCT Status: Acute Current Visit: Yes (6) Aspiration pneumonia SNOMED Code(s): 903822084 ICD Code: J69.0 - PNEUMONITIS DUE TO INHALATION OF FOOD AND VOMIT Status: Acute Current Visit: Yes (7) Respiratory failure with hypoxia SNOMED Code(s): 23402548271193461 ICD Code: J96.91 - RESPIRATORY FAILURE, UNSPECIFIED WITH HYPOXIA Status: Acute Current Visit: Yes (8) Hypokalemia SNOMED Code(s): 17745349 ICD Code: E87.6 - HYPOKALEMIA Status: Acute Current Visit: Yes - Patient Summary/Data Hospital Course: Mr. Wilcox was a 64-year-old gentleman who was admitted through the emergency department with progressive weakness, rhabdomyolysis related to a recent fall and spending a prolonged period of time on the floor, hepatic cirrhosis and alcoholic hepatitis. He has had a longstanding history of alcohol abuse and consumed alcohol on a daily basis. Bilirubin is found to be elevated as well as a significant elevation in his prothrombin time. He fell approximately 3 days ago and spent about 24 hours on the hard floor. Initially he seemed okay but now in the last 24 hours has become more weak and lethargic. On evaluation in the emergency department CK level is elevated at 2000. He is somewhat lethargic and there is concern for hepatic encephalopathy. He does have known right-sided weakness related to a cervical spine injury and surgical repair. Overall weakness seems to be significantly worse over the past few months. Laboratory studies in the emergency department also show severe hypokalemia. Shortly after admission he experienced a coughing and choking episode when given oral potassium replacement. Since then oxygen saturation has been diminished with mild increase in respiratory rate. He was felt to have had probable aspiration and was started immediately on IV antibiotic therapy with Zosyn as well as a short course of IV Solu-Medrol. Noninvasive positive pressure ventilation was used to support respiratory status and manage hypoxia. He was started on lactulose for management of probable hepatic encephalopathy. There was significant concern for developing alcohol withdrawal and he was managed using the alcohol withdrawal protocol. MRI of the brain was obtained because of decreased level of consciousness, it was of somewhat poor quality secondary to movement artifact which showed no obvious acute abnormalities. CT scan of the abdomen pelvis was also obtained and unfortunately showed evidence of a mass at the head of the pancreas consistent with pancreatic carcinoma and multiple lesions in the liver consistent with metastatic disease. He was felt to have a component of acute alcoholic hepatitis and mattery discriminant function was obtained at the time of admission, significantly elevated at 50. Initially he was started on prednisolone but then this was held when he was placed on IV Solu-Medrol because of his aspiration. Potassium was replaced intravenously and orally and potassium level normalized. CK levels were monitored and rhabdomyolysis resolved after a few days with hydration. He remained very weak and lethargic with no significant improvement over the first week and a half of hospitalization. Given evidence of significant malignancy with metastatic disease and other significant comorbid conditions. It was felt unlikely that he would be able to recover from his current illness and underlying malignancy. Discussion was held with family and decision was made to switch to comfort cares only with no further aggressive interventions or evaluation. He was given morphine and lorazepam as needed for comfort and early in the afternoon of November 05. No attempts were made at resuscitation as per the patient's and family's previously expressed wishes. - Discharge Plan *PRESCRIPTION DRUG MONITORING PROGRAM REVIEWED*: Not Applicable Home Medications: Home Meds Cyclobenzaprine HCl [Flexeril] 10 mg PO TID PRN 05/17/13 [History] Furosemide [Lasix] 20 mg PO DAILY 05/17/13 [History] Hydrocortisone [Cortef] 10 mg PO ACBRK 05/17/13 [History] Morphine [MS Contin] 15 mg PO Q12HR 05/17/13 [History] Metoprolol Succinate 50 mg PO DAILY 06/07/16 [History] Aspirin [Adult Aspirin] 81 mg PO DAILY 06/22/18 [History] Acetaminophen/HYDROcodone [Elmer 325-5 MG] 1 tab PO Q4HR PRN 11/15/18 [History] Lifitegrast [Xiidra] 1 drop EYEBOTH BID 11/15/18 [History] Hydrocortisone 5 mg PO DAILY 10/24/19 [History] Referrals: Nimco Chand PA [Primary Care Provider] - - Discharge Summary/Plan Comment DC Time >30 min.: No - Patient Data Vitals - Most Recent: Last Vital Signs Temp 97.4 F 11/06/19 07:36 Pulse 89 11/06/19 07:36 Resp 32 H 11/06/19 07:36 BP 132/99 H 11/06/19 07:36 Pulse Ox 90 L 11/06/19 07:36 Weight - Most Recent: 329 lb 8 oz Med Orders - Current: Current Medications Atropine Sulfate (Atropine 1%) 0.5 ml SL Q4H PRN PRN Reason: excessive secretions Last Admin: 11/06/19 08:52 Dose: 0.5 ml Lorazepam (Ativan Oral Concentrate 1mg/0.5 Ml U/D) 1 mg PO Q2H PRN PRN Reason: anxiety/agitation Metoprolol Tartrate (Lopressor) 25 mg PO Q12H [facility] Last Admin: 11/06/19 08:59 Dose: Not Given Morphine Sulfate (Morphine 10 Mg/0.5 Ml Oral Syringe) 10 mg PO TID [facility] Morphine Sulfate (Morphine 10 Mg/0.5 Ml Oral Syringe) 10 mg PO Q1H PRN PRN Reason: Pain Last Admin: 11/06/19 11:35 Dose: 10 mg (Lifitegrast [Xiidra (] 1 Drop)*Pom*) 1 drop EYEBOTH BID [facility] Last Admin: 11/06/19 08:44 Dose: 1 drop Ondansetron HCl (Zofran Odt) 4 mg PO Q4H PRN PRN Reason: Nausea/Vomiting Scopolamine (Transderm-Scop) 1.5 mg TRDERM Q72H [facility] Last Admin: 11/06/19 11:35 Dose: 1.5 mg Discontinued Medications Albuterol (Proventil Neb Soln) 2.5 mg NEB Q2H PRN PRN Reason: Shortness of Breath Albuterol/Ipratropium (Duoneb 3.0-0.5 Mg/3 Ml) Confirm Administered Dose 3 ml .ROUTE .STK-MED ONE Stop: 11/04/19 03:31 Last Admin: 11/04/19 03:30 Dose: 3 ml Albuterol/Ipratropium (Duoneb 3.0-0.5 Mg/3 Ml) 3 ml NEB Q6H [facility] Last Admin: 11/04/19 18:53 Dose: Not Given Aspirin (Halfprin) 81 mg PO DAILY [facility] Last Admin: 11/03/19 08:30 Dose: 81 mg Aspirin (Aspirin) 81 mg PO DAILY [facility] Last Admin: 11/04/19 08:23 Dose: 81 mg Divalproex Sodium (Depakote Sprinkle) 250 mg PO BIDMEALS [facility] Last Admin: 11/05/19 09:20 Dose: Not Given Folic Acid (Folic Acid) 1 mg PO DAILY [facility] Last Admin: 11/04/19 08:22 Dose: 1 mg Furosemide (Lasix) 40 mg IVPUSH NOW ONE Stop: 10/31/19 09:16 Last Admin: 10/31/19 10:02 Dose: 40 mg Furosemide (Lasix) 40 mg IVPUSH ONETIME ONE Stop: 11/01/19 11:01 Last Admin: 11/01/19 11:31 Dose: 40 mg Furosemide (Lasix) 40 mg IVPUSH ONETIME ONE Stop: 11/03/19 10:01 Last Admin: 11/03/19 09:58 Dose: 40 mg Gabapentin (Neurontin) 400 mg PO Q8H [facility] Stop: 10/28/19 06:01 Last Admin: 10/28/19 05:46 Dose: 400 mg Hydrocortisone (Cortef) 10 mg PO ACBRK [facility] Hydrocortisone (Cortef) 5 mg PO DAILY [facility] Hydromorphone HCl (Dilaudid) 0.5 mg IVPUSH Q2H PRN PRN Reason: Pain Last Admin: 11/01/19 03:19 Dose: 0.5 mg Hydromorphone HCl (Dilaudid) Confirm Administered Dose 0.5 mg .ROUTE .STK-MED ONE Stop: 10/30/19 01:46 Last Admin: 10/30/19 01:56 Dose: Not Given Sodium Chloride (Normal Saline) 1,000 mls @ 999 mls/hr IV ASDIRECTED [facility] Last Admin: 10/24/19 09:24 Dose: 999 mls/hr Sodium Chloride (Normal Saline) 1,000 mls @ 999 mls/hr IV ASDIRECTED [facility] Last Admin: 10/24/19 10:13 Dose: 999 mls/hr Potassium Chloride 20 meq/ (Premix) 100 mls @ 50 mls/hr IV ONETIME ONE Stop: 10/24/19 11:58 Last Admin: 10/24/19 10:26 Dose: 50 mls/hr Ceftriaxone Sodium 1 gm/ (Sodium Chloride) 50 mls @ 100 mls/hr IV ONETIME ONE Stop: 10/24/19 11:03 Last Admin: 10/24/19 10:55 Dose: 100 mls/hr Multivitamins/Minerals 10 ml/Thiamine HCl 100 mg/ Folic Acid 1 mg/ Magnesium Sulfate 2 gm/ Sodium Chloride 1,015.2 mls @ 100 mls/hr IV ONETIME ONE Stop: 10/25/19 03:09 Last Admin: 10/24/19 16:49 Dose: 100 mls/hr Phytonadione 5 mg/ Sodium (Chloride) 50.5 mls @ 50 mls/hr IV NOW ONE Stop: 10/24/19 16:00 Last Admin: 10/24/19 14:58 Dose: 50 mls/hr Sodium Chloride (Normal Saline) 1,000 mls @ 125 mls/hr IV ASDIRECTED [facility] Last Admin: 10/25/19 02:34 Dose: 125 mls/hr Piperacillin/Tazobactam/ (Dextrose 3.375 gm/ Premix) 50 mls @ 100 mls/hr IV Q6H [facility] Last Admin: 11/01/19 08:52 Dose: 100 mls/hr Potassium Chloride 20 meq/Lidocaine HCl 2 ml/ Sodium Chloride 112 mls @ 56 mls/ hr IV Q2H [facility] Stop: 10/24/19 19:29 Last Admin: 10/24/19 16:50 Dose: 56 mls/hr Potassium Chloride 20 meq/Lidocaine HCl 2 ml/ Sodium Chloride 112 mls @ 56 mls/ hr IV Q2H [facility] Stop: 10/25/19 03:59 Last Admin: 10/25/19 02:35 Dose: 56 mls/hr Sodium Chloride (Normal Saline) 85 mls @ 3 mls/sec IV ASDIRECTED [facility] Stop: 10/25/19 10:00 Last Admin: 10/26/19 09:36 Dose: 3.5 mls/sec Sodium Chloride (Normal Saline) 1,000 mls @ 75 mls/hr IV ASDIRECTED [facility] Last Admin: 10/26/19 01:25 Dose: 75 mls/hr Potassium Chloride 20 meq/Lidocaine HCl 2 ml/ Sodium Chloride 112 mls @ 56 mls/ hr IV Q2H [facility] Stop: 10/26/19 13:59 Last Admin: 10/26/19 12:15 Dose: 56 mls/hr Sodium Chloride (Normal Saline) 85 mls @ 3.5 mls/sec IV ASDIRECTED [facility] Stop: 10/26/19 09:01 Sodium Chloride (Normal Saline) 1,000 mls @ 100 mls/hr IV ASDIRECTED [facility] Last Admin: 10/27/19 02:12 Dose: 100 mls/hr Sodium Chloride (Normal Saline) 1,000 mls @ 50 mls/hr IV ASDIRECTED [facility] Last Admin: 10/27/19 13:03 Dose: 50 mls/hr Dextrose/Water (Dextrose 5% In Water) 1,000 mls @ 50 mls/hr IV ASDIRECTED [facility] Last Admin: 10/30/19 07:13 Dose: 50 mls/hr Phytonadione 1 mg/ Sodium (Chloride) 50.5 mls @ 50 mls/hr IV ONETIME ONE Stop: 10/29/19 11:30 Last Admin: 10/29/19 11:25 Dose: 50 mls/hr Dextrose/Water (Dextrose 5% In Water) 1,000 mls @ 75 mls/hr IV ASDIRECTED [facility] Last Admin: 11/01/19 05:16 Dose: 75 mls/hr Potassium Chloride 20 meq/Lidocaine HCl 2 ml/ Sodium Chloride 112 mls @ 56 mls/ hr IV Q2H [facility] Stop: 10/31/19 13:59 Last Admin: 10/31/19 12:26 Dose: 56 mls/hr Ceftazidime 1 gm/ Sodium (Chloride) 50 mls @ 100 mls/hr IV Q8H [facility] Last Admin: 11/03/19 06:06 Dose: 100 mls/hr Dextrose/Water (Dextrose 5% In Water) 1,000 mls @ 50 mls/hr IV ASDIRECTED [facility] Last Admin: 11/02/19 21:50 Dose: 50 mls/hr Magnesium Sulfate 2 gm/ Premix 50 mls @ 12.5 mls/hr IV ONETIME ONE Stop: 11/02/19 05:16 Last Admin: 11/02/19 01:29 Dose: 12.5 mls/hr Sodium Chloride (Normal Saline) 89 mls @ 3.5 mls/sec IV ASDIRECTED [facility] Stop: 11/02/19 10:01 Magnesium Sulfate 2 gm/ Premix 50 mls @ 25 mls/hr IV ONETIME ONE Stop: 11/02/19 17:29 Last Admin: 11/02/19 15:22 Dose: 25 mls/hr Potassium Chloride/Dextrose/Sod Cl (D5 1/2 Ns W/ 20 Meq/L Kcl) 1,000 mls @ 50 mls/hr IV ASDIRECTED [facility] Last Admin: 11/04/19 05:09 Dose: 50 mls/hr Potassium Chloride 40 meq/ (Premix) 100 mls @ 25 mls/hr IV ONETIME ONE Stop: 11/04/19 13:29 Last Admin: 11/04/19 09:09 Dose: 25 mls/hr Iopamidol (Isovue-300 (61%)) 150 ml IV . DIRECTED [facility] Stop: 10/25/19 09:00 Iopamidol (Isovue-300 (61%)) 150 ml IV ONETIME ONE Stop: 10/26/19 08:57 Last Admin: 10/26/19 09:36 Dose: 150 ml Iopamidol (Isovue-300 (61%)) 150 ml IV . DIRECTED PRN PRN Reason: RADIOLOGY EXAM Stop: 03/27/20 09:48 Lactulose (Chronulac) 20 gm PO BID [facility] Last Admin: 10/28/19 10:15 Dose: Not Given Lactulose (Chronulac) 10 gm PO BID [facility] Last Admin: 10/31/19 08:19 Dose: 10 gm Lactulose (Chronulac) 10 gm PO ONETIME ONE Stop: 10/28/19 10:31 Last Admin: 10/28/19 10:31 Dose: 10 gm Lactulose (Chronulac) 10 gm PO DAILY [facility] Last Admin: 11/05/19 09:20 Dose: Not Given Lorazepam (Ativan) 0 mg PO ASDIRECTED [facility]; Protocol Last Admin: 11/01/19 08:50 Dose: 1 mg Lorazepam (Ativan) 0.5 mg PO Q4H PRN PRN Reason: Anxiety/Muscle spasm Last Admin: 11/03/19 22:25 Dose: 0.5 mg Lorazepam (Ativan Oral Concentrate 1mg/0.5 Ml U/D) 0.5 mg PO Q1H PRN PRN Reason: anxiety/agitation Last Admin: 11/06/19 10:12 Dose: 0.5 mg Methylprednisolone Sodium Succinate (Solu-Medrol) 40 mg IVPUSH Q6H [facility] Last Admin: 10/25/19 09:30 Dose: 40 mg Methylprednisolone Sodium Succinate (Solu-Medrol) 40 mg IVPUSH Q12H [facility] Last Admin: 10/25/19 21:16 Dose: 40 mg Metoprolol Succinate (Toprol Xl) 50 mg PO DAILY [facility] Last Admin: 11/03/19 08:29 Dose: 50 mg Morphine Sulfate (Ms Contin) 15 mg PO Q12H [facility] Last Admin: 11/03/19 08:27 Dose: 15 mg Morphine Sulfate (Morphine) 2 mg IVPUSH Q2H PRN PRN Reason: Pain (severe 7-10) Last Admin: 11/02/19 17:15 Dose: 2 mg Morphine Sulfate (Morphine) 15 mg PO Q4H PRN PRN Reason: Pain (moderate 4-6) Morphine Sulfate (Morphine 10 Mg/0.5 Ml Oral Syringe) 10 mg PO TID [facility] Morphine Sulfate (Morphine 10 Mg/0.5 Ml Oral Syringe) 5 mg PO Q4H PRN PRN Reason: Pain (moderate 4-6) Last Admin: 11/04/19 00:08 Dose: 5 mg Morphine Sulfate (Morphine 10 Mg/0.5 Ml Oral Syringe) 5 mg PO TID [facility] Last Admin: 11/06/19 08:41 Dose: 5 mg Morphine Sulfate (Morphine 10 Mg/0.5 Ml Oral Syringe) 5 mg PO Q1H PRN PRN Reason: Pain Last Admin: 11/06/19 09:49 Dose: 5 mg Ondansetron HCl (Zofran) 4 mg IV Q4H PRN PRN Reason: Nausea/Vomiting Oxycodone HCl (Oxycodone) 5 mg PO Q4H PRN PRN Reason: Pain (moderate 4-6) Last Admin: 10/25/19 01:45 Dose: 5 mg Phytonadione (Mephyton) 5 mg PO ONETIME ONE Stop: 11/01/19 11:01 Last Admin: 11/01/19 12:20 Dose: 5 mg Polyethylene Glycol (Miralax) 17 gm PO DAILY PRN PRN Reason: Constipation Potassium Chloride (Klor-Con M20) 20 meq PO ONETIME ONE Stop: 10/24/19 10:00 Last Admin: 10/24/19 10:26 Dose: 20 meq Potassium Chloride (Klor-Con M20) 40 meq PO ONETIME ONE Stop: 10/24/19 10:33 Last Admin: 10/24/19 10:55 Dose: 40 meq Potassium Chloride (Klor-Con M20) 40 meq PO ONETIME ONE Stop: 10/24/19 14:01 Last Admin: 10/24/19 14:30 Dose: 40 meq Potassium Chloride (Klor-Con M20) 40 meq PO ONETIME ONE Stop: 10/24/19 17:01 Last Admin: 10/24/19 18:03 Dose: 40 meq Potassium Chloride (Klor-Con M20) 40 meq PO ONETIME ONE Stop: 10/24/19 21:01 Last Admin: 10/24/19 21:08 Dose: 40 meq Potassium Chloride (Klor-Con M20) 40 meq PO ONETIME ONE Stop: 10/26/19 09:01 Last Admin: 10/26/19 09:52 Dose: 40 meq Potassium Chloride (Klor-Con M20) 40 meq PO ONETIME ONE Stop: 10/27/19 08:31 Last Admin: 10/27/19 08:55 Dose: 40 meq Potassium Chloride (Klor-Con M20) 40 meq PO ONETIME ONE Stop: 10/28/19 08:46 Last Admin: 10/28/19 09:58 Dose: 40 meq Potassium Chloride (Klor-Con M20) 40 meq PO ONETIME ONE Stop: 10/28/19 17:01 Last Admin: 10/28/19 16:01 Dose: 40 meq Prednisolone (Orapred 15 Mg/5ml Soln) 40 mg PO DAILY [facility] Last Admin: 10/24/19 15:58 Dose: 40 mg Prednisolone (Orapred 15 Mg/5ml Soln) 40 mg PO DAILY [facility] Last Admin: 11/04/19 08:17 Dose: 40 mg Sodium Chloride (Saline Flush) 10 ml FLUSH ASDIRECTED PRN PRN Reason: Keep Vein Open Sodium Chloride (Saline Flush) 10 ml FLUSH ONETIME ONE Stop: 10/25/19 07:24 Last Admin: 10/25/19 10:42 Dose: Not Given Sodium Chloride (Saline Flush) 10 ml FLUSH ONETIME PRN PRN Reason: per radiology protocol Stop: 10/26/19 08:57 Last Admin: 10/26/19 09:35 Dose: 10 ml Sodium Chloride (Saline Flush) 10 ml FLUSH ONETIME [facility] Stop: 11/02/19 10:01 Thiamine HCl (Vitamin B-1) 100 mg PO DAILY [facility] Last Admin: 11/04/19 08:23 Dose: 100 mg - Exam General: Reports: Other () *Q Meaningful Use (DIS) - VTE *Q VTE Pharmacological Contraindications *Q: High INR Value
== END 2019-11-06 16:25 | disposition expired | DRG 432 ==
LOC: JP.ED 08:28 → JP.ICU 11:32 → JP.MS 11-04 13:24
PROVIDERS: ADMIT Hospitalist; ATTEND Internal Medicine
PROC: 5A0935Z Assistance with Respiratory Ventilation, Less than 24 Consecutive Hours (ICD-10-PCS; principal; 2019-10-24)
PROC: 02HV33Z Insertion of Infusion Device into Superior Vena Cava, Percutaneous Approach (ICD-10-PCS; 2019-10-24)
DX: A41.9 Sepsis, unspecified organism (principal); N39.0 Urinary tract infection, site not specified; K70.10 Alcoholic hepatitis without ascites; R79.89 Other specified abnormal findings of blood chemistry; R74.8 Abnormal levels of other serum enzymes; R74.0 Nonspecific elevation of levels of transaminase and lactic acid dehydrogenase [LDH]; J69.0 Pneumonitis due to inhalation of food and vomit; T14.8XXA Other injury of unspecified body region, initial encounter; J96.01 Acute respiratory failure with hypoxia; F10.288 Alcohol dependence with other alcohol-induced disorder; C25.9 Malignant neoplasm of pancreas, unspecified; C78.7 Secondary malignant neoplasm of liver and intrahepatic bile duct; F10.239 Alcohol dependence with withdrawal, unspecified; Z68.41 Body mass index [BMI] 40.0-44.9, adult; Z51.5 Encounter for palliative care; K70.30 Alcoholic cirrhosis of liver without ascites; E87.6 Hypokalemia; R29.898 Other symptoms and signs involving the musculoskeletal system; T79.6XXA Traumatic ischemia of muscle, initial encounter; H54.7 Unspecified visual loss; I10 Essential (primary) hypertension; K59.09 Other constipation; G89.29 Other chronic pain; M54.9 Dorsalgia, unspecified; M54.2 Cervicalgia; M19.90 Unspecified osteoarthritis, unspecified site; E66.9 Obesity, unspecified; I35.0 Nonrheumatic aortic (valve) stenosis; R79.1 Abnormal coagulation profile; I49.3 Ventricular premature depolarization; R41.0 Disorientation, unspecified; Z79.82 Long term (current) use of aspirin; Z79.899 Other long term (current) drug therapy; Z98.49 Cataract extraction status, unspecified eye; W19.XXXA Unspecified fall, initial encounter
CPT/HCPCS: 36415; 36600; 51702; 71045 ×2; 80053; 80305; 80307; 81001; 82550; 82803; 83605; 84145; 85025; 85610; 85730; 86140; 87040 ×2; 87086; 87088; 93005; 93010; 96361; 96365; 96368; 99285 ×2; A9270 ×2; J0696; J3480; J7030 ×2; J7050; 70551; 70551-26; 74176; 74176-26; 74177; 74177-26; 76705; 76705-26; 82140; 83735; 84132; 84295; 85027; 93306; 94640; 94660; 97110-GP; 97162-GP; C1751; J0713; J1170; J1940; J2001; J2270; J2543; J2920; J3411; J3430; J3475; J3490; J7060; J7620-GY; Q9967